=== PATIENT | female | born 1965 | race Caucasian/White ===

== ENCOUNTER → 2017-01-16 | Outpatient (CLI) | payer OTHER ==
[~2017-01-16] MED LIST: ASPI325T39 PO; BCTCR EXT; CALC8.5C PO; CARB1SOL8 OTB; CLR10 PO; DOCU1TAB6 PO; FISHOIL PO; FRS/40 PO; HYDRSOL30 OTB; ISOS30TA3 PO; LACT12LO3 TOP; LEVO50TA6 PO; LISI-789 PO; LITH300T2 PO; MULTTAB58 PO; NPHOPS12 OPB; POLY1GRA PO; POTA10CA28 PO; POTA1CAP2 PO; PRIM250T30 PO; QUET1TAB7 PO; QUET1TAB90 PO; QUET50TA14 PO; SIMV40TA2 PO; SKINCRE34 TOP; TPRSR/25 PO; TRIA0.022 TOP; VITA400C3 PO
[2017-01-16 09:54] LABS: CHOLESTEROL/HDL RATIO 2.2
== END | disposition home or self-care (01) ==
LOC: C.LAB1850 07:31
PROVIDERS: ATTEND Family Medicine
DX: E78.00 Pure hypercholesterolemia, unspecified (principal)

== ENCOUNTER → 2017-07-17 | Outpatient (CLI) | payer OTHER ==
[2017-07-17 09:53] LABS: ALB/GLOB RATIO 1.1 (0.9-2); ALKALINE PHOSPHATASE 89 U/L (45-117); ALT/SGPT 24 U/L (12-78); AST/SGOT 21 U/L (15-37); BLOOD UREA NITROGEN 17 mg/dl (7-18); BUN/CREATININE RATIO 24.6 (10-20); CALCIUM 9.1 mg/dl (8.5-10.1); CARBON DIOXIDE 30 mmol/L (21-32); CHLORIDE 104 mmol/L (98-107); CREATININE 0.68 mg/dl (0.60-1.20); GLUCOSE 129 mg/dl (70-99); POTASSIUM 3.9 mmol/L (3.5-5.1); SODIUM 141 mmol/L (136-145)
[2017-07-17 10:02] LABS: THYROID STIMULATING HORMONE 0.922 uIu/ml (0.300-4.500)
== END | disposition home or self-care (01) ==
LOC: C.LAB1850 08:03
PROVIDERS: ATTEND Psychiatry & Neurology Psychiatry
DX: Z51.81 Encounter for therapeutic drug level monitoring (principal); Z79.899 Other long term (current) drug therapy

== ENCOUNTER → 2017-07-24 | Outpatient (CLI) | payer OTHER | END | disposition home or self-care (01) | LOC: C.PAPS 14:38 | PROVIDERS: ATTEND Physician Assistant | DX: Z12.4 Encounter for screening for malignant neoplasm of cervix (principal); Z11.51 Encounter for screening for human papillomavirus (HPV) ==

== ENCOUNTER → 2017-07-31 | Outpatient (CLI) | payer OTHER | END | disposition home or self-care (01) | LOC: C.LAB1850 08:24 | PROVIDERS: ATTEND Psychiatry & Neurology Psychiatry | DX: Z79.899 Other long term (current) drug therapy (principal); Z11.59 Encounter for screening for other viral diseases ==

== ENCOUNTER 2017-09-19 12:08 | Emergency (ER) | payer OTHER ==
[~2017-09-19 12:08] MED LIST changes: -PRIM250T30 PO; +PRIM250T9 PO
[2017-09-19 12:14] VITALS: TEMP 36.8
--- NOTE | 2017-09-19 13:31 | EMERGENCY ROOM VISIT NOTE ---
History Report prepared by Sarah: Lizbeth Kaplan Under the Supervision of: Dr. Anup Henley M.D. First contact with patient: 13:05 Chief Complaint: CHOKING Stated Complaint: CHOKING Nursing Triage Summary: Pt arrived via BLS litter from [facility] s/p choking on vegetables. Per EMS, back thrusts performed, pt coughed up the vegetables then chewed then up and ate them. Pt denies complaints on arrival. History of Present Illness The patient is a 52 year old female who presents to the Emergency Room with complaints of a resolved choking episode that occurred at 1145--1-2 hours ago. The patient is a resident at [facility] and was brought to the Emergency Department via EMS. The patients caregivers state that the patient has a history of Mental Retardation. Her caregivers noted that the patient was eating vegetables, when she had an episode of choking. The caregiver states that she first patted the patient on the back and when the piece of food did not dislodge, she performed the Heimlich. The caregiver then notes that the patient brought the food back up but ended up swallowing it. The caregiver notes that the patient has a history of choking because the patient tends to eat too fast. HPI limited secondary to MR. Source of History: caregiver History Limited By: other (Mental Retardation ) Onset: 1145 Position: other (global) Quality: other (choking) Review of Systems ROS limited secondary to MR. Past Medical & Surgical Medical Problems: (1) Mental retardation Family History Unobtainable secondary to MR. Social History Smoking Status: Unknown if Ever Smoked Housing Status: assisted living Current/Historical Medications Scheduled Acetic Acid (Otic) (Acetic Acid), 4 DROPS OTB 2XWK Aspirin (Aspirin Ec), 325 MG PO DAILY Betamethasone Dip (Betamethasone Dipropionat), 1 APPLN TOP BID Carbamide Peroxide (Otic) (Debrox), 4 DROPS OTB 2XWK Cetirizine (Zyrtec), 10 MG PO DAILY Docusate Sodium (Colace), 1 CAP PO DAILY Eucerin (Eucerin), 1 APPLN TOP BID Fish Oil ([place]-3), 1 CAP PO TID Furosemide (Lasix), 40 MG PO BID Isosorbide Mononitrate Ext Rel (Imdur Ext Rel), 30 MG PO QAM Lactic Acid (Ammonium Lactate Cream 12%), 1 DOSE TOP UD Levothyroxine Sodium (Levothyroxine Sodium), 1 TAB PO DAILY Lisinopril (Zestril), 1 TAB PO DAILY Antler Carbonate (Antler Carbonate), 3 TAB PO HS Metoprolol Succ (Toprol Xl) (Toprol-Xl), 25 MG PO DAILY Multivitamins/Minerals (Cerovite Advanced Formula), 1 TAB PO DAILY Mupirocin 2% (Bactroban 2%), 1 APPLN EXT UD Naphazoline/Pheniramine (Naphcon-A), 1 DROP OPB BID Potassium Chloride (Micro-K Ext Rel), 2 TAB PO QAM Potassium Chloride (Micro-K Ext Rel), 1 TAB PO QPM Primidone (Mysoline), 250 MG PO DAILY Quetiapine Fumarate (Seroquel), 2 TAB PO 1200 Quetiapine Fumarate (Seroquel), 300 MG PO HS Quetiapine Fumarate (Seroquel Xr), 2 TAB PO DAILY Quetiapine Fumarate (Seroquel), 25 MG PO 1200 Sertraline (Zoloft), 25 MG PO DAILY Silver Sulfadiazine (Silvadene), 1 APPLN TOP DAILY Simvastatin (Zocor), 40 MG PO QPM Vitamin E (Ygoz-H-Gfize), 1 CAP PO BID Allergies Coded Allergies: Carbamazepine (Verified Allergy, Unknown, 09/19/17) Fabric Softeners (Unverified Allergy, Unknown, ., 09/19/17) Penicillins (Verified Allergy, Unknown, 09/19/17) Phenytoin (Verified Allergy, Unknown, 09/19/17) Unobtainable (Unverified Allergy, Unknown, PERFUME, 09/19/17) Valproic Acid (Unverified Allergy, Unknown, UNKNOWN, 09/19/17) Pseudoephedrine (Unverified Adverse Reaction, Unknown, UNKNOWN, 09/19/17) Physical Exam Vital Signs Date Time Temp Pulse Resp B/P (MAP) Pulse Ox O2 Delivery O2 Flow Rate FiO2 09/19/17 14:01 82 18 104/65 97 Room Air 09/19/17 12:14 97 Room Air 09/19/17 12:14 36.8 73 18 104/65 97 Room Air Physical Exam GENERAL: Patient is in no acute distress. HEENT: No acute trauma, normocephalic atraumatic, mucous membranes moist, no nasal congestion, no scleral icterus. NECK: No stridor, no adenopathy, no meningismus, trachea is midline. LUNGS: Clear to auscultation bilaterally, no wheeze, no rhonchi, breath sounds equal. HEART: Without murmurs gallops or rubs, regular rate and rhythm. ABDOMEN: Soft, nontender, bowel sounds positive, no hernias, no peritonitis. EXTREMITIES: No cyanosis or edema, full range of motion of all the joints without pain or difficulty, no signs for acute trauma. NEUROLOGIC: Awake and alert. Moving all extremities. Mental retardation noted. Skin: No rash or jaundice. Medical Decision & Procedures ER Provider Diagnostic Interpretation: Radiology results as stated below per my review and radiologist interpretation: SINGLE VIEW CHEST CLINICAL HISTORY: Choking episode. FINDINGS: An AP, portable, upright chest radiograph is compared to study dated 04/21/2015. The examination is degraded by portable technique and patient rotation. The cardiomediastinal silhouette is unremarkable. There are patchy bibasilar airspace opacities. The upper lobes appear clear. No large pleural effusion or pneumothorax is seen. The skeletal structures are osteopenic. The bony thorax is grossly intact. IMPRESSION: Patchy airspace opacities are present at both lung bases. Correlate clinically for evidence of an infectious/inflammatory pneumonitis. Radiographic follow-up to resolution is recommended. Electronically signed by: Anup Dow M.D. 09/19/2017 2:04 PM ED Course 1315: The patient was evaluated in room B3. A complete history and physical exam was performed. 1421: Reevaluated the patient. Discussed results and discharge instructions: The patient's caregiver verbalized understanding and agreement. The patient is ready for discharge. Medical Decision The patient is a 52 year old female who presents to the ED with complaints of choking. Differential diagnoses considered include Choking episode, Respiratory distress, Pulmonary foreign body. The patient presents after a choking episode. Back thrusts and the Heimlich maneuver were performed. The patient did eventually swallow the piece of food that was caught in the trachea. The patient now is doing well and is back to baseline. On exam, her lungs are clear. She is not hypoxic or toxic. Chest film shows some potential atelectasis at the bases, no pneumonia, no pneumothorax. The patient is not coughing, she looks well. She is being discharged. The caregivers will watch closely for fever, cough or any dyspnea. Blood Pressure Screening Patient's blood pressure: Normal blood pressure Impression Primary Impression: Choking episode Scribe Attestation The scribe's documentation has been prepared under my direction and personally reviewed by me in its entirety. I confirm that the note above accurately reflects all work, treatment, procedures, and medical decision making performed by me. Departure Information Dispostion Home / Self-Care Referrals Salomon Andrade III, CRNP (PCP) Forms HOME CARE DOCUMENTATION FORM, IMPORTANT VISIT INFORMATION Patient Instructions My [facility] Additional Instructions return for cough, if seems short of breath or has fever chest film today was ok lungs sounded clear on exam
[2017-09-19] MEDS ORDERED: SIMV40TA2 PO (13:58)
[2017-09-19] MEDS ORDERED: DOCU-94 PO (13:58)
[2017-09-19] MEDS ORDERED: MULT-878 PO (13:58)
[2017-09-19] MEDS ORDERED: METO25TA3 PO (13:58)
[2017-09-19] MEDS ORDERED: LCHC12280 TOP (13:58)
[2017-09-19] MEDS ORDERED: SKINCRE34 TOP (13:58)
[2017-09-19] MEDS ORDERED: FRS/40 PO (13:58)
[2017-09-19] MEDS ORDERED: ASPI325T39 PO (13:58)
[2017-09-19] MEDS ORDERED: SILV1CRE73 TOP (13:58)
[2017-09-19] MEDS ORDERED: ISOS30TA3 PO (13:58)
[2017-09-19] MEDS ORDERED: LISI-789 PO (13:58)
[2017-09-19] MEDS ORDERED: CARB1SOL8 OTB (13:58)
[2017-09-19] MEDS ORDERED: BCTCR/30 EXT (13:58)
[2017-09-19] MEDS ORDERED: QUET50TA14 PO (13:58)
[2017-09-19] MEDS ORDERED: CETI10TA84 PO (13:58)
[2017-09-19] MEDS ORDERED: LEVO50TA6 PO (13:58)
[2017-09-19] MEDS ORDERED: POTA10CA28 PO ×2 (13:58)
[2017-09-19] MEDS ORDERED: [UNRECOGNIZED DRUG - CODE] PO (13:58)
[2017-09-19] MEDS ORDERED: NPHA OPB (13:58)
[2017-09-19] MEDS ORDERED: QUET1TAB30 PO (13:58)
[2017-09-19] MEDS ORDERED: LITH150C6 PO (13:58)
[2017-09-19] MEDS ORDERED: PRIM250T9 PO (13:58)
[2017-09-19] MEDS ORDERED: DPRSCR15 TOP (13:58)
[2017-09-19] MEDS ORDERED: SERT25TA PO (13:58)
[2017-09-19] MEDS ORDERED: QUET1TAB37 PO (13:58)
[2017-09-19] MEDS ORDERED: OMEG10007 PO (13:58)
[2017-09-19] MEDS ORDERED: QUET1TAB7 PO (13:58)
[2017-09-19] MEDS ORDERED: ACET2SOL7 OTB (13:58)
[2017-09-19 14:01] VITALS: BP 104/65; PULSE 82; O2SAT 97
--- NOTE | 2017-09-19 14:06 | DIAGNOSTIC IMAGING REPORT ---
SINGLE VIEW CHEST CLINICAL HISTORY: Choking episode. FINDINGS: An AP, portable, upright chest radiograph is compared to study dated 04/21/2015. The examination is degraded by portable technique and patient rotation. The cardiomediastinal silhouette is unremarkable. There are patchy bibasilar airspace opacities. The upper lobes appear clear. No large pleural effusion or pneumothorax is seen. The skeletal structures are osteopenic. The bony thorax is grossly intact. IMPRESSION: Patchy airspace opacities are present at both lung bases. Correlate clinically for evidence of an infectious/inflammatory pneumonitis. Radiographic follow-up to resolution is recommended. Electronically signed by: Anup Dow M.D. 09/19/2017 2:04 PM Dictated Date/Time: 09/19/2017 2:03 PM
== END 2017-09-19 14:20 | disposition home or self-care (01) ==
LOC: EDBD 12:08 → C.EDB 12:09
DX: T17.408A Unspecified foreign body in trachea causing other injury, initial encounter (principal); X58.XXXA Exposure to other specified factors, initial encounter; F79 Unspecified intellectual disabilities; Z79.82 Long term (current) use of aspirin; Z79.899 Other long term (current) drug therapy

== ENCOUNTER → 2017-11-13 | Outpatient (CLI) | payer OTHER ==
[~2017-11-13] MED LIST changes: +ACET2SOL7 OTB; -BCTCR EXT; +BCTCR/30 EXT; -CALC8.5C PO; +CETI10TA84 PO; -CLR10 PO; +DOCU-94 PO; -DOCU1TAB6 PO; +DPRSCR15 TOP; -FISHOIL PO; -HYDRSOL30 OTB; -LACT12LO3 TOP; +LCHC12280 TOP; +LITH150C6 PO; -LITH300T2 PO; +METO25TA3 PO; +MULT-878 PO; -MULTTAB58 PO; +NPHA OPB; -NPHOPS12 OPB; +OMEG10007 PO; -POLY1GRA PO; -POTA1CAP2 PO; +QUET1TAB30 PO; +QUET1TAB37 PO; -QUET1TAB90 PO; +SERT25TA PO; +SILV1CRE73 TOP; -TPRSR/25 PO; -TRIA0.022 TOP; -VITA400C3 PO; +[UNRECOGNIZED DRUG - CODE] PO
[2017-11-13 09:49] LABS: BLOOD UREA NITROGEN 13 mg/dl (7-18); CALCIUM 9.4 mg/dl (8.5-10.1); CARBON DIOXIDE 28 mmol/L (21-32); CREATININE 0.65 mg/dl (0.60-1.20); GLUCOSE 118 mg/dl (70-99); POTASSIUM 3.6 mmol/L (3.5-5.1); SODIUM 139 mmol/L (136-145)
== END | disposition home or self-care (01) ==
LOC: C.LAB1850 08:06
PROVIDERS: ATTEND Psychiatry & Neurology Psychiatry
DX: Z79.899 Other long term (current) drug therapy (principal)

== ENCOUNTER → 2018-01-21 | Outpatient (CLI) | payer OTHER ==
[2018-01-21 09:33] LABS: BASO % 0.7 %; BASO ABS # 0.05 K/uL (0-0.2); EOS % 5.7 %; EOS ABS # 0.43 K/uL (0-0.5); HEMATOCRIT 38.6 % (37-47); HEMOGLOBIN 12.8 g/dL (12.0-16.0); IG# 0.01 K/uL (0.00-0.02); LYMPH % 20.6 %; LYMPH ABS # 1.56 K/uL (1.2-3.4); MEAN CELL VOLUME 104.6 fL (80-100); MEAN CORPUSCULAR HEMOGLOBIN 34.7 pg (25-34); MEAN CORPUSCULAR HGB CONC 33.2 g/dl (32-36); MEAN PLATELET VOLUME 10.2 fL (7.4-10.4); MONO % 11.1 %; MONO ABS # 0.84 K/uL (0.11-0.59); NEUT % 61.8 %; NEUT ABS # 4.67 K/uL (1.4-6.5); PLATELET COUNT 290 K/uL (130-400); RED CELL DISTRIBUTION WIDTH SD 53.8 fL (36.4-46.3); WHITE BLOOD COUNT 7.56 K/uL (4.8-10.8)
[2018-01-21 10:01] LABS: ALBUMIN 3.5 gm/dl (3.4-5.0); ALKALINE PHOSPHATASE 145 U/L (45-117); ALT/SGPT 29 U/L (12-78); AST/SGOT 36 U/L (15-37); BLOOD UREA NITROGEN 10 mg/dl (7-18); CARBON DIOXIDE 29 mmol/L (21-32); CREATININE 0.62 mg/dl (0.60-1.20); GLUCOSE 79 mg/dl (70-99); POTASSIUM 3.9 mmol/L (3.5-5.1); SODIUM 140 mmol/L (136-145); TOTAL PROTEIN 7.4 gm/dl (6.4-8.2)
[2018-01-21 10:07] LABS: CHOLESTEROL 165 mg/dl (0-200); LDL CHOLESTEROL CALCULATED 73 mg/dl
== END | disposition home or self-care (01) ==
LOC: C.LAB1850 07:58
PROVIDERS: ATTEND Neuromusculoskeletal Medicine & OMM
DX: Z79.899 Other long term (current) drug therapy (principal); Z00.00 Encounter for general adult medical examination without abnormal findings; E03.9 Hypothyroidism, unspecified; E78.00 Pure hypercholesterolemia, unspecified; I10 Essential (primary) hypertension

== ENCOUNTER 2018-11-27 10:36 | Observation (INO) ==
[2018-11-27] MEDS ORDERED: LORazepam 1 MG/2 ML VIAL IV STA (12:24)
[2018-11-27 13:31] LABS: Basophils # (auto) 0.05 K/uL (0-0.2); Basophils % (auto) 0.9 %; Eosinophils # (auto) 0.51 K/uL (0-0.5); Eosinophils % (auto) 8.8 %; Hematocrit (blood only) 37.6 % (37-47); Hemoglobin 12.2 g/dL (12.0-16.0); Immature Granulocytes # (auto) 0.01 K/uL (0.00-0.02); Immature Granulocytes % (auto) 0.2 %; Lymphocytes # (auto) 1.87 K/uL (1.2-3.4); Lymphocytes % (auto) 32.2 %; Mean Corpuscular Hgb Conc 32.4 g/dL (32-36); Mean Corpuscular Volume 105.3 fL (80-100); Monocytes # (auto) 0.56 K/uL (0.11-0.59); Monocytes % (auto) 9.6 %; Neutrophils # (auto) 2.81 K/uL (1.4-6.5); Neutrophils % (auto) 48.3 %; Platelet Count 310 K/uL (130-400); RDW Coefficient of Variation 14.3 % (11.5-14.5); RDW Standard Deviation 55.5 fL (36.4-46.3); Red Blood Count 3.57 M/uL (4.2-5.4); White Blood Count 5.81 K/uL (4.8-10.8)
[2018-11-27 13:44] LABS: INR 0.9 (0.9-1.1); Prothrombin Time 9.5 Seconds (9.0-12.0)
[2018-11-27 13:48] LABS: Blood Urea Nitrogen 15 mg/dl (7-18); Calcium 8.9 mg/dl (8.5-10.1); Carbon Dioxide 30 mmol/L (21-32); Chloride 104 mmol/L (98-107); Creatinine Clr Calc Pharmacy 87.7 ml/min; Est GFR (African American) 125.5; Est GFR (Non-African American) 108.3; Glucose 83 mg/dl (70-99); Magnesium 2.7 mg/dl (1.8-2.4); Potassium 3.9 mmol/L (3.5-5.1); Sodium 139 mmol/L (136-145)
[2018-11-27 13:53] LABS: Troponin I < 0.015 ng/ml (0-0.045)
[2018-11-27] MEDS ORDERED: DiphenhydrAMINE HCL 50 MG/ML VIAL IV STA (13:58)
[2018-11-27] MEDS ORDERED: SODIUM CHLORIDE 0.9% 1000ML 250 ML IV ONE (14:00)
--- NOTE | 2018-11-27 14:25 | Magnetic Resonance Report ---
MRI OF THE BRAIN WITHOUT IV CONTRAST CLINICAL HISTORY: Strokelike symptoms. COMPARISON STUDY: CT of the brain dated 11/22/2018. TECHNIQUE: MRI of the brain was performed utilizing axial diffusion-weighted, axial T1 and T2, and sa gittal T1 weighted sequences. The patient was not cooperative for additional imaging. FINDINGS: Brain parenchyma: There is a small focus of restricted diffusion identified in the right posterior fr ontal cortex consistent acute to subacute ischemia. No additional foci of restricted diffusion are id entified. There is no hemorrhage or mass effect. There are involutional changes noting mild subcortic al and periventricular microangiopathic disease. Prominent perivascular spaces are noted in the basal ganglia. No extra-axial fluid collection is seen. The cerebellar tonsils are normal in configuration . Ventricles, sulci, and cisterns: Prominent secondary to involutional change. Pituitary and sella: Unremarkable. Intracranial vasculature: Normal flow voids are maintained at the skull base. Orbits: The bony orbits are grossly intact. Orbital contents are normal in appearance. Sinuses and mastoids: Moderate mucosal thickening is seen in the right maxillary antrum and moderate mucosal thickening is noted in the left maxillary antrum. Mucosal thickening is also seen in the ethm oid sinuses. The mastoid air cells are well pneumatized. Calvarium: Unremarkable. Cervical cord: Partially visualized cervical spinal cord is normal in morphology and signal intensity . IMPRESSION: 1. There is a small focus of restricted diffusion identified involving the right posterior frontal co rtex consistent with acute to subacute ischemia. 2. No additional foci of acute ischemia are identified. 3. There is no hemorrhage or mass effect. Electronically signed by: Anup Dow M.D. 11/27/2018 2:24 PM
--- NOTE | 2018-11-27 15:31 | Emergency Department Note ---
Entered by Alia Morin acting as a scribe for History of Present Illness General Chief complaint: Neuro Symptoms/Deficit Source: patient, family and other (Skills worker) History of Present Illness Provider complaint: neurological symptoms Onset (ago): day(s) 5 Location: head Pain Consistency: + intermittent Quality: + other (facial droop, lethargic) Associated symptoms: + denies other symptoms (denies abdominal pain) The patient is a 53 year old female who presents to the Emergency Room with complaints of intermittent neurological symptoms beginning 5 nights ago. Per combat systems officer, the patient was diagnosed with a TIA and UTI. Her family states that the patient's symptoms were resolved by the time she was home. Per family, the patient was here 5 nights ago as she had developed a facial droop. Her family states that the patient was lethargic today, not following directions well, and was hard to wake up. Per Skills worker, it is unusual for the patient to be as quiet as she is today. Per Skills worker, the patient also had a facial droop today. Workers state that the patient's speech is at baseline currently. Her family states that the patient does not have a history of a stroke or problems with blood sugars. The patient denies having abdominal pain. Per workers, the patient has not had any recent falls. Home Medications Home Medications Medication Instructions Recorded Confirmed Type Wdco-B-Dllns 400 unit PO BID 11/22/18 11/27/18 History acetic acid 4 drp OTIC (EAR) 2XWK 11/22/18 11/27/18 History betamethasone dipropionate 1 applic TOPICAL BID 11/22/18 11/27/18 History carbamide peroxide [Debrox] 4 drp OTIC (EAR) 2XWK 11/22/18 11/27/18 History cetirizine [Zyrtec] 10 mg PO QAM 11/22/18 11/27/18 History docusate sodium [Colace] 100 mg PO BID 11/22/18 11/27/18 History furosemide [Lasix] 40 mg PO BID 11/22/18 11/27/18 History isosorbide mononitrate 30 mg PO QAM 11/22/18 11/27/18 History levothyroxine [Synthroid] 50 mcg PO QAM 11/22/18 11/27/18 History lisinopril [Zestril] 2.5 mg PO QAM 11/22/18 11/27/18 History metoprolol succinate [Toprol XL] 25 mg PO QAM 11/22/18 11/27/18 History dwtvkfjgfelt-wvpv-vwzro acid 0.5 tab PO QAM 11/22/18 11/27/18 History [Cerovite Advanced Formula] mupirocin 1 applic TOPICAL BID PRN 11/22/18 11/27/18 History naphazoline-pheniramine [Naphcon-A] 1 drp OPHTHALMIC (EYE) BID 11/22/18 History omega 3-pab-gir-fish oil [Fish Oil] 1 cap PO TID 11/22/18 11/27/18 History potassium chloride [Klor-Con M10] 20 meq PO QAM 11/22/18 11/27/18 History primidone [Mysoline] 250 mg PO QAM 11/22/18 11/27/18 History quetiapine [Seroquel] 25 mg PO DAILY@1200 11/22/18 11/27/18 History quetiapine [Seroquel] 200 mg PO HS 11/22/18 11/27/18 History quetiapine [Seroquel] 300 mg PO HS 11/22/18 11/27/18 History white petrolatum-mineral oil 1 applic TOPICAL BID 11/22/18 11/27/18 History [Eucerin] ammonium lactate 1 applic TOPICAL BID 11/27/18 11/27/18 History lithium carbonate 450 mg PO HS 11/27/18 11/27/18 History potassium chloride 10 meq PO HS 11/27/18 11/27/18 History atorvastatin 40 mg PO HS #30 tab 11/28/18 Rx clopidogrel 75 mg PO QAM #30 tab 11/28/18 Rx Allergies Allergy/AdvReac Type Severity Reaction Status Date / Time carbamazepine Allergy Unknown Unknown Verified 11/27/18 11:54 Penicillins Allergy Unknown Unknown Verified 11/27/18 11:54 phenytoin Allergy Unknown Unknown Verified 11/27/18 11:54 valproic acid Allergy Unknown UNKNOWN Unverified 11/27/18 11:54 pseudoephedrine AdvReac Unknown UNKNOWN Unverified 11/27/18 11:54 Fabric Softeners Allergy Unknown . Uncoded 11/27/18 11:54 Past Med/Surg History Medical History TIA (transient ischemic attack) (Acute) Gallstones (Resolved) Social History Current Living Situation: Other Current Living Situation Comment: [facility] Other Information That Helps Us Care for You: No Feels Safe at Home: Yes Safety Concerns: Feels Safe At This Time Smoking Status: Never smoker Do You Dip or Chew Tobacco: No Hx Alcohol Use: No Hx Substance Use: No Beliefs That Will Affect Care: None Preferred Language: Belarusian Review of Systems See HPI for pertinent positives & negatives. and A total of 10 systems reviewed and were otherwise negative Physical Exam Vital Signs Vital Signs - 24 hr 11/28/18 12:00 11/28/18 13:10 11/28/18 15:47 Temperature 36.7 C 37.0 C Temperature Source Oral Axillary Pulse Rate 73 Pulse Rate [Right Finger] 78 Respiratory Rate 21 16 Blood Pressure [Left Arm] 119/74 135/86 Blood Pressure Mean [Left Arm] 89 102 Blood Pressure Position [Left Arm] Lying Lying Pulse Oximetry 96 98 Oxygen Delivery Method Room Air 11/28/18 16:08 11/28/18 16:29 Temperature 37.0 C Temperature Source Pulse Rate 97 H Pulse Rate [Right Finger] 78 Respiratory Rate 16 Blood Pressure [Left Arm] 135/86 Blood Pressure Mean [Left Arm] Blood Pressure Position [Left Arm] Pulse Oximetry 98 Oxygen Delivery Method Vital signs reviewed. General: Chronically ill-appearing female, in no significant distress. HEENT: No scleral icterus, PERRLA, neck supple. Atraumatic. Cardiovascular: Regular rate and rhythm, no extra sounds. Pulmonary: Clear to auscultation bilaterally, normal work of breathing. Abdomen: Soft, nontender, nondistended, positive bowel sounds. Musculoskeletal: Atraumatic, no peripheral edema. Neurologic: Minimally verbal but at baseline. Moves all extremities equally. Cranial nerves intact. Follows commands with some reassurance. No appreciable ataxia Skin: Warm, dry, no rash Course 1212: Past medical records reviewed. The patient was evaluated in room B5, and a complete history and physical examination were performed. 1444: I updated the patient's family who verbalized agreement and understanding of the treatment plan. 1459: I discussed the patient's case with Dr. Fredi Jimenez who will evaluate the patient for further management. Consultations Consultation #1: Dr. Fredi Jimenez Time: 14:59 Administered Medications Discontinued Medications Acetic Acid (Vosol 2% Otic) 4 drops OT MoTh@0900 OLYA Stop: 12/28/18 08:59 Last Admin: 11/28/18 09:35 Dose: 4 drops Aspirin (Ecotrin) 325 mg PO QAM OLYA Stop: 12/28/18 08:59 Last Admin: 11/28/18 09:30 Dose: 325 mg Betamethasone Dipropion Augmented (Diprolene 0.05%) 1 appln TOP BID OLYA Stop: 12/27/18 20:59 Last Admin: 11/28/18 09:29 Dose: 1 appln Admin: 11/27/18 21:34 Dose: Not Given Cefdinir (Omnicef) 300 mg PO BID OLYA Stop: 12/02/18 20:59 Last Admin: 11/28/18 09:34 Dose: 300 mg Admin: 11/27/18 21:32 Dose: 300 mg Cetirizine HCl (Zyrtec) 10 mg PO QAM OLYA Stop: 12/28/18 08:59 Last Admin: 11/28/18 09:35 Dose: 10 mg Clopidogrel Bisulfate (Plavix) 75 mg PO QAM OLYA Stop: 12/28/18 09:29 Last Admin: 11/28/18 10:02 Dose: 75 mg Diphenhydramine HCl (Benadryl) 25 mg IV NOW STA Stop: 11/27/18 13:59 Last Admin: 11/27/18 14:28 Dose: Not Given Docusate Sodium (Colace) 100 mg PO BID OLYA Stop: 12/27/18 20:59 Last Admin: 11/28/18 09:29 Dose: 100 mg Admin: 11/27/18 21:31 Dose: 100 mg Fish Oil (Hostetter-3 (Purified Fish Oil)) 1 gm PO TID OLYA Stop: 12/27/18 20:59 Last Admin: 11/28/18 13:51 Dose: 1 gm Admin: 11/28/18 09:33 Dose: 1 gm Admin: 11/27/18 21:30 Dose: 1 gm Lorazepam (Ativan) 1 mg in 2 mls @ 2 mls/min IV NOW STA Stop: 11/27/18 12:25 Last Admin: 11/27/18 13:20 Dose: 2 mls/min Sodium Chloride (Nss 1000ml) 250 mls @ 999 mls/hr IV .Q16M ONE Stop: 11/27/18 14:15 Last Infusion: 11/27/18 16:04 Dose: 0 mls/hr Admin: 11/27/18 15:35 Dose: 999 mls/hr Lorazepam (Ativan) 0.5 mg in 1 mls @ 0.5 mls/min IV Q1H PRN PRN Reason: Agitation Stop: 12/27/18 20:09 Last Admin: 11/28/18 10:35 Dose: 0.5 mls/min Sodium Chloride (Nss 1000ml) 250 mls @ 999 mls/hr IV .Q16M ONE Stop: 11/28/18 08:25 Last Infusion: 11/28/18 09:27 Dose: 0 mls/hr Admin: 11/28/18 09:10 Dose: 999 mls/hr Ioversol (Optiray 320 125ml) 93 ml IV ONCE PRN PRN Reason: Interaction Checking Stop: 12/02/18 11:39 Last Admin: 11/28/18 11:41 Dose: 93 ml Lactic Acid (Amlactin) 1 gm EXT BID OLYA Stop: 12/27/18 20:59 Last Admin: 11/28/18 09:57 Dose: 1 gm Admin: 11/27/18 21:35 Dose: 1 gm Levothyroxine Sodium (Synthroid) 50 mcg PO DAILYBB OLYA Stop: 12/28/18 06:29 Last Admin: 11/28/18 05:48 Dose: 50 mcg Opal Carbonate (Eskalith) 450 mg PO HS OLYA Stop: 12/27/18 20:59 Last Admin: 11/27/18 21:31 Dose: 450 mg Metoprolol Succinate (Toprol Xl) 25 mg PO QAM OLYA Stop: 12/28/18 08:59 Last Admin: 11/28/18 09:34 Dose: Not Given Multi-Ingredient Cream (Hydrocerin) 1 appln TOP BID OLYA Stop: 12/27/18 20:59 Last Admin: 11/28/18 09:31 Dose: 1 appln Admin: 11/27/18 21:33 Dose: 1 appln Multivitamins/Minerals (Multivitamin W/ Minerals Tab) 0.5 tab PO QAM OLYA Stop: 12/28/18 08:59 Last Admin: 11/28/18 09:32 Dose: 0.5 tab Mupirocin (Bactroban 2%) [address] [facility] Stop: 12/27/18 20:59 Last Admin: 11/28/18 09:29 Dose: 1 appln Admin: 11/27/18 21:35 Dose: Not Given Naphazoline HCl/Pheniramine Maleate (Visine-A) [address] [facility] Stop: 12/27/18 20:59 Last Admin: 11/28/18 09:34 Dose: 1 drops Admin: 11/27/18 21:35 Dose: 1 drops Potassium Chloride (Klor-Con M10) 10 meq PO [facility] Stop: 12/27/18 20:59 Last Admin: 11/27/18 21:32 Dose: 10 meq Potassium Chloride (Klor-Con M10) [facility] [place]: 12/28/18 08:59 Last Admin: 11/28/18 09:31 Dose: 20 meq Primidone (Mysoline) 250 mg PO [facility] Stop: 12/28/18 08:59 Last Admin: 11/28/18 09:33 Dose: 250 mg Quetiapine Fumarate (Seroquel) 25 mg PO DAILY@1200 [facility] Stop: 12/28/18 11:59 Last Admin: 11/28/18 13:51 Dose: 25 mg Quetiapine Fumarate (Seroquel) 300 mg PO [facility] Stop: 12/27/18 20:59 Last Admin: 11/27/18 21:32 Dose: 300 mg Quetiapine Fumarate (Seroquel) 200 mg PO [facility] Stop: 12/27/18 20:59 Last Admin: 11/27/18 21:30 Dose: 200 mg Simvastatin (Zocor) 40 mg PO [facility] Stop: 12/27/18 20:59 Last Admin: 11/27/18 21:36 Dose: 40 mg Vitamin E (Vitamin E) [address] [facility] Stop: 12/27/18 20:59 Last Admin: 11/28/18 09:35 Dose: 400 units Admin: 11/27/18 21:37 Dose: 400 units Medical Decision Making Differential Diagnosis Differentials include: ICH, CVA, PNA, bronchitis, PE, UTI, gastroenteritis, electrolyte abnormality, ACS, CHF among others. Medical Records Attestation: I reviewed the patient's medical records. Home Medications Current Medication List: was personally reviewed by me Laboratory Data Attestation: I reviewed the patient's lab results. Result diagrams: 11/27/18 13:13 11/28/18 05:40 Lab Results 11/27/18 11/27/18 11/27/18 Range/Units 12:48 13:13 13:13 WBC 5.81 (4.8-10.8) K/uL RBC 3.57 L (4.2-5.4) M/uL Hgb 12.2 (12.0-16.0) g/dL Hct 37.6 (37-47) % MCV 105.3 H (80-100) fL MCH 34.2 H (25-34) pg MCHC 32.4 (32-36) g/dL RDW Std Deviation 55.5 H (36.4-46.3) fL RDW Coeff of Samm 14.3 (11.5-14.5) % Plt Count 310 (130-400) K/uL MPV 10.0 (7.4-10.4) fL Immature Gran % (Auto) 0.2 % Neut % (Auto) 48.3 % Lymph % (Auto) 32.2 % [place] % (Auto) 9.6 % Eos % (Auto) 8.8 % Baso % (Auto) 0.9 % Immature Gran # (Auto) 0.01 (0.00-0.02) K/uL Neut # (Auto) 2.81 (1.4-6.5) K/uL Lymph # (Auto) 1.87 (1.2-3.4) K/uL [place] # (Auto) 0.56 (0.11-0.59) K/uL Eos # (Auto) 0.51 H (0-0.5) K/uL Baso # (Auto) 0.05 (0-0.2) K/uL PT 9.5 (9.0-12.0) Seconds INR 0.9 (0.9-1.1) Sodium (136-145) mmol/L Potassium (3.5-5.1) mmol/L Chloride (98-107) mmol/L Carbon Dioxide (21-32) mmol/L Anion Gap (3-11) BUN (7-18) mg/dl Creatinine (0.6-1.2) mg/dl Est Cr Clr Drug Dosing ml/min Est GFR ( Amer) Est GFR (Non-Af Amer) BUN/Creatinine Ratio (10-20) Glucose (70-99) mg/dl POC Glucose 80 (70-99) Estimat Average Glucose mg/dl Hemoglobin A1c (4.5-5.6) % Calcium (8.5-10.1) mg/dl Magnesium (1.8-2.4) mg/dl Troponin I (0-0.045) ng/ml Triglycerides (0-150) mg/dl Cholesterol (0-200) mg/dl LDL Cholesterol, Calc mg/dl VLDL Cholesterol, Calc mg/dl HDL Cholesterol mg/dl Cholesterol/HDL Ratio Vitamin B12 (211-911) pg/ml Folate (>5.38) ng/ml Urine Color Urine Appearance (Clear) Urine pH (4.5-7.5) Ur Specific [place] (1.000-1.030) Urine Protein (Negative) Urine Glucose (UA) (Negative) Urine Ketones (Negative) Urine Blood (Negative) Urine Nitrite (Negative) Urine Bilirubin (Negative) Urine Urobilinogen (Negative) Ur Leukocyte Esterase (Negative) Opal (0.6-1.2) mmol/L 11/27/18 11/28/18 11/28/18 Range/Units 13:13 05:40 05:40 WBC (4.8-10.8) K/uL RBC (4.2-5.4) M/uL Hgb (12.0-16.0) g/dL Hct (37-47) % MCV (80-100) fL MCH (25-34) pg MCHC (32-36) g/dL RDW Std Deviation (36.4-46.3) fL RDW Coeff of Samm (11.5-14.5) % Plt Count (130-400) K/uL MPV (7.4-10.4) fL Immature Gran % (Auto) % Neut % (Auto) % Lymph % (Auto) % [place] % (Auto) % Eos % (Auto) % Baso % (Auto) % Immature Gran # (Auto) (0.00-0.02) K/uL Neut # (Auto) (1.4-6.5) K/uL Lymph # (Auto) (1.2-3.4) K/uL [place] # (Auto) (0.11-0.59) K/uL Eos # (Auto) (0-0.5) K/uL Baso # (Auto) (0-0.2) K/uL PT (9.0-12.0) Seconds INR (0.9-1.1) Sodium 139 138 (136-145) mmol/L Potassium 3.9 3.8 (3.5-5.1) mmol/L Chloride 104 108 H (98-107) mmol/L Carbon Dioxide 30 27 (21-32) mmol/L Anion Gap 5.0 3.0 (3-11) BUN 15 10 D (7-18) mg/dl Creatinine 0.52 L 0.48 L (0.6-1.2) mg/dl Est Cr Clr Drug Dosing 87.7 95.2 ml/min Est GFR ( Amer) 125.5 128.9 Est GFR (Non-Af Amer) 108.3 111.2 BUN/Creatinine Ratio 29.0 H 21.0 H (10-20) Glucose 83 77 (70-99) mg/dl POC Glucose (70-99) Estimat Average Glucose 105 mg/dl Hemoglobin A1c 5.3 (4.5-5.6) % Calcium 8.9 8.1 L (8.5-10.1) mg/dl Magnesium 2.7 H (1.8-2.4) mg/dl Troponin I < 0.015 (0-0.045) ng/ml Triglycerides 71 (0-150) mg/dl Cholesterol 129 (0-200) mg/dl LDL Cholesterol, Calc 65 mg/dl VLDL Cholesterol, Calc 14 mg/dl HDL Cholesterol 50 mg/dl Cholesterol/HDL Ratio 3 Vitamin B12 (211-911) pg/ml Folate (>5.38) ng/ml Urine Color Urine Appearance (Clear) Urine pH (4.5-7.5) Ur Specific [place] (1.000-1.030) Urine Protein (Negative) Urine Glucose (UA) (Negative) Urine Ketones (Negative) Urine Blood (Negative) Urine Nitrite (Negative) Urine Bilirubin (Negative) Urine Urobilinogen (Negative) Ur Leukocyte Esterase (Negative) Opal (0.6-1.2) mmol/L 11/28/18 11/28/18 11/28/18 Range/Units 05:40 08:10 10:40 WBC (4.8-10.8) K/uL RBC (4.2-5.4) M/uL Hgb (12.0-16.0) g/dL Hct (37-47) % MCV (80-100) fL MCH (25-34) pg MCHC (32-36) g/dL RDW Std Deviation (36.4-46.3) fL RDW Coeff of Samm (11.5-14.5) % Plt Count (130-400) K/uL MPV (7.4-10.4) fL Immature Gran % (Auto) % Neut % (Auto) % Lymph % (Auto) % [place] % (Auto) % Eos % (Auto) % Baso % (Auto) % Immature Gran # (Auto) (0.00-0.02) K/uL Neut # (Auto) (1.4-6.5) K/uL Lymph # (Auto) (1.2-3.4) K/uL [place] # (Auto) (0.11-0.59) K/uL Eos # (Auto) (0-0.5) K/uL Baso # (Auto) (0-0.2) K/uL PT (9.0-12.0) Seconds INR (0.9-1.1) Sodium (136-145) mmol/L Potassium (3.5-5.1) mmol/L Chloride (98-107) mmol/L Carbon Dioxide (21-32) mmol/L Anion Gap (3-11) BUN (7-18) mg/dl Creatinine (0.6-1.2) mg/dl Est Cr Clr Drug Dosing ml/min Est GFR ( Amer) Est GFR (Non-Af Amer) BUN/Creatinine Ratio (10-20) Glucose (70-99) mg/dl POC Glucose (70-99) Estimat Average Glucose mg/dl Hemoglobin A1c (4.5-5.6) % Calcium (8.5-10.1) mg/dl Magnesium (1.8-2.4) mg/dl Troponin I (0-0.045) ng/ml Triglycerides (0-150) mg/dl Cholesterol (0-200) mg/dl LDL Cholesterol, Calc mg/dl VLDL Cholesterol, Calc mg/dl HDL Cholesterol mg/dl Cholesterol/HDL Ratio Vitamin B12 1135 H (211-911) pg/ml Folate 22.58 (>5.38) ng/ml Urine Color Yellow Urine Appearance Clear (Clear) Urine pH 7.5 (4.5-7.5) Ur Specific [place] 1.010 (1.000-1.030) Urine Protein Negative (Negative) Urine Glucose (UA) Negative (Negative) Urine Ketones Negative (Negative) Urine Blood Negative (Negative) Urine Nitrite Negative (Negative) Urine Bilirubin Negative (Negative) Urine Urobilinogen Negative (Negative) Ur Leukocyte Esterase Negative (Negative) Opal 0.6 (0.6-1.2) mmol/L Imaging Data Radiologist's Impression: Radiology results as stated below per my review and the radiologist's interpretation: MRI OF THE BRAIN WITHOUT IV CONTRAST CLINICAL HISTORY: Strokelike symptoms. COMPARISON STUDY: CT of the brain dated 11/22/2018. TECHNIQUE: MRI of the brain was performed utilizing axial diffusion-weighted, axial T1 and T2, and sagittal T1 weighted sequences. The patient was not cooperative for additional imaging. FINDINGS: Brain parenchyma: There is a small focus of restricted diffusion identified in the right posterior frontal cortex consistent acute to subacute ischemia. No additional foci of restricted diffusion are identified. There is no hemorrhage or mass effect. There are involutional changes noting mild subcortical and periventricular microangiopathic disease. Prominent perivascular spaces are noted in the basal ganglia. No extra-axial fluid collection is seen. The cerebellar tonsils are normal in configuration. Ventricles, sulci, and cisterns: Prominent secondary to involutional change. Pituitary and sella: Unremarkable. Intracranial vasculature: Normal flow voids are maintained at the skull base. Orbits: The bony orbits are grossly intact. Orbital contents are normal in appearance. Sinuses and mastoids: Moderate mucosal thickening is seen in the right maxillary antrum and moderate mucosal thickening is noted in the left maxillary antrum. Mucosal thickening is also seen in the ethmoid sinuses. The mastoid air cells are well pneumatized. Calvarium: Unremarkable. Cervical cord: Partially visualized cervical spinal cord is normal in morphology and signal intensity. IMPRESSION: 1. There is a small focus of restricted diffusion identified involving the right posterior frontal cortex consistent with acute to subacute ischemia. 2. No additional foci of acute ischemia are identified. 3. There is no hemorrhage or mass effect. Electronically signed by: Anup Dow M.D. 11/27/2018 2:24 PM ECG Data Attestation: I personally reviewed and interpreted this ECG as follows: Indication: other (neurological symptoms) Rate (beats per minute): 85 Rhythm: sinus with SA Findings: + other (poor quality baseline for interpretation, prolonged QT, non- specific ST changes) and + PVC Blood Pressure Blood Pressure Findings: Low blood pressure Blood Pressure Disposition: further management by hospitalist MDM Narrative This pt was evaluated and appeared to be in no distress. IV access was obtained and lab work was drawn. Pt was placed on the security monitor. No focal neurologic deficit was found. Records were reviewed from several days ago with negative head CT. As pt has limited ability to cooperate, IV ativan was ordered for MRI. This study reveals acute to subacute posterior right frontal lobe infarct. EKG is a NSR. CXR is clear. Parents were educated to the findings. Pt was d/w the hospitalist service for further evaluation and management. Impression & Plan Cerebrovascular accident Discharge Plan Visit Data *Final* Discharge Date/Time: 11/27/18 19:25 Chief Complaint: Neuro Symptoms/Deficit ED Provider: Chaya Stephens Discharge Problem: Cerebrovascular accident Patient Disposition: Admitted As Inpatient Discharge Instructions Interventions: ED Discharge Assessment Last Done: 11/27/18 19:25 Queries: Stroke Queries Contraindication Not Initiating IV-Tpa: Contraindicated (outside window) Symptom Onset Unknown: No The scribe's documentation has been prepared under my direction and personally reviewed by me in its entirety. I confirm that the note above accurately reflects all work, treatment, procedures, and medical decision making performed by me.
--- NOTE | 2018-11-27 16:24 | History & Physical Report ---
Date of Service November 27, 2018 Assessment & Plan (1) Cerebrovascular accident: Ms. Hsu is a 53-year-old female with a history of hypertension, dilated cardiomyopathy (EF of 25%), hyperlipidemia, bipolar disorder, hypothyroidism, pulmonary hypertension and intellectual disability who presents to the emergency department from a longterm with left-sided facial droop and lethargy. - admit to telemetry - CT negative, MRI shows right posterior frontal cortex stroke - Consult neurology - Stroke workup -> Fasting lipid panel and HbA1c ordered for the morning -> Monitor on telemetry -> Echo ordered -> Bilateral carotid Dopplers ordered -PT/OT/SLT evals (2) Lethargy: -Not likely to be secondary to the stroke -ddx: Dehydration, medication toxicity, infection -Patient received 1 L of IV fluid in the emergency department -Already improving -Check lithium level -check UA (3) UTI (urinary tract infection): -Continue Cefdinir, day 6/7 for UTI -recheck UA (4) CHF (congestive heart failure): -Secondary to dilated cardiomyopathy, follows with Dr. Mcduffie -Patient appears clinically dry -Per review of outpatient records, last echo was done in January 2018 and showed a stable ejection fraction of 25% -Hold Lasix, pending reassessment in the morning -Hold isosorbide mononitrate given hypotension -continue metoprolol w/hold parameters -continue potassium supplementation -Continue daily aspirin (5) HTN (hypertension): -Hypotensive upon arrival to emergency department, s/p 1 L bolus of fluid -Hold home lisinopril (6) Hyperlipidemia: -Continue simvastatin (7) Bipolar 1 disorder: -Continue lithium, obtain lithium level -Continue Seroquel (8) Hypothyroid: -Continue levothyroxine -TSH checked at last ED visit on 11/22 and within normal range (9) DVT prophylaxis: CODE STATUS: DNR, as per discussion with mother Disposition: Admit to telemetry DVT prophylaxis: Low risk, SCDs F/E/N: Heart healthy diet. No electrolyte abnormalities noted. Not on fluids at this time. History of Present Illness Primary Care Provider: Ken Cano DO Ms. Hsu is a 53-year-old female with a history of hypertension, dilated cardiomyopathy (EF of 25%), hyperlipidemia, bipolar disorder, hypothyroidism, pulmonary hypertension and intellectual disability who presents to the emergency department from a longterm with left-sided facial droop and lethargy. They were seen in the emergency department on November 22, 2018 for similar symptoms. Her CT brain at this time was negative. Her symptoms resolved, and they were told that she had suffered from a TIA. She was also treated for UTI at this time. After they were discharged home, her caregiver and her mother report that she was back at baseline, until this morning. Her caregiver notes that she was difficult to awake, she was not following instructions and that she had a left- sided facial droop involving her left eye and side of her mouth. She denies any symptoms of pain, and her caregiver denies any recent fever or chills. She has no sick contacts. She has been moving her bowels normally. She completed 5 days of her course of Cefdiniri for her UTI. Of note, her mother reports that she has a seizure disorder w/prior tonic clonic seizures. She is on medications for this, which have not changed recently. She states Ms. Hsu has not had any seizures since beginning these medications. She does, however states that Ms. Hsu has had a decline in her functional state over the last year, namely that she has been less steady with walking and a decrease in her fine motor activities. Allergies Allergy/AdvReac Type Severity Reaction Status Date / Time carbamazepine Allergy Unknown Unknown Verified 11/27/18 11:54 Penicillins Allergy Unknown Unknown Verified 11/27/18 11:54 phenytoin Allergy Unknown Unknown Verified 11/27/18 11:54 valproic acid Allergy Unknown UNKNOWN Unverified 11/27/18 11:54 pseudoephedrine AdvReac Unknown UNKNOWN Unverified 11/27/18 11:54 Fabric Softeners Allergy Unknown . Uncoded 11/27/18 11:54 Home Medications Home Medications Medication Instructions Recorded Confirmed Type Rztq-T-Xxjqj 400 unit PO BID 11/22/18 11/27/18 History acetic acid 4 drp OTIC (EAR) 2XWK 11/22/18 11/27/18 History aspirin 325 mg PO QAM 11/22/18 11/27/18 History betamethasone dipropionate 1 applic TOPICAL BID 11/22/18 11/27/18 History carbamide peroxide [Debrox] 4 drp OTIC (EAR) 2XWK 11/22/18 11/27/18 History cefdinir 300 mg PO BID 7 Days #14 cap 11/22/18 11/27/18 Rx cetirizine [Zyrtec] 10 mg PO QAM 11/22/18 11/27/18 History docusate sodium [Colace] 100 mg PO BID 11/22/18 11/27/18 History furosemide [Lasix] 40 mg PO BID 11/22/18 11/27/18 History isosorbide mononitrate 30 mg PO QAM 11/22/18 11/27/18 History levothyroxine [Synthroid] 50 mcg PO QAM 11/22/18 11/27/18 History lisinopril [Zestril] 2.5 mg PO QAM 11/22/18 11/27/18 History metoprolol succinate [Toprol XL] 25 mg PO QAM 11/22/18 11/27/18 History apyujtniteay-iqny-qwdhg acid 0.5 tab PO QAM 11/22/18 11/27/18 History [Cerovite Advanced Formula] mupirocin 1 applic TOPICAL BID PRN 11/22/18 11/27/18 History naphazoline-pheniramine [Naphcon-A] 1 drp OPHTHALMIC (EYE) BID 11/22/18 History omega 7-tlr-pqv-fish oil [Fish Oil] 1 cap PO TID 11/22/18 11/27/18 History potassium chloride [Klor-Con M10] 20 meq PO QAM 11/22/18 11/27/18 History primidone [Mysoline] 250 mg PO QAM 11/22/18 11/27/18 History quetiapine [Seroquel] 25 mg PO DAILY@1200 11/22/18 11/27/18 History quetiapine [Seroquel] 200 mg PO HS 11/22/18 11/27/18 History quetiapine [Seroquel] 300 mg PO HS 11/22/18 11/27/18 History simvastatin [Zocor] 40 mg PO HS 11/22/18 11/27/18 History white petrolatum-mineral oil 1 applic TOPICAL BID 11/22/18 11/27/18 History [Eucerin] ammonium lactate 1 applic TOPICAL BID 11/27/18 11/27/18 History lithium carbonate 450 mg PO HS 11/27/18 11/27/18 History potassium chloride 10 meq PO HS 11/27/18 11/27/18 History Past Med/Surg History Medical History TIA (transient ischemic attack) (Acute) Gallstones (Resolved) Social History Current Living Situation: Other Current Living Situation Comment: longterm at a [facility] [place] facility Other Information That Helps Us Care for You: No Feels Safe at Home: Yes Safety Concerns: Feels Safe At This Time Smoking Status: Never smoker Do You Dip or Chew Tobacco: No Hx Alcohol Use: No Hx Substance Use: No Beliefs That Will Affect Care: None Preferred Language: Sudanese Communication Ability: Impaired Communication Ability Comment: understands and is able to foilow commands Review of Systems As provided by the patient's mother and caregiver. Constitutional: + fatigue; no fever and no chills Respiratory: no cough Cardiovascular: no chest pain, no syncope and no calf pain Gastrointestinal: no abdominal pain, no vomiting and no change in bowel habits Genitourinary (Female): no urinary frequency and no decreased urination Neurologic: + unsteadiness, + generalized weakness and + abnormal speech ( Baseline for her); no localized weakness, no tremor(s) and no abnormal movements Physical Exam 2 Vital Signs (Past 24 Hours): Last Vital Signs Temp 36.6 C 11/27/18 10:56 Pulse 74 11/27/18 15:35 Resp 18 11/27/18 15:35 BP 86/61 L 11/27/18 15:35 Pulse Ox 95 11/27/18 15:35 Constitutional: + ill appearing, + thin, + frail appearing, cooperative and comfortable Eyes: PERRL ENMT: external ear and nose normal, oropharynx normal Respiratory: normal respiratory effort, lungs clear to auscultation Cardiovascular: RRR, no murmur, no edema Gastrointestinal (Abdomen): normal bowel sounds, soft, nontender, no hepatosplenomegaly Skin: + dry skin Skin cool to touch Neurologic: CN's II-XI intact bilaterally (Grossly intact, difficult to perform full neuro exam and patient sometimes does not understand commands), moves all extremities and awake Left-sided facial droop, w/drooping left eyelid and left side of mouth. Patient communicates with 1-2 words. Results & Data Laboratory Results Laboratory Results - last 24 hr 11/27/18 11/27/18 11/27/18 12:48 13:13 13:13 WBC 5.81 RBC 3.57 L Hgb 12.2 Hct 37.6 MCV 105.3 H MCH 34.2 H MCHC 32.4 RDW Std Deviation 55.5 H RDW Coeff of Samm 14.3 Plt Count 310 MPV 10.0 Immature Gran % (Auto) 0.2 Neut % (Auto) 48.3 Lymph % (Auto) 32.2 Hart % (Auto) 9.6 Eos % (Auto) 8.8 Baso % (Auto) 0.9 Immature Gran # (Auto) 0.01 Neut # (Auto) 2.81 Lymph # (Auto) 1.87 Hart # (Auto) 0.56 Eos # (Auto) 0.51 H Baso # (Auto) 0.05 PT 9.5 INR 0.9 Sodium Potassium Chloride Carbon Dioxide Anion Gap BUN Creatinine Est Cr Clr Drug Dosing Est GFR ( Amer) Est GFR (Non-Af Amer) BUN/Creatinine Ratio Glucose POC Glucose 80 Calcium Magnesium Troponin I 11/27/18 13:13 WBC RBC Hgb Hct MCV MCH MCHC RDW Std Deviation RDW Coeff of Samm Plt Count MPV Immature Gran % (Auto) Neut % (Auto) Lymph % (Auto) Hart % (Auto) Eos % (Auto) Baso % (Auto) Immature Gran # (Auto) Neut # (Auto) Lymph # (Auto) Hart # (Auto) Eos # (Auto) Baso # (Auto) PT INR Sodium 139 Potassium 3.9 Chloride 104 Carbon Dioxide 30 Anion Gap 5.0 BUN 15 Creatinine 0.52 L Est Cr Clr Drug Dosing 87.7 Est GFR ( Amer) 125.5 Est GFR (Non-Af Amer) 108.3 BUN/Creatinine Ratio 29.0 H Glucose 83 POC Glucose Calcium 8.9 Magnesium 2.7 H Troponin I < 0.015 Supervising Physician Co-Signing Physician Notes I personally examined the patient and verified all almaraz points of history and exam, discussed case, and agree with decision making with Dr Mooney. HPI and review of systems as above, very difficult to ascertain due to her baseline mentation. Family present and corroborate HPI as above. Vitals noted, in general she is awake and pleasant appears to be in no distress. HEENT normocephalic atraumatic mucous membranes are moist. Neurologically she has a very subtle facial droop that corrects mostly with volition although is not completely symmetric. Her tongue shows no deviation uvula shows no deviation. Lav Crewman strength appears to be 5 out of 5 and equal bilaterally and she seems to show no other focal neuro deficits, although of course her exam is somewhat more difficult due to her baseline mentation. CVAas above, most likely small vessel disease, but assess status of risk factors, continue antiplatelet, evaluate carotids, cardiac rhythm/echo. Lethargypossibly related to UTIA, versus her baseline meds, versus dehydration. She has been given fluid in the ER, will follow up lab levels on many of her meds, and follow her clinically, continue to treat the UTI. UTIdifficult to assess symptoms, but given that she had a degree of lethargy it may relate to that. Finish out a course of treatment. Dilated cardiomyopathyeven though she still looks a little bit dry we will hold off on further fluids given that she is been given a liter and her EF is about 20%. Echo to evaluate for LV thrombus as above as it relates to stroke _ (1) UTI (urinary tract infection) Encounter type: Hematuria presence: without hematuria Indwelling urinary catheter type: Urinary tract infection type: site unspecified Qualified Code( s): N39.0 - Urinary tract infection, site not specified (2) Cerebrovascular accident CVA mechanism: unspecified Laterality of affected vessel: Precerebral and cerebral artery: Qualified Code(s): I63.9 - Cerebral infarction, unspecified
[2018-11-27] MEDS ORDERED: ACETAMINOPHEN 325 MG TAB PO PRN (19:31)
[2018-11-27] MEDS ORDERED: LORazepam 0.5 MG/1 ML VIAL IV PRN (20:10)
[2018-11-27] MEDS ORDERED: QUETIAPINE FUMARATE 200 MG TAB PO SCH (21:00)
[2018-11-27] MEDS ORDERED: POTASSIUM CHLORIDE 10 MEQ TABCR PO SCH (21:00)
[2018-11-27] MEDS ORDERED: LITHIUM CARBONATE 450 MG TABCR PO SCH (21:00)
[2018-11-27] MEDS ORDERED: QUETIAPINE FUMARATE 300 MG TABLET PO SCH (21:00)
[2018-11-27] MEDS ORDERED: SIMVASTATIN 40 MG TAB PO SCH (21:00)
[2018-11-27] MEDS: OMEGA-3 (PURIFIED FISH OIL) 1 GM CAP PO SCH (21:30)
[2018-11-27] MEDS: DOCUSATE SODIUM 100 MG CAP PO SCH (21:31)
[2018-11-27] MEDS: CEFDINIR 300 MG CAP PO SCH (21:32)
[2018-11-27] MEDS: EUCERIN CR 120 GM JAR TOP SCH (21:33)
[2018-11-27] MEDS: BETAMETHASONE DIP AUG 0.05% OINT 15 GM TUBE TOP SCH (21:34)
[2018-11-27] MEDS: NAPHAZOLIN/PHENIRAMIN OPH SOLN 75 DROPS/5 ML BTL OP SCH (21:35)
[2018-11-27] MEDS: AMMONIUM LACTATE 12% LOTION 225 GM BTL EXT SCH (21:35)
[2018-11-27] MEDS: MUPIROCIN 2% OINT 22 GM TUBE TOP SCH (21:35)
[2018-11-27] MEDS: TOCOPHERYL, DL-ALPHA 400 UNITS CAP PO SCH (21:37)
--- NOTE | 2018-11-27 22:32 | Ultrasound Report ---
US carotid doppler BI HISTORY: Mental status change stroke COMPARISON: None. TECHNIQUE: Real-time, grayscale, and color Doppler sonography of the carotid arteries was performed. Imaging reviewed in the transverse and longitudinal planes. All measurements were calculated based on NASCET criteria. FINDINGS: Patient was able to tolerate evaluation of the right carotid system. The patient was unable to hamida ate for the left carotid. The peak systolic velocity within the right ICA is 59. The right systolic ratio is 0.95. IMPRESSION: 1. No significant stenosis of the right carotid system.. 2. The left carotid system could not be evaluated as the patient was unable to cooperate. The above report was generated using voice recognition software. It may contain grammatical, syntax or spelling errors. Electronically signed by: Kris Katz M.D. 11/27/2018 10:30 PM
[2018-11-28 06:06] LABS: Estimated Average Glucose 105 mg/dl; Hemoglobin A1C 5.3 % (4.5-5.6)
[2018-11-28] MEDS ORDERED: LEVOTHYROXINE SODIUM 50 MCG TABLET PO SCH (06:30)
[2018-11-28 06:34] LABS: Calcium 8.1 mg/dl (8.5-10.1); Creatinine Clr Calc Pharmacy 95.2 ml/min; Est GFR (African American) 128.9; Est GFR (Non-African American) 111.2; Potassium 3.8 mmol/L (3.5-5.1)
[2018-11-28] MEDS ORDERED: SODIUM CHLORIDE 0.9% 1000ML 250 ML IV ONE (08:10)
[2018-11-28 08:30] LABS: Appearance Urine Clear (Clear); Bilirubin Urine Negative (Negative); Blood Urine Negative (Negative); Color Urine Yellow; Glucose Urine UA Negative (Negative); Ketones Urine Negative (Negative); Leukocyte Esterase Urine Negative (Negative); Nitrite Urine Negative (Negative); Protein Urine Negative (Negative); Urobilinogen Urine Negative (Negative); pH Urine 7.5 (4.5-7.5)
[2018-11-28] MEDS ORDERED: POTASSIUM CHLORIDE 10 MEQ TABCR PO SCH (09:00)
[2018-11-28] MEDS ORDERED: CEROVITE ADV FORMULA TAB PO SCH (09:00)
[2018-11-28] MEDS ORDERED: ASPIRIN 325 MG ECTAB PO SCH (09:00)
[2018-11-28] MEDS ORDERED: METOPROLOL SUCC 25MG EXT REL TAB PO SCH (09:00)
[2018-11-28] MEDS ORDERED: CETIRIZINE HCL 10 MG TABLET PO SCH (09:00)
[2018-11-28] MEDS ORDERED: ACETIC ACID 2% OTIC SOLN 15 ML BTL OT SCH (09:00)
[2018-11-28] MEDS ORDERED: PRIMIDONE 250 MG TAB PO SCH (09:00)
[2018-11-28] MEDS: MUPIROCIN 2% OINT 22 GM TUBE TOP SCH (09:29)
[2018-11-28] MEDS: BETAMETHASONE DIP AUG 0.05% OINT 15 GM TUBE TOP SCH (09:29)
[2018-11-28] MEDS: DOCUSATE SODIUM 100 MG CAP PO SCH (09:29)
[2018-11-28] MEDS ORDERED: CLOPIDOGREL BISULFATE 75 MG TAB PO SCH (09:30)
[2018-11-28] MEDS: EUCERIN CR 120 GM JAR TOP SCH (09:31)
[2018-11-28] MEDS: OMEGA-3 (PURIFIED FISH OIL) 1 GM CAP PO SCH ×2 (09:33→13:51)
[2018-11-28] MEDS: NAPHAZOLIN/PHENIRAMIN OPH SOLN 75 DROPS/5 ML BTL OP SCH (09:34)
[2018-11-28] MEDS: CEFDINIR 300 MG CAP PO SCH (09:34)
[2018-11-28] MEDS: TOCOPHERYL, DL-ALPHA 400 UNITS CAP PO SCH (09:35)
--- NOTE | 2018-11-28 09:50 | Neurology Consultation ---
Date of Consultation November 28, 2018 Assessment & Plan (1) Cerebrovascular accident: This is a 53-year-old female with a small subacute right frontal cortex ischemic stroke. Initially presented with left facial droop, but no significant neurological deficits at this time. Stroke risk factors include CHF , hypertension, dyslipidemia. Recommendations: I have changed her antiplatelets to Plavix for secondary stroke prevention. I have ordered a CTA of her head and neck for further evaluation of stroke etiology to rule out large vessel atherosclerotic disease or critical stenosis. Follow-up echocardiogram results to rule out cardioembolic sources for stroke. Since the patient has been having some more insidious gait dysfunction and balance trouble, I have sent for primidone level, folate, and B12 level to look for secondary causes of gait dysfunction. Primidone could cause ataxia and folate deficiency. No recommended changes to seizure medication at this time since she does appear to be well controlled. Follow-up PT/OT and speech therapies for discharge planning. Since the patient's blood pressures have been running on the low side, Blood pressure recommendations while in hospital 130/80-100/60 (MAPS 85-110) Avoid hypotension and dehydration as this could worsen or extend stroke damage. Stroke risk factor modifications and recommendations: Blood pressure recommendations 130/80-100/60 Total cholesterol goal 100- 200 and LDL goal less than 100 Hemoglobin A1c goal less than 7 Encourage cardiovascular exercise at least 3 times a week for 30 minutes. Follow-up in neurology clinic in 1 month for post stroke hospital follow-up. If there is any questions or concerns, feel free to call/page me. History of Present Illness Reason for Consultation: Consultation for stroke Attending Physician: Ambrose Gay DO History of Present Illness This is a 53-year-old female who presents relation of stroke symptoms. Was seen in the emergency room on the first for TIA like symptoms of left facial droop and drooling. Had a CAT scan of the head which was unremarkable and felt to likely be a TIA and the plan per the ER notes seem to be hospitalist evaluation, but not sure what happened after that. It appears the patient did go home. Patient returned Sunday due to recurrence of symptoms and being more lethargic. Mother reports that she appears to be at her neurological baseline this morning. Patient was on aspirin at the time of these events. MRI of the brain report and images were reviewed by myself and noted to have a tiny subacute right frontal cortex ischemic stroke. Ultrasound was attempted but did not get good imaging of the left carotid. Echocardiogram was reportedly done this morning and results are pending. Total cholesterol 129, LDL 5, HDL 50, triglycerides 71, hemoglobin A1c 5.3 Patient also has a history of epilepsy described as generalized tonic-clonic. Last seizure was in her 20s and she has not had any additional seizures since on medications. She has been well controlled on primidone with no reported side effects. Past therapeutic trials have also included Tegretol and phenytoin. Patient was briefly on valproic acid for a while for her mood but this was discontinued due to some allergy or side effect. Mother has noted that over the last several years her balance, gait, and fine motor skills have been declining. She normally walks unassisted but it does sound like she has frequent falls or needs to hold onto things to keep her balance. Past medical history significant for epilepsy, bipolar, CHF, hypertension, dyslipidemia, hypothyroid No family history of cardiac disease or seizures. Social history: Patient does have intellectual disability and is a resident at [facility]. She is with her parents on the weekends. Allergies Allergy/AdvReac Type Severity Reaction Status Date / Time carbamazepine Allergy Unknown Unknown Verified 11/27/18 11:54 Penicillins Allergy Unknown Unknown Verified 11/27/18 11:54 phenytoin Allergy Unknown Unknown Verified 11/27/18 11:54 valproic acid Allergy Unknown UNKNOWN Unverified 11/27/18 11:54 pseudoephedrine AdvReac Unknown UNKNOWN Unverified 11/27/18 11:54 Fabric Softeners Allergy Unknown . Uncoded 11/27/18 11:54 Home Medications Home Medications Medication Instructions Recorded Confirmed Type Jvyd-K-Rsauv 400 unit PO BID 11/22/18 11/27/18 History acetic acid 4 drp OTIC (EAR) 2XWK 11/22/18 11/27/18 History aspirin 325 mg PO QAM 11/22/18 11/27/18 History betamethasone dipropionate 1 applic TOPICAL BID 11/22/18 11/27/18 History carbamide peroxide [Debrox] 4 drp OTIC (EAR) 2XWK 11/22/18 11/27/18 History cefdinir 300 mg PO BID 7 Days #14 cap 11/22/18 11/27/18 Rx cetirizine [Zyrtec] 10 mg PO QAM 11/22/18 11/27/18 History docusate sodium [Colace] 100 mg PO BID 11/22/18 11/27/18 History furosemide [Lasix] 40 mg PO BID 11/22/18 11/27/18 History isosorbide mononitrate 30 mg PO QAM 11/22/18 11/27/18 History levothyroxine [Synthroid] 50 mcg PO QAM 11/22/18 11/27/18 History lisinopril [Zestril] 2.5 mg PO QAM 11/22/18 11/27/18 History metoprolol succinate [Toprol XL] 25 mg PO QAM 11/22/18 11/27/18 History jwaewwwqekdb-ybdz-fouuw acid 0.5 tab PO QAM 11/22/18 11/27/18 History [Cerovite Advanced Formula] mupirocin 1 applic TOPICAL BID PRN 11/22/18 11/27/18 History naphazoline-pheniramine [Naphcon-A] 1 drp OPHTHALMIC (EYE) BID 11/22/18 History omega 7-bce-rtl-fish oil [Fish Oil] 1 cap PO TID 11/22/18 11/27/18 History potassium chloride [Klor-Con M10] 20 meq PO QAM 11/22/18 11/27/18 History primidone [Mysoline] 250 mg PO QAM 11/22/18 11/27/18 History quetiapine [Seroquel] 25 mg PO DAILY@1200 11/22/18 11/27/18 History quetiapine [Seroquel] 200 mg PO HS 11/22/18 11/27/18 History quetiapine [Seroquel] 300 mg PO HS 11/22/18 11/27/18 History simvastatin [Zocor] 40 mg PO HS 11/22/18 11/27/18 History white petrolatum-mineral oil 1 applic TOPICAL BID 11/22/18 11/27/18 History [Eucerin] ammonium lactate 1 applic TOPICAL BID 11/27/18 11/27/18 History lithium carbonate 450 mg PO HS 11/27/18 11/27/18 History potassium chloride 10 meq PO HS 11/27/18 11/27/18 History Patient History Medical History TIA (transient ischemic attack) (Acute) Gallstones (Resolved) Social History Current Living Situation: Other Current Living Situation Comment: alf at a [facility] facility Other Information That Helps Us Care for You: No Feels Safe at Home: Yes Safety Concerns: Feels Safe At This Time Smoking Status: Never smoker Do You Dip or Chew Tobacco: No Hx Alcohol Use: No Hx Substance Use: No Beliefs That Will Affect Care: None Preferred Language: Swazi Communication Ability: Impaired Communication Ability Comment: understands and is able to foilow commands Review of Systems Patient has had a recent cold and mild cough. Complete review of systems otherwise negative except for the above-noted in HPI Physical Exam 2 Vital Signs (Past 24 Hours): Last Vital Signs Temp 36.9 C 11/28/18 07:56 Pulse 78 11/28/18 07:56 Resp 18 11/28/18 07:56 BP 88/55 L 11/28/18 07:56 Pulse Ox 95 11/28/18 07:56 Physical Exam: Gen.: Patient is alert and oriented in no acute distress sitting in bed coloring. Appropriately interacting and pleasant. Heart: Regular rate and rhythm Extremities: No gross deformities or rashes noted Neurological examination: Mental status: Patient is alert and oriented to person. Unable to give her own history. Poor fund of knowledge. Attention concentration normal for the situation. Cognitively very childlike. Speech is space and not understandable Cranial nerves: Visual dahl intact to confrontation. Funduscopic examination was not able to be done due to mental status. Pupils equally round and reactive to light. Extraocular muscles intact without nystagmus. No facial asymmetry noted. Facial sensation grossly intact. Tongue midline. Good palatal elevation. Hearing grossly intact voice. Not able to follow commands for shoulder shrug. Strength: Not able to cooperate with formal strength examination, but otherwise moving all extremities equally and antigravity. Tone is normal. Sensation: Grossly intact to light touch in all extremities Deep tendon reflexes: +1 in bilateral biceps and patellar. Toes are downgoing to plantar stimulation bilaterally Coordination: Patient was able to grab for objects bilaterally without any signs of dysmetria or ataxia Station within the bed is normal. _ (1) Cerebrovascular accident CVA mechanism: unspecified Laterality of affected vessel: Precerebral and cerebral artery: Qualified Code(s): I63.9 - Cerebral infarction, unspecified
[2018-11-28] MEDS: AMMONIUM LACTATE 12% LOTION 225 GM BTL EXT SCH (09:57)
[2018-11-28] MEDS ORDERED: OPTIRAY 320 125ml IV PRN (11:40)
[2018-11-28 11:49] LABS: Folate (Folic Acid) 22.58 ng/ml (>5.38)
[2018-11-28] MEDS ORDERED: QUETIAPINE FUMARATE 25 MG TABLET PO SCH (12:00)
[2018-11-28] MEDS ORDERED: PHARMACIST DISCHARGE MED REC CONSULT PRN (12:22)
--- NOTE | 2018-11-28 12:34 | CT Scan Report ---
CT angio head w con, CT angio neck with con CLINICAL HISTORY: 53 years-old Female with stroke. Acute strokelike symptoms COMPARISON STUDY: CT head 11/22/2017, brain MRI 11/27/2018 TECHNIQUE: Following the IV administration of 93 cc of Optiray 320, CT angiogram of the head and neck was performed from the aortic arch to the skull vertex. Images are reviewed in the axial, sagittal, and coronal planes. 3-D MIPS images are created and assessed. IV contrast was administered without co mplication. All measurements were obtained according to NASCET criteria. A dose lowering technique w as utilized adhering to the principles of ALARA. CT DOSE: 457.53 mGy.cm FINDINGS: Study is motion degraded. The imaged pulmonary arterial free appears unremarkable. Coronary arterial calcifications noted. Mild degree of mixed plaque formation about the thoracic aortic arch. Patency o f the imaged bilateral subclavian arteries. Mild degree of mixed plaque formation about the mid and d istal portions of the left common carotid artery. Mild mixed plaque formation about the left carotid bulb and proximal left ICA causing less than 50% luminal narrowing. The remainder of the left ICA is widely patent with calcified plaque formation about the cavernous, clinoid and supraclinoid segments. The right common carotid artery is widely patent. Mild mixed plaque formation about the right caroti d bulb causes less than 50% luminal narrowing. Motion artifact limits evaluation about the mid portio ns of the cervical segments of the internal carotid arteries bilaterally. Calcified plaque about the cavernous, clinoid and supraclinoid segments on the right without high-grade stenosis. 50% luminal narrowing involves the distal portion of the right M1 segment with mixed atheromatous and calcified plaque. The left middle and bilateral anterior cerebral arteries are widely patent and oth erwise appear unremarkable. The anterior communicating artery appears normal. The vertebral arteries are codominant. Calcified plaque formation is noted about the V4 segments of the bilateral vertebral arteries. Focal area of approximately 60% luminal narrowing involves the distal V4 segment right vert ebral artery on image 320 series 4. Basilar artery is patent and within normal limits. Bilateral post erior cerebral arteries are widely patent and appear unremarkable. Cerebral venous sinuses also appea r patent. Moderate to severe left and moderate right maxillary sinus mucosal thickening. Hypoplasia of the fron jesus sinuses with moderate to severe mucosal thickening of the ethmoid air cells. Mild sigmoidal bowin g and spurring about the nasal septum. Moderate mucosal thickening about the sphenoid sinus on the ri ght. Mastoid air cells and middle ear cavities are clear. No acute calvarial fracture. Multilevel deg enerative changes about the cervical spine. No pneumothorax. Imaged lung apices appear unremarkable. No large thyroid nodule. Soft tissues of the neck are unremarkable. Orbits are within normal limits. IMPRESSION: 1. Motion degraded exam. 2. Calcified plaque about the distal V4 segment right vertebral artery results in 60% luminal narrowi ng. 3. Mixed plaque formation about the distal M1 segment of the right middle cerebral artery results in 50% luminal narrowing. 4. No aneurysm, dissection or proximal branch occlusion. 5. Multifocal paranasal sinus disease as above. 6. Coronary arterial calcifications. The above report was generated using voice recognition software. It may contain grammatical, syntax o r spelling errors. Electronically signed by: Luis Hartman M.D. 11/28/2018 12:32 PM
--- NOTE | 2018-11-28 14:12 | Discharge Summary ---
Date of Service November 28, 2018 Admission HPI Per Admitting Provider Ms. Hsu is a 53-year-old female with a history of hypertension, dilated cardiomyopathy (EF of 25%), hyperlipidemia, bipolar disorder, hypothyroidism, pulmonary hypertension and intellectual disability who presents to the emergency department from a custodial with left-sided facial droop and lethargy. They were seen in the emergency department on November 22, 2018 for similar symptoms. Her CT brain at this time was negative. Her symptoms resolved, and they were told that she had suffered from a TIA. She was also treated for UTI at this time. After they were discharged home, her caregiver and her mother report that she was back at baseline, until this morning. Her caregiver notes that she was difficult to awake, she was not following instructions and that she had a left- sided facial droop involving her left eye and side of her mouth. She denies any symptoms of pain, and her caregiver denies any recent fever or chills. She has no sick contacts. She has been moving her bowels normally. She completed 5 days of her course of Cefdiniri for her UTI. Of note, her mother reports that she has a seizure disorder w/prior tonic clonic seizures. She is on medications for this, which have not changed recently. She states Ms. Hsu has not had any seizures since beginning these medications. She does, however states that Ms. Hsu has had a decline in her functional state over the last year, namely that she has been less steady with walking and a decrease in her fine motor activities. Principal Diagnosis Stroke Discharge Exam Constitutional + thin, + frail appearing, cooperative and comfortable Respiratory normal respiratory effort, lungs clear to auscultation Cardiovascular RRR, no murmur, no edema Gastrointestinal (Abdomen) normal bowel sounds, soft, nontender, no hepatosplenomegaly Neurologic CN's II-XI intact bilaterally (Grossly intact, difficult to perform full neuro exam and patient sometimes does not understand commands), moves all extremities and awake Improving left sided facial droop Discharge Data Allergies Allergy/AdvReac Type Severity Reaction Status Date / Time carbamazepine Allergy Unknown Unknown Verified 11/27/18 11:54 Penicillins Allergy Unknown Unknown Verified 11/27/18 11:54 phenytoin Allergy Unknown Unknown Verified 11/27/18 11:54 valproic acid Allergy Unknown UNKNOWN Unverified 11/27/18 11:54 pseudoephedrine AdvReac Unknown UNKNOWN Unverified 11/27/18 11:54 Fabric Softeners Allergy Unknown . Uncoded 11/27/18 11:54 Consultations 11/27/18 15:08 ED Decision to Admit Stat 11/27/18 19:31 Consult Neurology Routine 11/28/18 12:23 Consult Case Management - Discharge Planning Routine Ordered Studies 11/27/18 12:24 MR brain wo con Stat 11/27/18 19:31 US carotid doppler BI Routine 11/28/18 09:28 CT angio head w con Routine CT angio neck with con Routine Hospital Course (1) Cerebrovascular accident: Ms. Hsu is a 53-year-old female with a history of hypertension, dilated cardiomyopathy (EF of 25%), hyperlipidemia, bipolar disorder, hypothyroidism, pulmonary hypertension and intellectual disability who presents to the emergency department from a custodial with left-sided facial droop and lethargy. - CT negative, MRI shows right posterior frontal cortex stroke - Neurology consulted - No lasting neurological deficits - Stroke workup -> Fasting lipid panel with Total cholesterol of 129, LDL of 65, HDL of 50 and TG 71. -> HbA1c = 5.3% -> Telemetry monitoring did not reveal an arrhythmia -> ECHO -> no evidence of thrombus. Stable from prior, however possible shunt seen on ECHO. Will arrange outpt cardio f/u with Dr. Mcduffie (pt follows with him) -> CTA of head and neck showed "Calcified plaque about the distal V4 segment right vertebral artery resulting in 60% luminal narrowing. Mixed plaque formation about the distal M1 segment of the right middle cerebral artery results in 50% luminal narrowing." -> Simvastatin discontinued in favor of high intensity atorvastatin -> Aspirin changed to Plavix -Patient's blood pressure has been on the lower side in the hospital. Her antihypertensive medications were held, including metoprolol, isosorbide mononitrate, Lasix, lisinopril. This was discussed extensively with her mother. We recommend checking her blood pressures at home 2-3 times a day, and informing PCP of blood pressure levels. Can restart home medications one by one , starting w/lasix, then metoprolol, isosorbide mononitrate and then lisinopril. - cleared by speech and language therapy (2) Lethargy: -Not likely to be secondary to the stroke -ddx: Dehydration, medication toxicity, infection -Patient received 500mL of IV fluid during hospital stay -improved on discharge -lithium level normal at 0.6 -repeat UA w/out signs of infection -Vitamin B12, folate, TSH ordered and were all within normal limits -Primidone level ordered and pending (3) UTI (urinary tract infection): -7 days of Cefdinir completed -recheck UA without evidence of infection (4) CHF (congestive heart failure): (5) HTN (hypertension): (6) Hyperlipidemia: (7) Bipolar 1 disorder: (8) Hypothyroid: (9) DVT prophylaxis: Total Time Total Time Spent Total Time Spent (In Minutes): <30 Discharge Plan Discharge Items Patient Disposition: Personal [facility]pc Reason For Visit: STROKE Discharge Diagnosis: Stroke, Dehydration Discharge Goals: Improve disease control Activity: Resume your previous activity Non-emergency contact: Primary Care Provider Call non-emergency contact if: you have any medication questions and you have a fever Diet: Regular Addtl Provider Instructions: Ms. Hsu was admitted to [facility] due to a stroke that was found on her MRI. Stroke -Her MRI of her brain showed a small stroke in her frontal cortex -She was seen by a neurologist in the hospital -Her cholesterol panel and fasting sugar were both excellent -We will be changing her cholesterol medication from simvastatin to atorvastatin , to ensure better stabilization of her cholesterol plaques in her brain -We are also switching her from aspirin to Plavix -Her echocardiogram, [ultrasound of the heart] did not reveal any clots within her heart -The CT angiogram, which looks of blood vessels within the brain and neck, did show some plaque build-up in the middle cerebral artery, which is likely what caused her stroke - the management of this is with the medication changes as outlined above (mostly the plavix and lipitor) to prevent worsening buildup of plaque and to stabilize the plaque that is there - she was seen by a speech and language therapist who had the following recommendations -> Aspiration precautions, no straws, remain upright for 30 mins after eating -> Cut food into small bites. Small sips. Alternate liquids and solids. Eat small, frequent meals slowly w/rest breaks. Consider adult Sippy cup to help with liquids. Blood Pressure - After a stroke, it is best to let blood pressures run on the higher side in order to ensure good blood flow to the brain - In the hospital, we have held her metoprolol, Lasix, isosorbide mononitrate and lisinopril as these can all lower BP - Please check her blood pressure 2 times a day, and let her doctor know what her blood pressure readings are - We recommend restarting her medications one by one, with the lasix first, then metoprolol, isosorbide mononitrate and lastly, lisinopril Urinary Tract Infection - she has finished her course of Cefdniir and can discontinue antibiotics at this time - Her repeat urine analysis did not show any evidence of infection In summary: 1) stop her cefdinir (antibiotic for UTI) 2) Stop her aspirin. Start Clopidogrel (plavix) 3) Stop simvastatin. Start Atorvastatin 4) Hold lasix, metoprolol, isosorbide mononitrate and lisinopril until instructed to restart by family doctor Prescriptions: New atorvastatin 40 mg Tablet 40 mg PO HS Qty: 30 RF: 0 clopidogrel 75 mg Tablet 75 mg PO QAM Qty: 30 RF: 3 Continue lithium carbonate 450 mg tablet extended release 450 mg PO HS RF: 0 ammonium lactate 12 % cream 1 applic topical BID RF: 0 potassium chloride 10 mEq tablet,ER particles/crystals 10 meq PO HS RF: 0 Robp-H-Cdanx 400 unit PO BID RF: 0 quetiapine [Seroquel] 25 mg tablet 25 mg PO DAILY@1200 RF: 0 furosemide [Lasix] 40 mg tablet 40 mg PO BID RF: 0 acetic acid 2 % Solution 4 drp OTIC (EAR) 2XWK RF: 0 quetiapine [Seroquel] 300 mg tablet 300 mg PO HS RF: 0 cetirizine [Zyrtec] 10 mg Tablet 10 mg PO QAM RF: 0 isosorbide mononitrate 30 mg tablet extended release 24 hr 30 mg PO QAM RF: 0 quetiapine [Seroquel] 200 mg tablet 200 mg PO HS RF: 0 primidone [Mysoline] 250 mg tablet 250 mg PO QAM RF: 0 levothyroxine [Synthroid] 50 mcg tablet 50 mcg PO QAM RF: 0 carbamide peroxide [Debrox] 6.5 % Drops 4 drp OTIC (EAR) 2XWK RF: 0 docusate sodium [Colace] 100 mg Capsule 100 mg PO BID RF: 0 mupirocin 2 % Ointment 1 applic TOPICAL BID PRN (Reason: Unknown) RF: 0 metoprolol succinate [Toprol XL] 25 mg tablet extended release 24 hr 25 mg PO QAM RF: 0 betamethasone dipropionate 0.05 % Ointment 1 applic TOPICAL BID RF: 0 lisinopril [Zestril] 2.5 mg tablet 2.5 mg PO QAM RF: 0 naphazoline-pheniramine [Naphcon-A] 0.025-0.3 % Drops 1 drp OPHTHALMIC (EYE) BID RF: 0 white petrolatum-mineral oil [Eucerin] cream 1 applic topical BID RF: 0 potassium chloride [Klor-Con M10] 10 mEq tablet,ER particles/crystals 20 meq PO QAM RF: 0 yygdsopztusk-plfm-fpxcp acid [Cerovite Advanced Formula] 18-400 mg-mcg Tablet 0.5 tab PO QAM RF: 0 omega 2-hql-swd-fish oil [Fish Oil] 1,000 mg (120 mg-180 mg) Capsule 1 cap PO TID RF: 0 Discontinued aspirin 325 mg Tablet 325 mg PO QAM RF: 0 simvastatin [Zocor] 40 mg tablet 40 mg PO HS RF: 0 cefdinir 300 mg capsule 300 mg PO BID 7 Days Qty: 14 RF: 0 Stand-Alone Forms: [facility] Discharge Orders: Discharge Order (Routine); Ordered 11/28/18 Ordered By: Lubna Mooney Admission Data Admit Date/Time: 11/27/18 17:32 Attending Provider: Ambrose Gay Admit Provider: Lubna Mooney Primary Care Provider: Ken Cano Other Providers: Heriberto Cano ; Merlin Potter ; Peewee Olivares III ; Yelitza Centeno ; Shaneka Cooper ; Simon Hamilton Service: Telemetry Other Interventions: Discharge Summary Assessment (RN) Last Done: 11/28/18 16:08 DC Date/Time DO NOT enter until pt leaves facility: 11/28/18 18:44 Supervising Physician Co-Signing Physician Notes I personally examined the patient and verified all almaraz points of history and exam, discussed case, and agree with decision making with Dr Mooney. HPI and review of systems as above, very difficult to ascertain due to her baseline mentation. Family present. That said she is doing well overall. Vitals noted, in general she is awake and pleasant appears to be in no distress. HEENT normocephalic atraumatic mucous membranes are moist. Neurologically she has a very subtle facial droop that corrects mostly with volition and is less prominent than yesterday. no other focal neuro deficits, although of course her exam is somewhat more difficult due to her baseline mentation. CVAmost likely related to MCA plaque noted on CT angiogram. Plavix Lipitor, supportive care. Her carotids were clear. Of note her echo raised the question of a PFO, but given this appeared to be an intra-arterial stroke, if she did have a PFO would not be clinically relevant in this situation. Outpatient follow-up with her primary medical center director with whom she follows regularly Lethargypossibly related to UTI, versus her baseline meds, versus dehydration. Lab levels are pending for some of her meds, but otherwise this appears to have improved. Stable for home UTIdifficult to assess symptoms, but given that she had a degree of lethargy it may relate to that. Finished out a course of treatment. Dilated cardiomyopathy
[2018-11-28] MEDS ORDERED: STROKE PATIENT DISCHARGE STA (18:11)
[2018-11-28] MEDS ORDERED: ATORVASTATIN 40 MG TAB PO SCH (21:00)
[2018-11-29] MEDS ORDERED: CARBAMIDE PEROXIDE 6.5% 15 ML BTL OT SCH (09:00)
== END 2018-11-28 18:44 | disposition home or self-care (01) ==
LOC: ED 10:36 → 2E 10:36
DX: E86.0 Dehydration; N39.0 Urinary tract infection, site not specified; F31.9 Bipolar disorder, unspecified; I27.20 Pulmonary hypertension, unspecified; I63.9 Cerebral infarction, unspecified; Z88.8 Allergy status to other drugs, medicaments and biological substances; G40.909 Epilepsy, unspecified, not intractable, without status epilepticus; R53.83 Other fatigue; Z79.82 Long term (current) use of aspirin; E78.5 Hyperlipidemia, unspecified; Z86.73 Personal history of transient ischemic attack (TIA), and cerebral infarction without residual deficits; I67.2 Cerebral atherosclerosis; I42.9 Cardiomyopathy, unspecified; Z88.0 Allergy status to penicillin; E03.9 Hypothyroidism, unspecified; I11.0 Hypertensive heart disease with heart failure; Z79.899 Other long term (current) drug therapy; I50.9 Heart failure, unspecified

== ENCOUNTER 2019-11-02 12:40 | Inpatient (IN) ==
[2019-11-02 13:43] LABS: Basophils # (auto) 0.02 K/uL (0-0.2); Basophils % (auto) 0.3 %; Eosinophils # (auto) 0.16 K/uL (0-0.5); Hematocrit (blood only) 41.5 % (37-47); Lymphocytes # (auto) 1.76 K/uL (1.2-3.4); Lymphocytes % (auto) 22.3 %; Mean Corpuscular Hemoglobin 35.6 pg (25-34); Mean Corpuscular Hgb Conc 33.7 g/dL (32-36); Mean Corpuscular Volume 105.6 fL (80-100); Mean Platelet Volume 10.6 fL (7.4-10.4); Monocytes # (auto) 0.88 K/uL (0.11-0.59); Monocytes % (auto) 11.1 %; Neutrophils # (auto) 5.08 K/uL (1.4-6.5); Neutrophils % (auto) 64.3 %; Platelet Count 265 K/uL (130-400); RDW Coefficient of Variation 12.7 % (11.5-14.5); Red Blood Count 3.93 M/uL (4.2-5.4)
--- NOTE | 2019-11-02 13:48 | XRay Report ---
XR chest 1V portable CLINICAL HISTORY: Trauma. Possible pneumonia. COMPARISON STUDY: November 2018 FINDINGS: The cardiac and mediastinal contours are normal. There is no evidence of focal pulmonary co nsolidation. There is no evidence of failure. No pleural effusions are visualized.[ IMPRESSION: No active disease in the chest. ACT 112: Negative or not required by law. Electronically signed by: Ramon Mcgowan M.D. 11/02/2019 1:47 PM
[2019-11-02 13:57] LABS: Partial Thromboplastin Ratio 0.9; Partial Thromboplastin Time 23.9 Seconds (21.0-31.0); Prothrombin Time 10.2 Seconds (9.0-12.0)
[2019-11-02 14:12] LABS: Alanine Aminotransferase 36 U/L (12-78); Albumin Level 4.1 gm/dl (3.4-5.0); Alkaline Phosphatase 75 U/L (45-117); Aspartate Aminotransferase 28 U/L (15-37); BUN Creatinine Ratio 23.9 (10-20); Bilirubin,Total 0.4 mg/dl (0.2-1); Blood Urea Nitrogen 22 mg/dl (7-18); Calcium 12.5 mg/dl (8.5-10.1); Carbon Dioxide 35 mmol/L (21-32); Chloride 104 mmol/L (98-107); Est GFR (African American) 82.3; Globulin 4.1 gm/dl (2.5-4.0); Glucose 88 mg/dl (70-99); Potassium 3.5 mmol/L (3.5-5.1); Sodium 143 mmol/L (136-145); Total Protein 8.2 gm/dl (6.4-8.2); Troponin I 0.021 ng/ml (0-0.045)
[2019-11-02] MEDS ORDERED: SODIUM CHLORIDE 0.9% 1000ML 1,000 ML IV ONE (14:17)
[2019-11-02] MEDS ORDERED: SODIUM CHLORIDE 0.9% 1000ML 500 ML IV ONE (14:25)
--- NOTE | 2019-11-02 14:41 | CT Scan Report ---
CT head/brain wo con CLINICAL HISTORY: Ataxia. Possible stroke. COMPARISON STUDY: 10/31/2019 TECHNIQUE: Axial CT of the brain is performed from the vertex to the skull base. IV contrast was not administered for this examination. A dose lowering technique was utilized adhering to the principles of ALARA. CT DOSE: 767.83 mGy.cm FINDINGS: No intra or extra-axial mass lesions are visualized. There is no CT evidence of acute cortical infarc tion. There is no evidence of midline shift. There is no acute hemorrhage. No calvarial fractures ar e visualized. There are moderate white matter hypodensities likely on a small vessel basis. 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 There is mild ventricular dilatation, finding similar to the prior study. There is no evidence of acute sinusitis IMPRESSION: 1. No change from the preceding study. No acute intracranial findings. ACT 112: Negative or not required by law. Electronically signed by: Ramon Mcgowan M.D. 11/02/2019 2:40 PM
--- NOTE | 2019-11-02 15:00 | History & Physical Report ---
Date of Service November 02, 2019 Assessment & Plan (1) Altered mental state: Already mostly back to baseline as per mother and carer at bedside. Although usually is able to say what day it is but this is better during week days. (2) Stroke-like symptoms: See below for ataxia. No definitive stroke symptoms on exam but intellectual disability and baseline balancing deficit makes this hard to rule out clinically. Discussed with Dr Kong. Will get MRI brain with and without contrast due to concern for right frontal lesion on CT head - unclear if due to current admission however. No changes to medications at this time. Dr Potter to review patient tomorrow. (3) Ataxia: Unclear cause of acute deterioration. WBC WNL and afebrile making infection less likely. Concussion possible and difficult to rule out given patient's intellectual disability. PT to assess tomorrow. Given relatively recent admission for stroke in November last year will admit as a stroke rule out. (4) Cerebrovascular accident: History of left frontal CVA 11/2018. Continue Plavix + atorvastatin. (5) Hypercalcemia: Secondary to newly started calcium carbonate tablets and dehydration. 500ml NS given in ER. Will repeat BMP and add PTH after this is given. (6) Repeated falls: Difficulty with balance at baseline and has to hold onto side railings etc... Does not use walker or stick. Usually can walk without assistance. Last fall two days prior suspected to be mechanical slip on back ground of poor balance. (7) CHF (congestive heart failure): No acute exacerbation Continue metoprolol XL 25mg daily and Lasix 40mg PO daily. Not on ACEi due to hypotension with this. Prior echo 11/2018 - 30-35% LVEF (8) Macrocytosis: Chronic. Stable. Vitamin B12 1135, folate 22.58 in 11/2018 with similar MCV. Recommend outpatient workup if not already performed. (9) Bipolar 1 disorder: Continue lithium. Check level. (10) Hypothyroid: Continue home dose levothyroxine. TSH 1.3 11/2018. Repeat TSH with next labs. (11) Chronic constipation: Continue outpatient laxative regimen. (12) Seizure disorder: Continue primidone with reference lab sent for level as per neurology recommendation. (13) Osteoporosis: T scores: L-spine -3.4, left hip -3.0, right hip -3.2 Suspect secondary to malnutrition and reduced weight bearing exercise. Unclear if consider outpatient IV bisphosphonate treatment (14) DVT prophylaxis: Lovenox 30mg SQ HS. Lower dose due to patient weight. (15) Discharge planning issues: PT/OT. Plan for discharge back to [facility] once she is medically stable. History of Present Illness Chief Complaint: Stroke-like symptoms Primary Care Provider: Ken Cano DO Chanell Hsu is a 54 year old female with intellectual disability and recent history of stroke (left frontal) in November 2018 admission for worsening balance, decreased appetite and altered mental state. Patient is a resident of [facility] and symptoms were noticed by staff over the last 24-48 hours since her fall. Although she appeared to recover at least initially completely from her recent fall. She is now having to have assistance to get anywhere which is frustrating the patient. ER workup included labs with CBC - chronic macrocytosis but otherwise unremarkable, INR/PTT within normal limits, CMP - hypercalcemia with Ca 12.5 but otherwise unremarkable. EKG showing normal sinus rhythm, with no significant change to previous in EKG 09/25/2019. CXR - reported as no active disease in her chest. CT head - nill acute, old left frontal infarct. Allergies Allergy/AdvReac Type Severity Reaction Status Date / Time carbamazepine Allergy Unknown Unknown Verified 11/02/19 13:30 Penicillins Allergy Unknown Unknown Verified 11/02/19 13:30 phenytoin Allergy Unknown Unknown Verified 11/02/19 13:30 valproic acid Allergy Unknown UNKNOWN Unverified 11/02/19 13:30 divalproex sodium Allergy Unknown Unverified 11/02/19 13:30 [From Depakote] pseudoephedrine AdvReac Unknown UNKNOWN Unverified 11/02/19 13:30 Fabric Softeners Allergy Unknown . Uncoded 11/02/19 13:30 Home Medications Home Medications Medication Instructions Recorded Confirmed Type acetic acid 4 drp OTIC (EAR) 2XWK 11/22/18 11/02/19 History ammonium lactate 1 applic TOPICAL BID 11/27/18 11/02/19 History lithium carbonate 450 mg PO HS 11/27/18 11/02/19 History multivitamin-ferrous 1 tab PO DAILY 04/14/19 11/02/19 History fumarate-folic acid 18 mg-400 mcg tablet mupirocin 2 % topical ointment 1 applic TOPICAL BID PRN 04/21/19 11/02/19 History naphazoline 0.025 %-pheniramine 1 drp OPHTHALMIC (EYE) BID 04/21/19 11/02/19 History 0.3 % eye drops cetirizine 10 mg tablet 10 mg PO QAM #30 tab 07/04/19 11/02/19 Rx levothyroxine 50 mcg tablet 50 mcg PO DAILY #30 tab 07/04/19 11/02/19 Rx atorvastatin 20 mg tablet 20 mg PO DAILY #90 tab 07/09/19 11/02/19 Rx clopidogrel 75 mg tablet 75 mg PO QAM #30 tab 07/09/19 11/02/19 Rx furosemide 40 mg tablet 40 mg PO DAILY #30 tab 07/09/19 11/02/19 Rx metoprolol succinate 25 mg 25 mg PO QAM #30 tab 07/09/19 11/02/19 Rx tablet,extended release 24 hr potassium chloride 10 mEq 10 meq PO DAILY #30 tab 07/09/19 11/02/19 Rx tablet,extended release(part/cryst) primidone 250 mg tablet 250 mg PO QAM #30 tab 07/09/19 11/02/19 Rx vitamin E mixed 400 unit capsule 400 units PO BID cap 07/30/19 11/02/19 History cholecalciferol (vitamin D3) 25 1,000 units PO DAILY #30 cap 08/07/19 11/02/19 Rx mcg (1,000 unit) capsule docusate sodium 100 mg capsule 100 mg PO TID #90 cap 08/07/19 11/02/19 Rx quetiapine [Seroquel] 50 mg PO HS 09/25/19 11/02/19 History quetiapine [Seroquel] 300 mg PO HS 09/25/19 11/02/19 History betamethasone dipropionate 0.05 % 1 applic TOPICAL BID #45 gm 10/10/19 11/02/19 Rx topical ointment calcium carbonate 600 mg (1,500 1 cap PO BID #60 cap 10/27/19 11/02/19 Rx mg)-vitamin D3 500 unit capsule Past Med/Surg History Medical History Allergic rhinitis (Acute) Atopic dermatitis (Acute) Bipolar disorder, unspecified (Chronic) Cardiomegaly (Acute) Cardiomyopathy (Chronic) Cardiovascular disease (Acute) Cerebral vascular disease (Chronic) Chronic constipation (Acute) Chronic systolic congestive heart failure (Chronic) Contracture, right hand (Acute) Esophageal dysmotility (Acute) Gallstones (Resolved) Gastroesophageal reflux disease (Acute) Hypercholesterolemia (Chronic) Internal hemorrhoids (Acute) Macrocytosis (Acute) Patent foramen ovale (Acute) Pulmonary hypertension (Acute) Repeated falls (Acute) Seizure disorder (Chronic) TIA (transient ischemic attack) (Acute) Surgical History History of cholecystectomy History of total abdominal hysterectomy Social History Preferred Language: Tristanian Communication Ability: Impaired Visual Impairment: No Limitations Hearing Ability: Normal Nursing Techn Required: No Beliefs That Will Affect Care: None marital status: Single Current Living Situation: Other Current Living Situation Comment: [facility] Other Information That Helps Us Care for You: No Feels Safe at Home: Yes Safety Concerns: Feels Safe At This Time Smoking Status: Unknown if ever smoked Hx Alcohol Use: No Hx Substance Use: No Dental Care, Regularly: Yes Physical Activity Frequency: 1-2 Times per Week Seatbelt Use: always Review of Systems Review of Systems: All systems reviewed & are unremarkable except as noted in HPI & below Physical Exam Constitutional: + thin and + malnourished; no acute distress Eyes: PERRL, conjunctivae normal, anicteric sclerae ENMT: external ear and nose normal, oropharynx normal (poor dental hygeine) Neck: trachea midline, no thyromegaly Respiratory: normal respiratory effort, lungs clear to auscultation Cardiovascular: RRR, no murmur, no edema Gastrointestinal (Abdomen): normal bowel sounds, soft, nontender, no hepatosplenomegaly Musculoskeletal: no cyanosis or clubbing, extremities motor strength 5/5 (limited exam due to patient understanding) Skin: no rashes, warm and dry Neurologic: awake; no focal motor deficits Speech / Cognition: + abnormal speech (chronic difficulty with words due to intellectual disability but nill acute) Motor/Sensory: + sensory deficit (unable to examine due to patient cognition); no tremor and no pronator drift (limited exam but appears equal motor UE/LE b/l 4-5/5) Cranial Nerves: PERRL, EOM intact bilaterally, tongue midline, able to elevate shoulders bilaterally and no nystagmus Psychiatric: Orientation: alert and oriented to person; + not oriented to place and + not oriented to time Eye Contact: + fair eye contact Lymphatic: no cervical or axillary lymphadenopathy Results & Data Vital Signs (Past 12 Hours) Vital Signs Pulse Resp BP Pulse Ox 11/02/19 13:20 66 20 115/75 97 Code Status & VTE Plan Code Status DNR/DNI as discussed with her mother VTE Prophylaxis Plan VTE Prophylaxis will be ordered: Yes PG Care Time/CCT Total # of Minutes Spent Total Time Spent with Patient: Total time spent is greater than 50% in coordination of care (as documented) at patient's floor/unit and/or counseling patient: (1) Osteoporosis Osteoporosis type: other Presence of current pathological fracture: without current pathological fracture Qualified Code(s): M81.8 - Other osteoporosis without current pathological fracture (2) CHF (congestive heart failure) Heart failure type: combined systolic and diastolic (3) Hypothyroid Hypothyroidism type: unspecified Qualified Code(s): E03.9 - Hypothyroidism, unspecified (4) Cerebrovascular accident CVA mechanism: unspecified Qualified Code(s): I63.9 - Cerebral infarction, unspecified (5) Altered mental state Altered mental status type: transient alteration of awareness Qualified Code(s): R40.4 - Transient alteration of awareness
[2019-11-02] MEDS ORDERED: PHARMACIST DISCHARGE MED REC CONSULT PRN (15:21)
[2019-11-02] MEDS ORDERED: MUPIROCIN 2% OINT 22 GM TUBE EXT PRN (15:51)
[2019-11-02 16:21] LABS: Appearance Urine Clear (Clear); Bilirubin Urine Negative (Negative); Blood Urine Negative (Negative); Color Urine Yellow; Glucose Urine UA Negative (Negative); Ketones Urine Negative (Negative); Leukocyte Esterase Urine Negative (Negative); Nitrite Urine Negative (Negative); Protein Urine Negative (Negative); Specific Gravity Urine 1.009 (1.000-1.030); Urobilinogen Urine Negative (Negative); pH Urine 8.5 (4.5-7.5)
[2019-11-02] MEDS ORDERED: LORazepam 0.25 MG/0.5 ML VIAL IV PRN (18:22)
--- NOTE | 2019-11-02 18:35 | Emergency Department Note ---
Entered by Leda Barrera acting as a scribe for Rj Blackburn MD History of Present Illness General Chief complaint: Weakness Stated complaint: weakness/eval Time Seen by Provider: 11/02/19 12:47 Source: other (caregiver) Limitations: other (intellectual disability ) History of Present Illness Provider complaint: weakness Onset (ago): day(s) 1 Associated symptoms: + headaches, + loss of appetite and + other (+leg swelling); no fever/chills and no nausea/vomiting The patient is a 54 year old female who presents to the Emergency Room with complaints of weakness that started yesterday. The patient's caregiver reports that the patient was here on Sunday for a fall where they did a CT of the head and she was discharged home. They note that yesterday the patient has had difficultly walking and today the patient could not walk on her own. They note that the patient normally walks on her own. They state that the patient has had a loss of appetite. They mention that the patient has not fallen since Sunday. They deny any recent fever, nausea, or vomiting. They state that the patient has been taking her medications normally. The patient notes that she has a headache and leg pain. HPI is limited secondary to intellectual disability. Home Medications Home Medications Medication Instructions Recorded Confirmed Type acetic acid 4 drp OTIC (EAR) 2XWK 11/22/18 11/02/19 History ammonium lactate 1 applic TOPICAL BID 11/27/18 11/02/19 History lithium carbonate 450 mg PO HS 11/27/18 11/02/19 History multivitamin-ferrous 1 tab PO DAILY 04/14/19 11/02/19 History fumarate-folic acid 18 mg-400 mcg tablet mupirocin 2 % topical ointment 1 applic TOPICAL BID PRN 04/21/19 11/02/19 History naphazoline 0.025 %-pheniramine 1 drp OPHTHALMIC (EYE) BID 04/21/19 11/02/19 History 0.3 % eye drops cetirizine 10 mg tablet 10 mg PO QAM #30 tab 07/04/19 11/02/19 Rx levothyroxine 50 mcg tablet 50 mcg PO DAILY #30 tab 07/04/19 11/02/19 Rx atorvastatin 20 mg tablet 20 mg PO DAILY #90 tab 07/09/19 11/02/19 Rx clopidogrel 75 mg tablet 75 mg PO QAM #30 tab 07/09/19 11/02/19 Rx furosemide 40 mg tablet 40 mg PO DAILY #30 tab 07/09/19 11/02/19 Rx metoprolol succinate 25 mg 25 mg PO QAM #30 tab 07/09/19 11/02/19 Rx tablet,extended release 24 hr potassium chloride 10 mEq 10 meq PO DAILY #30 tab 07/09/19 11/02/19 Rx tablet,extended release(part/cryst) primidone 250 mg tablet 250 mg PO QAM #30 tab 07/09/19 11/02/19 Rx vitamin E mixed 400 unit capsule 400 units PO BID cap 07/30/19 11/02/19 History cholecalciferol (vitamin D3) 25 1,000 units PO DAILY #30 cap 08/07/19 11/02/19 Rx mcg (1,000 unit) capsule docusate sodium 100 mg capsule 100 mg PO TID #90 cap 08/07/19 11/02/19 Rx quetiapine [Seroquel] 50 mg PO HS 09/25/19 11/02/19 History quetiapine [Seroquel] 300 mg PO HS 09/25/19 11/02/19 History betamethasone dipropionate 0.05 % 1 applic TOPICAL BID #45 gm 10/10/19 11/02/19 Rx topical ointment calcium carbonate 600 mg (1,500 1 cap PO BID #60 cap 10/27/19 11/02/19 Rx mg)-vitamin D3 500 unit capsule Allergies Allergy/AdvReac Type Severity Reaction Status Date / Time carbamazepine Allergy Unknown Unknown Verified 11/02/19 13:30 Penicillins Allergy Unknown Unknown Verified 11/02/19 13:30 phenytoin Allergy Unknown Unknown Verified 11/02/19 13:30 valproic acid Allergy Unknown UNKNOWN Unverified 11/02/19 13:30 divalproex sodium Allergy Unknown Unverified 11/02/19 13:30 [From Depakote] pseudoephedrine AdvReac Unknown UNKNOWN Unverified 11/02/19 13:30 Fabric Softeners Allergy Unknown . Uncoded 11/02/19 13:30 Past Med/Surg History Medical History Allergic rhinitis (Acute) Atopic dermatitis (Acute) Bipolar disorder, unspecified (Chronic) Cardiomegaly (Acute) Cardiomyopathy (Chronic) Cardiovascular disease (Acute) Cerebral vascular disease (Chronic) Chronic constipation (Acute) Chronic systolic congestive heart failure (Chronic) Contracture, right hand (Acute) Esophageal dysmotility (Acute) Gallstones (Resolved) Gastroesophageal reflux disease (Acute) Hypercholesterolemia (Chronic) Internal hemorrhoids (Acute) Macrocytosis (Acute) Patent foramen ovale (Acute) Pulmonary hypertension (Acute) Repeated falls (Acute) Seizure disorder (Chronic) TIA (transient ischemic attack) (Acute) Surgical History History of cholecystectomy History of total abdominal hysterectomy Social History Preferred Language: Portuguese Communication Ability: Impaired Visual Impairment: No Limitations Hearing Ability: Normal Information Assurance Engineer Required: No Beliefs That Will Affect Care: None marital status: Single Current Living Situation: Other Current Living Situation Comment: [employer] Other Information That Helps Us Care for You: No Feels Safe at Home: Yes Safety Concerns: Feels Safe At This Time Smoking Status: Unknown if ever smoked Hx Alcohol Use: No Hx Substance Use: No Dental Care, Regularly: Yes Physical Activity Frequency: 1-2 Times per Week Seatbelt Use: always Review of Systems See HPI for pertinent positives & negatives. Other (ROS is limited due to intellectual disability) Physical Exam Vital Signs Vital Signs - 24 hr 11/02/19 13:20 11/02/19 14:45 11/02/19 15:00 Pulse Rate 66 65 Pulse Rate from SpO2 Sensor 66 Respiratory Rate 20 29 H Respiratory Effort / Characteristics Non-Labored Spontaneous Respiratory Depth Normal Respiratory Pattern Regular Blood Pressure 115/75 114/74 Blood Pressure Mean 88 81 Blood Pressure Position Lying Pulse Oximetry 97 98 98 Oxygen Delivery Method Room Air Room Air Sepsis Recent Fever Within 48 Hours No Sepsis New/Unexplained Change in Mental Status No Sepsis Action Taken by Nursing No Action Required 11/02/19 15:02 11/02/19 15:30 11/02/19 15:31 Pulse Rate 63 67 68 Pulse Rate from SpO2 Sensor 64 65 69 Respiratory Rate 33 H 34 H 34 H Respiratory Effort / Characteristics Respiratory Depth Respiratory Pattern Blood Pressure 129/74 Blood Pressure Mean 85 Blood Pressure Position Pulse Oximetry 98 98 94 Oxygen Delivery Method Sepsis Recent Fever Within 48 Hours Sepsis New/Unexplained Change in Mental Status Sepsis Action Taken by Nursing Constitutional: Vital signs reviewed. Eyes: Pupils are equal round reactive to light. Conjunctiva are noninjected. Somewhat limited does not follow all commands. ENT: Pharynx is clear without erythema or exudate. Mucous membranes are moist. Neck supple without meningeal signs. Respiratory: Clear to auscultation bilaterally. Breath sounds are equal bilaterally. Cardiovascular: Regular rate and rhythm. No rubs or gallops. GI: Soft, nondistended and nontender. Bowel sounds are present. Musculoskeletal: No peripheral edema. No lower extremity tenderness. Integumentary: No cyanosis. Neurological: The patient is awake and alert. Cranial nerves II-XII are grossly intact. 4/5 strength in legs. 5-5 in the upper extremities. Very unsteady and wide gait based. Sensation is intact to light touch all extremities. Psychiatric: Unable to assess. Course Course 1249: The patient was evaluated in room B10, and a complete history and physical examination were performed. 1425: I discussed the patient's case with the patient's parents. They note that the mother has a history of CHF. I told the nurse to give 500 CC of fluid. 1448: I talked to the patient's family about results and spoke to Dr. Rao- [facility]. He will admit the patient and he states that hold off on calcitonin and ZA. Administered Medications Discontinued Medications Sodium Chloride (Nss 1000ml) 1,000 mls @ 999 mls/hr IV .Q1H1M ONE Stop: 11/02/19 15:17 Last Admin: 11/02/19 14:38 Dose: Not Given Documented by: [id number] Sodium Chloride (Nss 1000ml) 500 mls @ 999 mls/hr IV .Q31M ONE Stop: 11/02/19 14:55 Last Infusion: 11/02/19 15:30 Dose: 0 mls/hr Documented by: [id number] Admin: 11/02/19 14:59 Dose: 999 mls/hr Documented by: [id number] Medical Decision Making Differential Diagnosis Differential diagnoses include but are not limited to CVA, infection, ICH, intracranial mass, UTI, and metabolic derangement. Medical Records Attestation: I reviewed the patient's medical records. I did perform a limited focused review of portions of the patient's old chart on the electronic medical record. The patient was here on the for a fall was discharged home after evaluation. Home Medications Current Medication List: was personally reviewed by me Laboratory Data Attestation: I reviewed the patient's lab results. Result diagrams: 11/02/19 13:29 11/02/19 13:29 Lab Results 11/02/19 11/02/19 11/02/19 Range/Units 13:29 13:29 13:29 WBC 7.90 (4.8-10.8) K/uL RBC 3.93 L (4.2-5.4) M/uL Hgb 14.0 (12.0-16.0) g/dL Hct 41.5 (37-47) % MCV 105.6 H (80-100) fL MCH 35.6 H (25-34) pg MCHC 33.7 (32-36) g/dL RDW Std Deviation 49.0 H (36.4-46.3) fL RDW Coeff of Samm 12.7 (11.5-14.5) % Plt Count 265 (130-400) K/uL MPV 10.6 H (7.4-10.4) fL Immature Gran % (Auto) 0.0 % Neut % (Auto) 64.3 % Lymph % (Auto) 22.3 % Henry % (Auto) 11.1 % Eos % (Auto) 2.0 % Baso % (Auto) 0.3 % Immature Gran # (Auto) 0.00 (0.00-0.02) K/uL Neut # (Auto) 5.08 (1.4-6.5) K/uL Lymph # (Auto) 1.76 (1.2-3.4) K/uL Henry # (Auto) 0.88 H (0.11-0.59) K/uL Eos # (Auto) 0.16 (0-0.5) K/uL Baso # (Auto) 0.02 (0-0.2) K/uL PT 10.2 (9.0-12.0) Seconds INR 1.0 (0.9-1.1) APTT 23.9 (21.0-31.0) Seconds PTT Ratio 0.9 Sodium 143 (136-145) mmol/L Potassium 3.5 (3.5-5.1) mmol/L Chloride 104 (98-107) mmol/L Carbon Dioxide 35 H (21-32) mmol/L Anion Gap 4.0 (3-11) BUN 22 H (7-18) mg/dl Creatinine 0.91 (0.6-1.2) mg/dl Est Cr Clr Drug Dosing Not Reportable Est GFR ( Amer) 82.3 Est GFR (Non-Af Amer) 71.0 BUN/Creatinine Ratio 23.9 H (10-20) Glucose 88 (70-99) mg/dl Calcium 12.5 H* (8.5-10.1) mg/dl Magnesium 2.0 (1.8-2.4) mg/dl Total Bilirubin 0.4 (0.2-1) mg/dl AST 28 (15-37) U/L ALT 36 (12-78) U/L Alkaline Phosphatase 75 (45-117) U/L Troponin I 0.021 (0-0.045) ng/ml Total Protein 8.2 (6.4-8.2) gm/dl Albumin 4.1 (3.4-5.0) gm/dl Globulin 4.1 H (2.5-4.0) gm/dl Albumin/Globulin Ratio 1.0 (0.9-2) Imaging Data Radiologist's Impression: Radiology results as stated below per my review and the radiologist's interpretation: XR chest 1V portable CLINICAL HISTORY: Trauma. Possible pneumonia. COMPARISON STUDY: November 2018 FINDINGS: The cardiac and mediastinal contours are normal. There is no evidence of focal pulmonary consolidation. There is no evidence of failure. No pleural effusions are visualized.[ IMPRESSION: No active disease in the chest. ACT 112: Negative or not required by law. Electronically signed by: Ramon Mcgowna M.D. 11/02/2019 1:[address] head/brain wo con CLINICAL HISTORY: Ataxia. Possible stroke. COMPARISON STUDY: 10/31/2019 TECHNIQUE: Axial CT of the brain is performed from the vertex to the skull base. IV contrast was not administered for this examination. A dose lowering te chnique was utilized adhering to the principles of ALARA. CT DOSE: 767.83 mGy.cm FINDINGS: No intra or extra-axial mass lesions are visualized. There is no CT evidence of acute cortical infarction. There is no evidence of midline shift. There is no acute hemorrhage. No calvarial fractures are visualized. There are moderate white matter hypodensities likely on a small vessel basis. 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 There is mild ventricular dilatation, finding similar to the prior study. There is no evidence of acute sinusitis IMPRESSION: 1. No change from the preceding study. No acute intracranial findings. ACT 112: Negative or not required by law. Electronically signed by: Ramon Mcgowan M.D. 11/02/2019 2:40 PM ECG Data Attestation: I personally reviewed and interpreted this ECG as follows: Rate (beats per minute): 66 Rhythm: + normal sinus ECG ST segments: + Nonspecific ST abnormalities (lateral lead) ECG Findings: + LVH; no PVCs Comparison ECG Date: from (09/25/19) Change: no significant change Blood Pressure Blood Pressure Findings: Normal blood pressure Blood Pressure Disposition: did not require urgent referral MDM Narrative I did evaluate the patient as noted above. I did obtain history from the patient's last putter away due to her intellectual disability. The patient is presenting with strokelike symptoms. She has ataxia. The history and exam is limited due to her intellectual disability. She follows most commands but not all. She is ataxic urine is not able to walk without assistance. This is new and started yesterday according to the last putter away. IV access was established. The patient was placed on a continuous swing frame grinder operator. I did order and personally review the patient's 12-lead EKG as described above. She has nonspecific changes. This is unchanged from her prior EKG from last month. I did order and personally reviewed the images of the patient's chest x-ray as described above. There is no evidence of infiltrate. I did order a urine analysis. She does not have a UTI. I did order and review the patient's blood work as noted in the electronic medical record. CBC is unremarkable without leukocytosis or anemia. Chemistries demonstrate a calcium of 12.5 which is acute for her. I did order a CT of the head. I did review the images myself as well as the radiology report as described above. There is no evidence of acute intracranial abnormality. I did discuss the test results with the patient as well as her parents who are now in the room. I did treat her with IV fluids using normal saline. I did discuss the case with Dr. Rao and the nurse outreach case manager. She will be admitted for further care. Impression & Plan Stroke-like symptoms, Ataxia, Hypercalcemia Discharge Plan Visit Data *Final* Discharge Date/Time: 11/02/19 17:08 Chief Complaint: Weakness Stated Complaint: weakness/eval ED Provider: Rj Blackburn Discharge Problem: Stroke-like symptoms, Ataxia, Hypercalcemia Patient Disposition: Admitted As Inpatient Discharge Instructions Interventions: ED Discharge Assessment Last Done: 11/02/19 17:08 The scribe's documentation has been prepared under my direction and personally reviewed by me in its entirety. I confirm that the note above accurately reflects all work, treatment, procedures, and medical decision making performed by me.
[2019-11-02 18:38] LABS: Lithium 0.9 mmol/L (0.6-1.2)
[2019-11-02 18:46] LABS: BUN Creatinine Ratio 21.4 (10-20); Creatinine Clr Calc Pharmacy 42.6 ml/min; Est GFR (African American) 82.3; Potassium 3.4 mmol/L (3.5-5.1)
[2019-11-02] MEDS ORDERED: LORazepam 0.25 MG/0.5 ML VIAL IV STA (20:26)
--- NOTE | 2019-11-02 22:14 | Electrocardiogram Report ---
Test Reason : Blood Pressure : / mmHG Vent. Rate : 066 BPM Atrial Rate : 066 BPM P-R Int : 122 ms QRS Dur : 098 ms QT Int : 382 ms P-R-T Axes : 013 005 149 degrees QTc Int : 400 ms Normal sinus rhythm Left ventricular hypertrophy with repolarization abnormality Abnormal ECG When compared with ECG of 25-SEP-2019 17:02, No significant change was found Confirmed by Viraj Rivera ([id number]) on 11/02/2019 10:13:54 PM Referred By: REFERRED SELF Confirmed By:Viraj Rivera
[2019-11-02] MEDS ORDERED: GADOBUTROL 65ML VIAL IV PRN (22:16)
--- NOTE | 2019-11-02 22:23 | Magnetic Resonance Report ---
MRI OF THE BRAIN WITHOUT AND WITH IV CONTRAST CLINICAL HISTORY: Ataxia. Possible stroke. Possible right frontal neoplasm. COMPARISON STUDY: MRI the brain dated 11/27/2018, CT scan dated 11/02/2019 TECHNIQUE: MRI of the brain was performed from the vertex to the skull base utilizing various T1 and T2 weighted sequences. Following the IV administration of 4 mL of Gadavist contrast, additional enhan john images were obtained. FINDINGS: Sagittal T1, axial diffusion, proton density and T2 weighted axial, coronal FLAIR, and pre and post a xial T1-weighted images were acquired. These were supplemented with post gadolinium coronal T1 weight ed images. No intra or extra-axial mass lesions are visualized. Axial diffusion-weighted images reveal no evidence of acute or subacute infarction. There is stable mild ventriculomegaly. Proton density T2-weighted and FLAIR images reveal scattered foci of increased T2 signal within the w mann matter, likely on a small vessel basis. There are diffusely prominent perivascular spaces, simil ar to the preceding study. There are no abnormal flow voids. There is no evidence of pathologic enhancement. IMPRESSION: 1. No acute intracranial findings 2. No evidence of acute or subacute infarction 3. Stable mild ventriculomegaly 4. No evidence of intracranial mass ACT 112: Negative or not required by law. Electronically signed by: Ramon Mcgowan M.D. 11/02/2019 10:21 PM
[2019-11-03] MEDS: ENOXAPARIN INJ 30 MG/0.3 ML SYR SQ SCH ×2 (03:31→20:58)
[2019-11-03] MEDS: DOCUSATE SODIUM 100 MG CAP PO SCH ×4 (04:29→20:58)
[2019-11-03] MEDS: BETAMETHASONE DIP AUG 0.05% OINT 15 GM TUBE EXT SCH ×3 (04:29→20:59)
[2019-11-03] MEDS: QUETIAPINE FUMARATE 300 MG TABLET PO SCH ×2 (04:29→20:58)
[2019-11-03] MEDS: LITHIUM CARBONATE 450 MG TABCR PO SCH ×2 (04:29→20:59)
[2019-11-03] MEDS: AMMONIUM LACTATE 12% LOTION 225 GM BTL EXT SCH ×3 (04:29→21:01)
[2019-11-03] MEDS: QUETIAPINE FUMARATE 25 MG TABLET PO SCH ×2 (04:30→20:58)
[2019-11-03] MEDS: NAPHAZOLIN/PHENIRAMIN OPH SOLN 75 DROPS/5 ML BTL OP SCH ×3 (04:30→21:00)
[2019-11-03] MEDS: LEVOTHYROXINE SODIUM 50 MCG TABLET PO SCH (06:07)
[2019-11-03 06:18] LABS: Basophils # (auto) 0.02 K/uL (0-0.2); Basophils % (auto) 0.3 %; Eosinophils # (auto) 0.08 K/uL (0-0.5); Hematocrit (blood only) 35.8 % (37-47); Hemoglobin 11.8 g/dL (12.0-16.0); Immature Granulocytes # (auto) 0.01 K/uL (0.00-0.02); Immature Granulocytes % (auto) 0.1 %; Lymphocytes # (auto) 1.66 K/uL (1.2-3.4); Lymphocytes % (auto) 21.7 %; Mean Corpuscular Hemoglobin 34.5 pg (25-34); Mean Corpuscular Volume 104.7 fL (80-100); Mean Platelet Volume 10.6 fL (7.4-10.4); Monocytes # (auto) 0.91 K/uL (0.11-0.59); Monocytes % (auto) 11.9 %; Neutrophils # (auto) 4.96 K/uL (1.4-6.5); Platelet Count 221 K/uL (130-400); RDW Coefficient of Variation 12.9 % (11.5-14.5); RDW Standard Deviation 49.5 fL (36.4-46.3); Red Blood Count 3.42 M/uL (4.2-5.4); White Blood Count 7.64 K/uL (4.8-10.8)
[2019-11-03 06:32] LABS: Estimated Average Glucose 100 mg/dl; Hemoglobin A1C 5.1 % (4.5-5.6)
[2019-11-03 07:03] LABS: Albumin Level 3.3 gm/dl (3.4-5.0); BUN Creatinine Ratio 27.3 (10-20); Bilirubin,Total 0.4 mg/dl (0.2-1); Calcium 11.9 mg/dl (8.5-10.1); Creatinine Clr Calc Pharmacy 64.6 ml/min; Est GFR (African American) 118.9; Est GFR (Non-African American) 102.6; Globulin 3.4 gm/dl (2.5-4.0); Potassium 3.4 mmol/L (3.5-5.1); Total Protein 6.7 gm/dl (6.4-8.2)
[2019-11-03] MEDS: CEROVITE ADV FORMULA TAB PO SCH (08:42)
[2019-11-03] MEDS: CLOPIDOGREL BISULFATE 75 MG TAB PO SCH (08:42)
[2019-11-03] MEDS: PRIMIDONE 250 MG TAB PO SCH (08:43)
[2019-11-03] MEDS: CETIRIZINE HCL 10 MG TABLET PO SCH (08:43)
[2019-11-03] MEDS: ATORVASTATIN 20 MG TAB PO SCH (08:43)
[2019-11-03] MEDS: POTASSIUM CHLORIDE 10 MEQ TABCR PO SCH (08:43)
[2019-11-03] MEDS: CHOLECALCIFEROL 1,000 UNITS TAB PO SCH (08:43)
[2019-11-03] MEDS: ACETIC ACID 2% OTIC SOLN 15 ML BTL OT SCH ×2 (08:46→13:32)
[2019-11-03] MEDS: METOPROLOL SUCC 25MG EXT REL TAB PO SCH (08:52)
[2019-11-03] MEDS: FUROSEMIDE 40 MG TAB PO SCH (09:00)
[2019-11-03] MEDS ORDERED: POTASSIUM CHLORIDE 20 MEQ TABCR PO STA (09:08)
--- NOTE | 2019-11-03 09:34 | Neurology Consultation ---
Date of Consultation November 03, 2019 Assessment & Plan (1) Altered mental state: Acute on chronic encephalopathy in a 54-year-old female with severe intellectual disabilities, seizure disorder, recent concussion without loss of consciousness, possible hypoparathyroidism and hypercalcemia due to supplementation. Patient's persistent altered mental status could be metabolic or related to her recent concussion. I suspect she is improving but of course has a significant chronic or static encephalopathy at baseline. (2) Seizure disorder: Reported history of seizure disorder which has been stable for many years. Seizures are reportedly of the generalized tonic-clonic type and have been stable on Mysoline. This morning's EEG does not reveal any epileptiform abnormalities but does reveal findings suggestive of chronic static encephalopathy as well as some focal slowing localizing to the left frontal region which is probably consistent with her chronic left frontal infarct. The EEG findings do not support subclinical seizures at this time. Patient should continue with Mysoline. If she were to have recurrent seizures will consider a trial of Keppra. (3) Cerebral vascular disease: Rather extensive chronic cerebrovascular disease with an admission to the hospital this past November for a right frontal infarct and evidence of a chronic left frontal infarct on recent imaging. CT angiography of the head and neck completed this past November were negative for a hemodynamically significant stenosis of either internal carotid artery. Diffuse atherosclerotic plaque was observed. This patient's echocardiogram completed this past November revealed a moderate to severely reduced ejection fraction with akinetic segments of the left ventricle noted as well as an aneurysmal interatrial septum with small right to left shunt. She is probably at increased risk for cardioembolism. However, as her recent MRI is negative for acute infarct I think continuing with clopidogrel for stroke risk reduction is appropriate at this point in time. If, however, she were to have another stroke or TIA-like episode it may be appropriate to consider anticoagulation in light of her significantly reduced ejection fraction. There does not appear to be a history of atrial fibrillation although she may be at risk for this dysrhythmia. History of Present Illness Reason for Consultation: poor balance, altered MS Requesting Physician: Todd Rao MD Attending Physician: Constanza Daley MD History of Present Illness The patient is a 54-year-old female with a history of severe intellectual disabilities who lives in a care home, [facility], who presented to the emergency department on October 31 after a fall at [facility]. She reportedly hit her head on the ground at that time. There was no loss of consciousness or reported seizure activity. A CT of the head at that time was negative for acute process and she was discharged in stable condition. She presented again to the emergency department on November 02 with weakness, and difficulty walking. She has had poor appetite as well. The patient's mother is at bedside and indicates that she does not seem to be back at her usual baseline. She is a bit less interactive and is a bit more twitchy than usual. Past medical history notable for seizure disorder which has been stable for many years on Mysoline. Her mother reports trials of several anticonvulsants at a young age including carbamazepine, phenytoin, and Depakote. The patient was evaluated by Dr. Centeno during admission to the [facility] this past November for a small infarct within the right posterior frontal cortex. Who noted her history of epilepsy with seizure type described as generalized tonic-clonic. Last seizure occurred in her 20s. Patient also follows with psychiatry for bipolar disorder. She is prescribed lithium and Seroquel. She has a low parathyroid level recently as well as a modestly elevated calcium level. A CT of the head completed yesterday was negative for hemorrhage or acute process. There is a chronic left frontal infarct. A follow-up brain MRI is negative for acute or subacute process. There is stable mild ventriculomegaly. Allergies Allergy/AdvReac Type Severity Reaction Status Date / Time carbamazepine Allergy Unknown Unknown Verified 11/02/19 13:30 Penicillins Allergy Unknown Unknown Verified 11/02/19 13:30 phenytoin Allergy Unknown Unknown Verified 11/02/19 13:30 valproic acid Allergy Unknown UNKNOWN Unverified 11/02/19 13:30 divalproex sodium Allergy Unknown Unverified 11/02/19 13:30 [From Depakote] pseudoephedrine AdvReac Unknown UNKNOWN Unverified 11/02/19 13:30 Fabric Softeners Allergy Unknown . Uncoded 11/02/19 13:30 Home Medications Home Medications Medication Instructions Recorded Confirmed Type acetic acid 4 drp OTIC (EAR) 2XWK 11/22/18 11/02/19 History ammonium lactate 1 applic TOPICAL BID 11/27/18 11/02/19 History lithium carbonate 450 mg PO HS 11/27/18 11/02/19 History multivitamin-ferrous 1 tab PO DAILY 04/14/19 11/02/19 History fumarate-folic acid 18 mg-400 mcg tablet mupirocin 2 % topical ointment 1 applic TOPICAL BID PRN 04/21/19 11/02/19 History naphazoline 0.025 %-pheniramine 1 drp OPHTHALMIC (EYE) BID 04/21/19 11/02/19 History 0.3 % eye drops cetirizine 10 mg tablet 10 mg PO QAM #30 tab 07/04/19 11/02/19 Rx levothyroxine 50 mcg tablet 50 mcg PO DAILY #30 tab 07/04/19 11/02/19 Rx atorvastatin 20 mg tablet 20 mg PO DAILY #90 tab 07/09/19 11/02/19 Rx clopidogrel 75 mg tablet 75 mg PO QAM #30 tab 07/09/19 11/02/19 Rx furosemide 40 mg tablet 40 mg PO DAILY #30 tab 07/09/19 11/02/19 Rx metoprolol succinate 25 mg 25 mg PO QAM #30 tab 07/09/19 11/02/19 Rx tablet,extended release 24 hr potassium chloride 10 mEq 10 meq PO DAILY #30 tab 07/09/19 11/02/19 Rx tablet,extended release(part/cryst) primidone 250 mg tablet 250 mg PO QAM #30 tab 07/09/19 11/02/19 Rx vitamin E mixed 400 unit capsule 400 units PO BID cap 07/30/19 11/02/19 History cholecalciferol (vitamin D3) 25 1,000 units PO DAILY #30 cap 08/07/19 11/02/19 Rx mcg (1,000 unit) capsule docusate sodium 100 mg capsule 100 mg PO TID #90 cap 08/07/19 11/02/19 Rx quetiapine [Seroquel] 50 mg PO HS 09/25/19 11/02/19 History quetiapine [Seroquel] 300 mg PO HS 09/25/19 11/02/19 History betamethasone dipropionate 0.05 % 1 applic TOPICAL BID #45 gm 10/10/19 11/02/19 Rx topical ointment calcium carbonate 600 mg (1,500 1 cap PO BID #60 cap 10/27/19 11/02/19 Rx mg)-vitamin D3 500 unit capsule Patient History Medical History Allergic rhinitis (Acute) Atopic dermatitis (Acute) Bipolar disorder, unspecified (Chronic) Cardiomegaly (Acute) Cardiomyopathy (Chronic) Cardiovascular disease (Acute) Cerebral vascular disease (Chronic) Chronic constipation (Acute) Chronic systolic congestive heart failure (Chronic) Contracture, right hand (Acute) Esophageal dysmotility (Acute) Gallstones (Resolved) Gastroesophageal reflux disease (Acute) Hypercholesterolemia (Chronic) Internal hemorrhoids (Acute) Macrocytosis (Acute) Patent foramen ovale (Acute) Pulmonary hypertension (Acute) Repeated falls (Acute) Seizure disorder (Chronic) TIA (transient ischemic attack) (Acute) Surgical History History of cholecystectomy History of total abdominal hysterectomy Social History Preferred Language: Kiswahili Communication Ability: Impaired Visual Impairment: No Limitations Hearing Ability: Normal [employer] Supervisor Required: No Beliefs That Will Affect Care: None marital status: Single Current Living Situation: Other Current Living Situation Comment: [facility] Other Information That Helps Us Care for You: No Feels Safe at Home: Yes Safety Concerns: Feels Safe At This Time Smoking Status: Unknown if ever smoked Hx Alcohol Use: No Hx Substance Use: No Dental Care, Regularly: Yes Physical Activity Frequency: 1-2 Times per Week Seatbelt Use: always Review of Systems Review of Systems: Unobtainable due to cognitive status Physical Exam Physical Exam: The patient is a middle-aged female of short stature, mildly dysmorphic appearing, resting comfortably in bed. She is alert and oriented to self only. She recognizes her mother at bedside. Memory cannot be assessed. Attention and concentration are impaired. Patient displays minimal spontaneous speech and poor language comprehension. Fund of knowledge impaired. Visual dahl grossly full to threat. Pupils equal round reactive to light and accommodation. Eye movements normal. No gaze preference or nystagmus. Facial sensation intact. There is no facial droop or weakness. Hearing intact. Palate elevates to midline. Shoulder shrug intact. Tongue protrudes to midline. Sensation intact in all 4 limbs. Deep tendon reflexes are intact and symmetrical for the arms and legs bilaterally. Plantar responses upgoing bilaterally. Patient performs [id number] slowly bilaterally. Does not cooperate for [id number] bilaterally. Movements are slow and clumsy appearing. Patient does not cooperate adequately for direct ophthalmoscopic examination. Carotid pulses normal bilaterally, no bruits to auscultation. Gait and station cannot be tested. Patient exhibits normal strength and tone for all 4 limbs proximally and distally. There appears to be an element of disuse atrophy affecting the lower limbs, no fasciculations. No abnormal movements observed. Results & Data Vital Signs (Past 12 Hours) Vital Signs Temp Pulse Pulse Pulse Resp BP Pulse Ox 11/03/19 07:24 36.2 C L 64 16 95/62 L 95 11/03/19 03:26 36.3 C L 65 16 123/66 11/03/19 00:18 73 11/02/19 23:36 36.4 C L 73 20 105/67 94 11/02/19 22:04 36.7 C 79 21 116/75 93 Laboratory Results WBC 7.64, hemoglobin 11.8, hematocrit 35.8, platelet count 221, sodium 140, potassium 3.4, BUN 16, creatinine 0.60, glucose 82, hemoglobin A1c 5.1, calcium 11.9, AST 26, ALT 31, triglycerides 90, cholesterol 151, LDL 70, VLDL 18, HDL 63, TSH 1.050, vitamin D level 36.1, parathyroid hormone 16.5, phenobarbital 10.9 (15-40) Diagnostic Findings CT of the head completed yesterday reveals an old left frontal infarct and mild ventricular dilatation. No change from the previous study done on October 31. I reviewed the images as well as the radiologist's interpretation of this test. MRI of the brain completed yesterday negative for acute or subacute stroke. No acute findings. There is stable mild ventriculomegaly. There is considerable chronic cerebrovascular disease and diffusely prominent perivascular spaces. I reviewed the images as well as the radiologist interpretation of this test. An electrocardiogram completed yesterday reveals a normal sinus rhythm, left ventricular hypertrophy with repolarization abnormality. An echocardiogram completed November 28, 2018 reveals a normal left ventricular size with moderately to severely reduced systolic function, ejection fraction 30 to 35%, akinesis of the base to mid septum and anteroseptum. There is aneurysmal interatrial septum with a small right to left shunt noted. An EEG completed this morning reveals generalized slowing consistent with a nonspecific encephalopathy as well as intermittent left frontal delta slowing potentially consistent with underlying functional or structural abnormality. No epileptiform abnormalities. (1) Altered mental state Altered mental status type: transient alteration of awareness Qualified Code (s): R40.4 - Transient alteration of awareness
--- NOTE | 2019-11-03 10:29 | Electroencephalogram ---
EEG Procedure Note Date of Service November 03, 2019 Start / End Times Start Time: 9:36 AM End Time: 9:56 AM Referring Physician Merlin Potter MD History Seizure disorder, altered mental status Home Medication List Home Medications Medication Instructions Recorded Confirmed Type acetic acid 4 drp OTIC (EAR) 2XWK 11/22/18 11/02/19 History ammonium lactate 1 applic TOPICAL BID 11/27/18 11/02/19 History lithium carbonate 450 mg PO HS 11/27/18 11/02/19 History multivitamin-ferrous 1 tab PO DAILY 04/14/19 11/02/19 History fumarate-folic acid 18 mg-400 mcg tablet mupirocin 2 % topical ointment 1 applic TOPICAL BID PRN 04/21/19 11/02/19 History naphazoline 0.025 %-pheniramine 1 drp OPHTHALMIC (EYE) BID 04/21/19 11/02/19 History 0.3 % eye drops cetirizine 10 mg tablet 10 mg PO QAM #30 tab 07/04/19 11/02/19 Rx levothyroxine 50 mcg tablet 50 mcg PO DAILY #30 tab 07/04/19 11/02/19 Rx atorvastatin 20 mg tablet 20 mg PO DAILY #90 tab 07/09/19 11/02/19 Rx clopidogrel 75 mg tablet 75 mg PO QAM #30 tab 07/09/19 11/02/19 Rx furosemide 40 mg tablet 40 mg PO DAILY #30 tab 07/09/19 11/02/19 Rx metoprolol succinate 25 mg 25 mg PO QAM #30 tab 07/09/19 11/02/19 Rx tablet,extended release 24 hr potassium chloride 10 mEq 10 meq PO DAILY #30 tab 07/09/19 11/02/19 Rx tablet,extended release(part/cryst) primidone 250 mg tablet 250 mg PO QAM #30 tab 07/09/19 11/02/19 Rx vitamin E mixed 400 unit capsule 400 units PO BID cap 07/30/19 11/02/19 History cholecalciferol (vitamin D3) 25 1,000 units PO DAILY #30 cap 08/07/19 11/02/19 Rx mcg (1,000 unit) capsule docusate sodium 100 mg capsule 100 mg PO TID #90 cap 08/07/19 11/02/19 Rx quetiapine [Seroquel] 50 mg PO HS 09/25/19 11/02/19 History quetiapine [Seroquel] 300 mg PO HS 09/25/19 11/02/19 History betamethasone dipropionate 0.05 % 1 applic TOPICAL BID #45 gm 10/10/19 11/02/19 Rx topical ointment calcium carbonate 600 mg (1,500 1 cap PO BID #60 cap 10/27/19 11/02/19 Rx mg)-vitamin D3 500 unit capsule Inpatient Medication List Acetic Acid (Vosol 2% Otic) 4 drops OT MoTh@0900 [facility] Stop: 12/03/19 08:59 Last Admin: 11/03/19 08:46 Dose: 4 drops Documented by: [id number] Atorvastatin Calcium (Lipitor) 20 mg PO DAILY [facility] Stop: 12/03/19 08:59 Last Admin: 11/03/19 08:43 Dose: 20 mg Documented by: [id number] Betamethasone Dipropion Augmented (Diprolene 0.05%) 1 appln EXT BID [facility] Stop: 12/02/19 20:59 Last Admin: 11/03/19 08:45 Dose: 1 appln Documented by: [id number] Admin: 11/03/19 04:29 Dose: Not Given Documented by: [id number] C[facility]) [facility] Stop: 12/03/19 08:59 Last Admin: 11/03/19 08:43 Dose: 10 mg Documented by: [id number] Clopidogrel Bisulfate (Plavix) 75 mg PO QAM [facility] Stop: 12/03/19 08:59 Last Admin: 11/03/19 08:42 Dose: 75 mg Documented by: [id number] Docusate Sodium (Colace) 100 mg PO TID [facility] Stop: 12/02/19 20:59 Last Admin: 11/03/19 08:44 Dose: 100 mg Documented by: [id number] Admin: 11/03/19 04:29 Dose: Not Given Documented by: [id number] Enoxaparin Sodium (Lovenox) 30 mg SQ HS [facility] Stop: 12/02/19 20:59 Last Admin: 11/03/19 03:31 Dose: 30 mg Documented by: [id number] Gadobutrol (Gadavist 65ml) 4 ml IV ONCE PRN PRN Reason: Interaction Checking Stop: 01/16/20 22:15 Last Admin: 11/02/19 22:17 Dose: 4 ml Documented by: [id number] Lorazepam (Ativan) 0.25 mg in 0.5 mls @ 0.5 mls/min IV ONCE PRN PRN Reason: prior to MRI Stop: 12/02/19 18:21 Last Admin: 11/02/19 19:41 Dose: 0.5 mls/min Documented by: [id number] Lactic Acid (Amlactin) 1 gm EXT BID [facility] Stop: 12/02/19 20:59 Last Admin: 11/03/19 08:44 Dose: 1 gm Documented by: [id number] Admin: 11/03/19 04:29 Dose: Not Given Documented by: [id number] Levothyroxine Sodium (Synthroid) 50 mcg PO DAILYBB [facility] Stop: 12/03/19 06:29 Last Admin: 11/03/19 06:07 Dose: 50 mcg Documented by: [id number] [place] Carbonate (Eskalith) 450 mg PO HS [facility] Stop: 12/02/19 20:59 Last Admin: 11/03/19 04:29 Dose: Not Given Documented by: [id number] Metoprolol Succinate (Toprol Xl) 25 mg PO QAM [facility] Stop: 12/03/19 08:59 Last Admin: 11/03/19 08:52 Dose: Not Given Documented by: [id number] Multivitamins/Minerals (Multivitamin W/ Minerals Tab) 1 tab PO DAILY [facility] Stop: 12/03/19 08:59 Last Admin: 11/03/19 08:42 Dose: 1 tab Documented by: [id number] Naphazoline HCl/Pheniramine Maleate (Visine-A) 1 drops OP BID [facility] Stop: 12/02/19 20:59 Last Admin: 11/03/19 08:45 Dose: 1 drops Documented by: [id number] Admin: 11/03/19 04:30 Dose: Not Given Documented by: [id number] Potassium Chloride (Klor-Con M10) 10 meq PO DAILY [facility] Stop: 12/03/19 08:59 Last Admin: 11/03/19 08:43 Dose: 10 meq Documented by: [id number] Primidone (Mysoline) 250 mg PO QAM [facility] Stop: 12/03/19 08:59 Last Admin: 11/03/19 08:43 Dose: 250 mg Documented by: [id number] Quetiapine Fumarate (Seroquel) 300 mg PO HS [facility] Stop: 12/02/19 20:59 Last Admin: 11/03/19 04:29 Dose: Not Given Documented by: [id number] Quetiapine Fumarate (Seroquel) 50 mg PO HS [facility] Stop: 12/02/19 20:59 Last Admin: 11/03/19 04:30 Dose: Not Given Documented by: [id number] Vitamin D (Vitamin D3) 1,000 units PO DAILY [facility] Stop: 12/03/19 08:59 Last Admin: 11/03/19 08:43 Dose: 1,000 units Documented by: [id number] Discontinued Medications Sodium Chloride (Nss 1000ml) 1,000 mls @ 999 mls/hr IV .Q1H1M ONE Stop: 11/02/19 15:17 Last Admin: 11/02/19 14:38 Dose: Not Given Documented by: [id number] Sodium Chloride (Nss 1000ml) 500 mls @ 999 mls/hr IV .Q31M ONE Stop: 11/02/19 14:55 Last Infusion: 11/02/19 15:30 Dose: 0 mls/hr Documented by: [id number] Admin: 11/02/19 14:59 Dose: 999 mls/hr Documented by: [id number] Lorazepam (Ativan) 0.25 mg in 0.5 mls @ 0.5 mls/min IV NOW STA Stop: 11/02/19 20:27 Last Admin: 11/02/19 21:04 Dose: 0.5 mls/min Documented by: [id number] Potassium Chloride (Klor-Con M20) 40 meq PO NOW STA Stop: 11/03/19 09:09 Last Admin: 11/03/19 09:22 Dose: 40 meq Documented by: [id number] Description This is a 21 electrode EEG with a single channel dedicated to limited EKG. The electrodes were placed in accordance with the International 10-20 system. The background rhythm consists of 6 Hz generalized slowing in the theta frequency range. There is attenuation of the background rhythm with eye closing. Hyperventilation is not performed. Photic stimulation not tolerated. There is a symmetric frontal beta rhythm. There is intermittent left frontal slowing in the delta frequency range. There is intermittent movement artifact. No epileptiform abnormalities observed. Interpretation This is an abnormal awake/drowsy EEG revealing fairly persistent generalized theta slowing throughout the record suggestive of a moderate to severe encephalopathy. No triphasic waves. The observed left frontal delta slowing suggests an underlying structural or functional abnormality. No evidence of seizure activity or epileptiform abnormalities. Clinical Correlation The observed generalized slowing is consistent with this patient's history of severe intellectual disability and would suggest a chronic static encephalopathy. The observed left frontal delta slowing is probably consistent with the known chronic left frontal infarct. Please see today's neurology consultation for further clinical correlation. [facility] EEG Procedure Codes Indication for Procedure (1) Seizure disorder: (2) Altered mental state: Neurology Neurology: [id number] EEG include record awake & drowsy
[2019-11-03] MEDS ORDERED: Nursing to Pharmacy Communication ONE (13:33)
--- NOTE | 2019-11-03 14:52 | Hospitalist Progress Note ---
Date of Service November 03, 2019 Assessment & Plan (1) Altered mental state: With Acute metabolic encephalopathy s/p fall with head trauma 2 days prior to admission No evidence at all of infection. Is afebrile. EEG without seizure focus MRI brain negative CT Head with old left frontal lobe infarct Labs fairly unremarkable except hypercalcemia which is not likely contributing Most likely with post-concussive syndrome -recommend continued observation, rest from strenuous activity both physical and mental, and should improve with time Neuro consultation appreciated--> if witnessed seizure activity, could consider starting Keppra (2) Ataxia: Unclear cause of acute deterioration. WBC WNL and afebrile making infection less likely. Concussion possible and difficult to rule out given patient's intellectual disability. PT to assess No new stroke on MRI (3) Cerebrovascular accident: History of left frontal CVA 11/2018. Continue Plavix + atorvastatin. No arrhythmias on tele (4) Hypercalcemia: Secondary to newly started calcium carbonate tablets and Vit D, and dehydration. 500ml NS given in ER, none further given h/o chronic systolic CHF -iPTH appropriately low at 16 Vit D level normal at 37 Ca++ down to 11.9 today from 12.5 -continue home lasix -continue to encourage po fluid hydration through mom -follow Ca++ levels in the AM -if not improving with holding supplements, consider workup for malignancy (5) Repeated falls: Difficulty with balance at baseline and has to hold onto side railings etc... Does not use walker or stick. Usually can walk without assistance. Last fall two days prior suspected to be mechanical slip on back ground of poor balance. -PT/OT consults placed-needs SNF (6) CHF (congestive heart failure): Chronic systolic CHF No acute exacerbation Continue metoprolol XL 25mg daily and Lasix 40mg PO daily. Not on ACEi due to hypotension with this. Prior echo 11/2018 - 30-35% LVEF (7) Macrocytosis: Chronic. Stable. Vitamin B12 1135, folate 22.58 in 11/2018 with similar MCV. Recommend outpatient workup if not already performed. (8) Bipolar 1 disorder: Continue lithium. [place] level normal -continue Seroquel 350mg po qhs (9) Hypothyroid: Continue home dose levothyroxine. TSH 1.05 here (10) Chronic constipation: Continue outpatient laxative regimen. (11) Seizure disorder: Continue primidone with reference lab sent for level as per neurology recommendation. H/o generalized TC seizures in her 20s, none since then EEG here neg for seizure activity (12) Osteoporosis: T scores: L-spine -3.4, left hip -3.0, right hip -3.2 Suspect secondary to malnutrition and reduced weight bearing exercise. Unclear if consider outpatient IV bisphosphonate treatment (13) Hypokalemia: replace with po KCl -follow BMP in AM (14) Mental retardation: noted, continue supportive care, lives in a snf (15) DVT prophylaxis: Lovenox 30mg SQ HS. Lower dose due to patient weight. (16) Discharge planning issues: PT/OT. Plan for discharge tomorrow to SNF if not worse and if calcium level not rising Subjective Pt is not able to answer most of my questions. Frequently calls out "mom! mom!" and did indicate to her mom at bedside she had to urinate by yelling and poin ting at her lower abdomen. Otherwise, Mom did most of the talking-reports pt is definitely still not acting like herself. Has been very inattentive, not able to focus on her usual coloring books. She has had a few times where she is staring off for a few seconds. Her appetite and po intake of liquids is significantly reduced from previous. She does not seem to be in pain. Mom notes she has a mild bruise on her forehead from where she fell and landed on her face at [facility] 3 days ago. Mom also notes the pt received 2 doses of ativan last evening for her brain MRI and this may also be contributing to her alteration in mentation. Pt seems very cheerful to me, active, frequently tries to jump to her feet from the chair. Tele with NSR, PACs, normal rates Review of Systems Review of Systems: All systems reviewed & are unremarkable except as noted in HPI & below Physical Exam Constitutional: + thin and cooperative; no acute distress and not ill appearing Eyes: PERRL, conjunctivae normal, anicteric sclerae ENMT: external ear and nose normal, oropharynx normal Neck: trachea midline, no thyromegaly Respiratory: normal respiratory effort, lungs clear to auscultation Cardiovascular: RRR, no murmur, no edema Chest (Breasts): Chest: normal inspection of chest Gastrointestinal (Abdomen): normal bowel sounds, soft, nontender, no hepatosplenomegaly Musculoskeletal: Extremities: extremities normal to inspection; no cyanosis and no clubbing Skin: no rashes, warm and dry Neurologic: moves all extremities and awake; no focal motor deficits Psychiatric: Orientation: alert and cooperative Eye Contact: + fair eye contact Speech: + loud speech Affect: euthymic affect Estimated Intelligence: + below average estimated intelligence Lymphatic: no lymphedema Results & Data Vital Signs (Past 12 Hours) Vital Signs Temp Pulse Pulse Resp BP Pulse Ox 11/03/19 11:08 36.8 C 72 16 119/68 98 11/03/19 07:24 36.2 C L 64 16 95/62 L 95 11/03/19 03:26 36.3 C L 65 16 123/66 Laboratory Results 11/03/19 11/03/19 11/03/19 Range/Units 06:03 06:03 06:03 WBC 7.64 (4.8-10.8) K/uL RBC 3.42 L (4.2-5.4) M/uL Hgb 11.8 L (12.0-16.0) g/dL Hct 35.8 L (37-47) % MCV 104.7 H (80-100) fL MCH 34.5 H (25-34) pg MCHC 33.0 (32-36) g/dL RDW Std Deviation 49.5 H (36.4-46.3) fL RDW Coeff of Samm 12.9 (11.5-14.5) % Plt Count 221 (130-400) K/uL MPV 10.6 H (7.4-10.4) fL Immature Gran % (Auto) 0.1 % Neut % (Auto) 65.0 % Lymph % (Auto) 21.7 % [place] % (Auto) 11.9 % Eos % (Auto) 1.0 % Baso % (Auto) 0.3 % Immature Gran # (Auto) 0.01 (0.00-0.02) K/uL Neut # (Auto) 4.96 (1.4-6.5) K/uL Lymph # (Auto) 1.66 (1.2-3.4) K/uL [place] # (Auto) 0.91 H (0.11-0.59) K/uL Eos # (Auto) 0.08 (0-0.5) K/uL Baso # (Auto) 0.02 (0-0.2) K/uL Sodium 140 (136-145) mmol/L Potassium 3.4 L (3.5-5.1) mmol/L Chloride 106 (98-107) mmol/L Carbon Dioxide 30 (21-32) mmol/L Anion Gap 4.0 (3-11) BUN 16 (7-18) mg/dl Creatinine 0.60 D (0.6-1.2) mg/dl Est Cr Clr Drug Dosing 64.6 ml/min Est GFR ( Amer) 118.9 Est GFR (Non-Af Amer) 102.6 BUN/Creatinine Ratio 27.3 H (10-20) Glucose 82 (70-99) mg/dl Estimat Average Glucose 100 mg/dl Hemoglobin A1c 5.1 (4.5-5.6) % Calcium 11.9 H (8.5-10.1) mg/dl Total Bilirubin 0.4 (0.2-1) mg/dl AST 26 (15-37) U/L ALT 31 (12-78) U/L Alkaline Phosphatase 61 (45-117) U/L Total Protein 6.7 (6.4-8.2) gm/dl Albumin 3.3 L (3.4-5.0) gm/dl Globulin 3.4 (2.5-4.0) gm/dl Albumin/Globulin Ratio 1.0 (0.9-2) Triglycerides 90 (0-150) mg/dl Cholesterol 151 (0-200) mg/dl LDL Cholesterol, Calc 70 mg/dl VLDL Cholesterol, Calc 18 mg/dl HDL Cholesterol 63 mg/dl Cholesterol/HDL Ratio 2 25-OH Vitamin D Total (30-100) ng/ml 11/03/19 Range/Units 06:03 WBC (4.8-10.8) K/uL RBC (4.2-5.4) M/uL Hgb (12.0-16.0) g/dL Hct (37-47) % MCV (80-100) fL MCH (25-34) pg MCHC (32-36) g/dL RDW Std Deviation (36.4-46.3) fL RDW Coeff of Samm (11.5-14.5) % Plt Count (130-400) K/uL MPV (7.4-10.4) fL Immature Gran % (Auto) % Neut % (Auto) % Lymph % (Auto) % [place] % (Auto) % Eos % (Auto) % Baso % (Auto) % Immature Gran # (Auto) (0.00-0.02) K/uL Neut # (Auto) (1.4-6.5) K/uL Lymph # (Auto) (1.2-3.4) K/uL [place] # (Auto) (0.11-0.59) K/uL Eos # (Auto) (0-0.5) K/uL Baso # (Auto) (0-0.2) K/uL Sodium (136-145) mmol/L Potassium (3.5-5.1) mmol/L Chloride (98-107) mmol/L Carbon Dioxide (21-32) mmol/L Anion Gap (3-11) BUN (7-18) mg/dl Creatinine (0.6-1.2) mg/dl Est Cr Clr Drug Dosing ml/min Est GFR ( Amer) Est GFR (Non-Af Amer) BUN/Creatinine Ratio (10-20) Glucose (70-99) mg/dl Estimat Average Glucose mg/dl Hemoglobin A1c (4.5-5.6) % Calcium (8.5-10.1) mg/dl Total Bilirubin (0.2-1) mg/dl AST (15-37) U/L ALT (12-78) U/L Alkaline Phosphatase (45-117) U/L Total Protein (6.4-8.2) gm/dl Albumin (3.4-5.0) gm/dl Globulin (2.5-4.0) gm/dl Albumin/Globulin Ratio (0.9-2) Triglycerides (0-150) mg/dl Cholesterol (0-200) mg/dl LDL Cholesterol, Calc mg/dl VLDL Cholesterol, Calc mg/dl HDL Cholesterol mg/dl Cholesterol/HDL Ratio 25-OH Vitamin D Total 36.1 (30-100) ng/ml PG Care Time/CCT Total # of Minutes Spent Total Time Spent with Patient: Total time spent is greater than 50% in coordination of care (as documented) at patient's floor/unit and/or counseling patient: (1) Osteoporosis Osteoporosis type: other Presence of current pathological fracture: without current pathological fracture Qualified Code(s): M81.8 - Other osteoporosis without current pathological fracture (2) CHF (congestive heart failure) Heart failure type: combined systolic and diastolic (3) Hypothyroid Hypothyroidism type: unspecified Qualified Code(s): E03.9 - Hypothyroidism, unspecified (4) Cerebrovascular accident CVA mechanism: unspecified Qualified Code(s): I63.9 - Cerebral infarction, unspecified (5) Altered mental state Altered mental status type: transient alteration of awareness Qualified Code(s): R40.4 - Transient alteration of awareness
[2019-11-03] MEDS: SENNA 8.6 MG TAB PO SCH (16:37)
[2019-11-03] MEDS ORDERED: ACETIC ACID 2% OTIC SOLN 15 ML BTL OT SCH (21:00)
[2019-11-04] MEDS: LEVOTHYROXINE SODIUM 50 MCG TABLET PO SCH (06:29)
[2019-11-04 07:38] LABS: Albumin Level 3.2 gm/dl (3.4-5.0); BUN Creatinine Ratio 21.6 (10-20); Calcium 10.6 mg/dl (8.5-10.1); Creatinine Clr Calc Pharmacy 60.5 ml/min; Est GFR (African American) 116.4; Est GFR (Non-African American) 100.5; Potassium 3.7 mmol/L (3.5-5.1)
[2019-11-04] MEDS: METOPROLOL SUCC 25MG EXT REL TAB PO SCH (07:56)
[2019-11-04] MEDS: SENNA 8.6 MG TAB PO SCH (07:57)
[2019-11-04] MEDS: POTASSIUM CHLORIDE 10 MEQ TABCR PO SCH (07:57)
[2019-11-04] MEDS: FUROSEMIDE 40 MG TAB PO SCH (07:57)
[2019-11-04] MEDS: CEROVITE ADV FORMULA TAB PO SCH (07:57)
[2019-11-04] MEDS: DOCUSATE SODIUM 100 MG CAP PO SCH ×3 (07:58→20:28)
[2019-11-04] MEDS: PRIMIDONE 250 MG TAB PO SCH (07:58)
[2019-11-04] MEDS: ATORVASTATIN 20 MG TAB PO SCH (07:58)
[2019-11-04] MEDS: CETIRIZINE HCL 10 MG TABLET PO SCH (07:58)
[2019-11-04] MEDS: CHOLECALCIFEROL 1,000 UNITS TAB PO SCH (07:59)
[2019-11-04] MEDS: CLOPIDOGREL BISULFATE 75 MG TAB PO SCH (07:59)
[2019-11-04] MEDS: NAPHAZOLIN/PHENIRAMIN OPH SOLN 75 DROPS/5 ML BTL OP SCH ×2 (08:14→20:30)
[2019-11-04] MEDS: BETAMETHASONE DIP AUG 0.05% OINT 15 GM TUBE EXT SCH ×2 (08:15→20:27)
[2019-11-04] MEDS: AMMONIUM LACTATE 12% LOTION 225 GM BTL EXT SCH ×2 (08:16→20:26)
[2019-11-04] MEDS: LITHIUM CARBONATE 450 MG TABCR PO SCH (20:28)
[2019-11-04] MEDS: ENOXAPARIN INJ 30 MG/0.3 ML SYR SQ SCH (20:29)
[2019-11-04] MEDS: QUETIAPINE FUMARATE 300 MG TABLET PO SCH (20:30)
[2019-11-04] MEDS: QUETIAPINE FUMARATE 25 MG TABLET PO SCH (20:30)
[2019-11-04] MEDS ORDERED: CARBAMIDE PEROXIDE 6.5% 15 ML BTL OT SCH (21:00)
[2019-11-05] MEDS: LEVOTHYROXINE SODIUM 50 MCG TABLET PO SCH (06:26)
--- NOTE | 2019-11-05 06:47 | Hospitalist Progress Note ---
Date of Service DOS 11/04/19 November 05, 2019 Assessment & Plan (1) Altered mental state: With Acute metabolic encephalopathy s/p fall with head trauma 2 days prior to admission No evidence at all of infection. Is afebrile. EEG without seizure focus MRI brain negative CT Head with old left frontal lobe infarct Labs fairly unremarkable except hypercalcemia which is not likely contributing Most likely with post-concussive syndrome-still remains somewhat drowsy and generally weak, but improving throughout the day -recommend continued observation, rest from strenuous activity both physical and mental, and should improve with time Neuro consultation appreciated--> if witnessed seizure activity, could consider starting Keppra (2) Ataxia: Likely secondary to concussion. WBC WNL and afebrile making infection less likely. Concussion possible and difficult to rule out given patient's intellectual disability. PT to assess No new stroke on MRI (3) Cerebrovascular accident: History of left frontal CVA 11/2018. Continue Plavix + atorvastatin. No arrhythmias on tele except brief SVT (4) Hypercalcemia: Secondary to newly started calcium carbonate tablets and Vit D, and dehydration. 500ml NS given in ER, none further given h/o chronic systolic CHF -iPTH appropriately low at 16 Vit D level normal at 37 Ca++ down to 10.6 today from 12.5 on admission -continue home lasix -Discontinued calcium and vitamin D supplementation -continue to encourage po fluid hydration through mom -follow Ca++ levels again in the AM -if not improving with holding supplements, consider workup for malignancy although does not seem likely at this point (5) Repeated falls: Difficulty with balance at baseline and has to hold onto side railings etc... Does not use walker or stick. Usually can walk without assistance. Last fall two days prior suspected to be mechanical slip on back ground of poor balance. -PT/OT consults placed-needs SNF/rehab (6) CHF (congestive heart failure): Chronic systolic CHF No acute exacerbation Continue metoprolol XL 25mg daily and Lasix 40mg PO daily. Not on ACEi due to hypotension with this. Prior echo 11/2018 - 30-35% LVEF (7) Macrocytosis: Chronic. Stable. Vitamin B12 1135, folate 22.58 in 11/2018 with similar MCV. Recommend outpatient workup if not already performed. (8) Bipolar 1 disorder: Continue lithium. [place] level normal -continue Seroquel 350mg po qhs (9) Hypothyroid: Continue home dose levothyroxine. TSH 1.05 here (10) Chronic constipation: Continue outpatient laxative regimen. (11) Seizure disorder: Continue primidone with reference lab sent for level as per neurology recommendation. H/o generalized TC seizures in her 20s, none since then EEG here neg for seizure activity (12) Osteoporosis: T scores: L-spine -3.4, left hip -3.0, right hip -3.2 Suspect secondary to malnutrition and reduced weight bearing exercise. Needs outpatient treatment with caution in the future with calcium supplementation (13) Hypokalemia: replace with po KCl as a standing order as per home meds -follow BMP in AM (14) Mental retardation: noted, continue supportive care, lives in a fdc (15) DVT prophylaxis: Lovenox 30mg SQ HS. Lower dose due to patient weight. (16) Foreign body of ear, right: Piece of cotton ball removed from right EAC There is a residual small piece for the back which she could not tolerate removal of today -Recommend continued Debrox eardrops and if necessary, follow-up with her established ENT after discharge (17) Discharge planning issues: PT/OT. Medically stable for discharge-awaiting placement with rehab Subjective Patient slept in late this morning which is unusual for her, but by the end of the day, she was reportedly back to her normal self. She woke up easily for me and has been eating her meals, taking her medications. She did complain of right ear pain to her political science faculty member. On examination, I was able to extract an old piece of cotton ball from her external auditory canal. She is still weak with her reference test clerk strength and not as strong with walking as per political science faculty member. Later in the day, she was ambulating the halls with a walker with therapy. Telemetry with normal sinus rhythm, PACs with rates in the 60s to 70s and had a 2 to 3-second run of SVT overnight. Review of Systems Review of Systems: Unobtainable due to cognitive status Physical Exam Constitutional: + thin and cooperative; no acute distress and not ill appearing Eyes: PERRL, conjunctivae normal, anicteric sclerae ENMT: Ears: + EAC abnormality (Right EAC with clump of white fibrinous material removed which looks like an old cotton ball, otherwise clear); no TM abnormality Nose: no external nose abnormality Mouth: no lip abnormality and no oropharynx abnormality Neck: trachea midline, no thyromegaly Respiratory: normal respiratory effort, lungs clear to auscultation Cardiovascular: RRR, no murmur, no edema Chest (Breasts): Chest: normal inspection of chest Gastrointestinal (Abdomen): normal bowel sounds, soft, nontender, no hepatosplenomegaly Musculoskeletal: Extremities: extremities normal to inspection; no cyanosis and no clubbing Skin: no rashes, warm and dry Neurologic: moves all extremities and awake; no focal motor deficits Psychiatric: Orientation: alert and cooperative Eye Contact: + fair eye contact Speech: + loud speech Affect: euthymic affect Estimated Intelligence: + below average estimated intelligence Lymphatic: no lymphedema Results & Data Vital Signs (Past 12 Hours) Vital Signs Temp Pulse Resp BP Pulse Ox 11/05/19 03:59 36.8 C 76 22 97/65 L 92 11/04/19 23:29 36.4 C L 80 24 103/72 94 11/04/19 19:29 36.6 C 107 H 18 118/79 98 Laboratory Results Labs reviewed Calcium down to 10.6, basic metabolic panel within normal limits PG Care Time/CCT Total # of Minutes Spent Total Time Spent with Patient: Total time spent is greater than 50% in coordination of care (as documented) at patient's floor/unit and/or counseling patient: (1) Altered mental state Altered mental status type: transient alteration of awareness Qualified Code(s): R40.4 - Transient alteration of awareness (2) Cerebrovascular accident CVA mechanism: unspecified Qualified Code(s): I63.9 - Cerebral infarction, unspecified (3) CHF (congestive heart failure) Heart failure type: combined systolic and diastolic (4) Hypothyroid Hypothyroidism type: unspecified Qualified Code(s): E03.9 - Hypothyroidism, unspecified (5) Osteoporosis Osteoporosis type: other Presence of current pathological fracture: without current pathological fracture Qualified Code(s): M81.8 - Other osteoporosis without current pathological fracture
[2019-11-05 07:37] LABS: Albumin Level 3.4 gm/dl (3.4-5.0); Calcium 10.1 mg/dl (8.5-10.1); Creatinine Clr Calc Pharmacy 57.7 ml/min; Est GFR (African American) 107.5; Est GFR (Non-African American) 92.7; Potassium 3.4 mmol/L (3.5-5.1)
[2019-11-05] MEDS: NAPHAZOLIN/PHENIRAMIN OPH SOLN 75 DROPS/5 ML BTL OP SCH ×2 (07:50→20:12)
[2019-11-05] MEDS: DOCUSATE SODIUM 100 MG CAP PO SCH ×3 (07:51→20:13)
[2019-11-05] MEDS: CEROVITE ADV FORMULA TAB PO SCH (07:51)
[2019-11-05] MEDS: PRIMIDONE 250 MG TAB PO SCH (07:51)
[2019-11-05] MEDS: METOPROLOL SUCC 25MG EXT REL TAB PO SCH (07:51)
[2019-11-05] MEDS: POTASSIUM CHLORIDE 10 MEQ TABCR PO SCH (07:52)
[2019-11-05] MEDS: CETIRIZINE HCL 10 MG TABLET PO SCH (07:52)
[2019-11-05] MEDS: FUROSEMIDE 40 MG TAB PO SCH (07:53)
[2019-11-05] MEDS: ATORVASTATIN 20 MG TAB PO SCH (07:54)
[2019-11-05] MEDS: CLOPIDOGREL BISULFATE 75 MG TAB PO SCH (07:54)
[2019-11-05] MEDS: SENNA 8.6 MG TAB PO SCH (07:54)
[2019-11-05] MEDS: AMMONIUM LACTATE 12% LOTION 225 GM BTL EXT SCH ×2 (07:55→20:12)
[2019-11-05] MEDS: BETAMETHASONE DIP AUG 0.05% OINT 15 GM TUBE EXT SCH ×2 (07:55→20:13)
[2019-11-05] MEDS: QUETIAPINE FUMARATE 300 MG TABLET PO SCH (20:12)
[2019-11-05] MEDS: QUETIAPINE FUMARATE 25 MG TABLET PO SCH (20:12)
[2019-11-05] MEDS: LITHIUM CARBONATE 450 MG TABCR PO SCH (20:13)
[2019-11-05] MEDS: ENOXAPARIN INJ 30 MG/0.3 ML SYR SQ SCH (20:14)
--- NOTE | 2019-11-05 22:53 | Hospitalist Progress Note ---
Date of Service November 05, 2019 Assessment & Plan (1) Altered mental state: With Acute metabolic encephalopathy s/p fall with head trauma 2 days prior to admission No evidence at all of infection. Is afebrile. EEG without seizure focus MRI brain negative CT Head with old left frontal lobe infarct Labs fairly unremarkable except hypercalcemia which is not likely contributing Most likely with post-concussive syndrome-still remains somewhat drowsy and generally weak, but definitely overall improved -Recommend rest from strenuous activity both physical and mental, and should improve with time Neuro consultation appreciated--> if witnessed seizure activity, could consider starting Keppra, but not likely at this time (2) Concussion: As above (3) Ataxia: Likely secondary to concussion. WBC WNL and afebrile making infection less likely. Concussion is likely and difficult to rule out given patient's intellectual disability. PT/OT evaluations appreciated No new stroke on MRI (4) Cerebrovascular accident: History of left frontal CVA 11/2018. Continue Plavix + atorvastatin. No arrhythmias on tele except brief SVT 2-3 seconds on one occasion (5) Hypercalcemia: Secondary to newly started calcium carbonate tablets and Vit D, and dehydration. 500ml NS given in ER, none further given h/o chronic systolic CHF -iPTH appropriately low at 16 Vit D level normal at 37 Ca++ down to 10.1 today from 12.5 on admission -continue home lasix -Discontinued calcium and vitamin D supplementation -continue to encourage po fluid hydration through mom -follow Ca++ levels as an outpatient in 1 to 2 weeks (6) Repeated falls: Difficulty with balance at baseline and has to hold onto side railings etc... Does not use walker or stick. Usually can walk without assistance. Last fall two days prior suspected to be mechanical slip on back ground of poor balance. -PT/OT consults placed-needs SNF/rehab (7) CHF (congestive heart failure): Chronic systolic CHF No acute exacerbation Continue metoprolol XL 25mg daily and Lasix 40mg PO daily. Not on ACEi due to hypotension with this. Prior echo 11/2018 - 30-35% LVEF (8) Macrocytosis: Chronic. Stable. Vitamin B12 1135, folate 22.58 in 11/2018 with similar MCV. Recommend outpatient workup if not already performed. (9) Bipolar 1 disorder: Continue lithium. [place] level normal -continue Seroquel 350mg po qhs (10) Hypothyroid: Continue home dose levothyroxine. TSH 1.05 here (11) Chronic constipation: Continue outpatient laxative regimen. (12) Seizure disorder: Continue primidone with reference lab sent for level as per neurology recommendation. H/o generalized TC seizures in her 20s, none since then EEG here neg for seizure activity (13) Osteoporosis: T scores: L-spine -3.4, left hip -3.0, right hip -3.2 Suspect secondary to malnutrition and reduced weight bearing exercise. Needs outpatient treatment with caution in the future with calcium supplementation (14) Hypokalemia: replace with po KCl as a standing order as per home meds (15) Mental retardation: noted, continue supportive care, lives in a fdc (16) Foreign body of ear, right: Piece of cotton ball removed from right EAC on 11/04 There is a residual small piece of white material in the right EAC which she could not tolerate removal of here as it is further back -Recommend continued Debrox eardrops and follow-up with her established ENT after discharge (17) DVT prophylaxis: Lovenox 30mg SQ HS. Lower dose due to patient weight. (18) Discharge planning issues: PT/OT. Medically stable for discharge-awaiting placement with rehab- tomorrow at [facility] Stable for downgrade to medical floor Subjective Patient still sleeping more than usual and slept in this morning, however no other complaints. Mom reports at the bedside that she is not back to her baseline, but is improved from previous. She was able to ambulate the halls yesterday and is getting stronger. Patient denies pain. Telemetry with normal sinus rhythm, rates in the 70s, PACs and PVCs Review of Systems Review of Systems: Unobtainable due to cognitive status Physical Exam Constitutional: + thin and cooperative; no acute distress and not ill appeari ng ENMT: Nose: no external nose abnormality Mouth: no lip abnormality Neck: trachea midline, no thyromegaly Respiratory: normal respiratory effort, lungs clear to auscultation Cardiovascular: RRR, no murmur, no edema Chest (Breasts): Chest: normal inspection of chest Gastrointestinal (Abdomen): normal bowel sounds, soft, nontender, no hepatosp lenomegaly Musculoskeletal: Extremities: extremities normal to inspection; no cyanosis and no clubbing Skin: no rashes, warm and dry Neurologic: moves all extremities and awake; no focal motor deficits Psychiatric: Orientation: alert and cooperative Eye Contact: + fair eye contact Affect: euthymic affect Estimated Intelligence: + below average estimated intelligence Lymphatic: no lymphedema Results & Data Vital Signs (Past 12 Hours) Vital Signs Temp Pulse Resp BP BP Pulse Ox 11/05/19 15:09 36.7 C 95 H 20 138/80 97 11/05/19 11:51 36.1 C L 95 H 18 111/78 96 Laboratory Results 11/05/19 Range/Units 06:45 Sodium 140 (136-145) mmol/L Potassium 3.4 L (3.5-5.1) mmol/L Chloride 109 H (98-107) mmol/L Carbon Dioxide 29 (21-32) mmol/L Anion Gap 2.0 L (3-11) BUN 15 (7-18) mg/dl Creatinine 0.73 (0.6-1.2) mg/dl Est Cr Clr Drug Dosing 57.7 ml/min Est GFR ( Amer) 107.5 Est GFR (Non-Af Amer) 92.7 BUN/Creatinine Ratio 21.0 H (10-20) Glucose 73 (70-99) mg/dl Calcium 10.1 (8.5-10.1) mg/dl Albumin 3.4 (3.4-5.0) gm/dl PG Care Time/CCT Total # of Minutes Spent Total Time Spent with Patient: Total time spent is greater than 50% in coordination of care (as documented) at patient's floor/unit and/or counseling patient: (1) Altered mental state Altered mental status type: transient alteration of awareness Qualified Code(s): R40.4 - Transient alteration of awareness (2) Cerebrovascular accident CVA mechanism: unspecified Qualified Code(s): I63.9 - Cerebral infarction, unspecified (3) CHF (congestive heart failure) Heart failure type: combined systolic and diastolic (4) Hypothyroid Hypothyroidism type: unspecified Qualified Code(s): E03.9 - Hypothyroidism, unspecified (5) Osteoporosis Osteoporosis type: other Presence of current pathological fracture: without current pathological fracture Qualified Code(s): M81.8 - Other osteoporosis without current pathological fracture
[2019-11-06 01:41] LABS: Primidone, Serum 11.2 mg/L (5.0-12.0)
[2019-11-06] MEDS: LEVOTHYROXINE SODIUM 50 MCG TABLET PO SCH (05:35)
[2019-11-06] MEDS: DOCUSATE SODIUM 100 MG CAP PO SCH ×2 (09:14→14:14)
[2019-11-06] MEDS: ATORVASTATIN 20 MG TAB PO SCH (09:14)
[2019-11-06] MEDS: FUROSEMIDE 40 MG TAB PO SCH (09:14)
[2019-11-06] MEDS: METOPROLOL SUCC 25MG EXT REL TAB PO SCH (09:14)
[2019-11-06] MEDS: CLOPIDOGREL BISULFATE 75 MG TAB PO SCH (09:14)
[2019-11-06] MEDS: SENNA 8.6 MG TAB PO SCH (09:15)
[2019-11-06] MEDS: POTASSIUM CHLORIDE 10 MEQ TABCR PO SCH (09:15)
[2019-11-06] MEDS: CEROVITE ADV FORMULA TAB PO SCH (09:15)
[2019-11-06] MEDS: PRIMIDONE 250 MG TAB PO SCH (09:15)
[2019-11-06] MEDS: BETAMETHASONE DIP AUG 0.05% OINT 15 GM TUBE EXT SCH (09:16)
[2019-11-06] MEDS: NAPHAZOLIN/PHENIRAMIN OPH SOLN 75 DROPS/5 ML BTL OP SCH (09:16)
[2019-11-06] MEDS: CETIRIZINE HCL 10 MG TABLET PO SCH (09:17)
[2019-11-06] MEDS: AMMONIUM LACTATE 12% LOTION 225 GM BTL EXT SCH (09:17)
[2019-11-06] MEDS ORDERED: POLYETHYLENE (MIRALAX) 17 GM PACK PO SCH (12:15)
--- NOTE | 2019-11-06 13:20 | Discharge Summary ---
Date of Service November 06, 2019 Admission HPI Per Admitting Provider Chanell Hsu is a 54 year old female with intellectual disability and recent history of stroke (left frontal) in November 2018 admission for worsening balance, decreased appetite and altered mental state. Patient is a resident of [facility] and symptoms were noticed by staff over the last 24-48 hours since her fall. Although she appeared to recover at least initially completely from her recent fall. She is now having to have assistance to get anywhere which is frustrating the patient. ER workup included labs with CBC - chronic macrocytosis but otherwise unremarkable, INR/PTT within normal limits, CMP - hypercalcemia with Ca 12.5 but otherwise unremarkable. EKG showing normal sinus rhythm, with no significant change to previous in EKG 09/25/2019. CXR - reported as no active disease in her chest. CT head - nill acute, old left frontal infarct. Principal Diagnosis Post-concussion Syndrome Discharge Exam Constitutional + thin and cooperative; no acute distress and not ill appearing ENMT external ear and nose normal, oropharynx normal Nose: no external nose abnormality Mouth: no lip abnormality Neck trachea midline, no thyromegaly Respiratory normal respiratory effort, lungs clear to auscultation Cardiovascular RRR, no murmur, no edema Chest (Breasts) Chest: normal inspection of chest Gastrointestinal (Abdomen) normal bowel sounds, soft, nontender, no hepatosplenomegaly Musculoskeletal Extremities: extremities normal to inspection; no cyanosis and no clubbing Skin + rash (mild erythematous rash underneath breasts bilat) Neurologic moves all extremities and awake Psychiatric Orientation: alert and cooperative Affect: euthymic affect Estimated Intelligence: + below average estimated intelligence Lymphatic no lymphedema Discharge Data Allergies Allergy/AdvReac Type Severity Reaction Status Date / Time carbamazepine Allergy Unknown Unknown Verified 11/02/19 13:30 Penicillins Allergy Unknown Unknown Verified 11/02/19 13:30 phenytoin Allergy Unknown Unknown Verified 11/02/19 13:30 valproic acid Allergy Unknown UNKNOWN Unverified 11/02/19 13:30 divalproex sodium Allergy Unknown Unverified 11/02/19 13:30 [From Depakote] pseudoephedrine AdvReac Unknown UNKNOWN Unverified 11/02/19 13:30 Fabric Softeners Allergy Unknown . Uncoded 11/02/19 13:30 Consultations 11/02/19 14:48 ED Decision to Admit Stat 11/02/19 15:22 Consult Case Management - Discharge Planning Routine Consult Neurology Routine 11/03/19 23:45 Consult Case Management - Discharge Planning Routine Ordered Studies 11/02/19 13:02 CT head/brain wo con Stat 11/02/19 17:23 MR brain wo/w con Urgent CXR Hospital Course (1) Altered mental state: With Acute metabolic encephalopathy s/p fall with head trauma 2 days prior to admission Presented with lethargy, poor po intake, generalized weakness, difficulty ambulating, off balance No evidence at all of infection. Is afebrile. EEG without seizure focus MRI brain negative CT Head with old left frontal lobe infarct Labs fairly unremarkable except hypercalcemia which is not likely contributing Most likely with post-concussive syndrome-much improved overall, gaining strength, not lethargic -Recommend rest from strenuous activity both physical and mental, and should improve with time Needs concussion therapy with PT/OT Neuro consultation appreciated--> if witnessed seizure activity, could consider starting Keppra, but not likely at this time (2) Concussion: As above (3) Ataxia: Likely secondary to concussion. WBC WNL and afebrile making infection less likely. Concussion is likely and difficult to rule out given patient's intellectual disability. PT/OT evaluations appreciated No new stroke on MRI (4) Cerebrovascular accident: History of left frontal CVA 11/2018. Continue Plavix + atorvastatin. No arrhythmias on tele except brief SVT 2-3 seconds on one occasion (5) Hypercalcemia: Secondary to newly started calcium carbonate tablets and Vit D, and dehydration. 500ml NS given in ER, none further given h/o chronic systolic CHF -iPTH appropriately low at 16 Vit D level normal at 37 Ca++ down to 10.1 today from 12.5 on admission -continue home lasix -Discontinued calcium and vitamin D supplementation -continue to encourage po fluid hydration through mom -follow Ca++ levels as an outpatient in 1 to 2 weeks (6) Repeated falls: Difficulty with balance at baseline and has to hold onto side railings etc... Does not use walker or stick. Usually can walk without assistance. Last fall two days prior suspected to be mechanical slip on back ground of poor balance. -PT/OT consults placed-needs SNF/rehab (7) CHF (congestive heart failure): Chronic systolic CHF No acute exacerbation Continue metoprolol XL 25mg daily and Lasix 40mg PO daily. Not on ACEi due to hypotension with this. Prior echo 11/2018 - 30-35% LVEF (8) Macrocytosis: Chronic. Stable. Vitamin B12 1135, folate 22.58 in 11/2018 with similar MCV. Recommend outpatient workup if not already performed. (9) Bipolar 1 disorder: Continue lithium. [place] level normal -continue Seroquel 350mg po qhs (10) Hypothyroid: Continue home dose levothyroxine. TSH 1.05 here (11) Chronic constipation: Continue outpatient laxative regimen. add on Miralax 1/2 cap daily (12) Seizure disorder: Continue primidone with reference lab sent for level as per neurology recommendation. H/o generalized TC seizures in her 20s, none since then EEG here neg for seizure activity (13) Osteoporosis: T scores: L-spine -3.4, left hip -3.0, right hip -3.2 Suspect secondary to malnutrition and reduced weight bearing exercise. Needs outpatient treatment with caution in the future with calcium yousif pplementation (14) Hypokalemia: replace with po KCl as a standing order as per home meds (15) Mental retardation: noted, continue supportive care, lives [place] [facility] [place] (16) Foreign body of ear, right: Piece of cotton ball removed from right EAC on 11/04 There is a residual small piece of white material in the right EAC which she could not tolerate removal of here as it is further back -Recommend continued Debrox eardrops and follow-up with her established ENT aft er discharge (17) Candidal intertrigo: apply Miconazole powder underneath breasts daily (18) DVT prophylaxis: Lovenox 30mg SQ HS. Lower dose due to patient weight. (19) Discharge planning issues: PT/OT. Medically stable for discharge Total Time Total Time Spent Total Time Spent (In Minutes): 35 min Total Time Includes: Examination of the Patient, Discharge Planning and Medication Reconciliation Discharge Plan Discharge Items Patient Disposition: Transfer Inpatient Rehab Fac Reason For Visit: STROKE-LIKE SYMPTOMS Discharge Diagnosis: Post-concussion syndrome Condition on Discharge: Fair Activity: As commented below Lifting: Gradually increase as tolerated Bathing: No limitations Exercise/Sports: Gradually increase as tolerated Weightbearing: Full weightbearing Non-emergency contact: Primary Care Provider Call non-emergency contact if: you have any medication questions and your symptoms worsen Follow-up/Referrals: Ken Cano DO [Primary Care Provider] - Diet: Low Sodium (2gm) Fluids: 1800ml (7 cups) Addtl Attending Provider Instructions: Presented with alteration in mental status, generalized weakness, poor po intake in setting of recent fall with subsequent closed head injury. Had MRI brain, EEG, and metabolic/infectious workup all negative except had mild hypercalcemia which resolved. Please follow repeat calcium level in 1 week and she should remain off all Vit D and calcium supplements for now. Needs concussion therapy. She had a foreign body in her right external auditory canal that was thought to be part of a cotton ball. Most of it was removed here, but a small piece remains that could not be reached. Please schedule her follow up with ENT as an outpatient if persists. Pending Studies at Discharge: No Stand-Alone Forms: My [facility] Skilled Items Patient informed of condition?: Yes DNR: Yes Discharge Level of Care: Acute rehab Communicable Disease: No Discharge Prognosis: Improving Lines: None Urinary Catheter: No Medications and DC Order Prescriptions: New sennosides [Senokot] 8.6 mg Tablet 8.6 mg PO QAM Qty: 30 RF: 0 polyethylene glycol 3350 [Miralax] 17 gram Powder In Packet 8.5 g PO DAILY Qty: 15 RF: 0 miconazole nitrate 2 % powder 1 appln TOP DAILY Qty: 43 RF: 0 Continued levothyroxine 50 mcg tablet 50 mcg PO DAILY Qty: 30 RF: 2 cetirizine [Zyrtec] 10 mg tablet 10 mg PO QAM Qty: 30 RF: 5 furosemide [Lasix] 40 mg tablet 40 mg PO DAILY Qty: 30 RF: 5 clopidogrel 75 mg tablet 75 mg PO QAM Qty: 30 RF: 5 metoprolol succinate [Toprol XL] 25 mg tablet extended release 24 hr 25 mg PO QAM Qty: 30 RF: 5 potassium chloride 10 mEq tablet,ER particles/crystals 10 meq PO DAILY Qty: 30 RF: 5 atorvastatin 20 mg tablet 20 mg PO DAILY Qty: 90 RF: 1 primidone [Mysoline] 250 mg tablet 250 mg PO QAM Qty: 30 RF: 5 docusate sodium [Colace] 100 mg capsule 100 mg PO TID Qty: 90 RF: 5 betamethasone dipropionate 0.05 % ointment 1 applic TOPICAL BID Qty: 45 RF: 5 Cerovite Advanced Formula 18-400 mg-mcg tablet 1 tab PO DAILY RF: 0 Naphcon-A 0.025-0.3 % drops 1 drp OPHTHALMIC (EYE) BID RF: 0 mupirocin 2 % ointment 1 applic TOPICAL BID PRN (Reason: Unknown) RF: 0 vitamin E mixed 400 unit capsule 400 units PO BID RF: 0 lithium carbonate 450 mg tablet extended release 450 mg PO HS RF: 0 ammonium lactate 12 % cream 1 applic topical BID RF: 0 acetic acid 2 % Solution 4 drp OTIC (EAR) 2XWK RF: 0 Eucerin Original lotion 1 applic EXT HS RF: 0 quetiapine [Seroquel] 300 mg tablet 300 mg PO HS Qty: 0 RF: 0 quetiapine [Seroquel] 50 mg tablet 50 mg PO HS Qty: 0 RF: 0 Discontinued cholecalciferol (vitamin D3) 1,000 unit capsule 1,000 units PO DAILY Qty: 30 RF: 0 calcium carbonate-vitamin D3 [Calcium 600 with Vitamin D3] 600 mg(1,500mg) - 500 unit capsule 1 cap PO BID Qty: 60 RF: 11 Discharge Orders: Discharge Order (Routine); Ordered 11/06/19 Ordered By: Constanza Daley Admission Data Admit Date/Time: 11/02/19 15:39 Attending Provider: Constanza Daley Admit Provider: Todd Rao Primary Care Provider: Ken Cano Other Providers: [facility] ; [facility] ; Todd Rao ; Yudy Kong
[2019-11-06] MEDS ORDERED: MICONAZOLE NITRATE POWDER 43 GM EXT PRN (13:30)
[2019-11-06] MEDS ORDERED: MICONAZOLE NITRATE POWDER 43 GM EXT SCH (14:00)
== END 2019-11-06 16:46 | DRG 88 ==
LOC: ED 12:40 → 2S 15:39 → SUATTDRO 15:39 → 2S 17:08 → 2W 11-05 09:42

== ENCOUNTER 2020-01-02 16:45 | Inpatient (IN) ==
--- NOTE | 2020-01-02 17:41 | Emergency Department Note ---
History of Present Illness General Chief complaint: Fall Stated complaint: FALL Time Seen by Provider: 01/02/20 17:09 History of Present Illness Maximum Pain Intensity: 6 This is a 54-year-old female that presents to the emergency department via private vehicle accompanied by mother with complaints of "fall". The mother notes earlier today around 3:30 PM the patient was walking at home, when she tripped, fell and injured the right ankle. She notes pain in the right ankle since that time. The patient is nonverbal at baseline but does appear to be in pain. The mother notes that this is baseline for the patient. Pain is a 6/10. Mother does not believe that the patient struck her head. Home Medications Home Medications Medication Instructions Recorded Confirmed Type acetic acid 4 drp OTIC (EAR) 2XWK 11/22/18 01/02/20 History lithium carbonate 450 mg PO HS 11/27/18 01/02/20 History multivitamin-ferrous 1 tab PO DAILY 04/14/19 01/02/20 History fumarate-folic acid 18 mg-400 mcg tablet mupirocin 2 % topical ointment 1 applic TOPICAL BID PRN 04/21/19 01/02/20 History naphazoline 0.025 %-pheniramine 1 drp OPHTHALMIC (EYE) BID 04/21/19 01/02/20 History 0.3 % eye drops vitamin E mixed 400 unit capsule 400 units PO BID cap 07/30/19 01/02/20 History quetiapine [Seroquel] 50 mg PO HS #0 tab 11/06/19 01/02/20 Rx quetiapine [Seroquel] 300 mg PO HS #0 tab 11/06/19 01/02/20 Rx ceramides 1,3,6-11 [CeraVe] 1 ea TOPICAL BID 11/17/19 01/02/20 History docusate sodium [Colace] 100 mg PO BID 11/17/19 01/02/20 History betamethasone dipropionate 0.05 % 1 applic TOPICAL BID PRN #45 gm 11/20/19 01/02/20 Rx topical ointment cetirizine 10 mg tablet 10 mg PO QAM #30 tab 12/15/19 01/02/20 Rx clopidogrel 75 mg tablet 75 mg PO QAM #30 tab 12/15/19 01/02/20 Rx furosemide 40 mg tablet 40 mg PO DAILY #30 tab 12/15/19 01/02/20 Rx levothyroxine 50 mcg tablet 50 mcg PO DAILY #30 tab 12/15/19 01/02/20 Rx linaclotide 72 mcg capsule 72 mcg PO DAILY #30 cap 12/15/19 01/02/20 Rx metoprolol succinate 25 mg 25 mg PO QAM #30 tab 12/15/19 01/02/20 Rx tablet,extended release 24 hr potassium chloride 10 mEq 10 meq PO DAILY #30 tab 12/15/19 01/02/20 Rx tablet,extended release(part/cryst) primidone 250 mg tablet 250 mg PO QAM #30 tab 12/15/19 01/02/20 Rx sennosides 8.6 mg tablet 8.6 mg PO QAM PRN #30 tab 12/15/19 01/02/20 Rx ammonium lactate 12 % topical cream 1 applic TOPICAL BID #385 gm 12/18/19 01/02/20 Rx atorvastatin 20 mg PO QPM 01/02/20 01/02/20 History carbamide peroxide [Debrox] 4 drp OTIC (EAR) 2XWK 01/02/20 01/02/20 History Allergies Allergy/AdvReac Type Severity Reaction Status Date / Time carbamazepine Allergy Unknown Unknown Verified 11/20/19 14:00 Penicillins Allergy Unknown Unknown Verified 11/20/19 14:00 phenytoin Allergy Unknown Unknown Verified 11/20/19 14:00 valproic acid Allergy Unknown UNKNOWN Unverified 11/20/19 14:00 divalproex sodium Allergy Unknown Unverified 11/20/19 14:00 [From Depakote] pseudoephedrine AdvReac Unknown UNKNOWN Unverified 11/20/19 14:00 Fabric Softeners Allergy Unknown . Uncoded 11/20/19 14:00 Past Med/Surg History Medical History Allergic rhinitis (Acute) Atopic dermatitis (Acute) Bipolar disorder, unspecified (Chronic) Cardiomegaly (Acute) Cardiomyopathy (Chronic) EF 30-35% Cardiovascular disease (Acute) Cerebral vascular disease (Chronic) Chronic constipation (Acute) Chronic systolic congestive heart failure (Chronic) Contracture, right hand (Acute) Encounter for pre-operative examination Esophageal dysmotility (Acute) Gallstones (Resolved) Gastroesophageal reflux disease (Acute) Internal hemorrhoids (Acute) Macrocytosis (Acute) Patent foramen ovale (Acute) Pulmonary hypertension (Acute) Repeated falls (Acute) Seizure disorder (Chronic) TIA (transient ischemic attack) (Acute) Surgical History History of cholecystectomy History of total abdominal hysterectomy Family History Denies family history of Ovarian cancer Prostate cancer Myocardial infarction Breast cancer Colorectal cancer Social History Preferred Language: Polish Communication Ability: Impaired Visual Impairment: No Limitations Hearing Ability: Normal Rn Occupational Health Required: No Beliefs That Will Affect Care: None marital status: Single Current Living Situation: Other Current Living Situation Comment: [facility] Feels Safe at Home: Yes Smoking Status: Never smoker Second Hand Exposure: No ; Hx Alcohol Use: No Hx Substance Use: No Dental Care, Regularly: Yes Physical Activity Frequency: 1-2 Times per Week Seatbelt Use: always Review of Systems A total of 10 systems reviewed and were otherwise negative Physical Exam Vital Signs Vital Signs - 24 hr 01/02/20 17:01 01/02/20 18:45 01/02/20 20:05 Temperature Temperature Source Pulse Rate 82 Pulse Rate [Apical] Pulse Rate [Finger] 96 H 84 Pulse Rhythm Regular Pulse Rhythm [Apical] Pulse Rhythm [Finger] Regular Pulse Strength Normal Pulse Strength [Finger] Normal Respiratory Rate 20 18 18 Respiratory Effort / Characteristics Non-Labored Spontaneous Non-Labored Spontaneous Respiratory Depth Normal Normal Respiratory Pattern Regular Regular Blood Pressure 141/87 H Blood Pressure [Right Arm] 136/94 144/89 H Blood Pressure Mean 105 Blood Pressure Mean [Right Arm] 108 107 Blood Pressure Position Sitting Blood Pressure Position [Right Arm] Lying Pulse Oximetry 99 96 96 Oxygen Delivery Method Room Air Room Air Room Air Sepsis Recent Fever Within 48 Hours No Sepsis New/Unexplained Change in Mental Status No Sepsis Action Taken by Nursing No Action Required 01/02/20 21:41 01/02/20 21:50 01/02/20 22:00 Temperature 36.9 C Temperature Source Temporal Artery Scan Pulse Rate Pulse Rate [Apical] 91 H 85 83 Pulse Rate [Finger] Pulse Rhythm Pulse Rhythm [Apical] Regular Regular Regular Pulse Rhythm [Finger] Pulse Strength Pulse Strength [Finger] Respiratory Rate 16 16 16 Respiratory Effort / Characteristics Non-Labored Spontaneous Non-Labored Spontaneous Non-Labored Spontaneous Respiratory Depth Normal Normal Normal Respiratory Pattern Regular Regular Regular Blood Pressure Blood Pressure [Right Arm] 129/95 123/84 123/83 Blood Pressure Mean Blood Pressure Mean [Right Arm] 106 97 96 Blood Pressure Position Blood Pressure Position [Right Arm] Pulse Oximetry 96 94 94 Oxygen Delivery Method Room Air Room Air Room Air Sepsis Recent Fever Within 48 Hours Sepsis New/Unexplained Change in Mental Status Sepsis Action Taken by Nursing 01/02/20 22:10 01/02/20 22:20 01/02/20 22:30 Temperature 36.5 C 36.5 C 36.5 C Temperature Source Temporal Artery Scan Temporal Artery Scan Temporal Artery Scan Pulse Rate Pulse Rate [Apical] 80 80 88 Pulse Rate [Finger] Pulse Rhythm Pulse Rhythm [Apical] Regular Regular Regular Pulse Rhythm [Finger] Pulse Strength Pulse Strength [Finger] Respiratory Rate 16 16 16 Respiratory Effort / Characteristics Non-Labored Spontaneous Non-Labored Spontaneous Non-Labored Spontaneous Respiratory Depth Normal Normal Normal Respiratory Pattern Regular Regular Regular Blood Pressure Blood Pressure [Right Arm] 124/69 121/73 124/73 Blood Pressure Mean Blood Pressure Mean [Right Arm] 87 89 90 Blood Pressure Position Blood Pressure Position [Right Arm] Pulse Oximetry 94 94 94 Oxygen Delivery Method Room Air Room Air Room Air Sepsis Recent Fever Within 48 Hours Sepsis New/Unexplained Change in Mental Status Sepsis Action Taken by Nursing VITAL SIGNS - Vital signs and nursing notes were reviewed. Stable and afebrile. GENERAL - 54-year-old female appearing her stated age who is in no acute distress. Patient is nonverbal at baseline. SKIN - Without rashes. There is a deformity to the right ankle. Skin is intact. LUNGS - Chest wall symmetric without accessory muscle use, intercostals retractions, or central cyanosis. Normal vesicular breath sounds CTA B/L. No wheezes, rales, or rhonchi appreciated. CARDIAC - RRR with S1/S2. No murmur, rubs, or gallops appreciated. EXTREMITIES - No clubbing or peripheral cyanosis. No pretibial edema present. Skin is intact. Deformity to the right ankle noted. Patient appears to be tender overlying the right ankle. +5/5 strength noted in UE/LE bilaterally. Patient is neurovascularly intact in the right lower extremity with intact right dorsalis pedis pulse. Cap refill within normal limits. Course Administered Medications Sodium Chloride (Nss 1000ml) 1,000 mls @ 100 mls/hr IV .Q10H OLYA Stop: 01/03/20 06:00 Last Admin: 01/02/20 22:54 Dose: 100 mls/hr Documented by: [id number] Medical Decision Making Laboratory Data Result diagrams: 01/02/20 19:18 01/02/20 19:18 Lab Results 01/02/20 01/02/20 Range/Units 19:18 19:18 WBC 11.86 H (4.8-10.8) K/uL RBC 3.89 L (4.2-5.4) M/uL Hgb 13.6 (12.0-16.0) g/dL Hct 41.3 (37-47) % MCV 106.2 H (80-100) fL MCH 35.0 H (25-34) pg MCHC 32.9 (32-36) g/dL RDW Std Deviation 52.6 H (36.4-46.3) fL RDW Coeff of Samm 13.5 (11.5-14.5) % Plt Count 246 (130-400) K/uL MPV 10.2 (7.4-10.4) fL Immature Gran % (Auto) 0.2 % Neut % (Auto) 86.9 % Lymph % (Auto) 8.3 % Turner % (Auto) 4.1 % Eos % (Auto) 0.3 % Baso % (Auto) 0.2 % Immature Gran # (Auto) 0.02 (0.00-0.02) K/uL Neut # (Auto) 10.31 H (1.4-6.5) K/uL Lymph # (Auto) 0.98 L (1.2-3.4) K/uL Turner # (Auto) 0.49 (0.11-0.59) K/uL Eos # (Auto) 0.04 (0-0.5) K/uL Baso # (Auto) 0.02 (0-0.2) K/uL Sodium 140 (136-145) mmol/L Potassium (3.5-5.1) mmol/L Chloride 108 H (98-107) mmol/L Carbon Dioxide 26 (21-32) mmol/L Anion Gap 6.0 (3-11) BUN 10 (7-18) mg/dl Creatinine 0.68 (0.6-1.2) mg/dl Est Cr Clr Drug Dosing 60.4 ml/min Est GFR ( Amer) 114.1 Est GFR (Non-Af Amer) 98.5 BUN/Creatinine Ratio 15.4 (10-20) Glucose 148 H (70-99) mg/dl Calcium 8.7 (8.5-10.1) mg/dl Total Bilirubin 0.2 (0.2-1) mg/dl AST (15-37) U/L ALT 41 (12-78) U/L Alkaline Phosphatase 68 (45-117) U/L Total Protein 7.8 (6.4-8.2) gm/dl Albumin 3.8 (3.4-5.0) gm/dl Globulin 4.0 (2.5-4.0) gm/dl Albumin/Globulin Ratio 1.0 (0.9-2) Imaging Data Radiologist's Impression: XR chest 1V portable CLINICAL HISTORY: Preoperative chest COMPARISON STUDY: 11/17/2019 FINDINGS: The heart is the upper limits of normal in size. There is no failure. There is no focal pulmonary consolidation. There are no pleural effusions.[ IMPRESSION: No active disease in the chest. ACT 112: Negative or not required by law. Electronically signed by: Ramon Mcgowan M.D. 01/02/2020 8:15 PM XR ankle RT 2V CLINICAL HISTORY: Right ankle pain status post trauma COMPARISON: None. DISCUSSION: The study is limited from a positioning standpoint. There is a fracture dislocation of the ankle with anterior and lateral translation of the tibia with respect to the talus. There is a probable fracture of the posterior and medial malleoli. The fibula is difficult to assess. IMPRESSION: Fracture dislocation. ACT 112: Negative or not required by law. Electronically signed by: Ramon Mcgowan M.D. 01/02/2020 6:16 PM XR tibia fibula RT 2V CLINICAL HISTORY: Pain status post trauma COMPARISON: None DISCUSSION: There is a fracture dislocation of the ankle with a fracture the medial malleolus. There is a possible posterior malleolar fracture fragment. The fibula is difficult to assess. If further delineation of fracture desired, a dedicated ankle x-ray might be of benefit IMPRESSION: Fracture dislocation of the ankle. ACT 112: Negative or not required by law. Electronically signed by: Ramon Mcgowan M.D. 01/02/2020 6:06 PM MDM Narrative Patient was seen and evaluated as above in room D3. Review was performed of nursing notes and vital signs. After obtaining a thorough history and physical examination the above work up was performed. She presents to us today status post mechanical fall now with fracture dislocation of the right ankle evident on exam. This was closed. Integument was intact. X-ray was obtained. This confirms the abnormality. Patient was resting comfortably when the ankle was not moved. She was temporarily immobilized here. I did review the patient's previous visit and her EF is between 30 and 35 per previous echocardiogram about 1 year ago, and she does have other comorbidities of which may be risky to sedate her here in the department. She also ate not long prior to arrival here. I discussed this with anesthesia as well as orthopedics. She will be taken to the operative suite for further evaluation and management. Preoperatively, I did order an EKG and a chest x-ray. These were revealing no emergent process. Normal sinus rhythm, rate of 87 bpm. [address]Tc [address] elevation. This was compared to previous EKG of November 02, 2019. No significant change was found. The patient was educated upon management, educated upon todays findings/results, educated upon importance of follow up from today's visit, educated upon symptoms in which to return, had questions answered prior to discharge, verbalized understanding, and was discharged home in good condition. Case was discussed with the attending physician. GCS: 15 In the evaluation and treatment of this patient, the following differential diagnoses were considered: Ankle Fracture, Ankle Sprain, Distal Fibula Fracture, Distal Tibia Fracture, Foot Fracture, [place] Fracture. Impression & Plan Closed fracture dislocation of ankle joint Discharge Plan Visit Data *Final* Discharge Date/Time: 01/02/20 20:33 Chief Complaint: Fall Stated Complaint: FALL ED Provider: Win Starks ED Midlevel Provider: Trevon Iglesias Discharge Problem: Closed fracture dislocation of ankle joint Patient Disposition: Still a Patient Condition: Good Discharge Instructions Interventions: ED Discharge Assessment Last Done: 01/02/20 20:33
--- NOTE | 2020-01-02 18:07 | XRay Report ---
XR tibia fibula RT 2V CLINICAL HISTORY: Pain status post trauma COMPARISON: None DISCUSSION: There is a fracture dislocation of the ankle with a fracture the medial malleolus. There is a possible posterior malleolar fracture fragment. The fibula is difficult to assess. If further de lineation of fracture desired, a dedicated ankle x-ray might be of benefit IMPRESSION: Fracture dislocation of the ankle. ACT 112: Negative or not required by law. Electronically signed by: Ramon Mcgowan M.D. 01/02/2020 6:06 PM
--- NOTE | 2020-01-02 18:17 | XRay Report ---
XR ankle RT 2V CLINICAL HISTORY: Right ankle pain status post trauma COMPARISON: None. DISCUSSION: The study is limited from a positioning standpoint. There is a fracture dislocation of th e ankle with anterior and lateral translation of the tibia with respect to the talus. There is a prob able fracture of the posterior and medial malleoli. The fibula is difficult to assess. IMPRESSION: Fracture dislocation. ACT 112: Negative or not required by law. Electronically signed by: Ramon Mcgowan M.D. 01/02/2020 6:16 PM
[2020-01-02 19:25] LABS: Basophils # (auto) 0.02 K/uL (0-0.2); Basophils % (auto) 0.2 %; Eosinophils # (auto) 0.04 K/uL (0-0.5); Eosinophils % (auto) 0.3 %; Hematocrit (blood only) 41.3 % (37-47); Hemoglobin 13.6 g/dL (12.0-16.0); Immature Granulocytes # (auto) 0.02 K/uL (0.00-0.02); Immature Granulocytes % (auto) 0.2 %; Lymphocytes # (auto) 0.98 K/uL (1.2-3.4); Lymphocytes % (auto) 8.3 %; Mean Corpuscular Hgb Conc 32.9 g/dL (32-36); Mean Corpuscular Volume 106.2 fL (80-100); Mean Platelet Volume 10.2 fL (7.4-10.4); Monocytes # (auto) 0.49 K/uL (0.11-0.59); Monocytes % (auto) 4.1 %; Neutrophils # (auto) 10.31 K/uL (1.4-6.5); Neutrophils % (auto) 86.9 %; Platelet Count 246 K/uL (130-400); RDW Coefficient of Variation 13.5 % (11.5-14.5); RDW Standard Deviation 52.6 fL (36.4-46.3); Red Blood Count 3.89 M/uL (4.2-5.4); White Blood Count 11.86 K/uL (4.8-10.8)
--- NOTE | 2020-01-02 20:16 | XRay Report ---
XR chest 1V portable CLINICAL HISTORY: Preoperative chest COMPARISON STUDY: 11/17/2019 FINDINGS: The heart is the upper limits of normal in size. There is no failure. There is no focal pul monary consolidation. There are no pleural effusions.[ IMPRESSION: No active disease in the chest. ACT 112: Negative or not required by law. Electronically signed by: Ramon Mcgowan M.D. 01/02/2020 8:15 PM
[2020-01-02 20:18] LABS: Albumin Level 3.8 gm/dl (3.4-5.0); BUN Creatinine Ratio 15.4 (10-20); Bilirubin,Total 0.2 mg/dl (0.2-1); Calcium 8.7 mg/dl (8.5-10.1); Creatinine Clr Calc Pharmacy 60.4 ml/min; Est GFR (African American) 114.1; Est GFR (Non-African American) 98.5; Total Protein 7.8 gm/dl (6.4-8.2)
--- NOTE | 2020-01-02 20:26 | Anesthesiology Consultation ---
Date of Service January 02, 2020 Assessment & Plan (1) Encounter for pre-operative examination: Chart Review Chart Review: Acceptable Risk for Surgery (Patient with elevated risk, but surgery is emergent as per surgeon) and Patient NOT seen in Pre Admission Testing Consults Requested none History Surgery Operation Date: 01/02/20 20:30 Proposed Procedures p Closed Reduction Extremity(Right) - Dagoberto Fairchild, Height/Weight Height: 4 ft 10 in Weight: 45 kg Allergies Allergy/AdvReac Type Severity Reaction Status Date / Time carbamazepine Allergy Unknown Unknown Verified 11/20/19 14:00 Penicillins Allergy Unknown Unknown Verified 11/20/19 14:00 phenytoin Allergy Unknown Unknown Verified 11/20/19 14:00 valproic acid Allergy Unknown UNKNOWN Unverified 11/20/19 14:00 divalproex sodium Allergy Unknown Unverified 11/20/19 14:00 [From Depakote] pseudoephedrine AdvReac Unknown UNKNOWN Unverified 11/20/19 14:00 Fabric Softeners Allergy Unknown . Uncoded 11/20/19 14:00 Medications Home Medications Medication Instructions Recorded Confirmed Last Taken acetic acid 4 drp OTIC (EAR) 2XWK 11/22/18 11/20/19 11/25/18 lithium carbonate 450 mg PO HS 11/27/18 11/20/19 11/26/18 multivitamin-ferrous 1 tab PO DAILY 04/14/19 11/20/19 Unknown fumarate-folic acid 18 mg-400 mcg tablet mupirocin 2 % topical ointment 1 applic TOPICAL BID PRN 04/21/19 11/20/19 Unknown naphazoline 0.025 %-pheniramine 1 drp OPHTHALMIC (EYE) BID 04/21/19 11/20/19 Unknown 0.3 % eye drops vitamin E mixed 400 unit capsule 400 units PO BID cap 07/30/19 11/20/19 Unknown quetiapine [Seroquel] 50 mg PO HS #0 tab 11/06/19 11/20/19 Unknown quetiapine [Seroquel] 300 mg PO HS #0 tab 11/06/19 11/20/19 Unknown polyethylene glycol 3350 17 gram 8.5 g PO BID #60 ea 11/15/19 11/20/19 Unknown oral powder packet ceramides 1,3,6-11 [CeraVe] 1 ea TOPICAL HS 11/17/19 11/20/19 Unknown docusate sodium [Colace] 100 mg PO BID 11/17/19 11/20/19 Unknown betamethasone dipropionate 0.05 % 1 applic TOPICAL BID PRN #45 gm 11/20/19 11/20/19 Unknown topical ointment prednisone 20 mg tablet 20 mg PO DAILY #5 tab 11/20/19 11/20/19 Unknown atorvastatin 20 mg tablet 20 mg PO DAILY #30 tab 12/15/19 Unknown cetirizine 10 mg tablet 10 mg PO QAM #30 tab 12/15/19 Unknown clopidogrel 75 mg tablet 75 mg PO QAM #30 tab 12/15/19 Unknown furosemide 40 mg tablet 40 mg PO DAILY #30 tab 12/15/19 Unknown levothyroxine 50 mcg tablet 50 mcg PO DAILY #30 tab 12/15/19 Unknown linaclotide 72 mcg capsule 72 mcg PO DAILY #30 cap 12/15/19 Unknown metoprolol succinate 25 mg 25 mg PO QAM #30 tab 12/15/19 Unknown tablet,extended release 24 hr potassium chloride 10 mEq 10 meq PO DAILY #30 tab 12/15/19 Unknown tablet,extended release(part/cryst) primidone 250 mg tablet 250 mg PO QAM #30 tab 12/15/19 Unknown sennosides 8.6 mg tablet 8.6 mg PO QAM PRN #30 tab 12/15/19 Unknown ammonium lactate 12 % topical cream 1 applic TOPICAL BID #385 gm 12/18/19 Unknown Past Medical History Medical History (Updated 01/02/20 @ 20:25 by Lee Rodriguez MD) Allergic rhinitis (Acute) Atopic dermatitis (Acute) Bipolar disorder, unspecified (Chronic) Cardiomegaly (Acute) Cardiomyopathy (Chronic) EF 30-35% Cardiovascular disease (Acute) Cerebral vascular disease (Chronic) Chronic constipation (Acute) Chronic systolic congestive heart failure (Chronic) Contracture, right hand (Acute) Encounter for pre-operative examination Esophageal dysmotility (Acute) Gallstones (Resolved) Gastroesophageal reflux disease (Acute) Internal hemorrhoids (Acute) Macrocytosis (Acute) Patent foramen ovale (Acute) Pulmonary hypertension (Acute) Repeated falls (Acute) Seizure disorder (Chronic) TIA (transient ischemic attack) (Acute) Past Family History Family History Denies family history of Ovarian cancer Prostate cancer Myocardial infarction Breast cancer Colorectal cancer Past Surgical History Surgical History History of cholecystectomy History of total abdominal hysterectomy Social History Smoking Status: Never smoker Hx Alcohol Use: No Hx Substance Use: No Physical Exam Vital Signs Last Vital Signs Pulse 84 01/02/20 20:05 Resp 18 01/02/20 20:05 BP 144/89 H 01/02/20 20:05 Pulse Ox 96 01/02/20 20:05 Testing Laboratory Results 01/02/20 19:18 01/02/20 19:18 Electrocardiogram Date: 01/02/20 Findings: + NSR @ (87) LVH with repolarization abnormality, L atrial enlargement Chest X-Ray Date: 01/02/20 Echocardiogram Date: 11/28/18 EF: 30-35 LV Function: dysfunctional Other Findings: + atrial enlargement (L atrial dilation) aneurysm interatrial septum
[2020-01-02] MEDS ORDERED: ATROPINE SULFATE 0.1 MG/ML 10ML SYR IV PRN ×2 (20:58→21:21)
[2020-01-02] MEDS ORDERED: PHENYLEPHRINE 100MCG/ML 5ML SYR IV PRN ×2 (20:58→21:20)
[2020-01-02] MEDS ORDERED: fentaNYL citrate 100 MCG/2 ML VIAL IV PRN ×2 (20:58→21:20)
[2020-01-02] MEDS ORDERED: ONDANSETRON INJ 2 MG/ML 2 ML VIAL IV PRN ×3 (20:58→22:42)
[2020-01-02] MEDS ORDERED: ePHEDrine sulfate 50 MG/ML AMP IV PRN ×2 (20:58→21:20)
[2020-01-02] MEDS ORDERED: HYDROmorphone INJ 1 MG/ML SYRINGE IV PRN ×2 (20:58→21:20)
[2020-01-02] MEDS ORDERED: LABETALOL HCL IV 5 MG/ML 20ML IV PRN ×2 (20:58→21:20)
[2020-01-02] MEDS ORDERED: fentaNYL citrate 100 MCG/2 ML VIAL ONE (21:03)
[2020-01-02] MEDS ORDERED: PROPOFOL IV EMULSION 10 MG/ML 20 ML VIAL IV ONE (21:03)
--- NOTE | 2020-01-02 21:07 | Orthopedic Consultation ---
Date of Consultation January 02, 2020 Assessment & Plan (1) Closed fracture dislocation of ankle joint: I have indicated the patient for emergent closed reduction and splint application of her right ankle. The risk, benefits, complications alternatives of the procedure were explained to the patient POA with who was present at bedside which include however not limited to injury to surrounding nerves, bone, vessels, soft tissue, blood clots, arthrofibrosis, chronic pain, need for surgery, loss of limb and loss of life. Alternatives include no reduction which would result in worsening symptoms. The patient's POA wished to proceed with closed reduction of the right ankle and informed consent was obtained at this time. Thank you for the consultation. History of Present Illness Reason for Consultation: Right ankle fracture dislocation History of Present Illness The patient is a 54-year-old female with significant past medical history as noted below and severe intellectual disability. She is accompanied by her mother who is the primary creative strategist and POA and was present at bedside for entirety of encounter. Patient does not offer much in regards to HPI and majority HPI was obtained from her mother. The patient sustained a mechanical fall this evening from standing height when she tripped on 1 step into their house. Subsequent pain and inability to ambulate the patient was brought to [facility] emergency department and x-rays demonstrated a fracture dislocation of her right ankle. Due to the fracture dislocation, impending open fracture, inability to sedate in the emergency department the patient was brought to the operating room for emergent closed reduction of her right ankle under conscious sedation. The patient was seen and evaluated by the medical hospitalist team in the emergency department and deemed stable for closed reduction of her right ankle. Allergies Allergy/AdvReac Type Severity Reaction Status Date / Time carbamazepine Allergy Unknown Unknown Verified 11/20/19 14:00 Penicillins Allergy Unknown Unknown Verified 11/20/19 14:00 phenytoin Allergy Unknown Unknown Verified 11/20/19 14:00 valproic acid Allergy Unknown UNKNOWN Unverified 11/20/19 14:00 divalproex sodium Allergy Unknown Unverified 11/20/19 14:00 [From Depakote] pseudoephedrine AdvReac Unknown UNKNOWN Unverified 11/20/19 14:00 Fabric Softeners Allergy Unknown . Uncoded 11/20/19 14:00 Home Medications Home Medications Medication Instructions Recorded Confirmed Type acetic acid 4 drp OTIC (EAR) 2XWK 11/22/18 11/20/19 History lithium carbonate 450 mg PO HS 11/27/18 11/20/19 History multivitamin-ferrous 1 tab PO DAILY 04/14/19 11/20/19 History fumarate-folic acid 18 mg-400 mcg tablet mupirocin 2 % topical ointment 1 applic TOPICAL BID PRN 04/21/19 11/20/19 History naphazoline 0.025 %-pheniramine 1 drp OPHTHALMIC (EYE) BID 04/21/19 11/20/19 History 0.3 % eye drops vitamin E mixed 400 unit capsule 400 units PO BID cap 07/30/19 11/20/19 History quetiapine [Seroquel] 50 mg PO HS #0 tab 11/06/19 11/20/19 Rx quetiapine [Seroquel] 300 mg PO HS #0 tab 11/06/19 11/20/19 Rx polyethylene glycol 3350 17 gram 8.5 g PO BID #60 ea 11/15/19 11/20/19 Rx oral powder packet ceramides 1,3,6-11 [CeraVe] 1 ea TOPICAL HS 11/17/19 11/20/19 History docusate sodium [Colace] 100 mg PO BID 11/17/19 11/20/19 History betamethasone dipropionate 0.05 % 1 applic TOPICAL BID PRN #45 gm 11/20/19 11/20/19 Rx topical ointment prednisone 20 mg tablet 20 mg PO DAILY #5 tab 11/20/19 11/20/19 Rx atorvastatin 20 mg tablet 20 mg PO DAILY #30 tab 12/15/19 Rx cetirizine 10 mg tablet 10 mg PO QAM #30 tab 12/15/19 Rx clopidogrel 75 mg tablet 75 mg PO QAM #30 tab 12/15/19 Rx furosemide 40 mg tablet 40 mg PO DAILY #30 tab 12/15/19 Rx levothyroxine 50 mcg tablet 50 mcg PO DAILY #30 tab 12/15/19 Rx linaclotide 72 mcg capsule 72 mcg PO DAILY #30 cap 12/15/19 Rx metoprolol succinate 25 mg 25 mg PO QAM #30 tab 12/15/19 Rx tablet,extended release 24 hr potassium chloride 10 mEq 10 meq PO DAILY #30 tab 12/15/19 Rx tablet,extended release(part/cryst) primidone 250 mg tablet 250 mg PO QAM #30 tab 12/15/19 Rx sennosides 8.6 mg tablet 8.6 mg PO QAM PRN #30 tab 12/15/19 Rx ammonium lactate 12 % topical cream 1 applic TOPICAL BID #385 gm 12/18/19 Rx Patient History Medical History Allergic rhinitis (Acute) Atopic dermatitis (Acute) Bipolar disorder, unspecified (Chronic) Cardiomegaly (Acute) Cardiomyopathy (Chronic) EF 30-35% Cardiovascular disease (Acute) Cerebral vascular disease (Chronic) Chronic constipation (Acute) Chronic systolic congestive heart failure (Chronic) Contracture, right hand (Acute) Encounter for pre-operative examination Esophageal dysmotility (Acute) Gallstones (Resolved) Gastroesophageal reflux disease (Acute) Internal hemorrhoids (Acute) Macrocytosis (Acute) Patent foramen ovale (Acute) Pulmonary hypertension (Acute) Repeated falls (Acute) Seizure disorder (Chronic) TIA (transient ischemic attack) (Acute) Surgical History History of cholecystectomy History of total abdominal hysterectomy Family History Denies family history of Ovarian cancer Prostate cancer Myocardial infarction Breast cancer Colorectal cancer Social History Preferred Language: Wolof Communication Ability: Impaired Visual Impairment: No Limitations Hearing Ability: Normal Certified Adaptive Physical Educator Required: No Beliefs That Will Affect Care: None marital status: Single Current Living Situation: Other Current Living Situation Comment: [employer] Feels Safe at Home: Yes Smoking Status: Never smoker Second Hand Exposure: No ; Hx Alcohol Use: No Hx Substance Use: No Dental Care, Regularly: Yes Physical Activity Frequency: 1-2 Times per Week Seatbelt Use: always Review of Systems Review of Systems: All systems reviewed & are unremarkable except as noted in HPI & below Constitutional: as per Subjective / HPI Physical Exam Physical Exam: Right lower extremity physical exam limited secondary to patient underlying intellectual disability. Sensory intact light touch grossly, strength and range of motion deferred secondary to fracture, obvious deformity with tenting of the medial ankle skin, skin was clean dry and intact. Cap refill less than 2 seconds. Compartment soft nontender. Constitutional: WD/WN, vitals as above Results & Data ([place]) Vital Signs (Past 12 Hours) Vital Signs Pulse Pulse Resp BP BP Pulse Ox 01/02/20 20:05 84 18 144/89 H 96 01/02/20 18:45 96 H 18 136/94 96 01/02/20 17:01 82 20 141/87 H 99 Diagnostic Findings XR ankle RT 2V CLINICAL HISTORY: Right ankle pain status post trauma COMPARISON: None. DISCUSSION: The study is limited from a positioning standpoint. There is a fracture dislocation of the ankle with anterior and lateral translation of the tibia with respect to the talus. There is a probable fracture of the posterior and medial malleoli. The fibula is difficult to assess. IMPRESSION: Fracture dislocation.
--- NOTE | 2020-01-02 21:07 | History & Physical Bridge Note ---
Date of Service January 02, 2020 History & Physical Bridge Note I have examined the patient, reviewed the History & Physical and in the interval since the performance of the History & Physical I have noted the following changes of clinical significance: no changes noted
--- NOTE | 2020-01-02 21:39 | Post Operative Brief Note ---
Immediate Post Op Note v1 Date of Surgery January 02, 2020 Pre & Post Diagnosis Operation Date: 01/02/20 20:30 Pre-Op Diagnosis: Closed fracture dislocation of right ankle joint Post-Op Diagnosis: Closed fracture dislocation of right ankle joint I identified the patient and participated in the time-out.: Yes Procedure Operation Date: 01/02/20 20:30 Actual Procedures p Closed Reduction Right Ankle(Right) - Dagoberto Fairchild DO Surgeon Dagoberto Fairchild DO Cash Processing Specialist none Estimated Blood Loss 0 Findings Consistent with Post-Op Diagnosis Specimens none Anesthesia Type MAC Complications none Disposition Disposition: Recovery Room Overlapping Procedure I was present for: the critical portions of procedure. I was immediately available: during the entire case. Back up surgeon: was not required during procedure.
--- NOTE | 2020-01-02 21:42 | Operative Report ---
Post Operative Report Pre & Post Diagnosis Operation Date: 01/02/20 20:30 Pre-Op Diagnosis: Closed fracture dislocation of right ankle joint Post-Op Diagnosis: Closed fracture dislocation of right ankle joint I identified the patient and participated in the time-out.: Yes Procedure Operation Date: 01/02/20 20:30 Actual Procedures p Closed Reduction Right Ankle(Right) - Dagoberto Fairchild DO Surgeon Dagoberto Fairchild DO Cad Librarian none Estimated Blood Loss 0 Findings Consistent with Post-Op Diagnosis Specimens none Anesthesia Type MAC Disposition Disposition: Recovery Room Indications The patient is a 54-year-old female with significant past medical history as noted below and severe intellectual disability. She is accompanied by her mother who is the primary solid propellant processor and POA and was present at bedside for entirety of encounter. Patient does not offer much in regards to HPI and majority HPI was obtained from her mother. The patient sustained a mechanical fall this evening from standing height when she tripped on 1 step into their house. Subsequent pain and inability to ambulate the patient was brought to [facility] emergency department and x-rays demonstrated a fracture dislocation of her right ankle. Due to the fracture dislocation, impending open fracture, inability to sedate in the emergency department the patient was brought to the operating room for emergent closed reduction of her right ankle under conscious sedation. The patient was seen and evaluated by the medical hospitalist team in the emergency department and deemed stable for closed reduction of her right ankle. I have indicated the patient for emergent closed reduction and splint application of her right ankle. The risk, benefits, complications alternatives of the procedure were explained to the patient POA with who was present at bedside which include however not limited to injury to surrounding nerves, bone, vessels, soft tissue, blood clots, arthrofibrosis, chronic pain, need for surgery, loss of limb and loss of life. Alternatives include no reduction which would result in worsening symptoms. The patient's POA wished to proceed with closed reduction of the right ankle and informed consent was obtained at this time. Description of Procedure The patient was brought to the operating room and transferred to the OR table. After the patient received adequate anesthesia. A timeout was performed, site jael identified and x-rays verified. The C arm fluoroscopy was positioned and initial x-rays of the right ankle demonstrated a bimalleolar fracture dislocation. A gentle reduction maneuver was performed with traction, dorsiflexion and varus valgus manipulation. A appreciable clunk was felt. C- arm fluoroscopy was brought in once more and images were taken confirming adeq uate reduction of the ankle mortise. The right lower extremity was wrapped in Webril, posterior U plaster splint and Rafi wrap was applied. The plaster was molded until hardened. The C-arm fluoroscopy was brought in once more for final x-rays which demonstrated anatomic alignment of the fractures and mortise. The patient tolerated the procedure well and was transferred to the PACU in stable condition. I attest to the content of the Intraoperative Record and any orders documented therein. Any exceptions are noted below.
--- NOTE | 2020-01-02 22:05 | Anesthesiology Progress Note ---
Date of Service January 02, 2020 Anesthesia Post Procedure Vital Signs Vital Signs: Temp Pulse Pulse Pulse Resp BP BP 01/02/20 22:00 83 16 123/83 01/02/20 21:50 85 16 123/84 01/02/20 21:41 36.9 C 91 H 16 129/95 01/02/20 20:05 84 18 144/89 H 01/02/20 18:45 96 H 18 136/94 01/02/20 17:01 82 20 141/87 H Pulse Ox 01/02/20 22:00 94 01/02/20 21:50 94 01/02/20 21:41 96 01/02/20 20:05 96 01/02/20 18:45 96 01/02/20 17:01 99 Pain Intensity Right Ankle: Pain Intensity: 1 Transfer of Care Handoff Completed per policy Notes Mental Status: alert / awake / arousable Patient Amnestic to Procedure: Yes Nausea / Vomiting: adequately controlled Pain: adequately controlled Airway Patency, RR, SpO2: stable & adequate BP & HR: stable & adequate Hydration State: stable & adequate Anesthetic Complications: no major complications apparent and Pt Satisfied with anesthetic care
--- NOTE | 2020-01-02 22:05 | Fluoroscopy Report ---
FL ankle RT 2V CLINICAL HISTORY: CLOSED REDUCTION COMPARISON STUDY: 01/02/2020 FLUOROSCOPY TIME: L second. NUMBER OF FLUOROSCOPIC IMAGES: 2 FINDINGS: The fine bony detail is obscured by plaster splint. There is been interval reduction of the previously described fracture dislocation. The ankle mortise appears intact as visualized. IMPRESSION: Interval reduction of the previous described fracture dislocation with application of a plaster splint. ACT 112: Negative or not required by law. Electronically signed by: Ramon Mcgowan M.D. 01/02/2020 10:04 PM
--- NOTE | 2020-01-02 22:15 | XRay Report ---
XR ankle RT 2V CLINICAL HISTORY: PACU, post reduction COMPARISON: 01/02/2020 DISCUSSION: There is been interval reduction of the previously identified fracture dislocation with a pplication of a plaster cast. Bony alignment appears near anatomic. IMPRESSION: Interval reduction of the previously described fracture dislocation with application of a plaster cast. ACT 112: Negative or not required by law. Electronically signed by: Ramon Mcgowan M.D. 01/02/2020 10:14 PM
[2020-01-02] MEDS ORDERED: SODIUM CHLORIDE 0.9% 1000ML 1,000 ML IV SCH (22:42)
[2020-01-02] MEDS ORDERED: MAGNESIUM HYDROXIDE SUSP 30 ML UDC PO PRN (22:42)
[2020-01-02] MEDS ORDERED: METOCLOPRAMIDE HCL INJ 5 MG/ML 2 ML VIAL IV PRN (22:42)
[2020-01-02] MEDS ORDERED: SENNA 8.6 MG TAB PO PRN (22:42)
[2020-01-02] MEDS ORDERED: NALOXONE HCL 0.4 MG/1 ML VIAL/CARP IV PRN (22:42)
[2020-01-02] MEDS ORDERED: bisacodyL 10 MG SUPP PR PRN (22:42)
--- NOTE | 2020-01-02 23:25 | History & Physical Report ---
Date of Service January 02, 2020 Assessment & Plan (1) Closed fracture dislocation of ankle joint: 54 yo F with PMH severe intellectual disability, HTN, HLD, hypothyroidism, bipolar, systolic CHF, GERD, seizure disorder presents after fall at home found to have closed fracture dislocation of right ankle joint. Now doing well post- op. R ankle closed fx dislocation -s/p closed reduction right ankle with splint application by Dr. Fairchild -Ankle XR: Interval reduction of fracture dislocation with application of a plaster splint -pain management with Ultram 50-100mg q4h prn (will be careful to increase dosage given h/o seizure disorder). Ice/elevate . No complaints of pain s/p reduction -DVT Ppx with Lovenox -CT R ankle pending -PT/OT pending (h/o repeated falls. In past have rec snf/rehab) HTN/HLD/systolic CHF -cont atorvastatin 20mg, lasix 40mg, toprol XL 25mg -Nov 2018 ECHO: EF 30-35% Hypothyroidism -cont synthroid 50 mcg -TSH pending Bipolar 1 disorder -cont Eskalith 450mg, Seroquel 50mg -[place] level pending Osteoporosis -T scores: L-spine -3.4, left hip -3.0, right hip -3.2 -likely 2/2 malnutrition and reduced weight bearing exercise -consider adding Vit D/Ca supplementation as an outpt Seizure Disorder -cont Mysoline 250mg Chronic constipation -Cont home laxative regimen MR -cont supportive care, lives in a custodial FEN/GI: Regular. NSS at 100 DVT Prophylaxis: Lovenox 30 mg SQ qAM Full Code Dispo: Med Surg. PT/OT recs pending History of Present Illness Chief Complaint: ankle fx Primary Care Provider: Ken Cano, DO 54 yo F with PMH severe intellectual disability, HTN, HLD, hypothyroidism, bipolar, systolic CHF, GERD, seizure disorder presents to [facility] after fall earlier this evening. History obtained by pt's mother who is a nurse and primary guardian family member and POA. The patient sustained a mechanical fall this evening from standing height when she tripped on 1 step into their house. Brought into ER 2/2 pain and inability to ambulate. Ankle XR showed a fracture dislocation of right ankle. Dr. Fairchild was consulted and emergently taken to OR 2/2 fracture dislocation, impending open fracture, and inability to sedate in the ED. An emergent closed reduction and splint application of right ankle was done under conscious sedation. Pt seen post-op with mother and had no other acute concerns or complaints. Pain level manageable. Allergies Allergy/AdvReac Type Severity Reaction Status Date / Time carbamazepine Allergy Unknown Unknown Verified 11/20/19 14:00 Penicillins Allergy Unknown Unknown Verified 11/20/19 14:00 phenytoin Allergy Unknown Unknown Verified 11/20/19 14:00 valproic acid Allergy Unknown UNKNOWN Unverified 11/20/19 14:00 divalproex sodium Allergy Unknown Unverified 11/20/19 14:00 [From Depakote] pseudoephedrine AdvReac Unknown UNKNOWN Unverified 11/20/19 14:00 Fabric Softeners Allergy Unknown . Uncoded 11/20/19 14:00 Home Medications Home Medications Medication Instructions Recorded Confirmed Type acetic acid 4 drp OTIC (EAR) 2XWK 11/22/18 01/02/20 History lithium carbonate 450 mg PO HS 11/27/18 01/02/20 History multivitamin-ferrous 1 tab PO DAILY 04/14/19 01/02/20 History fumarate-folic acid 18 mg-400 mcg tablet mupirocin 2 % topical ointment 1 applic TOPICAL BID PRN 04/21/19 01/02/20 History naphazoline 0.025 %-pheniramine 1 drp OPHTHALMIC (EYE) BID 04/21/19 01/02/20 History 0.3 % eye drops vitamin E mixed 400 unit capsule 400 units PO BID cap 07/30/19 01/02/20 History quetiapine [Seroquel] 50 mg PO HS #0 tab 11/06/19 01/02/20 Rx quetiapine [Seroquel] 300 mg PO HS #0 tab 11/06/19 01/02/20 Rx ceramides 1,3,6-11 [CeraVe] 1 ea TOPICAL BID 11/17/19 01/02/20 History docusate sodium [Colace] 100 mg PO BID 11/17/19 01/02/20 History betamethasone dipropionate 0.05 % 1 applic TOPICAL BID PRN #45 gm 11/20/19 01/02/20 Rx topical ointment cetirizine 10 mg tablet 10 mg PO QAM #30 tab 12/15/19 01/02/20 Rx clopidogrel 75 mg tablet 75 mg PO QAM #30 tab 12/15/19 01/02/20 Rx furosemide 40 mg tablet 40 mg PO DAILY #30 tab 12/15/19 01/02/20 Rx levothyroxine 50 mcg tablet 50 mcg PO DAILY #30 tab 12/15/19 01/02/20 Rx linaclotide 72 mcg capsule 72 mcg PO DAILY #30 cap 12/15/19 01/02/20 Rx metoprolol succinate 25 mg 25 mg PO QAM #30 tab 12/15/19 01/02/20 Rx tablet,extended release 24 hr potassium chloride 10 mEq 10 meq PO DAILY #30 tab 12/15/19 01/02/20 Rx tablet,extended release(part/cryst) primidone 250 mg tablet 250 mg PO QAM #30 tab 12/15/19 01/02/20 Rx sennosides 8.6 mg tablet 8.6 mg PO QAM PRN #30 tab 12/15/19 01/02/20 Rx ammonium lactate 12 % topical cream 1 applic TOPICAL BID #385 gm 12/18/19 01/02/20 Rx atorvastatin 20 mg PO QPM 01/02/20 01/02/20 History carbamide peroxide [Debrox] 4 drp OTIC (EAR) 2XWK 01/02/20 01/02/20 History Past Med/Surg History Medical History Allergic rhinitis (Acute) Atopic dermatitis (Acute) Bipolar disorder, unspecified (Chronic) Cardiomegaly (Acute) Cardiomyopathy (Chronic) EF 30-35% Cardiovascular disease (Acute) Cerebral vascular disease (Chronic) Chronic constipation (Acute) Chronic systolic congestive heart failure (Chronic) Contracture, right hand (Acute) Encounter for pre-operative examination Esophageal dysmotility (Acute) Gallstones (Resolved) Gastroesophageal reflux disease (Acute) Internal hemorrhoids (Acute) Macrocytosis (Acute) Patent foramen ovale (Acute) Pulmonary hypertension (Acute) Repeated falls (Acute) Seizure disorder (Chronic) TIA (transient ischemic attack) (Acute) Surgical History History of cholecystectomy History of total abdominal hysterectomy Family History Denies family history of Ovarian cancer Prostate cancer Myocardial infarction Breast cancer Colorectal cancer Social History Preferred Language: Chilean Communication Ability: Unable Visual Impairment: No Limitations Hearing Ability: Normal Telephone Operator Required: No Beliefs That Will Affect Care: None marital status: Single Current Living Situation: Other Current Living Situation Comment: custodial Other Information That Helps Us Care for You: No Feels Safe at Home: Yes Safety Concerns: Feels Safe At This Time Smoking Status: Never smoker Second Hand Exposure: No ; Hx Alcohol Use: No Hx Substance Use: No Dental Care, Regularly: Yes Physical Activity Frequency: 1-2 Times per Week Seatbelt Use: always Review of Systems Review of Systems: All systems reviewed & are unremarkable except as noted in HPI & below Physical Exam Constitutional: WD/WN, vitals as above + language barrier (nonverbal at baseline) Eyes: PERRL, conjunctivae normal, anicteric sclerae ENMT: external ear and nose normal, oropharynx normal Mouth: + oropharynx abnormality (slightly dry MM) Respiratory: normal respiratory effort, lungs clear to auscultation Cardiovascular: RRR, no murmur, no edema Gastrointestinal (Abdomen): normal bowel sounds, soft, nontender, no hepatosplenomegaly Musculoskeletal: R LE with cast in place Skin: no rashes, warm and dry Results & Data Vital Signs (Past 12 Hours) Vital Signs Temp Pulse Pulse Pulse Resp BP BP 01/02/20 22:30 36.5 C 88 16 124/73 01/02/20 22:20 36.5 C 80 16 121/73 01/02/20 22:10 36.5 C 80 16 124/69 01/02/20 22:00 83 16 123/83 01/02/20 21:50 85 16 123/84 01/02/20 21:41 36.9 C 91 H 16 129/95 01/02/20 20:05 84 18 144/89 H 01/02/20 18:45 96 H 18 136/94 01/02/20 17:01 82 20 141/87 H Pulse Ox 01/02/20 22:30 94 01/02/20 22:20 94 01/02/20 22:10 94 01/02/20 22:00 94 01/02/20 21:50 94 01/02/20 21:41 96 01/02/20 20:05 96 01/02/20 18:45 96 01/02/20 17:01 99 Laboratory Results Laboratory Results - last 24 hr 01/02/20 01/02/20 19:18 19:18 WBC 11.86 H RBC 3.89 L Hgb 13.6 Hct 41.3 MCV 106.2 H MCH 35.0 H MCHC 32.9 RDW Std Deviation 52.6 H RDW Coeff of Samm 13.5 Plt Count 246 MPV 10.2 Immature Gran % (Auto) 0.2 Neut % (Auto) 86.9 Lymph % (Auto) 8.3 [place] % (Auto) 4.1 Eos % (Auto) 0.3 Baso % (Auto) 0.2 Immature Gran # (Auto) 0.02 Neut # (Auto) 10.31 H Lymph # (Auto) 0.98 L [place] # (Auto) 0.49 Eos # (Auto) 0.04 Baso # (Auto) 0.02 Sodium 140 Potassium Chloride 108 H Carbon Dioxide 26 Anion Gap 6.0 BUN 10 Creatinine 0.68 Est Cr Clr Drug Dosing 60.4 Est GFR ( Amer) 114.1 Est GFR (Non-Af Amer) 98.5 BUN/Creatinine Ratio 15.4 Glucose 148 H Calcium 8.7 Total Bilirubin 0.2 AST ALT 41 Alkaline Phosphatase 68 Total Protein 7.8 Albumin 3.8 Globulin 4.0 Albumin/Globulin Ratio 1.0 Medications Administered Current Inpatient Medications Atorvastatin Calcium (Lipitor) 20 mg PO QPM OLYA Stop: 02/02/20 20:59 Bisacodyl (Dulcolax) 10 mg IN DAILY PRN PRN Reason: Constipation Stop: 02/01/20 22:41 Docusate Sodium (Colace) 100 mg PO BID OLYA Stop: 02/02/20 08:59 Docusate Sodium (Colace) 100 mg PO BID OLYA Stop: 02/02/20 08:59 Enoxaparin Sodium (Lovenox) 30 mg SQ QAM OLYA Stop: 02/02/20 08:59 Furosemide (Lasix) 40 mg PO DAILY O[facility]A Stop: 02/02/20 08:59 Sodium Chloride (Nss 1000ml) 1,000 mls @ 100 mls/hr IV .Q10H OLYA Stop: 01/03/20 06:00 Last Admin: 01/02/20 22:54 Dose: 100 mls/hr Documented by: Levothyroxine Sodium (Synthroid) 50 mcg PO DAILY [facility] Stop: 02/02/20 08:59 [place] Carbonate (Eskalith) 450 mg PO HS [facility] Stop: 02/02/20 20:59 Magnesium Hydroxide (Milk Of Magnesia) 30 ml PO Q6H PRN PRN Reason: Constipation Stop: 02/01/20 22:41 Metoclopramide HCl (Reglan) 10 mg IV Q6H PRN PRN Reason: Nausea And Vomiting Stop: 02/01/20 22:41 Metoprolol Succinate (Toprol Xl) 25 mg PO QAM [facility] Stop: 02/02/20 08:59 [facility]ivit[facility] ([facility]ivitamin Tab) [facility] [place]: 02/02/20 08:59 Naloxone HCl (Narcan) 0.1 mg IV Q5M PRN PRN Reason: Oversedation/Resp Depression Stop: 02/01/20 22:41 Non-Formulary Medication (Linaclotide [Linzess]) 72 mcg PO DAILY [facility] Stop: 02/02/20 08:59 Ondansetron HCl (Zofran) 4 mg IV Q6H PRN PRN Reason: Nausea And Vomiting Stop: 02/01/20 22:41 Potassium Chloride (Klor-Con M10) 10 meq PO DAILY [facility] Stop: 02/02/20 08:59 Primidone (Mysoline) 250 mg PO QAM [facility] Stop: 02/02/20 08:59 Quetiapine Fumarate (Seroquel) 300 mg PO HS [facility] Stop: 02/02/20 20:59 Quetiapine Fumarate (Seroquel) 50 mg PO HS [facility] Stop: 02/02/20 20:59 Sennosides (Senokot) 8.6 mg PO QAM PRN PRN Reason: constipation Stop: 02/01/20 22:41 Sennosides (Senokot) 17.2 mg PO HS [facility] Stop: 02/02/20 20:59 Tramadol HCl (Ultram) 50 - 100 mg PO Q4H PRN PRN Reason: Pain & Pre PT Stop: 02/01/20 22:41 Code Status & VTE Plan Code Status FULL Supervising Physician Co-Signing Physician Notes Patient seen and examined, chart reviewed, case discussed with Dr. Pruitt and I agree with his assessment and plan as documented above. Briefly, patient is a 54-year-old female with developmental delay, seizure disorder, cardiomyopathy presenting with a closed left ankle fracture after sustaining a fall at home. Status post closed reduction with splint placement performed by Dr. Fairchild. Surgery well-tolerated, no complications identified. Patient is doing well postoperatively with no acute complaints. Plan as above Resident Activity Tracking Resident Involvement: Resident Care Provided Care Provided: Adult [facility]
--- NOTE | 2020-01-02 23:34 | Orthopedic Progress Note ---
Date of Service January 02, 2020 Assessment & Plan (1) Closed fracture dislocation of ankle joint: s/p close reduction right ankle bimalleolar fracture dislocation -DVT ppx: Lovenox 30mg daily -NWB RLE -Ice/elevation -PO XR demonstrates overlying splint material, well aligned fractures, ankle mortise. -CT right ankle Admission and Anticipated Discharge Date Admission Date: January 02, 2020 Subjective Post Operative Progress Note Patient seen in PACU, comfortable, no acute issues, pain well controlled. Review of Systems Review of Systems: Unobtainable due to cognitive status Constitutional: as per Subjective / HPI Physical Exam Physical Exam: RLE SILT grossly, CR, 2 seconds, splint in place, compartments soft NT. Constitutional: WD/WN, vitals as above Results & Data ([facility]) Vital Signs (Past 12 Hours) Vital Signs Temp Pulse Pulse Pulse Resp BP BP 01/02/20 22:30 36.5 C 88 16 124/73 01/02/20 22:20 36.5 C 80 16 121/73 01/02/20 22:10 36.5 C 80 16 124/69 01/02/20 22:00 83 16 123/83 01/02/20 21:50 85 16 123/84 01/02/20 21:41 36.9 C 91 H 16 129/95 01/02/20 20:05 84 18 144/89 H 01/02/20 18:45 96 H 18 136/94 01/02/20 17:01 82 20 141/87 H Pulse Ox 01/02/20 22:30 94 01/02/20 22:20 94 01/02/20 22:10 94 01/02/20 22:00 94 01/02/20 21:50 94 01/02/20 21:41 96 01/02/20 20:05 96 01/02/20 18:45 96 01/02/20 17:01 99
[2020-01-03] MEDS: TRAMADOL HCL 50 MG TABLET PO PRN ×4 (00:12→13:37)
--- NOTE | 2020-01-03 03:38 | Billing Data ---
Date of Service January 03, 2020 Coding Level of Care Code 76177 Initial Inpt Care Lvl 3
[2020-01-03] MEDS ORDERED: LEVOTHYROXINE SODIUM 50 MCG TABLET PO SCH (06:30)
[2020-01-03 07:43] LABS: Basophils # (auto) 0.01 K/uL (0-0.2); Basophils % (auto) 0.1 %; Eosinophils # (auto) 0.03 K/uL (0-0.5); Eosinophils % (auto) 0.4 %; Hematocrit (blood only) 37.7 % (37-47); Hemoglobin 12.2 g/dL (12.0-16.0); Immature Granulocytes # (auto) 0.01 K/uL (0.00-0.02); Immature Granulocytes % (auto) 0.1 %; Lymphocytes # (auto) 1.08 K/uL (1.2-3.4); Lymphocytes % (auto) 13.6 %; Mean Corpuscular Hemoglobin 34.7 pg (25-34); Mean Corpuscular Hgb Conc 32.4 g/dL (32-36); Mean Corpuscular Volume 107.1 fL (80-100); Mean Platelet Volume 10.2 fL (7.4-10.4); Monocytes # (auto) 1.01 K/uL (0.11-0.59); Monocytes % (auto) 12.7 %; Neutrophils # (auto) 5.83 K/uL (1.4-6.5); Neutrophils % (auto) 73.1 %; Platelet Count 220 K/uL (130-400); RDW Coefficient of Variation 13.9 % (11.5-14.5); RDW Standard Deviation 54.1 fL (36.4-46.3); Red Blood Count 3.52 M/uL (4.2-5.4); White Blood Count 7.97 K/uL (4.8-10.8)
[2020-01-03] MEDS ORDERED: LINZESS~ORDER AWAITING ACTION SCH (08:00)
[2020-01-03 08:21] LABS: BUN Creatinine Ratio 14.2 (10-20); Calcium 8.9 mg/dl (8.5-10.1); Creatinine Clr Calc Pharmacy 78.9 ml/min; Est GFR (African American) 124.7; Est GFR (Non-African American) 107.6; Potassium 3.5 mmol/L (3.5-5.1)
[2020-01-03 08:31] LABS: Thyroid Stimulating Hormone 0.114 uIu/ml (0.300-4.500)
[2020-01-03] MEDS ORDERED: MULTIVITAMIN TAB PO SCH (09:00)
[2020-01-03] MEDS ORDERED: FUROSEMIDE 40 MG TAB PO SCH (09:00)
[2020-01-03] MEDS ORDERED: ENOXAPARIN INJ 30 MG/0.3 ML SYR SQ SCH (09:00)
[2020-01-03] MEDS ORDERED: POTASSIUM CHLORIDE 10 MEQ TABCR PO SCH (09:00)
[2020-01-03] MEDS ORDERED: METOPROLOL SUCC 25MG EXT REL TAB PO SCH (09:00)
[2020-01-03] MEDS ORDERED: DOCUSATE SODIUM 100 MG CAP PO SCH ×2 (09:00)
[2020-01-03] MEDS ORDERED: PRIMIDONE 250 MG TAB PO SCH (09:00)
--- NOTE | 2020-01-03 10:18 | Orthopedic Progress Note ---
Date of Service January 03, 2020 Assessment & Plan (1) Closed fracture dislocation of ankle joint: s/p close reduction right ankle bimalleolar fracture dislocation -DVT ppx: Lovenox 30mg daily -NWB RLE -Ice/elevation -PO XR demonstrates overlying splint material, well aligned fractures, ankle mortise. -CT right ankle pending Plan for follow-up as outpatient within 1 week. Discussed with patient's POA follow-up x-rays and further treatment with Kyler Cross/Dr. Chau team for further evaluation and treatment. Patient's mother was agreeable to this plan. She will need to call the office 01/05/2020 to schedule a follow-up appointment, . Admission and Anticipated Discharge Date Admission Date: January 02, 2020 Subjective Post Operative Progress Note Patient seen sitting up in bed, comfortable, pain well controlled, no acute issues. Patient's mother present at bedside. Review of Systems Review of Systems: All systems reviewed & are unremarkable except as noted in HPI & below Constitutional: as per Subjective / HPI Physical Exam Physical Exam: Right lower extremity physical exam, limited secondary to patient cognitive status, capillary refill less than 2 seconds, warm and perfused, splint in place, compartment soft nontender. Constitutional: WD/WN, vitals as above Results & Data ([facility]) Vital Signs (Past 12 Hours) Vital Signs Temp Pulse Pulse Pulse Resp BP Pulse Ox 01/03/20 09:28 72 01/03/20 07:42 36.7 C 78 18 118/73 97 01/03/20 04:00 36.6 C 82 18 123/69 96 01/03/20 01:12 36.8 C 76 18 104/65 94 01/03/20 00:41 36.6 C 84 18 123/74 95 01/03/20 00:12 36.8 C 80 16 120/79 98 01/02/20 23:43 36.8 C 86 18 122/82 95 01/02/20 22:30 36.5 C 88 16 124/73 94 01/02/20 22:20 36.5 C 80 16 121/73 94
--- NOTE | 2020-01-03 11:55 | Electrocardiogram Report ---
Test Reason : Blood Pressure : / mmHG Vent. Rate : 087 BPM Atrial Rate : 087 BPM P-R Int : 146 ms QRS Dur : 092 ms QT Int : 336 ms P-R-T Axes : 014 -04 163 degrees QTc Int : 404 ms Normal sinus rhythm Left atrial enlargement Left ventricular hypertrophy with repolarization abnormality Abnormal ECG When compared with ECG of 02-NOV-2019 14:17, No significant change was found Confirmed by Sandor Chilel ([id number]) on 01/03/2020 11:54:44 AM Referred By: REFERRED SELF Confirmed By:Sandor Chilel
--- NOTE | 2020-01-03 14:15 | Discharge Summary ---
Date of Service January 03, 2020 Admission HPI Per Admitting Provider 54 yo F with PMH severe intellectual disability, HTN, HLD, hypothyroidism, bipolar, systolic CHF, GERD, seizure disorder presents to [facility] after fall earlier this evening. History obtained by pt's mother who is a nurse and primary farm instructor and POA. The patient sustained a mechanical fall this evening from standing height when she tripped on 1 step into their house. Brought into ER 2/2 pain and inability to ambulate. Ankle XR showed a fracture dislocation of right ankle. Dr. Fairchild was consulted and emergently taken to OR 2/2 fracture dislocation, impending open fracture, and inability to sedate in the ED. An e mergent closed reduction and splint application of right ankle was done under conscious sedation. Pt seen post-op with mother and had no other acute concerns or complaints. Pain level manageable. Admission Exam Per Admitting Provider Constitutional: WD/WN, vitals as above + language barrier (nonverbal at baseline) Eyes: PERRL, conjunctivae normal, anicteric sclerae ENMT: external ear and nose normal, oropharynx normal Mouth: + oropharynx abnormality (slightly dry MM) Respiratory: normal respiratory effort, lungs clear to auscultation Cardiovascular: RRR, no murmur, no edema Gastrointestinal (Abdomen): normal bowel sounds, soft, nontender, no hepatosplenomegaly Musculoskeletal: R LE with cast in place Skin: no rashes, warm and dry Principal Diagnosis R ankle fracture and dislocation Discharge Exam General: Alert, sitting up in bed. No acute distress HEENT: NC/AT, PERRLA, EOMI, oropharynx moist. Chest: Nontender to palpation. CV: RRR, Normal s1, s2. No murmurs appreciated Resp: Breath sounds clear bilaterally, no increased effort of breathing. No crackles/rhonchi/rales. Abdomen: Soft, nontender, nondistended. No guarding. No organomegaly appreciated. Extremities: R leg in cast Discharge Data Allergies Allergy/AdvReac Type Severity Reaction Status Date / Time carbamazepine Allergy Unknown Unknown Verified 11/20/19 14:00 Penicillins Allergy Unknown Unknown Verified 11/20/19 14:00 phenytoin Allergy Unknown Unknown Verified 11/20/19 14:00 valproic acid Allergy Unknown UNKNOWN Unverified 11/20/19 14:00 divalproex sodium Allergy Unknown Unverified 11/20/19 14:00 [From Depakote] pseudoephedrine AdvReac Unknown UNKNOWN Unverified 11/20/19 14:00 Fabric Softeners Allergy Unknown . Uncoded 11/20/19 14:00 Consultations 01/02/20 19:57 ED Decision to Admit Stat 01/02/20 22:42 Consult Case Management - Discharge Planning Routine Procedures Performed Operation Date: 01/02/20 20:30 Actual Procedures p Closed Reduction Right Ankle(Right) - Dagoberto Fairchild, Ordered Studies 01/02/20 FL ankle RT 2V Routine FL fluoroscopy <1hr Routine 01/02/20 22:42 CT ankle RT wo con Routine Hospital Course (1) Closed fracture dislocation of ankle joint: 54 yo F with PMH of severe intellectual disability, HTN, HLD, hypothyroidism, bipolar, systolic CHF, GERD, seizure disorder, Hx of CVA and TIA who presented after fall at home. She was found to have a closed fracture dislocation of right ankle joint. Admitted on January 01 and discharged on January 03, 2020. R ankle closed fx dislocation -s/p closed reduction right ankle with splint application by Dr. Fairchild on -Ankle XR: fracture dislocation of ankle with anterior and lateral translation of tibia with respect to talus. Probable fracture of posterior and medial malleolus. -pain management with Ultram 50-100mg q4h prn (careful to increase dosage given h/o seizure disorder). Discharged with the same for as needed use. -DVT Ppx with Lovenox 30mg while hospitalized. Discontinued on discharge, advise d to continue home Plavix 75mg daily after discharge for anticoagulation. -Per mother's request, pt discharged home (rather than SNF) and will be cared by mother. -Discharged with prescription for hospital bed needed for positional changes that cannot occur with a regular bed. Has to be nonweightbearing. -Ortho's recommendations on discharge: "Plan for follow-up as outpatient within 1 week. Discussed with patient's POA follow-up x-rays and further treatment with [facility]/Dr. Chau team for further evaluation and treatment. Patient's mother was agreeable to this plan. She will need to call the office 01/05/2020 to schedule a follow-up appointment, ." HTN/HLD/systolic CHF -cont atorvastatin 20mg, lasix 40mg, toprol XL 25mg -Nov 2018 ECHO: EF 30-35% Hx of CVA/TIA -continue home Plavix 75mg Hypothyroidism -cont synthroid 50 mcg -TSH low at 0.114; recommend free T4 level and further assessment as outpatient. Bipolar 1 disorder -cont Eskalith 450mg, Seroquel 50mg -[place] level low at 0.3. Osteoporosis -T scores: L-spine -3.4, left hip -3.0, right hip -3.2 -likely 2/2 malnutrition and reduced weight bearing exercise -discharged with Vit D3 2000mg daily and Calcium 600mg daily. -PCP followup recommended. Seizure Disorder -cont Mysoline 250mg Chronic constipation -Cont home laxative regimen MR -cont supportive care Total Time Total Time Spent Total Time Spent (In Minutes): See attending attestation Discharge Plan Discharge Items Patient Disposition: Home - Self-Care Reason For Visit: ANKLE FX Discharge Diagnosis: Right ankle closed fracture dislocation Condition on Discharge: Good Activity: Per Instructions section Weightbearing: Right non-weightbearing Non-emergency contact: Primary Care Provider and Surgeon Call non-emergency contact if: your symptoms worsen and your pain is concerning for you Follow-up/Referrals: Ken Cano, DO [Primary Care Provider] - Diet: Heart Healthy Addtl Attending Provider Instructions: You are being discharged after a right ankle fracture and dislocation. Per the direction of your orthopedic Surgeon: -Follow up with with [facility] Cross/Dr. Chau team for further evaluation and treatment. -Call the office on 01/05/2020 to schedule a follow-up appointment, . -Continue to take your home Plavix 75mg everyday to prevent you from having blood clots since you will not be moving as much. -We are also making arrangements so that you have a hospital bed at home. -Please take the Ultram at home as needed every 4 hours to help with the pain. -We are also starting you on Vitamin D and Calcium to help make your bones stronger. These prescriptions have been sent to your pharmacy. Please take them as directed. -We also ask that you followup with your primary care doctor, Dr. Cano within the next week after discharge so he can keep an eye on you and make any adjustments to your medications as needed. We ask that you seek immediate emergency care if you suddenly develop trouble breathing or chest pain after discharge. It was a pleasure taking care of you during your stay here! Pending Studies at Discharge: No Stand-Alone Forms: My [facility], Smoking Cessation Medications and DC Order Prescriptions: New cholecalciferol (vitamin D3) 50 mcg (2,000 unit) capsule 2,000 units PO DAILY Qty: 30 RF: 0 calcium carbonate [Calcium 600] 600 mg calcium (1,500 mg) tablet 600 mg PO DAILY Qty: 30 RF: 0 tramadol 50 mg tablet 50 mg PO TID PRN (Reason: pain) Qty: 14 RF: 0 Continued clopidogrel 75 mg tablet 75 mg PO QAM Qty: 30 RF: 5 furosemide [Lasix] 40 mg tablet 40 mg PO DAILY Qty: 30 RF: 5 metoprolol succinate [Toprol XL] 25 mg tablet extended release 24 hr 25 mg PO QAM Qty: 30 RF: 5 potassium chloride 10 mEq tablet,ER particles/crystals 10 meq PO DAILY Qty: 30 RF: 5 cetirizine [Zyrtec] 10 mg tablet 10 mg PO QAM Qty: 30 RF: 6 levothyroxine 50 mcg tablet 50 mcg PO DAILY Qty: 30 RF: 6 Linzess 72 mcg capsule 72 mcg PO DAILY Qty: 30 RF: 6 primidone [Mysoline] 250 mg tablet 250 mg PO QAM Qty: 30 RF: 5 sennosides [Senokot] 8.6 mg tablet 8.6 mg PO QAM PRN (Reason: constipation) Qty: 30 RF: 5 ammonium lactate 12 % cream 1 applic topical BID Qty: 385 RF: 1 betamethasone dipropionate 0.05 % ointment 1 applic TOPICAL BID PRN (Reason: rash) Qty: 45 RF: 0 Cerovite Advanced Formula 18-400 mg-mcg tablet 1 tab PO DAILY RF: 0 Naphcon-A 0.025-0.3 % drops 1 drp OPHTHALMIC (EYE) BID RF: 0 mupirocin 2 % ointment 1 applic TOPICAL BID PRN (Reason: Unknown) RF: 0 vitamin E mixed 400 unit capsule 400 units PO BID RF: 0 lithium carbonate 450 mg tablet extended release 450 mg PO HS RF: 0 acetic acid 2 % Solution 4 drp OTIC (EAR) 2XWK RF: 0 quetiapine [Seroquel] 300 mg tablet 300 mg PO HS Qty: 0 RF: 0 quetiapine [Seroquel] 50 mg tablet 50 mg PO HS Qty: 0 RF: 0 CeraVe Lotion 1 ea TOPICAL BID RF: 0 docusate sodium [Colace] 100 mg capsule 100 mg PO BID RF: 0 carbamide peroxide [Debrox] 6.5 % Drops 4 drp OTIC (EAR) 2XWK RF: 0 atorvastatin 20 mg tablet 20 mg PO QPM RF: 0 Discharge Orders: Discharge Order (Routine); Ordered 01/03/20 Ordered By: Diana eWst Admission Data Admit Date/Time: 01/02/20 22:57 Attending Provider: Lucero Delacruz Admit Provider: Edith Liao Primary Care Provider: Ken Cano Other Providers: Edith Liao Other Interventions: Discharge Summary Assessment (RN) Last Done: 01/03/20 14:51 DC Date/Time DO NOT enter until pt leaves facility: 01/03/20 15:28 Supervising Physician Co-Signing Physician Notes Resident Physician Supervision Note: I independently interviewed and examined the patient and verified the almaraz history and physical, reviewed labs and image studies, discussed the case with the resident Dr. West and agree with the findings and care plan. Time spent in discharge 35 min Resident Activity Tracking Resident Involvement: Resident Care Provided Care Provided: Adult Hospital Medicine
[2020-01-03] MEDS ORDERED: QUETIAPINE FUMARATE 300 MG TABLET PO SCH (21:00)
[2020-01-03] MEDS ORDERED: ATORVASTATIN 20 MG TAB PO SCH (21:00)
[2020-01-03] MEDS ORDERED: SENNA 8.6 MG TAB PO SCH (21:00)
[2020-01-03] MEDS ORDERED: LITHIUM CARBONATE 450 MG TABCR PO SCH (21:00)
[2020-01-03] MEDS ORDERED: QUETIAPINE FUMARATE 25 MG TABLET PO SCH (21:00)
== END 2020-01-03 15:28 | disposition home or self-care (01) | DRG 563 ==
LOC: ED 16:45 → OR 20:33 → 2W 22:57 → SUATTDRO 22:57

== ENCOUNTER 2021-05-08 14:35 | Inpatient (IN) ==
[2021-05-08] MEDS ORDERED: LORazepam 1 MG/2 ML VIAL IV STA ×2 (14:40)
[2021-05-08] MEDS ORDERED: OPTIRAY 320 125ml IV ONE (15:10)
--- NOTE | 2021-05-08 15:20 | CT Scan Report ---
CT OF THE HEAD WITHOUT CONTRAST CLINICAL HISTORY: Stroke Like Symptoms COMPARISON STUDY: Head CT and MRI of the brain November 02, 2019. CT DOSE: 153.57 mGy.cm TECHNIQUE: Helical axial images of the head were obtained without IV contrast. Automated exposure con trol was utilized for the study. A dose lowering technique was utilized adhering to the principles o f ALARA. FINDINGS: No acute intracranial hemorrhage, midline shift or mass effect is present. Ventricular dila tation is unchanged. White matter hypodensities are unchanged. Encephalomalacia within the right fron jesus lobe is unchanged. There is also mild encephalomalacia within the left frontal lobe which is unch anged. There are no findings to suggest acute dural sinus thrombosis or acute territorial infarct. IMPRESSION: No acute intracranial findings. No change in appearance of the brain, as described above . ACT 112: Negative or not required by law. Electronically signed by: Herve Cali M.D. 05/08/2021 3:18 PM
--- NOTE | 2021-05-08 15:32 | CT Scan Report ---
CT ANGIOGRAPHY OF THE NECK WITH CONTRAST CLINICAL HISTORY: Stroke Like Symptoms COMPARISON STUDY: CTA of the neck 11/28/2018. Technique: CT angiography of the carotid and vertebral arteries was obtained using Optiray and 3D rec onstruction on an independent workstation. NASCET criteria was utilized. Automated exposure control was utilized for the study. A dose lowering technique was utilized adhering to the principles of ALA RA. CT DOSE: 1020.63 mGy.cm Findings: Bases are clear. There is no cervical lymphadenopathy. No acute cervical spine fracture is identified. Bilateral common carotid, cervical internal carotid and vertebral arteries are patent. Th ere is no dissection within these vessels. There is mild plaque within the bilateral carotid bifurcat ions. The cervical portions of the bilateral vertebral areas are patent. There is no dissection withi n the major vessels of the neck. CTA of the head will be reported separately. IMPRESSION: No stenosis or dissection within the bilateral common carotid, cervical internal carotid or vertebral arteries. ACT 112: Negative or not required by law. Electronically signed by: Herve Cali M.D. 05/08/2021 3:30 PM
--- NOTE | 2021-05-08 15:37 | CT Scan Report ---
CTA ANGIOGRAPHY OF THE HEAD CLINICAL HISTORY: Stroke Like Symptoms COMPARISON STUDY: CTA of the head November 28, 2018. TECHNIQUE: Helical axial images of the head were obtained following uneventful intravenous administr ation of 119 cc of Optiray. Sagittal and coronal reconstructions were viewed as well as maximal inten sity projections on an independent 3-D workstation. Automated exposure control was utilized for the study. A dose lowering technique was utilized adhering to the principles of ALARA. FINDINGS: No acute intracranial hemorrhage, midline shift or mass effect is present. There is moderat e stenosis of the distal right middle cerebral artery. Note is made of occlusion of a sylvian branch of the right middle cerebral artery shown on image 136 of 257. This is likely acute. There is moderat e stenosis of the distal cervical portion of the right vertebral artery. There is moderate plaque wit hin the bilateral cavernous carotids. No intracranial aneurysm. IMPRESSION: 1. 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 Findings discussed with Dr. Huff at time of dictation. 2. Moderate stenoses of the distal right middle cerebral artery and distal portion of the right verte bral artery which are unchanged. ACT 112: Negative or not required by law. Electronically signed by: Herve Cali M.D. 05/08/2021 3:36 PM
[2021-05-08 15:38] LABS: Mean Corpuscular Hgb Conc 33.3 g/dL (32-36); Mean Platelet Volume 10.4 fL (7.4-10.4); Nucleated RBC # (auto) 0.06 K/uL (0-0); Nucleated RBC % (auto) 0.8 %; Platelet Count 253 K/uL (130-400)
--- NOTE | 2021-05-08 15:45 | XRay Report ---
XR chest 1V portable CLINICAL HISTORY: Stroke Like Symptoms COMPARISON STUDY: Chest radiograph January 02, 2020. FINDINGS: Lung volumes are normal. There is no pneumothorax or pleural effusion. There is pulmonary v ascular congestion. Mild cardiomegaly is unchanged. No consolidation to suggest pneumonia. IMPRESSION: Cardiomegaly with pulmonary vascular congestion. ACT 112: Negative or not required by law. Electronically signed by: Herve Cali M.D. 05/08/2021 3:43 PM
[2021-05-08] MEDS ORDERED: TPA for Stroke IV STA (15:51)
[2021-05-08] MEDS ORDERED: No Aspirin within 24 hrs of TPA for Stroke PO SCH (16:00)
[2021-05-08] MEDS ORDERED: ALTEPLASE BOLUS IV ONE (16:01)
[2021-05-08 16:02] LABS: Partial Thromboplastin Ratio 0.9; Partial Thromboplastin Time 24.8 Seconds (21.0-31.0); Prothrombin Time 10.2 Seconds (9.0-12.0)
[2021-05-08] MEDS ORDERED: ALTEPLASE IV ONE (16:02)
[2021-05-08] MEDS ORDERED: RECOMBINANT IV ONE (16:02)
[2021-05-08] MEDS ORDERED: PRIMARY PLUMSET, PE LINED TUBING, 113 IN, NON-DEHP (2260-0500) IV ONE (16:02)
[2021-05-08 16:12] LABS: Basophils # (auto) 0.02 K/uL (0-0.2); Basophils % (auto) 0.3 %; Eosinophils # (auto) 0.29 K/uL (0-0.5); Hematocrit (blood only) 38.7 % (37-47); Hemoglobin 12.9 g/dL (12.0-16.0); Immature Granulocytes # (auto) 0.03 K/uL (0.00-0.02); Immature Granulocytes % (auto) 0.4 %; Lymphocytes # (auto) 1.33 K/uL (1.2-3.4); Lymphocytes % (auto) 18.3 %; Mean Corpuscular Volume 104.9 fL (80-100); Monocytes # (auto) 0.93 K/uL (0.11-0.59); Monocytes % (auto) 12.8 %; Neutrophils # (auto) 4.66 K/uL (1.4-6.5); Neutrophils % (auto) 64.2 %; RDW Standard Deviation 54.5 fL (36.4-46.3); Red Blood Count 3.69 M/uL (4.2-5.4); White Blood Count 7.26 K/uL (4.8-10.8)
[2021-05-08 16:29] LABS: Albumin Globulin Ratio 0.7 (0.9-2); Albumin Level 3.1 gm/dl (3.4-5.0); BUN Creatinine Ratio 16.8 (10-20); Bilirubin,Total 0.4 mg/dl (0.2-1); Calcium 9.1 mg/dl (8.5-10.1); Creatinine Clr Calc Pharmacy 73.8 ml/min; Est GFR (African American) 116.8 ml/min; Est GFR (Non-African American) 100.8 ml/min; Globulin 4.2 gm/dl (2.5-4.0); Total Protein 7.3 gm/dl (6.4-8.2); Troponin I 0.026 ng/ml (0-0.045)
[2021-05-08 16:47] LABS: Appearance Urine Clear (Clear); Bilirubin Urine Negative (Negative); Blood Urine Negative (Negative); Color Urine Yellow; Glucose Urine UA Negative (Negative); Ketones Urine Negative (Negative); Leukocyte Esterase Urine Negative (Negative); Nitrite Urine Negative (Negative); Protein Urine Negative (Negative); Specific Gravity Urine 1.017 (1.000-1.030); Urobilinogen Urine Negative (Negative)
--- NOTE | 2021-05-08 17:24 | History & Physical Report ---
Date of Service May 08, 2021 Assessment & Plan (1) Stroke: Plan: Acute sylvian branch of the right middle cerebral artery- s/p tPA - Patient with old left frontal CVA and known MCA stenosis that was previously on Plavix - MRI ordered - CT scan of the head 24 hours post tPA ordered for morning to evaluate for hemorrhagic conversion - Any neurological changes repeat stat non-con of head - Type and screen ordered- not done prior to tPA unable to draw from peripheral - can assess need 8-12 hour post tPA - Continue statin when able - Neuro consult placed - ECHO - Telemetry 24 ours - q1-2 hour neurological exams - dysphagia screening- Patient may need small bore tube for medication admin - 8-12 hours post tPA re-evaluate to ICU (2) HTN (hypertension): Plan: Post tPA parameters - Labetalol PRN - resolve oupatient medications when appropriate/able (3) Hyperlipidemia: Plan: As above - continue statin at current dose and assess lipids in 24 hrs, increase to high intensity if TChol>100 as low cholesterol increases risk for ICH with high intensity statin (4) Hypothyroid: Plan: Continue Synthroid (5) Cardiovascular disease: Plan: As above- prior CVA and CVD (6) Cerebral vascular disease: Plan: As above (7) Gastroesophageal reflux disease: Plan: Protonix 40 mg IV daily (8) Chronic systolic congestive heart failure: Plan: EF 30-35% Nov 2018 - ECHO with CVA workup - Continue Lasix- may need to convert to IV if unable to take PO in morning - Continue metoprolol- may need conversion as well to 5mg IV q6 jessica PRN (9) Bipolar disorder, unspecified: Plan: Continue lithium and Seroquel when able to take PO - As above with lithium may need small bore tube (10) Esophageal dysmotility: Plan: Chronic dysphagia, with esophageal slippery diet and medications given with applesauce (11) Seizure disorder: Plan: Continue with Primidone- next dose is tomorrow morning - continue seizure precautions (12) Mentally challenged: Plan: As above, has mother and caregiver- check with fuel house attendant for allowing caregiver to stay. - supportive care History of Present Illness Primary Care Provider: Ken Cano, DO 55 YOF with past medical history of: seizures, encephalopathy, ischemic CVA left frontal 2018, frequent falls, HRrEF, constipation, osteopetrosis, mental retardation, broken ankle, GERD, Hypothyroidism, bipolar. She is a resident at [facility] and is dependant on her mother and her caregiver for care and communication needs. The patient was brought to the EMD today via EMS for concerns of CVA. The patient reportedly was ok this morning, then she went unresponsive for a brief period of time, awoken and would only yell, it was noticed that she was having weakness to her left upper and left lower extremities. She was stroke alerted in the EMD [place] [facility] [place] She was given Ativan to be able to perform imaging of the head and neck. Her CTA of the head revealed a occlusion of her right sylvian branch of the MCA. She is also noted to have moderate stenoses of the right MCA distal to the right MCA which is unchanged. Due to this presentation and onset last known well of 1344, the patient was deemed a candidate for tPA and received tPA. Patient will be admit hieu to the ICU for monitoring s/p tPA, hemodynamic monitoring, frequent neurological exams, and dysphagia screening. Patient has dysphagia at baseline and may need alternative way to give her medications while she is recovering from sedation, tPA and CVA. Allergies Allergy/AdvReac Type Severity Reaction Status Date / Time divalproex sodium Allergy Intermediate Hives Unverified 05/08/21 15:41 [From Depakote] Penicillins Allergy Intermediate RASH/FACIAL Verified 05/08/21 15:41 SWELLING carbamazepine Allergy Mild Rash Verified 05/08/21 15:41 phenytoin Allergy Mild Rash Verified 05/08/21 15:41 polyethylene glycol 3350 Allergy Mild Rash Verified 05/08/21 15:41 [From Miralax] valproic acid Allergy Mild Rash Unverified 05/08/21 15:41 pseudoephedrine AdvReac Unknown UNKNOWN Unverified 05/08/21 15:41 Fabric Softeners Allergy Mild SKIN Uncoded 05/08/21 15:41 REACTION, RASH Home Medications Medication Instructions Recorded Confirmed Type acetic acid 2 % ear solution 4 drp OTIC (EAR) 2XWK 11/22/18 05/08/21 History lithium carbonate 450 mg 450 mg PO HS 11/27/18 05/08/21 History tablet,extended release naphazoline 0.025 %-pheniramine 1 drp OPHTHALMIC (EYE) BID 04/21/19 05/08/21 History 0.3 % eye drops (Naphcon-A) ceramides 1,3,6-II (CeraVe) 1 ea TOPICAL BID 11/17/19 05/08/21 History cetirizine 10 mg tablet (Zyrtec) 10 mg PO QAM #30 tab 12/15/19 05/08/21 Rx clopidogrel 75 mg tablet 75 mg PO QAM #30 tab 12/15/19 05/08/21 Rx metoprolol succinate 25 mg 25 mg PO QAM #30 tab 12/15/19 05/08/21 Rx tablet,extended release 24 hr (Toprol XL) primidone 250 mg tablet (Mysoline) 250 mg PO QAM #30 tab 12/15/19 05/08/21 Rx sennosides 8.6 mg tablet (Senokot) 8.6 mg PO QAM PRN #30 tab 12/15/19 05/08/21 Rx atorvastatin 20 mg tablet 20 mg PO QPM 01/02/20 05/08/21 History carbamide peroxide 6.5 % ear drops 4 drp OTIC (EAR) 2XWK 01/02/20 05/08/21 History (Debrox) levothyroxine 50 mcg tablet 50 mcg PO QAM 01/06/20 05/08/21 History potassium chloride 10 mEq 10 meq PO QAM 01/06/20 05/08/21 History tablet,extended release(part/cryst) Bedside commode #1 ea 01/14/20 04/28/21 Rx Wheelchair #1 ea 02/24/20 04/28/21 Rx cholecalciferol (vitamin D3) 50 2,000 unit PO DAILY #30 cap 08/17/20 05/08/21 Rx mcg (2,000 unit) capsule docusate sodium 100 mg capsule 100 mg PO BID #60 cap 08/17/20 05/08/21 Rx (Colace) betamethasone dipropionate 0.05 % 1 applic TOPICAL BID PRN #45 gm 02/25/21 05/08/21 Rx topical ointment ammonium lactate 12 % topical cream 1 applic TOPICAL BID #385 gm 03/10/21 05/08/21 Rx fluocinolone 0.025 % topical 1 applic TOPICAL BID #60 g 03/23/21 05/08/21 Rx ointment linaclotide 145 mcg capsule 145 mcg PO QAM #30 cap 04/22/21 05/08/21 Rx furosemide 40 mg tablet (Lasix) 40 mg PO QAM 05/08/21 05/08/21 History mupirocin 2 % topical ointment 1 applic TOPICAL BID PRN 05/08/21 05/08/21 History quetiapine 300 mg tablet 300 mg PO PM 05/08/21 05/08/21 History quetiapine 50 mg tablet 50 mg PO PM 05/08/21 05/08/21 History Past Med/Surg History Medical History (Updated 05/08/21 @ 18:37 by Dylan Huff MD) Allergic rhinitis Anxiety and depression Bipolar disorder, unspecified Candidal intertrigo Cardiomegaly Cardiomyopathy EF 30-35% Chronic constipation Chronic systolic congestive heart failure Closed fracture dislocation of ankle joint Concussion Contracture, right hand CVA (cerebral vascular accident) 11/2018 REASON FOR PLAVIX Esophageal dysmotility Hyperlipidemia Hypertension Hypothyroidism Mental retardation Mentally challenged MENTAL STATE AGE 3 PER MOTHER Osteoporosis Patent foramen ovale MOTHER UNSURE OF DX Repeated falls Seizure disorder 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 ) Trimalleolar fracture of right ankle Surgical History History of cholecystectomy History of hysterectomy S/P colonoscopy (12/11/12) [place] teeth removed Family History Father Family hx of colon cancer Denies family history of Ovarian cancer Prostate cancer Myocardial infarction Breast cancer Colorectal cancer Social History Smoking Status: Never smoker Second Hand Exposure: No; Hx Alcohol Use: No Hx Substance Use: No Preferred Language: Nigerian Communication Ability: Impaired Visual Impairment: No Limitations Hearing Ability: Normal 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 Physical Exam Physical Exam: PHYSICAL EXAM: General: sedated, opens eyes to voice and touch Head: Normocephalic, atraumatic ENT: no pharyngeal exudate, mucous membranes dry Neuro: Patient is sedated, will open eyes to voice and touch, PEERLA and will follow the light. Pupils are 3/2 brisk bilaterally, she will move her right upper arm and right lower leg against gravity, she is unable to follow commands at this time, she does move her left leg back to cross legged after straightening out, and she provides some resistance to the left upper extremity against movement. When she is awake she will just yell out incoherent sound or words. Chest: equal rise and fall of the chest, no accessory muscle use, scattered crackles bilaterally, on oxymask 4L Cardiac: Regular rate and rhythm, telemetry reviewed, skin warm dry, cap refill <3 seconds, peripheral pulses +2 no JVD, no murmur, no edema GI: NABS x 4 quadrants, soft, nontender to palpation, no rebound, guarding or tenderness : Stark to gravity EXT: thin no open areas noted Psych: sedate, calm, yelling when awake Skin: no rash or erythema Results & Data Results & Data ([facility]) Vital Signs (Past 12 Hours) Vital Signs Pulse Resp BP Pulse Ox 05/08/21 16:50 90 24 101/77 100 05/08/21 16:45 92 H 29 H 103/80 100 05/08/21 16:40 88 25 H 105/80 100 05/08/21 16:30 89 20 114/79 100 05/08/21 16:21 89 24 120/87 100 05/08/21 16:10 85 18 99/67 L 100 05/08/21 16:02 85 18 97/75 L 100 05/08/21 15:19 108 H 26 H 139/115 H 05/08/21 14:52 112 H 20 162/93 H 95 05/08/21 14:49 129 H 30 H 162/93 H 94 Laboratory Results Abnormal lab results 05/08/21 05/08/21 05/08/21 Range/Units 15:31 15:31 15:31 RBC 3.69 L (4.2-5.4) M/uL MCV 104.9 H (80-100) fL MCH 35.0 H (25-34) pg RDW Std Deviation 54.5 H (36.4-46.3) fL [place] # (Auto) 0.93 H (0.11-0.59) K/uL Immature Gran # (Auto) 0.03 H (0.00-0.02) K/uL Absolute Nucleated RBC 0.06 H (0-0) K/uL Glucose 106 H (70-99) mg/dl Albumin 3.1 L (3.4-5.0) gm/dl Globulin 4.2 H (2.5-4.0) gm/dl Albumin/Globulin Ratio 0.7 L (0.9-2) Urine pH (4.5-7.5) [place] 0.5 L (0.6-1.2) mmol/L 05/08/21 Range/Units 16:24 RBC (4.2-5.4) M/uL MCV (80-100) fL MCH (25-34) pg RDW Std Deviation (36.4-46.3) fL [place] # (Auto) (0.11-0.59) K/uL Immature Gran # (Auto) (0.00-0.02) K/uL Absolute Nucleated RBC (0-0) K/uL Glucose (70-99) mg/dl Albumin (3.4-5.0) gm/dl Globulin (2.5-4.0) gm/dl Albumin/Globulin Ratio (0.9-2) Urine pH 8.0 H (4.5-7.5) [place] (0.6-1.2) mmol/L Diagnostic Findings Chest X-Ray 05/08/21 14:40 XR chest 1V portable CLINICAL HISTORY: Stroke Like Symptoms COMPARISON STUDY: Chest radiograph January 02, 2020. FINDINGS: Lung volumes are normal. There is no pneumothorax or pleural effusion. There is pulmonary vascular congestion. Mild cardiomegaly is unchanged. No consolidation to suggest pneumonia. IMPRESSION: Cardiomegaly with pulmonary vascular congestion. Electronically signed by: Herve Cali M.D. 05/08/2021 3:[address] 05/08/21 14:40 CT OF THE HEAD WITHOUT CONTRAST CLINICAL HISTORY: Stroke Like Symptoms COMPARISON STUDY: Head CT and MRI of the brain November 02, 2019. CT DOSE: 153.57 mGy.cm TECHNIQUE: Helical axial images of the head were obtained without IV contrast. Automated exposure control was utilized for the study. A dose lowering technique was utilized adhering to the principles of ALARA. FINDINGS: No acute intracranial hemorrhage, midline shift or mass effect is present. Ventricular dilatation is unchanged. White matter hypodensities are unchanged. Encephalomalacia within the right frontal lobe is unchanged. There is also mild encephalomalacia within the left frontal lobe which is unchanged. There are no findings to suggest acute dural sinus thrombosis or acute territorial infarct. IMPRESSION: No acute intracranial findings. No change in appearance of the brain, as described above. Electronically signed by: Herve Cali M.D. 05/08/2021 3:18 PM Head CTA 05/08/21 14:40 CTA ANGIOGRAPHY OF THE HEAD CLINICAL HISTORY: Stroke Like Symptoms COMPARISON STUDY: CTA of the head November 28, 2018. TECHNIQUE: Helical axial images of the head were obtained following uneventful intravenous administration of 119 cc of Optiray. Sagittal and coronal reconstructions were viewed as well as maximal intensity projections on an independent 3-D workstation. Automated exposure control was utilized for the study. A dose lowering technique was utilized adhering to the principles of ALARA. FINDINGS: No acute intracranial hemorrhage, midline shift or mass effect is present. There is moderate stenosis of the distal right middle cerebral artery. Note is made of occlusion of a sylvian branch of the right middle cerebral artery shown on image 136 of 257. This is likely acute. There is moderate stenosis of the distal cervical portion of the right vertebral artery. There is moderate plaque within the bilateral cavernous carotids. No intracranial an eurysm. IMPRESSION: 1. 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 Findings discussed with Dr. Huff at time of dictation. 2. Moderate stenoses of the distal right middle cerebral artery and distal portion of the right vertebral artery which are unchanged. Electronically signed by: Herve Cali M.D. 05/08/2021 3:36 PM Neck CTA 05/08/21 14:40 CT ANGIOGRAPHY OF THE NECK WITH CONTRAST CLINICAL HISTORY: Stroke Like Symptoms COMPARISON STUDY: CTA of the neck 11/28/2018. Technique: CT angiography of the carotid and vertebral arteries was obtained using Optiray and 3D reconstruction on an independent workstation. NASCET criteria was utilized. Automated exposure control was utilized for the study. A dose lowering technique was utilized adhering to the principles of ALARA. CT DOSE: 1020.63 mGy.cm Findings: Bases are clear. There is no cervical lymphadenopathy. No acute cervical spine fracture is identified. Bilateral common carotid, cervical internal carotid and vertebral arteries are patent. There is no dissection within these vessels. There is mild plaque within the bilateral carotid bifurcations. The cervical portions of the bilateral vertebral areas are patent. There is no dissection within the major vessels of the neck. CTA of the head will be reported separately. IMPRESSION: No stenosis or dissection within the bilateral common carotid, cervical internal carotid or vertebral arteries. Electronically signed by: Herve Cali M.D. 05/08/2021 3:30 PM Medications Administered Discontinued Medications Lorazepam (Ativan) 1 mg in 2 mls @ 2 mls/min IV NOW STA Stop: 05/08/21 14:41 Last Admin: 05/08/21 15:06 Dose: 2 mls/min Documented by: [id number] Lorazepam (Ativan) 1 mg in 2 mls @ 2 mls/min IV NOW STA Stop: 05/08/21 14:41 Last Admin: 05/08/21 15:06 Dose: Not Given Documented by: [id number] Alteplase, Recombinant 4.8 mg/ (Syringe) 4.8 mls @ 4.8 mls/min IV ONCE ONE Stop: 05/08/21 16:02 Last Admin: 05/08/21 16:01 Dose: 4.8 mls/min Documented by: [id number] Cosigned by: [id number] Alteplase, Recombinant 44 mg/ (EMPTY BAG) 44 mls @ 44 mls/hr IV ONCE ONE Stop: 05/08/21 16:03 Last Infusion: 05/08/21 17:04 Dose: 0 mls/hr Documented by: [id number] Cosigned by: [id number] Admin: 05/08/21 16:04 Dose: 44 mls/hr Documented by: [id number] Cosigned by: [id number] Ioversol (Optiray 320 125ml) 119 ml IV ONCE ONE Stop: 05/08/21 15:11 Last Admin: 05/08/21 15:10 Dose: 119 ml Documented by: [id number] ECG Additional Comments: Sinus tachycardia Marked ST abnormality, possible lateral subendocardial injury Abnormal ECG When compared with ECG of 02-JAN-2020 20:05, No significant change was found Code Status & VTE Plan Code Status CODE: DNR/DNI VTE: SCDs- no chemoprophylaxis post tPA VTE Prophylaxis Plan VTE Prophylaxis will be ordered: Yes Supervising Physician Co-Signing Physician Notes CORRECTION WORKER Supervision note: I have personally seen and examined the patient and discussed and verified the almaraz points of the history and physical along with the plan with ALOK Welsh with the following exceptions and/or additions: Pt is a 55 yo female with CVA, intellectual disability, chronic systolic CHF, bipolar d/o hypothyroidism, constipation, seizure disorder, osteoporosis, who p/w acute onset of left sided weakness and screaming. Was brought to the ER and a stroke alert was called. SHe was given tPA and was found to have a suspected right sided CVA and occlusion of a Sylvian branch of the right MCA which was likely acute. SHe was sedated with Ativan for the imaging studies due to significant agitation and her neuro exam was somewhat difficult on arrival. I saw her after she returned from MRI and she was screaming, thrashing about, and had some blood in her mouth from self- trauma apparently during MRI. She was moving her left leg and the upper left arm but remained weak in left distal arm. She had no issues with right sided spontaneous movement. History and ROS reviewed Vitals reviewed Yelling, average body habitus, NAD Small amoutn blood in mouth RRR no mgr CTAB no wcr Abd +BS soft NT ND Neuro, no facial droop, left arm proximal strength 4/5, distal strength 1/5, otherwise 5/5 throughout, unable to perform DTRs, CN, sensory exam due to agitation Labs and Rads reviewed, MRI confirms acute CVA right posterior right frontal and parietal lobes, 6.5cm ECG with ST, diffuse ST depression but similar to previous and may be repol abnormality 55 yo female with history as above, here with acute ischemic right sided MCA territory CVA, now s/p tPA No indication for intervention as per Telestroke Consultation review as is occlusion of sylvian branch of MCA (not LVOT) post-tPA protocol ordered, repeat CT head in 24 hours control BPs as needed check lipids and increase statin to high intensity if TChol>100 on Plavix with this stroke so consider DAPT x 3 weeks but await Neuro consult on Sunday Keeping NPO due to dysphagia for now PG Care Time/CCT Total # of Minutes Spent Total Time Spent with Patient: Total time spent is greater than 50% in coordination of care (as documented) at patient's floor/unit and/or counseling patient: Coding Level of Care Code 01287 Initial Inpt Care Lvl 3 Diagnoses Stroke I63.9 HTN (hypertension) I10 Hypertension type: essential hypertension Hyperlipidemia E78.5 Hypothyroid E03.9 Hypothyroidism type: unspecified Cardiovascular disease I25.10 Cerebral vascular disease I67.9 Gastroesophageal reflux disease K21.9 Chronic systolic congestive heart failure I50.22 Bipolar disorder, unspecified F31.9 Esophageal dysmotility K22.4 Seizure disorder G40.909 Mentally challenged F79 (1) Hypothyroid Hypothyroidism type: unspecified Qualified Code(s): E03.9 - Hypothyroidism, unspecified (2) HTN (hypertension) Hypertension type: essential hypertension Qualified Code(s): I10 - Essential (primary) hypertension
[2021-05-08] MEDS ORDERED: LORazepam 2 MG/4 ML VIAL ONE (18:26)
[2021-05-08] MEDS ORDERED: LORazepam 1 MG/2 ML VIAL IV PRN (18:26)
--- NOTE | 2021-05-08 18:35 | Emergency Department Note ---
Impression & Plan Ravindra-neglect of left side, Acute CVA (cerebrovascular accident) ED Provider Note NAME: AMY CULLEN AGE: 55 SEX: F : 1965 ARRIVES VIA: Ambulance INFORMANT: Patient, Yi Lopez corporate security officer, EMS, mother ED PROVIDER(S): Dylan Huff MD CHIEF COMPLAINT: AMS, left sided facial deficit HPI: This is a 55-year-old female who has a history of chronic encephalopathy along with seizure disorder and intellectual disability. Per [employer] worker the patient was watching TV when she suddenly became unresponsive at approximately 1:45 PM this afternoon. He reports the patient also appeared to negrete ve a left-sided facial deficit. He summoned EMS EMS reports that the patient was last known well at 1345 and has a history of seizures along with what appears to be new left-sided weakness. Upon arrival to the emergency department the patient herself is screaming and will not let anybody touch her however she appears to have a left-sided neglect. Upon arrival to the emergency department the patien t's mother reports that the patient has a history of strokes for which she is on clopidogrel. The patient is screaming does respond somewhat to her name however is not following commands. ROS: See above HPI for pertinent positives & negatives. Unobtainable due to altered mental status PAST MEDICAL HISTORY: See Below PAST SURGICAL HISTORY: See Below FAMILY HISTORY: See Below SOCIAL HISTORY: See Below HOME MEDICATIONS: See Below ALLERGIES: See Below VITALS: See Below PHYSICAL EXAMINATION: VITAL SIGNS - Vital signs and nursing notes were reviewed. GENERAL - 55-year-old appearing stated age who is moderate distress. Screaming inappropriately SKIN - Without rashes. HEAD - NC/AT. EYES - PERRL with patient will not move her eyes to the left EARS - No deformities of external structures noted on gross examination bilaterally. NOSE - Midline and without cyanosis. No epistaxis or purulent drainage noted. Septum midline without deviation or septal hematoma noted. MOUTH/OROPHARYNX - Without perioral cyanosis. Buccal mucosa pink and moist and without leukoplakia. Tongue midline with equal elevation of palate bilaterally. No tonsillar hypertrophy, erythema, or exudates noted. NECK - Neck with FROM. Supple to palpation. lymphadenopathy noted. No nuchal rigidity. LUNGS - Chest wall symmetric without accessory muscle use, intercostals retractions, or central cyanosis. Normal vesicular breath sounds CTA B/L. No wheezes, rales, or rhonchi appreciated. CARDIAC - RRR with S1/S2. No murmur, rubs, or gallops appreciated. ABDOMEN - Abdominal contour without pulsations or visible masses. BS normoactive all four quadrants. No tenderness, palpable masses, hepatosplenomegaly, or ascites noted. EXTREMITIES - Pt has 4/5 strength LUE, 3.5/5 strength LLE, pt withdraws left leg from pain NEUROLOGIC -patient appears to have left-sided hemineglect along with left facial droop MEDICAL DECISION MAKING: Patient was seen and evaluated as above in room A1. Review was performed of nursing notes and vital signs. I did review pertinent previous visits and patient history. After obtaining a thorough history and physical examination the above work up was performed. This is a 55-year-old female who presents emergency department complaining of new onset left-sided weakness as well as left-sided facial droop upon arrival to the emergency department the patient is wildly flailing and screaming. Due to the emergent nature of the presentation to get a better exam as well as to get CAT scans of the head and CTA in a timely manner as the patient is within the stroke window, the patient was given 2 mg Ativan, once the patient reached an adequate sedation level she was placed on the supervisor detasseling crew and sent immediately for a CAT scan of the head as well as CTA of the head and neck. The CTA of the head is concerning for a right occlusion of the sylvian branch of the MCA. Based on this I did discuss the patient's presentation and case with her mother as well as the stroke neurologist on-call. We all feel using shared medical decision making that the patient would be of benefit of TPA. The patient was then discussed with the hospitalist service who did agree to meet the patient. An order was placed for continuous cardiac monitoring. The monitor shows a rate of 89 with Normal Sinus rhythm. The patient was evaluated during a period of high volume and high acuity during the global COVID-19 pandemic, and that diagnosis was suspected/considered upon their initial presentation. Their evaluation, treatment and testing was consistent with current guidelines for patients who present with complaints or symptoms that may be related to COVID-19. Patient was seen while provider was wearing PPE. Triage Nursing notes reviewed. Prior medical records reviewed Vital Signs: reviewed and remarkable for no significant abnormalities Differential diagnosis: Infection, dehydration, metabolic abnormality, hypo/hyperglycemia, electrolyte disturbance, anemia, hypoxia, cardiac sources, intracerebral event, toxicologic, neurologic, as well as other pathologies. ER treatment provided: See below Diagnostics interpreted by me: ECG: Sinus tachycardia no ST elevation or depression QTC is 517 ventricular rate is 119 EKG is compared to the 01/02/2020 no significant changes found. Laboratory studies: As stated above and show below. Imaging studies: See below Consultation(s): Stroke Neurology Internal Medicine ED COURSE: Procedures: Procedural Sedation Indication left sided deficit/ CT/CTA Total time: 30 minutes. The patient was on 100% oxygen via NRB prior to the procedure. Continous end tidal CO2 monitoring, pulse oximetry, and cardiac monitoring were utilized. Suction, airway equipment, medications, respiratory equipment, and appropriate personnel were prepared prior to the initiation of the procedure. A time out was taken. Sedation was achieved utilizing 2 mg of Ativan. After I observed the patient had reached the appropriate level of sedation the CT was performed without complication. Sedation was discontinued and the monitoring continued. The patient recovered quickly from the effects of the medication without complication or adverse event. PDMP:reviewed and no issues Critical Care: I have personally spent greater than 90 minutes of critical care time in the direct management of this patient. This includes bedside care, interpretation of diagnostic studies, and testing, discussion with consultants, patient, and family members, and other required patient management activities. This 90 minutes is in excess of all separately billable procedures. Past Med/Surg History Medical History (Updated 05/08/21 @ 18:37 by Dylan Huff MD) Allergic rhinitis Anxiety and depression Bipolar disorder, unspecified Candidal intertrigo Cardiomegaly Cardiomyopathy EF 30-35% Chronic constipation Chronic systolic congestive heart failure Closed fracture dislocation of ankle joint Concussion Contracture, right hand CVA (cerebral vascular accident) 11/2018 REASON FOR PLAVIX Esophageal dysmotility Hyperlipidemia Hypertension Hypothyroidism Mental retardation Mentally challenged MENTAL STATE AGE 3 PER MOTHER Osteoporosis Patent foramen ovale MOTHER UNSURE OF DX Repeated falls Seizure disorder 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 ) Trimalleolar fracture of right ankle Surgical History History of cholecystectomy History of hysterectomy S/P colonoscopy (12/11/12) [place] teeth removed Family History Father Family hx of colon cancer Denies family history of Ovarian cancer Prostate cancer Myocardial infarction Breast cancer Colorectal cancer Social History Smoking Status: Never smoker Second Hand Exposure: No; Hx Alcohol Use: No Hx Substance Use: No Preferred Language: French Communication Ability: Impaired Visual Impairment: No Limitations Hearing Ability: Normal [facility] Worker Required: No Beliefs That Will Affect Care: None marital status: Single Current Living Situation: Other Current Living Situation Comment: [facility] Feels Safe at Home: Yes Childhood Exposure to Second-Hand Smoke: Yes Dental Care, Regularly: Yes Physical Activity Frequency: 1-2 Times per Week Seatbelt Use: always Sunscreen Use: Yes Assistive Devices: Brace/Splint/Immobilizer and Wheelchair Allergies Allergies Allergy/AdvReac Type Severity Reaction Status Date / Time divalproex sodium Allergy Intermediate Hives Unverified 05/08/21 15:41 [From Depakote] Penicillins Allergy Intermediate RASH/FACIAL Verified 05/08/21 15:41 SWELLING carbamazepine Allergy Mild Rash Verified 05/08/21 15:41 phenytoin Allergy Mild Rash Verified 05/08/21 15:41 polyethylene glycol 3350 Allergy Mild Rash Verified 05/08/21 15:41 [From Miralax] valproic acid Allergy Mild Rash Unverified 05/08/21 15:41 pseudoephedrine AdvReac Unknown UNKNOWN Unverified 05/08/21 15:41 Fabric Softeners Allergy Mild SKIN Uncoded 05/08/21 15:41 REACTION, RASH Home Meds Home Medications Medication Instructions Recorded Confirmed acetic acid 2 % ear solution 4 drp OTIC (EAR) 2XWK 11/22/18 05/08/21 lithium carbonate 450 mg 450 mg PO HS 11/27/18 05/08/21 tablet,extended release naphazoline 0.025 %-pheniramine 1 drp OPHTHALMIC (EYE) BID 04/21/19 05/08/21 0.3 % eye drops (Naphcon-A) ceramides 1,3,6-II (CeraVe) 1 ea TOPICAL BID 11/17/19 05/08/21 atorvastatin 20 mg tablet 20 mg PO QPM 01/02/20 05/08/21 carbamide peroxide 6.5 % ear drops 4 drp OTIC (EAR) 2XWK 01/02/20 05/08/21 (Debrox) levothyroxine 50 mcg tablet 50 mcg PO QAM 01/06/20 05/08/21 potassium chloride 10 mEq 10 meq PO QAM 01/06/20 05/08/21 tablet,extended release(part/cryst) furosemide 40 mg tablet (Lasix) 40 mg PO QAM 05/08/21 05/08/21 mupirocin 2 % topical ointment 1 applic TOPICAL BID PRN 05/08/21 05/08/21 quetiapine 300 mg tablet 300 mg PO PM 05/08/21 05/08/21 quetiapine 50 mg tablet 50 mg PO PM 05/08/21 05/08/21 Previous Rx's Medication Instructions Recorded cetirizine 10 mg tablet (Zyrtec) 10 mg PO QAM #30 tab 12/15/19 clopidogrel 75 mg tablet 75 mg PO QAM #30 tab 12/15/19 metoprolol succinate 25 mg 25 mg PO QAM #30 tab 12/15/19 tablet,extended release 24 hr (Toprol XL) primidone 250 mg tablet (Mysoline) 250 mg PO QAM #30 tab 12/15/19 sennosides 8.6 mg tablet (Senokot) 8.6 mg PO QAM PRN #30 tab 12/15/19 Bedside commode #1 ea 01/14/20 Wheelchair #1 ea 02/24/20 cholecalciferol (vitamin D3) 50 2,000 unit PO DAILY #30 cap 08/17/20 mcg (2,000 unit) capsule docusate sodium 100 mg capsule 100 mg PO BID #60 cap 08/17/20 (Colace) betamethasone dipropionate 0.05 % 1 applic TOPICAL BID PRN #45 gm 02/25/21 topical ointment ammonium lactate 12 % topical cream 1 applic TOPICAL BID #385 gm 03/10/21 fluocinolone 0.025 % topical 1 applic TOPICAL BID #60 g 03/23/21 ointment linaclotide 145 mcg capsule 145 mcg PO QAM #30 cap 04/22/21 Results & Data (ED) Vital Signs Vital Signs - 24 hr 05/08/21 14:49 05/08/21 14:52 05/08/21 15:19 Pulse Rate 129 H 112 H 108 H Pulse Rate from SpO2 Sensor 130 H 121 H Respiratory Rate 30 H 20 26 H Respiratory Effort / Characteristics Non-Labored Respiratory Depth Normal Blood Pressure 162/93 H 162/93 H 139/115 H Blood Pressure Mean 116 116 123 Pulse Oximetry 94 95 Oxygen Delivery Method Room Air Oxygen Flow Rate Sepsis Recent Fever Within 48 Hours No Sepsis New/Unexplained Change in Mental Status Yes Sepsis Action Taken by Nursing Physician Notified 05/08/21 16:02 05/08/21 16:10 05/08/21 16:21 Pulse Rate 85 85 89 Pulse Rate from SpO2 Sensor 84 85 90 Respiratory Rate 18 18 24 Respiratory Effort / Characteristics Respiratory Depth Blood Pressure 97/75 L 99/67 L 120/87 Blood Pressure Mean 82 77 98 Pulse Oximetry 100 100 100 Oxygen Delivery Method Oxymask Oxymask Oxymask Oxygen Flow Rate 8 8 8 Sepsis Recent Fever Within 48 Hours Sepsis New/Unexplained Change in Mental Status Sepsis Action Taken by Nursing 05/08/21 16:30 05/08/21 16:40 05/08/21 16:45 Pulse Rate 89 88 92 H Pulse Rate from SpO2 Sensor 90 89 91 H Respiratory Rate 20 25 H 29 H Respiratory Effort / Characteristics Respiratory Depth Blood Pressure 114/79 105/80 103/80 Blood Pressure Mean 90 88 87 Pulse Oximetry 100 100 100 Oxygen Delivery Method Oxymask Oxymask Oxygen Flow Rate 8 5 Sepsis Recent Fever Within 48 Hours Sepsis New/Unexplained Change in Mental Status Sepsis Action Taken by Nursing 05/08/21 16:50 05/08/21 16:55 05/08/21 17:00 Pulse Rate 90 93 H 92 H Pulse Rate from SpO2 Sensor 90 93 H 91 H Respiratory Rate 24 24 24 Respiratory Effort / Characteristics Respiratory Depth Blood Pressure 101/77 102/71 115/86 Blood Pressure Mean 85 81 95 Pulse Oximetry 100 96 94 Oxygen Delivery Method Room Air Room Air Oxygen Flow Rate Sepsis Recent Fever Within 48 Hours Sepsis New/Unexplained Change in Mental Status Sepsis Action Taken by Nursing 05/08/21 17:07 05/08/21 17:10 05/08/21 17:15 Pulse Rate 90 90 86 Pulse Rate from SpO2 Sensor 91 H 90 87 Respiratory Rate 24 24 Respiratory Effort / Characteristics Respiratory Depth Blood Pressure 109/90 116/88 105/77 Blood Pressure Mean 96 97 86 Pulse Oximetry 93 94 92 Oxygen Delivery Method Room Air Room Air Room Air Oxygen Flow Rate Sepsis Recent Fever Within 48 Hours Sepsis New/Unexplained Change in Mental Status Sepsis Action Taken by Nursing 05/08/21 17:20 05/08/21 17:25 05/08/21 17:30 Pulse Rate 85 88 89 Pulse Rate from SpO2 Sensor 85 87 88 Respiratory Rate 17 24 22 Respiratory Effort / Characteristics Respiratory Depth Blood Pressure 117/71 98/75 L 104/69 Blood Pressure Mean 86 82 80 Pulse Oximetry 99 98 97 Oxygen Delivery Method Room Air Room Air Room Air Oxygen Flow Rate Sepsis Recent Fever Within 48 Hours Sepsis New/Unexplained Change in Mental Status Sepsis Action Taken by Nursing 05/08/21 17:35 05/08/21 17:40 Pulse Rate 85 87 Pulse Rate from SpO2 Sensor 85 88 Respiratory Rate 24 22 Respiratory Effort / Characteristics Respiratory Depth Blood Pressure 104/66 104/72 Blood Pressure Mean 78 82 Pulse Oximetry 94 94 Oxygen Delivery Method Room Air Room Air Oxygen Flow Rate Sepsis Recent Fever Within 48 Hours Sepsis New/Unexplained Change in Mental Status Sepsis Action Taken by [facility] Medications Current Medication List: was personally reviewed by me Laboratory Data Attestation: I reviewed the patient's lab results. Result diagrams: 05/08/21 15:31 05/08/21 15:31 Lab Results 05/08/21 05/08/21 05/08/21 Range/Units 15:31 15:31 15:31 WBC 7.26 (4.8-10.8) K/uL RBC 3.69 L (4.2-5.4) M/uL Hgb 12.9 (12.0-16.0) g/dL Hct 38.7 (37-47) % MCV 104.9 H (80-100) fL MCH 35.0 H (25-34) pg MCHC 33.3 (32-36) g/dL RDW Std Deviation 54.5 H (36.4-46.3) fL RDW Coeff of Samm 14.0 (11.5-14.5) % Plt Count 253 (130-400) K/uL MPV 10.4 (7.4-10.4) fL Immature Gran % (Auto) 0.4 % Neut % (Auto) 64.2 % Lymph % (Auto) 18.3 % Josephine % (Auto) 12.8 % Eos % (Auto) 4.0 % Baso % (Auto) 0.3 % Neut # (Auto) 4.66 (1.4-6.5) K/uL Lymph # (Auto) 1.33 (1.2-3.4) K/uL Josephine # (Auto) 0.93 H (0.11-0.59) K/uL Eos # (Auto) 0.29 (0-0.5) K/uL Baso # (Auto) 0.02 (0-0.2) K/uL Immature Gran # (Auto) 0.03 H (0.00-0.02) K/uL Absolute Nucleated RBC 0.06 H (0-0) K/uL Nucleated RBC % (auto) 0.8 % PT 10.2 (9.0-12.0) Seconds INR 1.0 (0.9-1.1) APTT 24.8 (21.0-31.0) Seconds PTT Ratio 0.9 Sodium 139 (136-145) mmol/L Potassium (3.5-5.1) mmol/L Chloride 102 (98-107) mmol/L Carbon Dioxide 31 (21-32) mmol/L Anion Gap 7.0 (3-11) BUN 10 (7-18) mg/dl Creatinine 0.62 (0.6-1.2) mg/dl Est Cr Clr Drug Dosing 73.8 ml/min Est GFR ( Amer) 116.8 ml/min Est GFR (Non-Af Amer) 100.8 ml/min BUN/Creatinine Ratio 16.8 (10-20) Glucose 106 H (70-99) mg/dl Calcium 9.1 (8.5-10.1) mg/dl Magnesium (1.8-2.4) mg/dl Total Bilirubin 0.4 (0.2-1) mg/dl AST (15-37) U/L ALT 27 (12-78) U/L Alkaline Phosphatase 82 (45-117) U/L Troponin I 0.026 (0-0.045) ng/ml Total Protein 7.3 (6.4-8.2) gm/dl Albumin 3.1 L (3.4-5.0) gm/dl Globulin 4.2 H (2.5-4.0) gm/dl Albumin/Globulin Ratio 0.7 L (0.9-2) Urine Color Urine Appearance (Clear) Urine pH (4.5-7.5) Ur Specific Bullard (1.000-1.030) Urine Protein (Negative) Urine Glucose (UA) (Negative) Urine Ketones (Negative) Urine Blood (Negative) Urine Nitrite (Negative) Urine Bilirubin (Negative) Urine Urobilinogen (Negative) Ur Leukocyte Esterase (Negative) [place] (0.6-1.2) mmol/L COVID-19 Eval Order SARS-CoV-2 (PCR) (Negative) 05/08/21 05/08/21 05/08/21 Range/Units 15:31 16:24 16:30 WBC (4.8-10.8) K/uL RBC (4.2-5.4) M/uL Hgb (12.0-16.0) g/dL Hct (37-47) % MCV (80-100) fL MCH (25-34) pg MCHC (32-36) g/dL RDW Std Deviation (36.4-46.3) fL RDW Coeff of Samm (11.5-14.5) % Plt Count (130-400) K/uL MPV (7.4-10.4) fL Immature Gran % (Auto) % Neut % (Auto) % Lymph % (Auto) % Josephine % (Auto) % Eos % (Auto) % Baso % (Auto) % Neut # (Auto) (1.4-6.5) K/uL Lymph # (Auto) (1.2-3.4) K/uL Josephine # (Auto) (0.11-0.59) K/uL Eos # (Auto) (0-0.5) K/uL Baso # (Auto) (0-0.2) K/uL Immature Gran # (Auto) (0.00-0.02) K/uL Absolute Nucleated RBC (0-0) K/uL Nucleated RBC % (auto) % PT (9.0-12.0) Seconds INR (0.9-1.1) APTT (21.0-31.0) Seconds PTT Ratio Sodium (136-145) mmol/L Potassium (3.5-5.1) mmol/L Chloride (98-107) mmol/L Carbon Dioxide (21-32) mmol/L Anion Gap (3-11) BUN (7-18) mg/dl Creatinine (0.6-1.2) mg/dl Est Cr Clr Drug Dosing ml/min Est GFR ( Amer) ml/min Est GFR (Non-Af Amer) ml/min BUN/Creatinine Ratio (10-20) Glucose (70-99) mg/dl Calcium (8.5-10.1) mg/dl Magnesium (1.8-2.4) mg/dl Total Bilirubin (0.2-1) mg/dl AST (15-37) U/L ALT (12-78) U/L Alkaline Phosphatase (45-117) U/L Troponin I (0-0.045) ng/ml Total Protein (6.4-8.2) gm/dl Albumin (3.4-5.0) gm/dl Globulin (2.5-4.0) gm/dl Albumin/Globulin Ratio (0.9-2) Urine Color Yellow Urine Appearance Clear (Clear) Urine pH 8.0 H (4.5-7.5) Ur Specific Bullard 1.017 (1.000-1.030) Urine Protein Negative (Negative) Urine Glucose (UA) Negative (Negative) Urine Ketones Negative (Negative) Urine Blood Negative (Negative) Urine Nitrite Negative (Negative) Urine Bilirubin Negative (Negative) Urine Urobilinogen Negative (Negative) Ur Leukocyte Esterase Negative (Negative) [place] 0.5 L (0.6-1.2) mmol/L COVID-19 Eval Order Covid19 at [facility] SARS-CoV-2 (PCR) (Negative) 05/08/21 Range/Units 16:30 WBC (4.8-10.8) K/uL RBC (4.2-5.4) M/uL Hgb (12.0-16.0) g/dL Hct (37-47) % MCV (80-100) fL MCH (25-34) pg MCHC (32-36) g/dL RDW Std Deviation (36.4-46.3) fL RDW Coeff of Samm (11.5-14.5) % Plt Count (130-400) K/uL MPV (7.4-10.4) fL Immature Gran % (Auto) % Neut % (Auto) % Lymph % (Auto) % Josephine % (Auto) % Eos % (Auto) % Baso % (Auto) % Neut # (Auto) (1.4-6.5) K/uL Lymph # (Auto) (1.2-3.4) K/uL Josephine # (Auto) (0.11-0.59) K/uL Eos # (Auto) (0-0.5) K/uL Baso # (Auto) (0-0.2) K/uL Immature Gran # (Auto) (0.00-0.02) K/uL Absolute Nucleated RBC (0-0) K/uL Nucleated RBC % (auto) % PT (9.0-12.0) Seconds INR (0.9-1.1) APTT (21.0-31.0) Seconds PTT Ratio Sodium (136-145) mmol/L Potassium (3.5-5.1) mmol/L Chloride (98-107) mmol/L Carbon Dioxide (21-32) mmol/L Anion Gap (3-11) BUN (7-18) mg/dl Creatinine (0.6-1.2) mg/dl Est Cr Clr Drug Dosing ml/min Est GFR ( Amer) ml/min Est GFR (Non-Af Amer) ml/min BUN/Creatinine Ratio (10-20) Glucose (70-99) mg/dl Calcium (8.5-10.1) mg/dl Magnesium (1.8-2.4) mg/dl Total Bilirubin (0.2-1) mg/dl AST (15-37) U/L ALT (12-78) U/L Alkaline Phosphatase (45-117) U/L Troponin I (0-0.045) ng/ml Total Protein (6.4-8.2) gm/dl Albumin (3.4-5.0) gm/dl Globulin (2.5-4.0) gm/dl Albumin/Globulin Ratio (0.9-2) Urine Color Urine Appearance (Clear) Urine pH (4.5-7.5) Ur Specific Bullard (1.000-1.030) Urine Protein (Negative) Urine Glucose (UA) (Negative) Urine Ketones (Negative) Urine Blood (Negative) Urine Nitrite (Negative) Urine Bilirubin (Negative) Urine Urobilinogen (Negative) Ur Leukocyte Esterase (Negative) [place] (0.6-1.2) mmol/L COVID-19 Eval Order SARS-CoV-2 (PCR) NEGATIVE (Negative) Administered Medications Discontinued Medications Alteplase, Recombinant (Tpa For Stroke) 1 ea IV NOW STA; Protocol Stop: 05/08/21 15:52 Last Admin: 05/08/21 17:43 Dose: Not Given Documented by: [id number] Lorazepam (Ativan) 1 mg in 2 mls @ 2 mls/min IV NOW STA Stop: 05/08/21 14:41 Last Admin: 05/08/21 15:06 Dose: 2 mls/min Documented by: [id number] Lorazepam (Ativan) 1 mg in 2 mls @ 2 mls/min IV NOW STA Stop: 05/08/21 14:41 Last Admin: 05/08/21 15:06 Dose: Not Given Documented by: [id number] Alteplase, Recombinant 4.8 mg/ (Syringe) 4.8 mls @ 4.8 mls/min IV ONCE ONE Stop: 05/08/21 16:02 Last Admin: 05/08/21 16:01 Dose: 4.8 mls/min Documented by: [id number] Cosigned by: [id number] Alteplase, Recombinant 44 mg/ (EMPTY BAG) 44 mls @ 44 mls/hr IV ONCE ONE Stop: 05/08/21 16:03 Last Infusion: 05/08/21 17:04 Dose: 0 mls/hr Documented by: [id number] Cosigned by: [id number] Admin: 05/08/21 16:04 Dose: 44 mls/hr Documented by: [id number] Cosigned by: [id number] Ioversol (Optiray 320 125ml) 119 ml IV ONCE ONE Stop: 05/08/21 15:11 Last Admin: 05/08/21 15:10 Dose: 119 ml Documented by: [id number] Imaging Data Radiologist's Impression: Chest X-Ray 05/08/21 14:40 XR chest 1V portable CLINICAL HISTORY: Stroke Like Symptoms COMPARISON STUDY: Chest radiograph January 02, 2020. FINDINGS: Lung volumes are normal. There is no pneumothorax or pleural effusion. There is pulmonary vascular congestion. Mild cardiomegaly is unchanged. No consolidation to suggest pneumonia. IMPRESSION: Cardiomegaly with pulmonary vascular congestion. ACT 112: Negative or not required by law. Electronically signed by: Herve Cali M.D. 05/08/2021 3:[address] 05/08/21 14:40 CT OF THE HEAD WITHOUT CONTRAST CLINICAL HISTORY: Stroke Like Symptoms COMPARISON STUDY: Head CT and MRI of the brain November 02, 2019. CT DOSE: 153.57 mGy.cm TECHNIQUE: Helical axial images of the head were obtained without IV contrast. Automated exposure control was utilized for the study. A dose lowering technique was utilized adhering to the principles of ALARA. FINDINGS: No acute intracranial hemorrhage, midline shift or mass effect is present. Ventricular dilatation is unchanged. White matter hypodensities are unchanged. Encephalomalacia within the right frontal lobe is unchanged. There is also mild encephalomalacia within the left frontal lobe which is unchanged. There are no findings to suggest acute dural sinus thrombosis or acute territorial infarct. IMPRESSION: No acute intracranial findings. No change in appearance of the brain, as described above. ACT 112: Negative or not required by law. Electronically signed by: Herve Cali M.D. 05/08/2021 3:18 PM Head CTA 05/08/21 14:40 CTA ANGIOGRAPHY OF THE HEAD CLINICAL HISTORY: Stroke Like Symptoms COMPARISON STUDY: CTA of the head November 28, 2018. TECHNIQUE: Helical axial images of the head were obtained following uneventful intravenous administration of 119 cc of Optiray. Sagittal and coronal reconstructions were viewed as well as maximal intensity projections on an independent 3-D workstation. Automated exposure control was utilized for the study. A dose lowering technique was utilized adhering to the principles of ALARA. FINDINGS: No acute intracranial hemorrhage, midline shift or mass effect is present. There is moderate stenosis of the distal right middle cerebral artery. Note is made of occlusion of a sylvian branch of the right middle cerebral artery shown on image 136 of 257. This is likely acute. There is moderate stenosis of the distal cervical portion of the right vertebral artery. There is moderate plaque within the bilateral cavernous carotids. No intracranial aneurysm. IMPRESSION: 1. 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 Findings discussed with Dr. Huff at time of dictation. 2. Moderate stenoses of the distal right middle cerebral artery and distal portion of the right vertebral artery which are unchanged. ACT 112: Negative or not required by law. Electronically signed by: Herve Cali M.D. 05/08/2021 3:36 PM Neck CTA 05/08/21 14:40 CT ANGIOGRAPHY OF THE NECK WITH CONTRAST CLINICAL HISTORY: Stroke Like Symptoms COMPARISON STUDY: CTA of the neck 11/28/2018. Technique: CT angiography of the carotid and vertebral arteries was obtained using Optiray and 3D reconstruction on an independent workstation. NASCET criteria was utilized. Automated exposure control was utilized for the study. A dose lowering technique was utilized adhering to the principles of ALARA. CT DOSE: 1020.63 mGy.cm Findings: Bases are clear. There is no cervical lymphadenopathy. No acute cervical spine fracture is identified. Bilateral common carotid, cervical internal carotid and vertebral arteries are patent. There is no dissection within these vessels. There is mild plaque within the bilateral carotid bifurcations. The cervical portions of the bilateral vertebral areas are patent. There is no dissection within the major vessels of the neck. CTA of the head will be reported separately. IMPRESSION: No stenosis or dissection within the bilateral common carotid, cervical internal carotid or vertebral arteries. ACT 112: Negative or not required by law. Electronically signed by: Herve Cali M.D. 05/08/2021 3:30 PM Discharge Plan Visit Data Chief Complaint: Stroke Alert ED Provider: Dylan Huff Discharge Problem: Ravindra-neglect of left side, Acute CVA (cerebrovascular accident) Patient Disposition: Being Evaluated by Hospitalist Forms Stand Alone Forms: My [facility] [email or web address] Prescriptions Prescriptions: No Action clopidogrel 75 mg tablet 75 mg PO QAM Qty: 30 RF: 5 metoprolol succinate [Toprol XL] 25 mg tablet extended release 24 hr 25 mg PO QAM Qty: 30 RF: 5 cetirizine [Zyrtec] 10 mg tablet 10 mg PO QAM Qty: 30 RF: 6 primidone [Mysoline] 250 mg tablet 250 mg PO QAM Qty: 30 RF: 5 sennosides [Senokot] 8.6 mg tablet 8.6 mg PO QAM PRN (Reason: constipation) Qty: 30 RF: 5 (DME) Bedside commode Qty: 1 RF: 0 (DME) Wheelchair Qty: 1 RF: 0 cholecalciferol (vitamin D3) 50 mcg (2,000 unit) capsule 2,000 unit PO DAILY Qty: 30 RF: 11 docusate sodium [Colace] 100 mg capsule 100 mg PO BID Qty: 60 RF: 5 betamethasone dipropionate 0.05 % ointment 1 applic TOPICAL BID PRN (Reason: rash) Qty: 45 RF: 5 ammonium lactate 12 % cream 1 applic topical BID Qty: 385 RF: 1 linaclotide 145 mcg capsule 145 mcg PO QAM Qty: 30 RF: 5 Naphcon-A 0.025-0.3 % drops 1 drp OPHTHALMIC (EYE) BID RF: 0 fluocinolone 0.025 % ointment 1 applic topical BID Qty: 60 RF: 1 lithium carbonate 450 mg tablet extended release 450 mg PO HS RF: 0 levothyroxine 50 mcg tablet 50 mcg PO QAM RF: 0 potassium chloride 10 mEq tablet,ER particles/crystals 10 meq PO QAM RF: 0 acetic acid 2 % Solution 4 drp OTIC (EAR) 2XWK RF: 0 CeraVe Lotion 1 ea TOPICAL BID RF: 0 carbamide peroxide [Debrox] 6.5 % Drops 4 drp OTIC (EAR) 2XWK RF: 0 atorvastatin 20 mg tablet 20 mg PO QPM RF: 0 quetiapine 300 mg tablet 300 mg PO PM RF: 0 quetiapine 50 mg tablet 50 mg PO PM RF: 0 furosemide [Lasix] 40 mg tablet 40 mg PO QAM RF: 0 mupirocin 2 % ointment 1 applic TOPICAL BID PRN (Reason: open wounds) RF: 0 Referrals Referrals: Ken Cano DO [Primary Care Provider] -
--- NOTE | 2021-05-08 19:11 | Magnetic Resonance Report ---
MRI OF THE BRAIN WITHOUT CONTRAST CLINICAL HISTORY: CVA COMPARISON STUDY: Head CT and CTA of the head performed earlier today. MRI of the brain November 02. TECHNIQUE: Utilizing a 1.5 Lu magnet and dedicated coil, multiplanar, multiecho imaging of the bra in was performed without IV contrast. FINDINGS: This exam is compromised by motion artifact however is diagnostic. Note is made of a 6.5 x 3.4 cm focus of restricted diffusion within the posterior right frontal and parietal lobes. This is w ithin the posterior right MCA distribution. This corresponds to the finding on head CT performed archie ier today. There is no mass effect. There is no evidence for acute hemorrhage. No significant corresp onding cytotoxic edema is noted as this represents an acute infarct. Ventricular dilatation is unchan ged. Basal cisterns are patent. There are no extra-axial collections. No intracranial masses are iden tified on this unenhanced exam. White matter T2 hyperintense foci are unchanged. A few old infarcts a re unchanged. These include infarcts within the right frontal and left occipital lobes. Calvarial sig nal is normal. IMPRESSION: 1. 6.5 x 3.4 cm acute infarct of posterior right MCA distribution involving the posterior right front al and parietal lobes. No acute hemorrhage. No mass effect. 2. Otherwise, unchanged appearance of the brain from prior MRI of November 02, 2019. Stable ventricula r dilatation with several old infarcts. ACT 112: Negative or not required by law. Electronically signed by: Herve Cali M.D. 05/08/2021 7:10 PM
--- NOTE | 2021-05-08 20:10 | Critical Care Consultation ---
Date of Consultation May 08, 2021 Assessment & Plan (1) Acute CVA (cerebrovascular accident): Reason Critically Ill: 55-year-old female presents to the ICU with acute CVA of the right MCA sylvian branch, s/p TPA administration Neuro - Acute CVACTA head with evidence of acute occlusion of the sylvian branch of the right MCA. Patient was evaluated by [facility] telemetry stroke and was not candidate for thrombectomy due to size of vessel. tPA administered -MRI with 6.5 x 3.4 cm acute infarct of posterior right MCA involving the posterior right frontal and parietal lobes -Accurate neurological exams are limited due to patient's underlying diagnosis of mental retardation, bipolar disorder -Patient has previous history of CVA involving the left frontal lobe. She is on Plavix -Monitor in ICU for 24 hours post TPA per protocol. Will obtain CT head after 24 hours -Follow-up echo in a.m. -Follow-up lipid profile and A1c -Neurology consulted, will follow up recs. -Speech, PT, OT Bipolar disorderpatient on lithium, SSRI. Will restart pending swallow study Seizure disorderlast known seizure in . We will continue primidone pending swallow study Cardiac - HFrEF/CADpatient with last echo with EF 30 to 35% -Echo pending in a.m. -No current issues at this time. Will restart home regimen once patient cleared to take p.o. -Can consider conversion to IV if this becomes an issue Respiratory - Currently maintaining oxygen saturation on room air. Monitor on continuous pulse ox GI - GERDPPI N.p.o. pending swallow study RENAL/LYTES - Creatinine within normal limits, monitor routine BMPs replete electrolytes as indicated - Strict I's and O's ENDO - No history of diabetes, ICU hyperglycemic protocol Thyroid diseasecontinue Synthroid in a.m. pending swallow study HEME - H&H stable no evidence of bleeding at this time. Will monitor closely in the ICU for signs of bleeding following TPA administration ID - No indication for infectious process at this time LINES/IV ACCESS - Peripheral IVs DVT PROPHYLAXIS - SCDs, no anticoagulation following TPA I have personally spent 35 minutes of critical care time in the direct management of this patient. This is a life/limb threatening event. This includes time spent evaluating patient, direct bedside care, chart review, placing orders, interpretation of diagnostic studies, discussion with consultants, patient, and family members, as well as other required patient management activities. This time is exclusive of all separately billable procedures, and teaching time and separate from and in addition to any other critical care service time. Thank you for allowing us to participate in the care of this patient. Please refer to my attending physician's documentation for any further recommendations. (2) Mentally challenged: (3) Ravindra-neglect of left side: (4) Seizure disorder: (5) Stroke: (6) Chronic constipation: (7) HTN (hypertension): (8) Hyperlipidemia: (9) Hypothyroid: (10) Cardiovascular disease: (11) Gastroesophageal reflux disease: (12) Chronic systolic congestive heart failure: (13) Bipolar disorder, unspecified: (14) Esophageal dysmotility: (15) Pulmonary hypertension: (16) Contracture, right hand: (17) Internal hemorrhoids: (18) Macrocytosis: (19) Cerebral vascular disease: History of Present Illness History of Present Illness Patient is a 55-year-old female with PMH significant for seizures, ischemic CVA left frontal, mental retardation (requires caregiver and assistance with ADLs at baseline), frequent falls, hypothyroid, bipolar disorder, GERD, HFrEF with EF 30 to 35%. She is currently a resident at [facility]. She was brought to the ER earlier today as a code stroke after the patient reportedly became unresponsive then awoke and began yelling and was noted to have left-sided weakness. She was taken for CTA of the head and neck which revealed an acute occlusion of her right sylvian branch of the L MCA and she was noted to have moderate stenosis of her right MCA. Patient was evaluated by [facility] telestroke and was deemed to be candidate for TPA. She was then transferred to the ICU for 24- hour monitoring following TPA administration protocol. On arrival to the ICU patient is somewhat somnolent but is arousable to stimulation and is able to follow simple commands. She did receive Ativan in order to obtain CT imaging and participation and neurological exam is very limited. On exam, she is noted to have left upper extremity weakness. She is moving lower extremities bilaterally. She does deny pain. Pupils are PERRLA, no facial droop. She is currently hemodynamically stable and NSR on monitor. She is maintaining oxygen saturations on room air. Patient to remain in ICU further monitoring at this time. Will obtain CT head after 24 hours post TPA. Allergies Allergy/AdvReac Type Severity Reaction Status Date / Time divalproex sodium Allergy Intermediate Hives Unverified 05/08/21 15:41 [From Depakote] Penicillins Allergy Intermediate RASH/FACIAL Verified 05/08/21 15:41 SWELLING carbamazepine Allergy Mild Rash Verified 05/08/21 15:41 phenytoin Allergy Mild Rash Verified 05/08/21 15:41 polyethylene glycol 3350 Allergy Mild Rash Verified 05/08/21 15:41 [From Miralax] valproic acid Allergy Mild Rash Unverified 05/08/21 15:41 pseudoephedrine AdvReac Unknown UNKNOWN Unverified 05/08/21 15:41 Fabric Softeners Allergy Mild SKIN Uncoded 05/08/21 15:41 REACTION, RASH Home Medications Medication Instructions Recorded Confirmed Type acetic acid 2 % ear solution 4 drp OTIC (EAR) 2XWK 11/22/18 05/08/21 History lithium carbonate 450 mg 450 mg PO HS 11/27/18 05/08/21 History tablet,extended release naphazoline 0.025 %-pheniramine 1 drp OPHTHALMIC (EYE) BID 04/21/19 05/08/21 History 0.3 % eye drops (Naphcon-A) ceramides 1,3,6-II (CeraVe) 1 ea TOPICAL BID 11/17/19 05/08/21 History cetirizine 10 mg tablet (Zyrtec) 10 mg PO QAM #30 tab 12/15/19 05/08/21 Rx clopidogrel 75 mg tablet 75 mg PO QAM #30 tab 12/15/19 05/08/21 Rx metoprolol succinate 25 mg 25 mg PO QAM #30 tab 12/15/19 05/08/21 Rx tablet,extended release 24 hr (Toprol XL) primidone 250 mg tablet (Mysoline) 250 mg PO QAM #30 tab 12/15/19 05/08/21 Rx sennosides 8.6 mg tablet (Senokot) 8.6 mg PO QAM PRN #30 tab 12/15/19 05/08/21 Rx atorvastatin 20 mg tablet 20 mg PO QPM 01/02/20 05/08/21 History carbamide peroxide 6.5 % ear drops 4 drp OTIC (EAR) 2XWK 01/02/20 05/08/21 History (Debrox) levothyroxine 50 mcg tablet 50 mcg PO QAM 01/06/20 05/08/21 History potassium chloride 10 mEq 10 meq PO QAM 01/06/20 05/08/21 History tablet,extended release(part/cryst) Bedside commode #1 ea 01/14/20 04/28/21 Rx Wheelchair #1 ea 02/24/20 04/28/21 Rx cholecalciferol (vitamin D3) 50 2,000 unit PO DAILY #30 cap 08/17/20 05/08/21 Rx mcg (2,000 unit) capsule docusate sodium 100 mg capsule 100 mg PO BID #60 cap 08/17/20 05/08/21 Rx (Colace) betamethasone dipropionate 0.05 % 1 applic TOPICAL BID PRN #45 gm 02/25/21 05/08/21 Rx topical ointment ammonium lactate 12 % topical cream 1 applic TOPICAL BID #385 gm 03/10/21 05/08/21 Rx fluocinolone 0.025 % topical 1 applic TOPICAL BID #60 g 03/23/21 05/08/21 Rx ointment linaclotide 145 mcg capsule 145 mcg PO QAM #30 cap 04/22/21 05/08/21 Rx furosemide 40 mg tablet (Lasix) 40 mg PO QAM 05/08/21 05/08/21 History mupirocin 2 % topical ointment 1 applic TOPICAL BID PRN 05/08/21 05/08/21 History quetiapine 300 mg tablet 300 mg PO PM 05/08/21 05/08/21 History quetiapine 50 mg tablet 50 mg PO PM 05/08/21 05/08/21 History Patient History Medical History (Updated 05/08/21 @ 18:37 by Dylan Huff MD) Allergic rhinitis Anxiety and depression Bipolar disorder, unspecified Candidal intertrigo Cardiomegaly Cardiomyopathy EF 30-35% Chronic constipation Chronic systolic congestive heart failure Closed fracture dislocation of ankle joint Concussion Contracture, right hand CVA (cerebral vascular accident) 11/2018 REASON FOR PLAVIX Esophageal dysmotility Hyperlipidemia Hypertension Hypothyroidism Mental retardation Mentally challenged MENTAL STATE AGE 3 PER MOTHER Osteoporosis Patent foramen ovale MOTHER UNSURE OF DX Repeated falls Seizure disorder 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 ) Trimalleolar fracture of right ankle Surgical History History of cholecystectomy History of hysterectomy S/P colonoscopy (12/11/12) [place] teeth removed Family History Father Family hx of colon cancer Denies family history of Ovarian cancer Prostate cancer Myocardial infarction Breast cancer Colorectal cancer Social History Smoking Status: Never smoker Second Hand Exposure: No; Do You Dip or Chew Tobacco: No; Hx Alcohol Use: No Hx Substance Use: No Preferred Language: Urdu Communication Ability: Unable Visual Impairment: No Limitations Hearing Ability: Normal 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 Beliefs That Will Affect Care: None marital status: Single Current Living Situation: Other Current Living Situation Comment: [facility] Other Information That Helps Us Care for You: No Feels Safe at Home: Yes Safety Concerns: Feels Safe At This Time Childhood Exposure to Second-Hand Smoke: Yes Dental Care, Regularly: Yes Physical Activity Frequency: 1-2 Times per Week Seatbelt Use: always Sunscreen Use: Yes Assistive Devices: Brace/Splint/Immobilizer and Wheelchair Review of Systems Review of Systems: Unobtainable due to mental health condition and Unobtainable due to cognitive status Physical Exam Constitutional: + altered mental status and + behavioral limitations; no acute distress Eyes: PERRL, conjunctivae normal, anicteric sclerae ENMT: external ear and nose normal, oropharynx normal Neck: trachea midline, no thyromegaly Respiratory: normal respiratory effort, lungs clear to auscultation Cardiovascular: RRR, no murmur, no edema Gastrointestinal (Abdomen): normal bowel sounds, soft, nontender, no hepatosplenomegaly Musculoskeletal: Left upper extremity weakness noted on exam. Exam significantly limited due to patient's cognitive status Skin: Small area of petechia noted on the patient's chest and rash under patient's right breast fold noted on exam Neurologic: Neurological exam as noted in HPI. Significantly limited due to patient's cognitive status Psychiatric: Somnolent on exam. Participation in exam significantly limited due to cognitive status Results & Data Results & Data ([facility]) Vital Signs (Past 12 Hours) Vital Signs Pulse Pulse Resp BP BP Pulse Ox 05/08/21 19:10 90 22 106/71 95 05/08/21 19:00 90 28 H 114/70 92 05/08/21 18:57 94 H 18 05/08/21 18:50 97 H 18 133/103 H 93 05/08/21 18:20 100 H 20 114/49 L 94 05/08/21 18:00 89 21 111/72 94 05/08/21 17:55 88 23 101/71 99 05/08/21 17:50 81 21 108/76 98 05/08/21 17:45 89 20 106/77 98 05/08/21 17:40 87 22 104/72 94 05/08/21 17:35 85 24 104/66 94 05/08/21 17:30 89 22 104/69 97 05/08/21 17:25 88 24 98/75 L 98 05/08/21 17:20 85 17 117/71 99 05/08/21 17:15 86 24 105/77 92 05/08/21 17:10 90 24 116/88 94 05/08/21 17:07 90 109/90 93 05/08/21 17:00 92 H 24 115/86 94 05/08/21 16:55 93 H 24 102/71 96 05/08/21 16:50 90 24 101/77 100 05/08/21 16:45 92 H 29 H 103/80 100 05/08/21 16:40 88 25 H 105/80 100 05/08/21 16:30 89 20 114/79 100 05/08/21 16:21 89 24 120/87 100 05/08/21 16:10 85 18 99/67 L 100 05/08/21 16:02 85 18 97/75 L 100 05/08/21 15:19 108 H 26 H 139/115 H 05/08/21 14:52 112 H 20 162/93 H 95 05/08/21 14:49 129 H 30 H 162/93 H 94 Coding Level of Care Code Critical Care 1st 30-74 mins Diagnoses Mentally challenged F79 Acute CVA (cerebrovascular accident) I63.9 Ravindra-neglect of left side R41.4 Seizure disorder G40.909 Stroke I63.9 Chronic constipation K59.09 HTN (hypertension) I10 Hypertension type: essential hypertension Hyperlipidemia E78.5 Hypothyroid E03.9 Hypothyroidism type: unspecified Cardiovascular disease I25.10 Gastroesophageal reflux disease K21.9 Chronic systolic congestive heart failure I50.22 Bipolar disorder, unspecified F31.9 Esophageal dysmotility K22.4 Pulmonary hypertension I27.20 Contracture, right hand M24.541 Internal hemorrhoids K64.8 Macrocytosis D75.89 Cerebral vascular disease I67.9 (1) HTN (hypertension) Hypertension type: essential hypertension Qualified Code(s): I10 - Essential (primary) hypertension (2) Hypothyroid Hypothyroidism type: unspecified Qualified Code(s): E03.9 - Hypothyroidism, unspecified
[2021-05-08] MEDS ORDERED: ICU PROTOCOL FOR HYPERGLYCEMIA PRN (20:21)
[2021-05-08] MEDS ORDERED: PHARMACIST DISCHARGE MED REC CONSULT PRN (20:21)
[2021-05-08] MEDS ORDERED: LABETALOL HCL IV 5 MG/ML 20ML IV PRN (20:21)
[2021-05-08] MEDS ORDERED: PNEUMOCOCCAL POLYSACCHARIDES 25 MCG/0.5 ML VIAL/SYR IM ONE (20:54)
[2021-05-08] MEDS ORDERED: [UNRECOGNIZED DRUG - OTHER] TOP SCH (21:00)
[2021-05-08] MEDS ORDERED: CERAMIDES TOP SCH (21:00)
[2021-05-08] MEDS: ACETIC ACID 2% OTIC SOLN 15 ML BTL OT SCH (21:40)
[2021-05-08] MEDS: LACTATED RINGER'S 1,000 ML IV SCH (21:40)
[2021-05-08] MEDS: DOCUSATE SODIUM 100 MG CAP PO SCH (21:41)
[2021-05-08] MEDS ORDERED: MUPIROCIN 2% OINT 22 GM TUBE EXT PRN (21:41)
[2021-05-08] MEDS: LITHIUM CARBONATE 450 MG TABCR PO SCH (21:41)
[2021-05-08] MEDS: QUEtiapine FUMARATE 25 MG TABLET PO SCH (21:41)
[2021-05-08] MEDS: NAPHAZOLIN/PHENIRAMIN OPH SOLN 75 DROPS/5 ML BTL OP SCH (21:41)
[2021-05-08] MEDS: ATORVASTATIN 20 MG TAB PO SCH (21:41)
[2021-05-08] MEDS: QUEtiapine FUMARATE 300 MG TABLET PO SCH (21:41)
[2021-05-08] MEDS ORDERED: No Aspirin within 24 hrs of TPA for Stroke SCH (21:45)
[2021-05-09] MEDS: LEVOTHYROXINE SODIUM 50 MCG TABLET PO SCH (05:30)
--- NOTE | 2021-05-09 08:39 | Neurology Consultation ---
Date of Consultation May 09, 2021 Assessment & Plan (1) Acute CVA (cerebrovascular accident): (2) Acute left hemiparesis: (3) Seizure disorder: (4) HTN (hypertension): (5) Bipolar disorder, unspecified: (6) Mentally challenged: This patient had a somewhat large acute left frontoparietal stroke May 08 resulting in left nora paresis of a significant nature, face and arm greater than leg. She probably has nora sensory deficits and speech issues but this is very difficult to be certain in lieu of her severe chronic encephalopathy and intellectual disabilities. She is probably starting to decline physically and mentally over the last year or two. This acute stroke happen despite being on clopidogrel. Patient has moderate old small vessel ischemic disease and lacunar infarcts by MRI. She has mild ventriculomegaly which is stable. tPA was given in the emergency room and she has not made significant physical improvements yet. MR angiography had shown occlusion of the right middle cerebral artery sylvian branch. There are moderate stenoses in other areas as noted as well. She has a generalized tonic-clonic seizure disorder well controlled on current dose of Mysoline with no seizures since her early 20s. She has a history of bipolar and behavioral disorders, followed by Psychiatry, on long-standing lithium and Seroquel. Fortunately, she is unable to take p.o. currently because she failed the swallowing test is not getting any of her usual medications. Risk factors for stroke include hypertension and cardiac disease. Recommendations: 1. Repeat CT scan of the head at 24 hours per tPA protocol. 2. Echocardiogram is pending 3. continue clopidogrel 75 milligrams daily. Consider adding 81 milligram aspirin tablet daily but will hold on this for today since she has had tPA. This can be started tomorrow. 4. physical, occupational, and speech therapy consult. Increase activity as able. 5. Control blood pressure as you are doing, aiming for a mean arterial pressure of approximately 95. 6. Obtain fasting lipid profile. Keep atorvastatin 20 milligrams daily for now until the lipid profile comes back. She could be a high-dose statin candidate. 7. obtain hemoglobin A1c and TSH. 8. Consider haloperidol in small doses as needed for agitation, avoiding Ativan as much as possible so mental status is not altered any further. overall, I spent a total of 75 minutes with this case including review of records, review of MRI films, direct evaluation the patient bedside, and discussion of the case with the patient and her mother at bedside, RN at bedside, and Dr. Rao including differential diagnosis and treatment options. History of Present Illness Reason for Consultation: Patient is a 55-year-old, who I was asked to see at the request Dr. Daley, for neurologic evaluation regarding stroke Requesting Physician: Dr. Daley Attending Physician: Todd Rao MD History of Present Illness The patient cannot provide any history and all history is obtained by the mother who was at bedside and chart. She suffered hypoxia during , resulting in a severe chronic encephalopathy and intellectual disability. Currently she lives in a group. She has had seizures since childhood and has tried and failed multiple anticonvulsants such as carbamazepine, phenytoin, valproic acid. Currently, she has been on Mysoline 250 milligrams in the morning for many years and she has not had any seizures, according to the mother, since age 19. She has a history of hypertension, cardiomyopathy with heart failure, hypothyroidism, gastroesophageal reflux disease. She has bipolar disorder and is followed by Psychiatry. She has been on lithium and Seroquel for approximately 10 years or more. In November of [address] Centeno and a small right frontal infarct was noted on MRI explaining her left facial. She recovered from this. She saw Dr. Potter in October of 2019 because of a fall and some head. MRI showed no changes. She has been on clopidogrel since November of 1999. Patient was found unresponsive at 1345 May 08. There was left-sided weakness and neglect. She arrived to the emergency room at 14:49 with a respiratory rate of 30, pulse 129, blood pressure 162/93, and O2 saturation 94 percent. She was felt to have left sided weakness and neglect. CT scan of the head showed no acute changes. CT angiography of the neck was unremarkable. CT angiography of the head showed occlusion of the sylvian branch of the right middle cerebral artery. There was moderate stenosis of the main right middle cerebral artery and distal right vertebral artery which was unchanged from prev ious. Patient received tPA at 16:04. MRI of the brain showed a rather large right middle cerebral artery distribution acute stroke in the posterior frontal and parietal head regions in a large wedge -shaped. There were old infarcts and chronic ischemia as well as ventriculomegaly all of which was unchanged. Patient's mother says that typically the patient will follow some commands from her and she can make out some sounds /words that she recognizes ( but not others ). She could walk with some assistance help some with dressing and toilet some by herself. Her memory has been declining slowly over the last couple of years as has been her balance. The patient does not say any words and is not following any commands. Blood pressure this morning is 108/69 and she is afebrile. Allergies Allergy/AdvReac Type Severity Reaction Status Date / Time divalproex sodium Allergy Intermediate Hives Unverified 05/08/21 15:41 [From Depakote] Penicillins Allergy Intermediate RASH/FACIAL Verified 05/08/21 15:41 SWELLING carbamazepine Allergy Mild Rash Verified 05/08/21 15:41 phenytoin Allergy Mild Rash Verified 05/08/21 15:41 polyethylene glycol 3350 Allergy Mild Rash Verified 05/08/21 15:41 [From Miralax] valproic acid Allergy Mild Rash Unverified 05/08/21 15:41 pseudoephedrine AdvReac Unknown UNKNOWN Unverified 05/08/21 15:41 Home Medications Medication Instructions Recorded Confirmed Type acetic acid 2 % ear solution 4 drp OTIC (EAR) 2XWK 11/22/18 05/08/21 History lithium carbonate 450 mg 450 mg PO HS 11/27/18 05/08/21 History tablet,extended release naphazoline 0.025 %-pheniramine 1 drp OPHTHALMIC (EYE) BID 04/21/19 05/08/21 History 0.3 % eye drops (Naphcon-A) ceramides 1,3,6-II (CeraVe) 1 ea TOPICAL BID 11/17/19 05/08/21 History cetirizine 10 mg tablet (Zyrtec) 10 mg PO QAM #30 tab 12/15/19 05/08/21 Rx clopidogrel 75 mg tablet 75 mg PO QAM #30 tab 12/15/19 05/08/21 Rx metoprolol succinate 25 mg 25 mg PO QAM #30 tab 12/15/19 05/08/21 Rx tablet,extended release 24 hr (Toprol XL) primidone 250 mg tablet (Mysoline) 250 mg PO QAM #30 tab 12/15/19 05/08/21 Rx sennosides 8.6 mg tablet (Senokot) 8.6 mg PO QAM PRN #30 tab 12/15/19 05/08/21 Rx atorvastatin 20 mg tablet 20 mg PO QPM 01/02/20 05/08/21 History carbamide peroxide 6.5 % ear drops 4 drp OTIC (EAR) 2XWK 01/02/20 05/08/21 History (Debrox) levothyroxine 50 mcg tablet 50 mcg PO QAM 01/06/20 05/08/21 History potassium chloride 10 mEq 10 meq PO QAM 01/06/20 05/08/21 History tablet,extended release(part/cryst) Bedside commode #1 ea 01/14/20 04/28/21 Rx Wheelchair #1 ea 02/24/20 04/28/21 Rx cholecalciferol (vitamin D3) 50 2,000 unit PO DAILY #30 cap 08/17/20 05/08/21 Rx mcg (2,000 unit) capsule docusate sodium 100 mg capsule 100 mg PO BID #60 cap 08/17/20 05/08/21 Rx (Colace) betamethasone dipropionate 0.05 % 1 applic TOPICAL BID PRN #45 gm 02/25/21 05/08/21 Rx topical ointment ammonium lactate 12 % topical cream 1 applic TOPICAL BID #385 gm 03/10/21 05/08/21 Rx fluocinolone 0.025 % topical 1 applic TOPICAL BID #60 g 03/23/21 05/08/21 Rx ointment linaclotide 145 mcg capsule 145 mcg PO QAM #30 cap 04/22/21 05/08/21 Rx furosemide 40 mg tablet (Lasix) 40 mg PO QAM 05/08/21 05/08/21 History mupirocin 2 % topical ointment 1 applic TOPICAL BID PRN 05/08/21 05/08/21 History quetiapine 300 mg tablet 300 mg PO PM 05/08/21 05/08/21 History quetiapine 50 mg tablet 50 mg PO PM 05/08/21 05/08/21 History Patient History Medical History Allergic rhinitis Anxiety and depression Bipolar disorder, unspecified Candidal intertrigo Cardiomegaly Cardiomyopathy EF 30-35% Chronic constipation Chronic systolic congestive heart failure Closed fracture dislocation of ankle joint Concussion Contracture, right hand CVA (cerebral vascular accident) 11/2018 REASON FOR PLAVIX Esophageal dysmotility Hyperlipidemia Hypertension Hypothyroidism Mental retardation Mentally challenged MENTAL STATE AGE 3 PER MOTHER Osteoporosis Patent foramen ovale MOTHER UNSURE OF DX Repeated falls Seizure disorder 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 ) Trimalleolar fracture of right ankle Surgical History History of cholecystectomy History of hysterectomy S/P colonoscopy (12/11/12) [place] teeth removed Family History Father Family hx of colon cancer Dementia Mother Thyroid cancer Hypertension Denies family history of Ovarian cancer Prostate cancer Myocardial infarction Breast cancer Colorectal cancer Social History Smoking Status: Never smoker Second Hand Exposure: No; Do You Dip or Chew Tobacco: No; Hx Alcohol Use: No Hx Substance Use: No Preferred Language: Cypriot Communication Ability: Unable Visual Impairment: No Limitations Hearing Ability: Normal 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 Beliefs That Will Affect Care: None marital status: Single Current Living Situation: Other Current Living Situation Comment: Senior Living Other Information That Helps Us Care for You: No Feels Safe at Home: Yes Safety Concerns: Feels Safe At This Time Childhood Exposure to Second-Hand Smoke: Yes Dental Care, Regularly: Yes Physical Activity Frequency: 1-2 Times per Week Seatbelt Use: always Sunscreen Use: Yes Assistive Devices: None Review of Systems Review of Systems: Unobtainable due to mental health condition and Unobtainable due to cognitive status Exam (Neuro) Physical Exam: According to the patient's mother, the patient is ambidextrous feeding herself. I believe she was naturally right handed but had to use her left hand because the right hand developed contractures over time. The patient is mostly awake and will make some eye contact Briefly at times. This will be mostly towards the voice of her mother. She tends to have her head and eyes to the right but she can come past midline to the left with both. She will not follow one-step commands. She resists eye opening when her eyes are closed. When left alone, she frequently has episodes of crying out due to something that either bothers her she is uncomfortable with. She does not appear to be in pain otherwise. Pupils are 4 mm bilaterally and reactive to light. Extraocular eye muscles are intact without nystagmus. Visual acuity and visual dahl are impossible to evaluate due to the patient's condition. There is a mild facial droop on the left and she does not move the left side of her mouth as she does on the right. Tongue is midline. She grimaces to facial still the ambulation bilaterally. Neck is supple. Sternocleidomastoid and trapezius strength seems symmetrical. Neck has a full range of motion without discomfort. There are no cervical bruits bilaterally. There are no cranial or ocular bruits. Heart is without murmur. There is a regular rhythm and rate. Cervical spine is nontender to palpation. Gait was not tested and stance sitting up in bed is poor because of left-sided weakness. There are no obvious resting, postural, or action tremors in the right upper extremity or resting tremor in the left upper extremity. [id number] testing is not possible to evaluate. Motor strength is 4/5 diffusely in the Right upper extremity, including deltoids, biceps, triceps, brachioradialis, wrist flexors and extensors, fixed capital clerk, and intrinsic hand muscles. The left upper extremity is 0/5 diffusely. Motor strength is 4/5 diffusely in the Right lower extremity,including hip flexors, quadriceps, hamstrings, gastrocnemius, tibialis anterior, tibialis posterior, and Peroneii muscles. the left lower extremity is 1-2/5 diffusely The right arm and leg have good tone. left upper extremity is flaccid and left lower extremity has decreased tone. Sensory examination Reveals grimacing, withdrawal with deep pain in the right arm and like. The left leg has some withdrawal to deep pain. The left arm has no response to deep pain. Reflexes are 2/4 in the biceps, triceps, brachioradialis, quadriceps, and Achilles tendons bilaterally. There is no clonus bilaterally. Toes are downgoing with plantar stimulation on the right and neutral on the left. Peripheral pulses are present and of normal quality distally in all 4 limbs. There is no peripheral edema noted in the limbs. Results & Data ([facility]) Vital Signs (Past 12 Hours) Vital Signs Temp Pulse Resp BP BP Pulse Ox Pulse Ox 05/09/21 07:02 94 H 26 H 108/69 97 05/09/21 06:02 97 H 24 105/68 97 05/09/21 05:02 80 26 H 110/69 96 07/19/21 04:02 36.9 C 90 26 H 102/70 97 05/09/21 03:02 94 H 28 H 96/63 L 98 05/09/21 02:02 94 H 28 H 93/63 L 97 05/09/21 01:02 99 H 26 H 115/65 95 05/09/21 00:02 36.6 C 93 H 22 102/71 98 05/08/21 23:32 95 H 22 95/70 L 97 05/08/21 23:02 95 H 20 104/69 96 05/08/21 22:32 94 H 22 107/70 97 05/08/21 22:02 95 H 22 96/68 L 97 05/08/21 21:32 94 H 22 98/66 L 97 05/08/21 21:02 89 22 106/66 97 05/08/21 20:32 90 24 98/70 L 95 05/08/21 20:23 36.8 C 93 H 22 105/72 96 05/08/21 20:21 94 05/08/21 20:02 36.8 C 106 H 22 120/88 94 PG Care Time/CCT Total # of Minutes Spent Total Time Spent with Patient: Total time spent is greater than 50% in coordination of care (as documented) at patient's floor/unit and/or counseling patient: Coding Level of Care Code 45490 Initial Inpt Care Lvl 3 Diagnoses Acute CVA (cerebrovascular accident) I63.9 Acute left hemiparesis G81.94 Seizure disorder G40.909 Mentally challenged F79 HTN (hypertension) I10 Hypertension type: essential hypertension Bipolar disorder, unspecified F31.9 Time Spent (min) 75 (1) HTN (hypertension) Hypertension type: essential hypertension Qualified Code(s): I10 - Essential (primary) hypertension
[2021-05-09] MEDS ORDERED: FUROSEMIDE 40 MG TAB PO SCH (09:00)
--- NOTE | 2021-05-09 09:16 | Hospitalist Progress Note ---
Date of Service May 09, 2021 Assessment & Plan (1) Stroke: Plan: Acute sylvian branch of the right middle cerebral artery- s/p tPA - MRI with 6.5 x 3.4 cm acute infarct of posterior right MCA distribution involving the posterior right frontal and parietal lobes. - CT scan of the head 24 hours post tPA ordered for morning to evaluate for hemorrhagic conversion - Continue statin when able - Appreciate neurology consult. Discussed with Dr Olivares - TTE - No significant change to 2019 echo - Can be transferred to PCU if CT head shows no hemorrhagic conversion - Awaiting SLT assessment (2) HTN (hypertension): Plan: Post tPA parameters - Labetalol PRN - Aim MAP 95 per neurology recommendations (3) Hyperlipidemia: Plan: As above - continue statin at current dose and assess lipids in 24 hrs, increase to high intensity if TChol>100 as low cholesterol increases risk for ICH with high intensity statin (4) Hypothyroid: Plan: Continue Synthroid (5) Cardiovascular disease: Plan: As above- prior CVA and CVD (6) Cerebral vascular disease: Plan: As above (7) Gastroesophageal reflux disease: Plan: Protonix 40 mg IV daily (8) Chronic systolic congestive heart failure: Plan: EF 30-35% Nov 2018 - ECHO with CVA workup - Continue Lasix- may need to convert to IV if unable to take PO in morning - Continue metoprolol- may need conversion as well to 5mg IV q6 jessica PRN (9) Bipolar disorder, unspecified: Plan: Continue lithium and Seroquel when able to take PO - As above with lithium may need small bore tube (10) Esophageal dysmotility: Plan: Chronic dysphagia, with esophageal slippery diet and medications given with applesauce (11) Seizure disorder: Plan: Continue with Primidone- next dose is tomorrow morning - continue seizure precautions (12) Mentally challenged: Plan: As above, has mother and caregiver - supportive care Admission and Anticipated Discharge Date Admission Date: May 08, 2021 Subjective Unable to get any history from patient. Discussed care with her mother in the r oom. Unsure regarding nutrition what to do at this stage if she was not to pass swallowing eval from speech. Prior baseline her mother would make all her medical decisions. Patient had Ativan (last dose 1:30am) therefore suspect some sedation still due to this. Awake but not following any commands when seen. Moving her right upper extremity but no movement or resistance on left side. Her mother notes she has been moving her left foot slightly but not seen when examined. Awaiting [address] head. Review of Systems Review of Systems: Unobtainable due to cognitive status Physical Exam Constitutional: + not well nourished and no acute distress Eyes: PERRL and EOM intact bilaterally (grossly normal but not following commands) Respiratory: normal respiratory effort, lungs clear to auscultation Cardiovascular: Rate/Rhythm: regular rate and regular rhythm Heart Sounds: no murmur Extremities: normal capillary refill; no pedal edema Skin: no rashes, warm and dry Neurologic: + focal motor deficit (gross left sided 0/5 weakness), awake and + confused Speech / Cognition: + abnormal speech Cranial Nerves: PERRL, EOM intact bilaterally, tongue midline, able to rotate head bilaterally (prefers looking to right side) and no nystagmus; + abnormal facial strength (mild left facial droop) Unable to assess co-ordination or gait Psychiatric: A+Ox3, euthymic affect Results & Data Results & Data ([facility]) Vital Signs (Past 12 Hours) Vital Signs Temp Pulse Resp BP BP Pulse Ox 05/09/21 08:00 36.5 C 102 H 28 H 111/74 96 05/09/21 07:02 94 H 26 H 108/69 97 05/09/21 06:02 97 H 24 105/68 97 05/09/21 05:02 80 26 H 110/69 96 05/09/21 04:02 36.9 C 90 26 H 102/70 97 05/09/21 03:02 94 H 28 H 96/63 L 98 05/09/21 02:02 94 H 28 H 93/63 L 97 05/09/21 01:02 99 H 26 H 115/65 95 05/09/21 00:02 36.6 C 93 H 22 102/71 98 05/08/21 23:32 95 H 22 95/70 L 97 05/08/21 23:02 95 H 20 104/69 96 05/08/21 22:32 94 H 22 107/70 97 05/08/21 22:02 95 H 22 96/68 L 97 05/08/21 21:32 94 H 22 98/66 L 97 PG Care Time/CCT Total # of Minutes Spent Total Time Spent with Patient: Total time spent is greater than 50% in coordination of care (as documented) at patient's floor/unit and/or counseling patient: Coding Level of Care Code 16707 Subseq Hosp Care Lvl 2 Diagnoses Stroke I63.9 HTN (hypertension) I10 Hypertension type: essential hypertension Hyperlipidemia E78.5 Hypothyroid E03.9 Hypothyroidism type: unspecified Cardiovascular disease I25.10 Cerebral vascular disease I67.9 Gastroesophageal reflux disease K21.9 Chronic systolic congestive heart failure I50.22 Bipolar disorder, unspecified F31.9 Esophageal dysmotility K22.4 Seizure disorder G40.909 Mentally challenged F79 (1) Hypothyroid Hypothyroidism type: unspecified Qualified Code(s): E03.9 - Hypothyroidism, unspecified (2) HTN (hypertension) Hypertension type: essential hypertension Qualified Code(s): I10 - Essential (primary) hypertension
--- NOTE | 2021-05-09 09:46 | Critical Care Progress Note ---
Date of Service May 09, 2021 Assessment & Plan (1) Acute CVA (cerebrovascular accident): Plan: Reason Critically Ill: 55-year-old female presents to the ICU with acute CVA of the right MCA sylvian branch, s/p TPA administration Neuro - Acute CVACTA head with evidence of acute occlusion of the sylvian branch of the right MCA. Patient was evaluated by [facility] telemetry stroke and was not candidate for thrombectomy due to size of vessel. tPA administered -MRI with 6.5 x 3.4 cm acute infarct of posterior right MCA involving the posterior right frontal and parietal lobes -Accurate neurological exams are limited due to patient's underlying diagnosis of mental retardation, bipolar disorder -Patient has previous history of CVA involving the left frontal lobe. She is on Plavix -Monitor in ICU for 24 hours post TPA per protocol. Will obtain CT head after 24 hours -Follow-up echo in a.m. -Follow-up lipid profile and A1c -Neurology consulted, will follow up recs. -Speech, PT, OT Bipolar disorderpatient on lithium, SSRI. Will restart pending swallow study Seizure disorderlast known seizure in . We will continue primidone pending swallow study Cardiac - HFrEF/CADpatient with last echo with EF 30 to 35% -Echo pending in a.m. -No current issues at this time. Will restart home regimen once patient cleared to take p.o. -Can consider conversion to IV if this becomes an issue Respiratory - Currently maintaining oxygen saturation on room air. Monitor on continuous pulse ox GI - GERDPPI N.p.o. pending swallow study RENAL/LYTES - Creatinine within normal limits, monitor routine BMPs replete electrolytes as indicated - Strict I's and O's ENDO - No history of diabetes, ICU hyperglycemic protocol Thyroid diseasecontinue Synthroid in a.m. pending swallow study HEME - H&H stable no evidence of bleeding at this time. Will monitor closely in the ICU for signs of bleeding following TPA administration ID - No indication for infectious process at this time LINES/IV ACCESS - Peripheral IVs DVT PROPHYLAXIS - SCDs, no anticoagulation following TPA I have personally spent 35 minutes of critical care time in the direct management of this patient. This is a life/limb threatening event. This includes time spent evaluating patient, direct bedside care, chart review, placing orders, interpretation of diagnostic studies, discussion with consultants, patient, and family members, as well as other required patient management activities. This time is exclusive of all separately billable procedures, and teaching time and separate from and in addition to any other critical care service time. Thank you for allowing us to participate in the care of this patient. Please refer to my attending physician's documentation for any further recommendations. (2) Mentally challenged: (3) Ravindra-neglect of left side: (4) Seizure disorder: (5) Stroke: (6) Chronic constipation: (7) HTN (hypertension): (8) Hyperlipidemia: (9) Hypothyroid: (10) Cardiovascular disease: (11) Gastroesophageal reflux disease: (12) Chronic systolic congestive heart failure: (13) Bipolar disorder, unspecified: (14) Esophageal dysmotility: (15) Pulmonary hypertension: (16) Contracture, right hand: (17) Internal hemorrhoids: (18) Macrocytosis: (19) Cerebral vascular disease: Admission and Anticipated Discharge Date Admission Date: May 08, 2021 Results & Data Results & Data ([facility]) Vital Signs (Past 12 Hours) Vital Signs Temp Pulse Resp BP BP Pulse Ox 05/09/21 08:00 97.7 F 102 H 28 H 111/74 96 05/09/21 07:02 94 H 26 H 108/69 97 05/09/21 06:02 97 H 24 105/68 97 05/09/21 05:02 80 26 H 110/69 96 05/09/21 04:02 98.4 F 90 26 H 102/70 97 05/09/21 03:02 94 H 28 H 96/63 L 98 05/09/21 02:02 94 H 28 H 93/63 L 97 05/09/21 01:02 99 H 26 H 115/65 95 05/09/21 00:02 97.9 F 93 H 22 102/71 98 05/08/21 23:32 95 H 22 95/70 L 97 05/08/21 23:02 95 H 20 104/69 96 05/08/21 22:32 94 H 22 107/70 97 05/08/21 22:02 95 H 22 96/68 L 97 Coding Diagnoses Acute CVA (cerebrovascular accident) I63.9 Mentally challenged F79 Ravindra-neglect of left side R41.4 Seizure disorder G40.909 Stroke I63.9 Chronic constipation K59.09 HTN (hypertension) I10 Hypertension type: essential hypertension Hyperlipidemia E78.5 Hypothyroid E03.9 Hypothyroidism type: unspecified Cardiovascular disease I25.10 Gastroesophageal reflux disease K21.9 Chronic systolic congestive heart failure I50.22 Bipolar disorder, unspecified F31.9 Esophageal dysmotility K22.4 Pulmonary hypertension I27.20 Contracture, right hand M24.541 Internal hemorrhoids K64.8 Macrocytosis D75.89 Cerebral vascular disease I67.9 (1) Hypothyroid Hypothyroidism type: unspecified Qualified Code(s): E03.9 - Hypothyroidism, unspecified (2) HTN (hypertension) Hypertension type: essential hypertension Qualified Code(s): I10 - Essential (primary) hypertension
[2021-05-09] MEDS ORDERED: HALOPERIDOL LACTATE 5 MG/ML 1 ML VIAL ONE (10:13)
[2021-05-09] MEDS ORDERED: HALOPERIDOL LACTATE 5 MG/ML 1 ML VIAL IM STA (10:46)
[2021-05-09] MEDS: AMMONIUM LACTATE 12% LOTION 225 GM BTL EXT SCH ×2 (10:50→21:05)
[2021-05-09] MEDS: CETIRIZINE HCL 10 MG TABLET PO SCH (10:50)
[2021-05-09] MEDS: LACTATED RINGER'S 1,000 ML IV SCH ×2 (10:50→23:12)
[2021-05-09] MEDS: ACETIC ACID 2% OTIC SOLN 15 ML BTL OT SCH (10:50)
[2021-05-09] MEDS: CHOLECALCIFEROL 1,000 UNITS 25 MCG TAB PO SCH (10:51)
[2021-05-09] MEDS: METOPROLOL SUCC 25MG EXT REL TAB PO SCH (10:51)
[2021-05-09] MEDS: CLOPIDOGREL BISULFATE 75 MG TAB PO SCH (10:51)
[2021-05-09] MEDS: DOCUSATE SODIUM 100 MG CAP PO SCH ×2 (10:51→19:52)
[2021-05-09] MEDS: LINACLOTIDE 145 MCG CAPSULE PO SCH (10:51)
[2021-05-09] MEDS: NAPHAZOLIN/PHENIRAMIN OPH SOLN 75 DROPS/5 ML BTL OP SCH ×2 (10:52→19:52)
[2021-05-09] MEDS: POTASSIUM CHLORIDE 10 MEQ TABCR PO SCH (10:52)
[2021-05-09] MEDS: PRIMIDONE 250 MG TAB PO SCH (10:52)
--- NOTE | 2021-05-09 10:55 | Critical Care Progress Note ---
Date of Service May 09, 2021 Assessment & Plan (1) Acute CVA (cerebrovascular accident): Plan: Reason Critically Ill: 55-year-old female presents to the ICU with acute CVA of the right MCA sylvian branch, s/p TPA administration Neuro - Acute CVACTA head with evidence of acute occlusion of the sylvian branch of the right MCA. Patient was evaluated by [facility] telemetry stroke and was not candidate for thrombectomy due to size of vessel. tPA administered -MRI with 6.5 x 3.4 cm acute infarct of posterior right MCA involving the posterior right frontal and parietal lobes -Accurate neurological exams are limited due to patient's underlying diagnosis of mental retardation, bipolar disorder -Patient has previous history of CVA involving the left frontal lobe. She is on Plavix -Monitor in ICU for 24 hours post TPA per protocol. Will obtain CT head after 24 hours -Follow-up echo in a.m. -Follow-up lipid profile and A1c -Neurology consulted, will follow up recs. -Speech, PT, OT Bipolar disorderpatient on lithium, SSRI. Will restart pending swallow study Seizure disorderlast known seizure in . We will continue primidone pending swallow study Cardiac - HFrEF/CADpatient with last echo with EF 30 to 35% -Echo pending in a.m. -No current issues at this time. Will restart home regimen once patient cleared to take p.o. -Can consider conversion to IV if this becomes an issue Respiratory - Currently maintaining oxygen saturation on room air. Monitor on continuous pulse ox GI - GERDPPI N.p.o. pending swallow study RENAL/LYTES - Creatinine within normal limits, monitor routine BMPs replete electrolytes as indicated - Strict I's and O's ENDO - No history of diabetes, ICU hyperglycemic protocol Thyroid diseasecontinue Synthroid in a.m. pending swallow study HEME - H&H stable no evidence of bleeding at this time. Will monitor closely in the ICU for signs of bleeding following TPA administration ID - No indication for infectious process at this time LINES/IV ACCESS - Peripheral IVs DVT PROPHYLAXIS - SCDs, no anticoagulation following TPA We will likely need palliative care goals of care discussion moving forward given the severity of her stroke. She is likely stable for transfer once the repeat CT head is completed. (2) Mentally challenged: (3) Ravindra-neglect of left side: (4) Seizure disorder: (5) Stroke: (6) Chronic constipation: (7) HTN (hypertension): (8) Hyperlipidemia: (9) Hypothyroid: (10) Cardiovascular disease: (11) Gastroesophageal reflux disease: (12) Chronic systolic congestive heart failure: (13) Bipolar disorder, unspecified: (14) Esophageal dysmotility: (15) Pulmonary hypertension: (16) Contracture, right hand: (17) Internal hemorrhoids: (18) Macrocytosis: (19) Cerebral vascular disease: Admission and Anticipated Discharge Date Admission Date: May 08, 2021 Subjective Patient seen and examined. Review of systems is unable to be obtained due to the patient's altered mental status. At baseline, she does have intellectual delay. The patient's mother is at bedside. She does not appear to be in any distress, but she has been shouting earlier prior to me entering the room. No significant overnight events. Left extremities are flaccid. Physical Exam Constitutional: + altered mental status and + behavioral limitations; no acute distress Eyes: PERRL, conjunctivae normal, anicteric sclerae ENMT: external ear and nose normal, oropharynx normal Neck: trachea midline, no thyromegaly Respiratory: normal respiratory effort, lungs clear to auscultation Cardiovascular: RRR, no murmur, no edema Gastrointestinal (Abdomen): normal bowel sounds, soft, nontender, no hepat osplenomegaly Musculoskeletal: Left upper extremity weakness noted on exam. Exam significantly limited due to patient's cognitive status Skin: Small area of petechia noted on the patient's chest and rash under patient's right breast fold noted on exam Neurologic: Neurological exam as noted in HPI. Significantly limited due to patient's cognitive status Psychiatric: Somnolent on exam. Participation in exam significantly limited due to cognitive status Results & Data Results & Data ([facility]) Vital Signs (Past 12 Hours) Vital Signs Temp Pulse Resp BP Pulse Ox 05/09/21 10:00 97.9 F 108 H 24 98/67 L 96 05/09/21 09:00 97.9 F 110 H 25 H 112/75 95 05/09/21 08:00 97.7 F 102 H 28 H 111/74 96 05/09/21 07:02 94 H 26 H 108/69 97 05/09/21 06:02 97 H 24 105/68 97 05/09/21 05:02 80 26 H 110/69 96 05/09/21 04:02 98.4 F 90 26 H 102/70 97 05/09/21 03:02 94 H 28 H 96/63 L 98 05/09/21 02:02 94 H 28 H 93/63 L 97 05/09/21 01:02 99 H 26 H 115/65 95 05/09/21 00:02 97.9 F 93 H 22 102/71 98 05/08/21 23:32 95 H 22 95/70 L 97 05/08/21 23:02 95 H 20 104/69 96 Vital signs, labs and imaging reviewed Coding Level of Care Code 39910 Subseq Hosp Care Lvl 2 Diagnoses Acute CVA (cerebrovascular accident) I63.9 Mentally challenged F79 Ravindra-neglect of left side R41.4 Seizure disorder G40.909 Stroke I63.9 Chronic constipation K59.09 HTN (hypertension) I10 Hypertension type: essential hypertension Hyperlipidemia E78.5 Hypothyroid E03.9 Hypothyroidism type: unspecified Cardiovascular disease I25.10 Gastroesophageal reflux disease K21.9 Chronic systolic congestive heart failure I50.22 Bipolar disorder, unspecified F31.9 Esophageal dysmotility K22.4 Pulmonary hypertension I27.20 Contracture, right hand M24.541 Internal hemorrhoids K64.8 Macrocytosis D75.89 Cerebral vascular disease I67.9 (1) HTN (hypertension) Hypertension type: essential hypertension Qualified Code(s): I10 - Essential (primary) hypertension (2) Hypothyroid Hypothyroidism type: unspecified Qualified Code(s): E03.9 - Hypothyroidism, u nspecified
--- NOTE | 2021-05-09 11:24 | XCELERA ---
[id number]
[2021-05-09] MEDS: PANTOprazole 40 MG in SYRINGE 0 ML IV SCH (12:23)
--- NOTE | 2021-05-09 13:16 | Electrocardiogram Report ---
Test Reason : Blood Pressure : / mmHG Vent. Rate : 119 BPM Atrial Rate : 119 BPM P-R Int : 132 ms QRS Dur : 094 ms QT Int : 368 ms P-R-T Axes : 039 028 167 degrees QTc Int : 517 ms Sinus tachycardia Left ventricular hypertrophy with repolarization abnormality Abnormal ECG When compared with ECG of 02-JAN-2020 20:05, No significant change was found Confirmed by Gonzalez Mcduffie ([id number]) on 05/09/2021 1:15:29 PM Referred By: REFERRED SELF Confirmed By:Gonzalez Mcduffie
--- NOTE | 2021-05-09 14:26 | CT Scan Report ---
CT head/brain wo con CLINICAL HISTORY: 24 hour post tPA COMPARISON STUDY: CT scan dated 05/08/2021 TECHNIQUE: Axial CT of the brain is performed from the vertex to the skull base. IV contrast was not administered for this examination. A dose lowering technique was utilized adhering to the principles of ALARA. CT DOSE: 1459.56 mGycm FINDINGS: There is a 6.5 cm hypodensity involving the right parietal lobe consistent with the patient's known i nfarct. There is overlying edema. There vessel. Is a hyperdense vessel within the right sylvian fissu re, likely representing a thrombosed There are patchy white matter hypodensities likely on a small vessel basis. There is no evidence of pathologic ventricular dilatation. There is no evidence of acute sinusitis There is no evidence of acute hemorrhage. The study is motion compromised. IMPRESSION: 1. Motion compromised study 2. Suspected thrombus within a right sylvian MCA branch 3. 6.5 cm right parietal hypodensity consistent with a recent infarct 4. No evidence of acute hemorrhage status post TPA ACT 112: Negative or not required by law. Electronically signed by: Ramon Mcgowan M.D. 05/09/2021 2:25 PM
[2021-05-09 16:58] LABS: INR 1.4 (0.9-1.1); Prothrombin Time 13.4 Seconds (9.0-12.0)
[2021-05-09 17:35] LABS: Chol HDL Ratio 3; Cholesterol 180 mg/dl (0-200); HDL Cholesterol 67 mg/dl; LDL Cholesterol Calculated 94 mg/dl; Triglycerides 96 mg/dl (0-150); VLDL Cholesterol 19 mg/dl
[2021-05-09] MEDS ORDERED: OLANZapine 10 MG/2.1 ML SDV IM STA (18:22)
[2021-05-09] MEDS: ATORVASTATIN 20 MG TAB PO SCH (19:52)
[2021-05-09] MEDS: QUEtiapine FUMARATE 25 MG TABLET PO SCH (19:52)
[2021-05-09] MEDS: QUEtiapine FUMARATE 300 MG TABLET PO SCH (19:52)
[2021-05-09] MEDS: LITHIUM CARBONATE 450 MG TABCR PO SCH (19:52)
[2021-05-09] MEDS ORDERED: LORazepam 1 MG/2 ML VIAL IV STA (20:53)
[2021-05-09] MEDS: OLANZapine 10 MG/2.1 ML SDV IM PRN (23:03)
[2021-05-09] MEDS: ACETAMINOPHEN 1000 MG/100 ML IV IV PRN (23:28)
[2021-05-10] MEDS: OLANZapine 10 MG/2.1 ML SDV IM PRN (04:43)
[2021-05-10] MEDS: LEVOTHYROXINE SODIUM 50 MCG TABLET PO SCH (04:44)
[2021-05-10 07:17] LABS: Estimated Average Glucose 114 mg/dl; Hemoglobin A1C 5.6 % (4.5-5.6)
[2021-05-10] MEDS: DOCUSATE SODIUM 100 MG CAP PO SCH ×2 (09:50→20:15)
[2021-05-10] MEDS: OLANZapine ZYDIS 5 MG ORALLY DIS. TAB PO PRN ×3 (09:50→18:35)
[2021-05-10] MEDS: PRIMIDONE 250 MG TAB PO SCH (09:50)
[2021-05-10] MEDS: CHOLECALCIFEROL 1,000 UNITS 25 MCG TAB PO SCH (09:51)
[2021-05-10] MEDS: POTASSIUM CHLORIDE 10 MEQ TABCR PO SCH (09:51)
[2021-05-10] MEDS: CLOPIDOGREL BISULFATE 75 MG TAB PO SCH (09:51)
[2021-05-10] MEDS: LINACLOTIDE 145 MCG CAPSULE PO SCH (09:51)
[2021-05-10] MEDS: CETIRIZINE HCL 10 MG TABLET PO SCH (09:51)
[2021-05-10] MEDS: METOPROLOL SUCC 25MG EXT REL TAB PO SCH (09:51)
[2021-05-10] MEDS: NAPHAZOLIN/PHENIRAMIN OPH SOLN 75 DROPS/5 ML BTL OP SCH ×2 (09:52→20:17)
[2021-05-10] MEDS: CARBAMIDE PEROXIDE 6.5% 15 ML BTL OT SCH (09:52)
[2021-05-10] MEDS: AMMONIUM LACTATE 12% LOTION 225 GM BTL EXT SCH ×2 (09:53→20:16)
--- NOTE | 2021-05-10 10:24 | Neurology Progress Note ---
Date of Service May 10, 2021 Assessment & Plan (1) Acute CVA (cerebrovascular accident): (2) Acute left hemiparesis: (3) Seizure disorder: (4) HTN (hypertension): (5) Bipolar disorder, unspecified: (6) Mentally challenged: Plan: This patient had a somewhat large acute left frontoparietal stroke May 08 resulting in left nora paresis of a significant nature, face and arm greater than leg. She probably has nora sensory deficits and speech issues but this is very difficult to be certain in lieu of her severe chronic encephalopathy and intellectual disabilities. She is probably starting to decline physically and mentally over the last year or two. This acute stroke happen despite being on clopidogrel. Patient has moderate old small vessel ischemic disease and lacunar infarcts by MRI. She has mild ventriculomegaly which is stable. tPA was given in the emergency room and she has not made significant physical improvements yet. MR angiography had shown occlusion of the right middle cerebral artery sylvian branch. There are moderate stenoses in other areas as noted as well. Today she is a little calmer than yesterday although she has been receiving sedation. She is not moving the left arm but does spontaneously move the left leg. She did say words like usual yesterday. also, she cleared swallowing by speech and will start to be fed and take her pills. She has a generalized tonic-clonic seizure disorder well controlled on current dose of Mysoline with no seizures since her early 20s. She has a history of bipolar and behavioral disorders, followed by Psychiatry, on long-standing lithium and Seroquel. Risk factors for stroke include hypertension and cardiac disease. hemoglobin A1c was normal at 5.6. Recommendations: 1. continue clopidogrel 75 milligrams daily. Consider adding 81 milligram aspirin tablet daily to the clopidogrel and remain on both for 3 weeks. 2. Unless Cardiology believes there is a reason for anticoagulation ( based on her echocardiogram ) hold on anticoagulant for now. 3. physical, occupational, and speech therapy consult. Increase activity as able. 4. Control blood pressure as you are doing, aiming for a mean arterial pressure of approximately 95. 5. technically, she could be a high dose statin candidate (no neurologic contraindications to high-dose statins that I am aware) 6. Avoid Ativan as much as possible so mental status is not altered any further. Overall, I spent a total of 35 minutes with this case including review of records, direct evaluation the patient bedside, and discussion of the case with the patient and her mother at bedside, RN at bedside, and Dr. Rao including differential diagnosis and treatment options. Admission and Anticipated Discharge Date Admission Date: May 08, 2021 Subjective Patient apparently (according to the mother who was present at bedside) said the word "mom" appropriately yesterday afternoon and was more like herself communicating. she had some agitation and has been receiving her Seroquel as usual but was ordered Zyprexa for new agitation and received 1 dose of Ativan 1 milligram last evening. Blood pressure is 126/82 her temp is 37.8 this morning. Echocardiogram yesterday revealed severely reduced left ventricular function with an ejection fraction of 25-30 percent. 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 there is a patent foramina ovale noted since November of 2018 and, overall, this echocardiogram is not much different from the previous. Triglycerides are 96 and total cholesterol 180. Results & Data ([facility]) Vital Signs (Past 12 Hours) Vital Signs Temp Pulse Pulse Resp BP Pulse Ox 05/10/21 09:18 81 05/10/21 04:00 37.8 C H 111 H 22 126/82 96 05/10/21 00:00 102 H 24 113/66 95 05/09/21 23:15 38.4 C H Exam (Neuro) Physical Exam: she is awake and fairly alert although she does look a little sleepy. She will not follow any one-step commands. She will not answer to my voice. Her mother got her to say the word "no" ( ask if she was her father) but she would not state the word "mom". Extraocular eye muscles seemed intact although she prefers head and eyes to the right. Left upper extremity is flaccid and does not withdraw to deep pain (although she feels the pain and shouts out). The left leg is weak and does spontaneously move. Right side seems strong. There is a left facial weakness. There are no abnormal involuntary movements. PG Care Time/CCT Total # of Minutes Spent Total Time Spent with Patient: Total time spent is greater than 50% in coordination of care (as documented) at patient's floor/unit and/or counseling patient: Coding Level of Care Code 50707 Subseq Hosp Care Lvl 3 Diagnoses Acute CVA (cerebrovascular accident) I63.9 Acute left hemiparesis G81.94 Seizure disorder G40.909 HTN (hypertension) I10 Hypertension type: essential hypertension Bipolar disorder, unspecified F31.9 Mentally challenged F79 Time Spent (min) 35 (1) HTN (hypertension) Hypertension type: essential hypertension Qualified Code(s): I10 - Essential (primary) hypertension
[2021-05-10] MEDS: LACTATED RINGER'S 1,000 ML IV SCH (10:48)
[2021-05-10] MEDS: PANTOprazole 40 MG in SYRINGE 0 ML IV SCH (11:43)
--- NOTE | 2021-05-10 19:19 | Hospitalist Progress Note ---
Date of Service May 10, 2021 Assessment & Plan (1) Stroke: Plan: Acute sylvian branch of the right middle cerebral artery- s/p tPA - MRI with 6.5 x 3.4 cm acute infarct of posterior right MCA distribution involving the posterior right frontal and parietal lobes. - No hemorrhagic concersion on repeat CT head - Continue statin - Appreciate neurology consult. Discussed with Dr Olivares - TTE - No significant change to 2019 echo - Transferred to PCU yesterday - Now passed SLT assessment (2) HTN (hypertension): Plan: Hold lasix to allow permissive hypertension, continue metoprolol to avoid rebound tachycardia - Aim MAP 95 per neurology recommendations (3) Hyperlipidemia: Plan: As above - continue statin at current dose (4) Hypothyroid: Plan: Continue Synthroid (5) Cardiovascular disease: Plan: As above- prior CVA and CVD (6) Cerebral vascular disease: Plan: As above (7) Gastroesophageal reflux disease: Plan: Protonix 40 mg switch to PO (8) Chronic systolic congestive heart failure: Plan: EF 30-35% Nov 2018 - ECHO with CVA workup - Stop IV fluids. No sign of CHF at the present time despite IV fluids and holding lasix (9) Bipolar disorder, unspecified: Plan: Continue lithium and Seroquel - Zyprexa as needed for agitation (10) Esophageal dysmotility: Plan: Chronic dysphagia, with esophageal slippery diet and medications given with applesauce (11) Seizure disorder: Plan: Continue with Primidone- next dose is tomorrow morning - continue seizure precautions (12) Mentally challenged: Plan: As above, has mother and caregiver - supportive care Admission and Anticipated Discharge Date Admission Date: May 08, 2021 Subjective Unable to get any history from patient. Mother at bedside reports no significant movement from her left upper extremity. Concern for some vision loss as unable to see things on her left side. Past speech and language eval. Review of Systems Review of Systems: Unobtainable due to cognitive status Physical Exam Constitutional: + not well nourished and no acute distress Respiratory: normal respiratory effort, lungs clear to auscultation Cardiovascular: Rate/Rhythm: regular rate and regular rhythm Heart Sounds: no murmur Extremities: no pedal edema Skin: no rashes, warm and dry Neurologic: + focal motor deficit (gross left sided 0/5 weakness), awake and + confused (agitated) Speech / Cognition: + abnormal speech Unable to assess co-ordination or gait Psychiatric: Orientation: alert; + not oriented x 3 Motor Behavior: + psychomotor agitation Results & Data Results & Data ([facility]) Vital Signs (Past 12 Hours) Vital Signs Temp Pulse Resp BP 05/10/21 17:59 37.4 C 05/10/21 16:24 107 H 16 97/77 L 05/10/21 13:46 100 H 16 137/83 05/10/21 10:39 90 28 H 118/73 05/10/21 09:18 81 PG Care Time/CCT Total # of Minutes Spent Total Time Spent with Patient: Total time spent is greater than 50% in coordination of care (as documented) at patient's floor/unit and/or counseling patient: Coding Level of Care Code 43263 Subseq Hosp Care Lvl 3 Diagnoses Stroke I63.9 HTN (hypertension) I10 Hypertension type: essential hypertension Hyperlipidemia E78.5 Hypothyroid E03.9 Hypothyroidism type: unspecified Cardiovascular disease I25.10 Cerebral vascular disease I67.9 Gastroesophageal reflux disease K21.9 Chronic systolic congestive heart failure I50.22 Bipolar disorder, unspecified F31.9 Esophageal dysmotility K22.4 Seizure disorder G40.909 Mentally challenged F79 (1) Hypothyroid Hypothyroidism type: unspecified Qualified Code(s): E03.9 - Hypothyroidism, unspecified (2) HTN (hypertension) Hypertension type: essential hypertension Qualified Code(s): I10 - Essential (primary) hypertension
[2021-05-10] MEDS: QUEtiapine FUMARATE 25 MG TABLET PO SCH (20:14)
[2021-05-10] MEDS: BETAMETHASONE DIP AUG 0.05% OINT 15 GM TUBE EXT PRN (20:14)
[2021-05-10] MEDS: LITHIUM CARBONATE 450 MG TABCR PO SCH (20:15)
[2021-05-10] MEDS: QUEtiapine FUMARATE 300 MG TABLET PO SCH (20:15)
[2021-05-10] MEDS: ATORVASTATIN 20 MG TAB PO SCH (20:16)
[2021-05-10] MEDS: ASPIRIN 81 MG ECTAB PO SCH (20:53)
[2021-05-11] MEDS: ACETAMINOPHEN 1000 MG/100 ML IV IV PRN (00:28)
[2021-05-11 00:51] LABS: BUN Creatinine Ratio 18.5 (10-20); Calcium 8.9 mg/dl (8.5-10.1); Creatinine Clr Calc Pharmacy 88.2 ml/min; Est GFR (African American) 124.6 ml/min; Est GFR (Non-African American) 107.5 ml/min; Magnesium 2.2 mg/dl (1.8-2.4); Potassium 3.2 mmol/L (3.5-5.1)
[2021-05-11 00:52] LABS: Phosphorus 2.9 mg/dl (2.5-4.9)
[2021-05-11] MEDS ORDERED: POTASSIUM CHLORIDE CRTAB 20 MEQ TABCR PO STA (01:16)
[2021-05-11] MEDS: LEVOTHYROXINE SODIUM 50 MCG TABLET PO SCH (06:40)
[2021-05-11] MEDS: METOPROLOL SUCC 25MG EXT REL TAB PO SCH (08:08)
[2021-05-11] MEDS: CHOLECALCIFEROL 1,000 UNITS 25 MCG TAB PO SCH (08:08)
[2021-05-11] MEDS: CETIRIZINE HCL 10 MG TABLET PO SCH (08:08)
[2021-05-11] MEDS: LINACLOTIDE 145 MCG CAPSULE PO SCH (08:09)
[2021-05-11] MEDS: CLOPIDOGREL BISULFATE 75 MG TAB PO SCH (08:09)
[2021-05-11] MEDS: POTASSIUM CHLORIDE 10 MEQ TABCR PO SCH (08:09)
[2021-05-11] MEDS: PRIMIDONE 250 MG TAB PO SCH (08:09)
[2021-05-11] MEDS: DOCUSATE SODIUM 100 MG CAP PO SCH ×2 (08:09→22:15)
[2021-05-11] MEDS: AMMONIUM LACTATE 12% LOTION 225 GM BTL EXT SCH ×2 (08:11→22:16)
[2021-05-11] MEDS: NAPHAZOLIN/PHENIRAMIN OPH SOLN 75 DROPS/5 ML BTL OP SCH ×2 (08:12→22:16)
[2021-05-11 08:57] LABS: Basophils # (auto) 0.04 K/uL (0-0.2); Basophils % (auto) 0.4 %; Eosinophils # (auto) 0.35 K/uL (0-0.5); Eosinophils % (auto) 3.4 %; Hematocrit (blood only) 36.8 % (37-47); Immature Granulocytes # (auto) 0.02 K/uL (0.00-0.02); Immature Granulocytes % (auto) 0.2 %; Lymphocytes # (auto) 1.69 K/uL (1.2-3.4); Lymphocytes % (auto) 16.3 %; Mean Corpuscular Hgb Conc 32.6 g/dL (32-36); Mean Corpuscular Volume 107.3 fL (80-100); Mean Platelet Volume 10.4 fL (7.4-10.4); Monocytes # (auto) 0.65 K/uL (0.11-0.59); Monocytes % (auto) 6.3 %; Neutrophils # (auto) 7.65 K/uL (1.4-6.5); Neutrophils % (auto) 73.4 %; Platelet Count 229 K/uL (130-400); RDW Coefficient of Variation 14.6 % (11.5-14.5); RDW Standard Deviation 57.3 fL (36.4-46.3); Red Blood Count 3.43 M/uL (4.2-5.4)
[2021-05-11] MEDS ORDERED: POTASSIUM CHLORIDE 40 MEQ in DEXTROSE 5% 1,000 ML IV SCH (09:30)
[2021-05-11] MEDS ORDERED: POTASSIUM CHLORIDE 20 MEQ in DEXTROSE 5% 1,000 ML IV SCH (10:30)
[2021-05-11] MEDS: PANTOprazole 40 MG in SYRINGE 0 ML IV SCH (10:48)
--- NOTE | 2021-05-11 15:13 | Hospitalist Progress Note ---
Date of Service May 11, 2021 Assessment & Plan (1) Stroke: Plan: Acute sylvian branch of the right middle cerebral artery- s/p tPA - MRI with 6.5 x 3.4 cm acute infarct of posterior right MCA distribution involving the posterior right frontal and parietal lobes. - No hemorrhagic conversion on repeat CT head - Increased atorvastatin to 20->40mg PO daily - Appreciate neurology consult. - TTE - No significant change to 2019 echo (2) HTN (hypertension): Plan: Hold lasix to allow permissive hypertension, continue metoprolol to avoid rebound tachycardia, no sign of fluid overload at present - Aim MAP 95 per neurology recommendations (3) Hyperlipidemia: Plan: As above - continue statin at current dose (4) Bigeminy: Plan: Replete potassium and monitor on telemetry (5) Hypothyroid: Plan: Continue Synthroid (6) Cardiovascular disease: Plan: As above- prior CVA and CVD (7) Cerebral vascular disease: Plan: As above (8) Gastroesophageal reflux disease: Plan: Protonix 40 mg switch to PO (9) Chronic systolic congestive heart failure: Plan: EF 30-35% Nov 2018 - ECHO with CVA workup - Stop IV fluids. No sign of CHF at the present time despite IV fluids and holding lasix (10) Bipolar disorder, unspecified: Plan: Continue lithium and Seroquel - Zyprexa as needed for agitation (11) Esophageal dysmotility: Plan: Chronic dysphagia, with esophageal slippery diet and medications given with applesauce (12) Seizure disorder: Plan: Continue with Primidone- next dose is tomorrow morning - continue seizure precautions (13) Mentally challenged: Plan: As above, has mother and caregiver - supportive care Admission and Anticipated Discharge Date Admission Date: May 08, 2021 Subjective Appears much more alert and less agitated now back on her usual seroquel and lithium dosing. Stark catheter out. Mother reports she is looking more to the left with occasional LUE movement although none seen during rounds. She is left hand dominant making feeding difficult. Bigeminies on telemetry. Potassium replacement last night with 40 meq. Magnesium WNL. Review of Systems Review of Systems: Unobtainable due to cognitive status Physical Exam Constitutional: + not well nourished and no acute distress Eyes: + anicteric sclerae; normal pupil size Respiratory: normal respiratory effort, lungs clear to auscultation normal respiratory effort Cardiovascular: Rate/Rhythm: regular rate and regular rhythm Heart Sounds: no murmur Extremities: no pedal edema Skin: no rashes, warm and dry Neurologic: + focal motor deficit (no movement seen on left side) and awake; not confused Speech / Cognition: + abnormal speech Cranial Nerves: PERRL, EOM intact bilaterally, tongue midline, able to rotate head bilaterally (prefers looking to right side) and no nystagmus; + abnormal facial strength (mild left facial droop) Unable to assess co-ordination or gait Psychiatric: A+Ox3, euthymic affect Orientation: alert; + not oriented x 3 Motor Behavior: no psychomotor agitation (much improved) Results & Data Results & Data ([facility]) Vital Signs (Past 12 Hours) Vital Signs Temp Pulse Pulse Resp BP BP BP 05/11/21 11:25 37.3 C 89 16 120/87 05/11/21 11:24 88 32 H 120/87 05/11/21 08:56 37 C 05/11/21 08:00 83 05/11/21 07:56 90 25 H 123/81 05/11/21 04:30 36.8 C 88 18 114/79 Pulse Ox 05/11/21 11:25 90 05/11/21 11:24 05/11/21 08:56 05/11/21 08:00 05/11/21 07:56 97 05/11/21 04:30 91 PG Care Time/CCT Total # of Minutes Spent Total Time Spent with Patient: Total time spent is greater than 50% in coordination of care (as documented) at patient's floor/unit and/or counseling patient: Coding Level of Care Code 13192 Subseq Hosp Care Lvl 2 Diagnoses Stroke I63.9 HTN (hypertension) I10 Hypertension type: essential hypertension Hyperlipidemia E78.5 Hypothyroid E03.9 Hypothyroidism type: unspecified Cardiovascular disease I25.10 Cerebral vascular disease I67.9 Gastroesophageal reflux disease K21.9 Chronic systolic congestive heart failure I50.22 Bipolar disorder, unspecified F31.9 Esophageal dysmotility K22.4 Seizure disorder G40.909 Mentally challenged F79 Bigeminy I49.8 (1) Hypothyroid Hypothyroidism type: unspecified Qualified Code(s): E03.9 - Hypothyroidism, unspecified (2) HTN (hypertension) Hypertension type: essential hypertension Qualified Code(s): I10 - Essential (primary) hypertension
[2021-05-11] MEDS: OLANZapine ZYDIS 5 MG ORALLY DIS. TAB PO PRN (15:46)
[2021-05-11] MEDS: OLANZapine 10 MG/2.1 ML SDV IM PRN (19:18)
[2021-05-11] MEDS: ATORVASTATIN 40 MG TAB PO SCH (22:14)
[2021-05-11] MEDS: ASPIRIN 81 MG ECTAB PO SCH (22:14)
[2021-05-11] MEDS: LITHIUM CARBONATE 450 MG TABCR PO SCH (22:15)
[2021-05-11] MEDS: QUEtiapine FUMARATE 25 MG TABLET PO SCH (22:15)
[2021-05-11] MEDS: QUEtiapine FUMARATE 300 MG TABLET PO SCH (22:16)
[2021-05-12] MEDS: LEVOTHYROXINE SODIUM 50 MCG TABLET PO SCH (06:29)
[2021-05-12 08:23] LABS: Basophils # (auto) 0.02 K/uL (0-0.2); Basophils % (auto) 0.2 %; Eosinophils # (auto) 0.43 K/uL (0-0.5); Eosinophils % (auto) 4.8 %; Hematocrit (blood only) 32.8 % (37-47); Hemoglobin 10.8 g/dL (12.0-16.0); Immature Granulocytes # (auto) 0.02 K/uL (0.00-0.02); Immature Granulocytes % (auto) 0.2 %; Lymphocytes # (auto) 1.87 K/uL (1.2-3.4); Lymphocytes % (auto) 20.8 %; Mean Corpuscular Hgb Conc 32.9 g/dL (32-36); Mean Corpuscular Volume 106.1 fL (80-100); Mean Platelet Volume 10.8 fL (7.4-10.4); Monocytes # (auto) 0.77 K/uL (0.11-0.59); Monocytes % (auto) 8.6 %; Neutrophils # (auto) 5.89 K/uL (1.4-6.5); Neutrophils % (auto) 65.4 %; Platelet Count 218 K/uL (130-400); RDW Coefficient of Variation 14.9 % (11.5-14.5); RDW Standard Deviation 57.5 fL (36.4-46.3); Red Blood Count 3.09 M/uL (4.2-5.4)
[2021-05-12 08:39] LABS: BUN Creatinine Ratio 19.5 (10-20); Calcium 8.6 mg/dl (8.5-10.1); Est GFR (Non-African American) 106.1 ml/min; Potassium 3.6 mmol/L (3.5-5.1)
[2021-05-12] MEDS: CHOLECALCIFEROL 1,000 UNITS 25 MCG TAB PO SCH (08:46)
[2021-05-12] MEDS: PRIMIDONE 250 MG TAB PO SCH (08:46)
[2021-05-12] MEDS: AMMONIUM LACTATE 12% LOTION 225 GM BTL EXT SCH ×2 (08:46→20:16)
[2021-05-12] MEDS: CETIRIZINE HCL 10 MG TABLET PO SCH (08:47)
[2021-05-12] MEDS: ACETIC ACID 2% OTIC SOLN 15 ML BTL OT SCH (08:47)
[2021-05-12] MEDS: CLOPIDOGREL BISULFATE 75 MG TAB PO SCH (08:47)
[2021-05-12] MEDS: LINACLOTIDE 145 MCG CAPSULE PO SCH (08:47)
[2021-05-12] MEDS: DOCUSATE SODIUM 100 MG CAP PO SCH ×2 (08:47→20:17)
[2021-05-12] MEDS: POTASSIUM CHLORIDE 10 MEQ TABCR PO SCH (08:48)
[2021-05-12] MEDS: METOPROLOL SUCC 25MG EXT REL TAB PO SCH (08:48)
[2021-05-12] MEDS: NAPHAZOLIN/PHENIRAMIN OPH SOLN 75 DROPS/5 ML BTL OP SCH ×2 (08:49→20:16)
[2021-05-12] MEDS: PANTOprazole 40 MG in SYRINGE 0 ML IV SCH (11:13)
[2021-05-12] MEDS: OLANZapine ZYDIS 5 MG ORALLY DIS. TAB PO PRN ×2 (11:13→20:15)
[2021-05-12] MEDS ORDERED: POTASSIUM CHLORIDE CRTAB 20 MEQ TABCR PO STA (15:21)
[2021-05-12] MEDS: QUEtiapine FUMARATE 300 MG TABLET PO SCH (20:15)
[2021-05-12] MEDS: QUEtiapine FUMARATE 25 MG TABLET PO SCH (20:15)
[2021-05-12] MEDS: ASPIRIN 81 MG ECTAB PO SCH (20:16)
[2021-05-12] MEDS: LITHIUM CARBONATE 450 MG TABCR PO SCH (20:16)
[2021-05-12] MEDS: ATORVASTATIN 40 MG TAB PO SCH (20:16)
--- NOTE | 2021-05-12 22:42 | Hospitalist Progress Note ---
Date of Service May 12, 2021 Assessment & Plan (1) Stroke: Plan: Acute sylvian branch of the right middle cerebral artery- s/p tPA - MRI with 6.5 x 3.4 cm acute infarct of posterior right MCA distribution involving the posterior right frontal and parietal lobes. - No hemorrhagic conversion on repeat CT head - Increased atorvastatin to 20->40mg PO daily - ASA + clopidogrel for 3 weeks then clopidogrel alone - Appreciate neurology consult. - TTE - No significant change to 2019 echo (2) HTN (hypertension): Plan: Hold lasix to allow permissive hypertension, continue metoprolol to avoid rebound tachycardia, no sign of fluid overload at present - Aim MAP 95 per neurology recommendations (3) Hyperlipidemia: Plan: As above - continue statin at current dose (4) Bigeminy: Plan: Improved after potassium repleted (5) Hypothyroid: Plan: Continue Synthroid (6) Cardiovascular disease: Plan: As above- prior CVA and CVD (7) Cerebral vascular disease: Plan: As above (8) Gastroesophageal reflux disease: Plan: Protonix 40 mg switch to PO (9) Chronic systolic congestive heart failure: Plan: EF 30-35% Nov 2018 - ECHO with CVA workup - No CHF with holding lasix. Likely can restart this tomorrow if blood pressure stable/improves (10) Bipolar disorder, unspecified: Plan: Continue lithium and Seroquel - Zyprexa as needed for agitation (11) Esophageal dysmotility: Plan: Chronic dysphagia, with esophageal slippery diet and medications given with applesauce (12) Seizure disorder: Plan: Continue with Primidone- next dose is tomorrow morning - continue seizure precautions (13) Mentally challenged: Plan: As above, has mother and caregiver - supportive care Admission and Anticipated Discharge Date Admission Date: May 08, 2021 Subjective No acute events overnight. Mother reports she appears mostly at her baseline except not moving her left side. Mild movements of LLE but minimal movements of her LUE. Unsure of discharge plans at the current time as mother concerned about going to jail as she may have to be there /. No shortness of breath or leg swelling despite holding her usual lasix. Having PVCs on telemetry but no significant bigeminy burden after replacing potassium. Review of Systems Review of Systems: Unobtainable due to cognitive status Physical Exam Constitutional: + not well nourished and no acute distress Eyes: + anicteric sclerae; normal pupil size Respiratory: normal respiratory effort Cardiovascular: Extremities: no pedal edema Skin: no rashes, warm and dry Neurologic: + focal motor deficit (no movement seen on left side) and awake; not confused Speech / Cognition: + abnormal speech Unable to assess co- ordination or gait Psychiatric: A+Ox3, euthymic affect Orientation: alert (significantly improved over the last few days); + not oriented x 3 Motor Behavior: no psychomotor agitation (much improved) Results & Data Results & Data ([facility]) Vital Signs (Past 12 Hours) Vital Signs Temp Pulse Resp BP Pulse Ox 05/12/21 19:25 37.1 C 104 H 18 129/72 94 05/12/21 14:53 36.4 C L 112 H 19 142/80 H 97 05/12/21 11:09 36.8 C 104 H 18 121/80 92 PG Care Time/CCT Total # of Minutes Spent Total Time Spent with Patient: Total time spent is greater than 50% in coordination of care (as documented) at patient's floor/unit and/or counseling patient: Coding Level of Care Code 31537 Subseq Hosp Care Lvl 2 Diagnoses Stroke I63.9 HTN (hypertension) I10 Hypertension type: essential hypertension Hyperlipidemia E78.5 Bigeminy I49.8 Hypothyroid E03.9 Hypothyroidism type: unspecified Cardiovascular disease I25.10 Cerebral vascular disease I67.9 Gastroesophageal reflux disease K21.9 Chronic systolic congestive heart failure I50.22 Bipolar disorder, unspecified F31.9 Esophageal dysmotility K22.4 Seizure disorder G40.909 Mentally challenged F79 (1) Hypothyroid Hypothyroidism type: unspecified Qualified Code(s): E03.9 - Hypothyroidism, unspecified (2) HTN (hypertension) Hypertension type: essential hypertension Qualified Code(s): I10 - Essential (primary) hypertension
[2021-05-13] MEDS: LEVOTHYROXINE SODIUM 50 MCG TABLET PO SCH (05:51)
[2021-05-13 07:27] LABS: Basophils # (auto) 0.03 K/uL (0-0.2); Basophils % (auto) 0.2 %; Eosinophils # (auto) 0.41 K/uL (0-0.5); Eosinophils % (auto) 3.4 %; Hematocrit (blood only) 36.1 % (37-47); Hemoglobin 12.1 g/dL (12.0-16.0); Immature Granulocytes # (auto) 0.02 K/uL (0.00-0.02); Immature Granulocytes % (auto) 0.2 %; Lymphocytes # (auto) 1.55 K/uL (1.2-3.4); Lymphocytes % (auto) 12.7 %; Mean Corpuscular Hgb Conc 33.5 g/dL (32-36); Mean Corpuscular Volume 107.4 fL (80-100); Mean Platelet Volume 10.7 fL (7.4-10.4); Monocytes # (auto) 1.07 K/uL (0.11-0.59); Monocytes % (auto) 8.8 %; Neutrophils # (auto) 9.12 K/uL (1.4-6.5); Neutrophils % (auto) 74.7 %; Platelet Count 252 K/uL (130-400); RDW Coefficient of Variation 14.8 % (11.5-14.5); RDW Standard Deviation 57.4 fL (36.4-46.3); Red Blood Count 3.36 M/uL (4.2-5.4)
--- NOTE | 2021-05-13 08:07 | Neurology Progress Note ---
Date of Service May 13, 2021 Assessment & Plan (1) Acute CVA (cerebrovascular accident): (2) Acute left hemiparesis: (3) Seizure disorder: (4) HTN (hypertension): (5) Bipolar disorder, unspecified: (6) Mentally challenged: Plan: This patient had a somewhat large acute left frontoparietal stroke May 08 resulting in left nora paresis of a significant nature, face and arm greater than leg. She probably has nora sensory deficits and speech issues but this is very difficult to be certain in lieu of her severe chronic encephalopathy and intellectual disabilities. She is probably starting to decline physically and mentally over the last year or two. This acute stroke happen despite being on clopidogrel. Patient has moderate old small vessel ischemic disease and lacunar infarcts by MRI. She has mild ventriculomegaly which is stable. tPA was given in the emergency room and it did not make any significant neurologic improvements within the 1st day. MR angiography had shown occlusion of the right middle cerebral artery sylvian branch. There are moderate stenoses in other areas as noted as well. Today she seems very calm compared to previous visits. She is saying simple words, at times. Her left sided weakness is about the same as 2-3 days ago. She has a generalized tonic-clonic seizure disorder well controlled on current dose of Mysoline with no seizures since her early 20s. She has had no seizures since hospitalized. She has a history of bipolar and behavioral disorders, followed by Psychiatry, on long-standing lithium and Seroquel. Mood has been stable during this hospitalization Risk factors for stroke include hypertension and cardiac disease. hemoglobin A1c was normal at 5.6. total cholesterol was 180 and triglycerides 96 Recommendations: 1. Continue clopidogrel 75 milligrams +81 milligrams aspirin daily. remain on both for a total of 3 weeks and then go back to clopidogrel alone. 2. No indication for anticoagulation at this time. 3. Physical, occupational, and speech therapy consults, increasing activity as able. 4. Control blood pressure as you are doing, aiming for a mean arterial pressure of approximately 95. 5. Technically, she is a high dose statin candidate (no neurologic contraindications to high-dose statins that I am aware) but keep atorvastatin 40 milligrams daily. 6. Avoid Ativan as much as possible so mental status is not altered any further. Overall, I spent a total of 25 minutes with this case including review of records, direct evaluation the patient bedside, and discussion of the case with the RN at bedside and Dr. Rao, including differential diagnosis and treatment options. Admission and Anticipated Discharge Date Admission Date: May 08, 2021 Subjective Patient apparently had a restful night according to nursing staff without agitation or issue. She has not had any seizures since admission either. This morning she seems calm and when I ask her if she is in pain she says "no". I asked her if she is hungry and she said "yeah" CBC shows mildly elevated white count of 12.2. She has borderline anemia. MCV is 107 a Chem profile is pending. Results & Data ([facility]) Vital Signs (Past 12 Hours) Vital Signs Temp Pulse Pulse Resp BP Pulse Ox 05/13/21 07:06 38.1 C H 99 H 16 104/70 93 05/13/21 02:37 37.6 C H 97 H 17 114/76 94 05/13/21 02:15 96 H 05/12/21 23:02 36.7 C 97 H 19 118/70 93 Exam (Neuro) Physical Exam: She is very sleepy this morning but easily arousable with voice and gentle shaking. The left upper extremity was essentially flaccid with no spontaneous movement. Left leg had some toe and she would spontaneously move it some. This some left facial droop. The right side seem strong. There are no abnormal involuntary movements. PG Care Time/CCT Total # of Minutes Spent Total Time Spent with Patient: Total time spent is greater than 50% in coordination of care (as documented) at patient's floor/unit and/or counseling patient: Coding Level of Care Code 61129 Subseq Hosp Care Lvl 2 Diagnoses Acute CVA (cerebrovascular accident) I63.9 Acute left hemiparesis G81.94 Seizure disorder G40.909 HTN (hypertension) I10 Hypertension type: essential hypertension Bipolar disorder, unspecified F31.9 Mentally challenged F79 Time Spent (min) 25 (1) HTN (hypertension) Hypertension type: essential hypertension Qualified Code(s): I10 - Essential (primary) hypertension
[2021-05-13 08:40] LABS: BUN Creatinine Ratio 17.6 (10-20); Calcium 8.8 mg/dl (8.5-10.1); Creatinine Clr Calc Pharmacy 69.7 ml/min; Est GFR (Non-African American) 99.2 ml/min
[2021-05-13] MEDS: CHOLECALCIFEROL 1,000 UNITS 25 MCG TAB PO SCH (09:07)
[2021-05-13] MEDS: CETIRIZINE HCL 10 MG TABLET PO SCH (09:08)
[2021-05-13] MEDS: CLOPIDOGREL BISULFATE 75 MG TAB PO SCH (09:08)
[2021-05-13] MEDS: PRIMIDONE 250 MG TAB PO SCH (09:08)
[2021-05-13] MEDS: METOPROLOL SUCC 25MG EXT REL TAB PO SCH (09:09)
[2021-05-13] MEDS: LINACLOTIDE 145 MCG CAPSULE PO SCH (09:09)
[2021-05-13] MEDS: CARBAMIDE PEROXIDE 6.5% 15 ML BTL OT SCH (09:10)
[2021-05-13] MEDS: NAPHAZOLIN/PHENIRAMIN OPH SOLN 75 DROPS/5 ML BTL OP SCH ×2 (09:11→20:33)
[2021-05-13] MEDS: DOCUSATE SODIUM 100 MG CAP PO SCH ×2 (09:17→20:32)
[2021-05-13] MEDS: POTASSIUM CHLORIDE 10 MEQ TABCR PO SCH (09:18)
[2021-05-13 09:30] LABS: Appearance Urine Cloudy (Clear); Bacteria Urine Automated 2+ (Negative); Bilirubin Urine Negative (Negative); Blood Urine 2+ (Negative); Cast Urine Automated 0 /lpf (0-5); Color Urine Yellow; Epithelial Cell Urine Auto 0-5 /lpf (0-5); Glucose Urine UA Negative (Negative); Ketones Urine Negative (Negative); Leukocyte Esterase Urine 3+ (Negative); Nitrite Urine Positive (Negative); RBC Urine Automated >30 /hpf (0-4); Specific Gravity Urine 1.012 (1.000-1.030); Urobilinogen Urine Negative (Negative); WBC Urine Automated >30 /hpf (0-5); pH Urine 7.5 (4.5-7.5)
[2021-05-13 09:48] LABS: Protein Urine 2+ (Negative)
--- NOTE | 2021-05-13 10:15 | XRay Report ---
XR chest 1V portable CLINICAL HISTORY: Fever COMPARISON STUDY: No previous studies for comparison. FINDINGS: Lung volumes are normal. Lungs are clear. There is no pneumothorax or pleural effusion. Car diomegaly is again noted. Mediastinal contours are normal. There is no evidence for pulmonary edema. IMPRESSION: No acute cardiopulmonary findings. No consolidation. ACT 112: Negative or not required by law. Electronically signed by: Herve Cali M.D. 05/13/2021 10:13 AM
[2021-05-13] MEDS: AMMONIUM LACTATE 12% LOTION 225 GM BTL EXT SCH ×2 (13:56→20:33)
[2021-05-13] MEDS: cefTRIAXone SODIUM 1,000 MG in DEXTROSE 5% 50 ML IV SCH (14:29)
[2021-05-13] MEDS: BETAMETHASONE DIP AUG 0.05% OINT 15 GM TUBE EXT PRN (20:19)
[2021-05-13] MEDS: ASPIRIN 81 MG ECTAB PO SCH (20:32)
[2021-05-13] MEDS: LITHIUM CARBONATE 450 MG TABCR PO SCH (20:32)
[2021-05-13] MEDS: ATORVASTATIN 40 MG TAB PO SCH (20:32)
[2021-05-13] MEDS: QUEtiapine FUMARATE 300 MG TABLET PO SCH (20:32)
[2021-05-13] MEDS: QUEtiapine FUMARATE 25 MG TABLET PO SCH (20:32)
--- NOTE | 2021-05-13 22:56 | Hospitalist Progress Note ---
Date of Service May 13, 2021 Assessment & Plan (1) Stroke: Plan: Acute sylvian branch of the right middle cerebral artery- s/p tPA - MRI with 6.5 x 3.4 cm acute infarct of posterior right MCA distribution involving the posterior right frontal and parietal lobes. - No hemorrhagic conversion on repeat CT head - Increased atorvastatin to 20->40mg PO daily - ASA + clopidogrel for 3 weeks then clopidogrel alone - Appreciate neurology consult. - TTE - No significant change to 2019 echo (2) Acute UTI: Plan: UA suggestive of infection. Follow up culture. Ceftriaxone 1g IV daily. (3) HTN (hypertension): Plan: Hold lasix to allow permissive hypertension, continue metoprolol to avoid rebound tachycardia, no sign of fluid overload at present - Aim MAP 95 per neurology recommendations (4) Hyperlipidemia: Plan: As above - continue statin at current dose (5) Bigeminy: Plan: Improved after potassium repleted (6) Hypothyroid: Plan: Continue Synthroid (7) Cardiovascular disease: Plan: As above- prior CVA and CVD (8) Cerebral vascular disease: Plan: As above (9) Gastroesophageal reflux disease: Plan: Protonix 40 mg switch to PO (10) Chronic systolic congestive heart failure: Plan: EF 30-35% Nov 2018 - ECHO with CVA workup (11) Bipolar disorder, unspecified: Plan: Continue lithium and Seroquel - Zyprexa as needed for agitation (12) Esophageal dysmotility: Plan: Chronic dysphagia, with esophageal slippery diet and medications given with applesauce (13) Seizure disorder: Plan: Continue with Primidone- next dose is tomorrow morning - continue seizure precautions (14) Mentally challenged: Plan: As above, has mother and caregiver - supportive care Plan: Medically stable for discharge pending placement Admission and Anticipated Discharge Date Admission Date: May 08, 2021 Subjective Fever this morning although patient appears well and alert. Eating and drinking well. No shortness of breath. Unable to get any history from patient but reportedly minimal movement on left side. Review of Systems Review of Systems: Unobtainable due to cognitive status Physical Exam Constitutional: + not well nourished and no acute distress Eyes: + anicteric sclerae; normal pupil size Respiratory: normal respiratory effort, lungs clear to auscultation normal respiratory effort Cardiovascular: Rate/Rhythm: regular rate and regular rhythm Heart Sounds: no murmur Extremities: no pedal edema Skin: no rashes, warm and dry Neurologic: + focal motor deficit (no movement seen on left side) and awake; not confused Speech / Cognition: + abnormal speech Cranial Nerves: no nystagmus Psychiatric: Orientation: alert; + not oriented x 3 Results & Data Results & Data ([facility]) Vital Signs (Past 12 Hours) Vital Signs Temp Pulse Resp BP Pulse Ox 05/13/21 19:17 36.6 C 86 20 103/66 93 05/13/21 15:16 36.7 C 100 H 18 118/81 96 05/13/21 11:28 36.5 C 104 H 18 117/77 95 PG Care Time/CCT Total # of Minutes Spent Total Time Spent with Patient: Total time spent is greater than 50% in coordination of care (as documented) at patient's floor/unit and/or counseling patient: Coding Level of Care Code 27075 Subseq Hosp Care Lvl 2 Diagnoses Stroke I63.9 HTN (hypertension) I10 Hypertension type: essential hypertension Hyperlipidemia E78.5 Bigeminy I49.8 Hypothyroid E03.9 Hypothyroidism type: unspecified Cardiovascular disease I25.10 Cerebral vascular disease I67.9 Gastroesophageal reflux disease K21.9 Chronic systolic congestive heart failure I50.22 Bipolar disorder, unspecified F31.9 Esophageal dysmotility K22.4 Seizure disorder G40.909 Mentally challenged F79 Acute UTI N39.0 (1) Hypothyroid Hypothyroidism type: unspecified Qualified Code(s): E03.9 - Hypothyroidism, unspecified (2) HTN (hypertension) Hypertension type: essential hypertension Qualified Code(s): I10 - Essential (primary) hypertension
[2021-05-14] MEDS: OLANZapine 10 MG/2.1 ML SDV IM PRN (03:28)
[2021-05-14] MEDS: LEVOTHYROXINE SODIUM 50 MCG TABLET PO SCH (05:58)
[2021-05-14 07:46] LABS: Basophils # (auto) 0.02 K/uL (0-0.2); Basophils % (auto) 0.2 %; Eosinophils # (auto) 0.33 K/uL (0-0.5); Eosinophils % (auto) 3.2 %; Hematocrit (blood only) 34.7 % (37-47); Hemoglobin 11.3 g/dL (12.0-16.0); Immature Granulocytes # (auto) 0.02 K/uL (0.00-0.02); Immature Granulocytes % (auto) 0.2 %; Lymphocytes # (auto) 1.85 K/uL (1.2-3.4); Lymphocytes % (auto) 17.7 %; Mean Corpuscular Hemoglobin 34.3 pg (25-34); Mean Corpuscular Hgb Conc 32.6 g/dL (32-36); Mean Corpuscular Volume 105.5 fL (80-100); Mean Platelet Volume 10.5 fL (7.4-10.4); Monocytes # (auto) 1.02 K/uL (0.11-0.59); Monocytes % (auto) 9.8 %; Neutrophils # (auto) 7.21 K/uL (1.4-6.5); Neutrophils % (auto) 68.9 %; Platelet Count 244 K/uL (130-400); RDW Coefficient of Variation 14.8 % (11.5-14.5); RDW Standard Deviation 56.3 fL (36.4-46.3); Red Blood Count 3.29 M/uL (4.2-5.4); White Blood Count 10.45 K/uL (4.8-10.8)
[2021-05-14 08:03] LABS: BUN Creatinine Ratio 27.3 (10-20); Calcium 8.8 mg/dl (8.5-10.1); Creatinine Clr Calc Pharmacy 87.2 ml/min; Est GFR (African American) 123.8 ml/min; Est GFR (Non-African American) 106.8 ml/min; Potassium 3.6 mmol/L (3.5-5.1)
[2021-05-14] MEDS: NAPHAZOLIN/PHENIRAMIN OPH SOLN 75 DROPS/5 ML BTL OP SCH ×2 (08:07→21:36)
[2021-05-14] MEDS: CETIRIZINE HCL 10 MG TABLET PO SCH (08:08)
[2021-05-14] MEDS: CLOPIDOGREL BISULFATE 75 MG TAB PO SCH (08:08)
[2021-05-14] MEDS: LINACLOTIDE 145 MCG CAPSULE PO SCH (08:08)
[2021-05-14] MEDS: CHOLECALCIFEROL 1,000 UNITS 25 MCG TAB PO SCH (08:08)
[2021-05-14] MEDS: PRIMIDONE 250 MG TAB PO SCH (08:08)
[2021-05-14] MEDS: POTASSIUM CHLORIDE 10 MEQ TABCR PO SCH (09:32)
[2021-05-14] MEDS: DOCUSATE SODIUM 100 MG CAP PO SCH ×2 (09:32→21:36)
[2021-05-14] MEDS: METOPROLOL SUCC 25MG EXT REL TAB PO SCH (09:32)
[2021-05-14] MEDS: AMMONIUM LACTATE 12% LOTION 225 GM BTL EXT SCH ×2 (10:35→21:54)
[2021-05-14] MEDS: SENNA 8.6 MG TAB PO PRN (14:24)
[2021-05-14] MEDS: cefTRIAXone SODIUM 1,000 MG in DEXTROSE 5% 50 ML IV SCH (14:24)
[2021-05-14] MEDS: ASPIRIN 81 MG ECTAB PO SCH (20:15)
[2021-05-14] MEDS: ATORVASTATIN 40 MG TAB PO SCH (20:16)
[2021-05-14] MEDS: LITHIUM CARBONATE 450 MG TABCR PO SCH (20:16)
[2021-05-14] MEDS: QUEtiapine FUMARATE 300 MG TABLET PO SCH (20:16)
[2021-05-14] MEDS: QUEtiapine FUMARATE 25 MG TABLET PO SCH (20:16)
--- NOTE | 2021-05-14 22:45 | Hospitalist Progress Note ---
Date of Service May 14, 2021 Assessment & Plan (1) Stroke: Plan: Acute sylvian branch of the right middle cerebral artery- s/p tPA - MRI with 6.5 x 3.4 cm acute infarct of posterior right MCA distribution involving the posterior right frontal and parietal lobes. - No hemorrhagic conversion on repeat CT head - Increased atorvastatin to 20->40mg PO daily - ASA + clopidogrel for 3 weeks then clopidogrel alone - Appreciate neurology consult. - TTE - No significant change to 2019 echo (2) Acute UTI: Plan: UA suggestive of infection. Urine culture growing GNR. Ceftriaxone 1g IV daily. (3) HTN (hypertension): Plan: Hold lasix to allow permissive hypertension, continue metoprolol to avoid rebound tachycardia, no sign of fluid overload at present - Aim MAP 95 per neurology recommendations (4) Hyperlipidemia: Plan: As above - continue statin at current dose (5) Bigeminy: Plan: Improved after potassium repleted (6) Hypothyroid: Plan: Continue Synthroid (7) Cardiovascular disease: Plan: As above- prior CVA and CVD (8) Cerebral vascular disease: Plan: As above (9) Gastroesophageal reflux disease: Plan: Protonix 40 mg switch to PO (10) Chronic systolic congestive heart failure: Plan: EF 30-35% Nov 2018 - ECHO with CVA workup (11) Bipolar disorder, unspecified: Plan: Continue lithium and Seroquel - Zyprexa as needed for agitation (12) Esophageal dysmotility: Plan: Chronic dysphagia, with esophageal slippery diet and medications given with applesauce (13) Seizure disorder: Plan: Continue with Primidone- next dose is tomorrow morning - continue seizure precautions (14) Mentally challenged: Plan: As above, has mother and caregiver - supportive care Plan: Medically stable for discharge pending placement Admission and Anticipated Discharge Date Admission Date: May 08, 2021 Subjective No acute events overnight. Mother not at bedside when seen. Patient alert, appears to be at her baseline. Review of Systems Review of Systems: Unobtainable due to cognitive status Physical Exam Constitutional: + not well nourished and no acute distress Respiratory: normal respiratory effort, lungs clear to auscultation normal respiratory effort Cardiovascular: Rate/Rhythm: regular rate and regular rhythm Heart Sounds: no murmur Extremities: + pedal edema (trace b/l edema) Skin: no rashes, warm and dry Neurologic: + focal motor deficit (no movement seen on left side) and awake; not confused Speech / Cognition: + abnormal speech Cranial Nerves: no nystagmus Psychiatric: Orientation: alert; + not oriented x 3 Results & Data Results & Data ([facility]) Vital Signs (Past 12 Hours) Vital Signs Temp Pulse Pulse Resp BP BP Pulse Ox 05/14/21 19:43 37.2 C 102 H 18 113/87 96 05/14/21 15:51 95 H 05/14/21 14:14 36.7 C 79 18 103/67 96 PG Care Time/CCT Total # of Minutes Spent Total Time Spent with Patient: Total time spent is greater than 50% in coordination of care (as documented) at patient's floor/unit and/or counseling patient: Coding Level of Care Code 86911 Subseq Hosp Care Lvl 2 Diagnoses Stroke I63.9 Acute UTI N39.0 HTN (hypertension) I10 Hypertension type: essential hypertension Hyperlipidemia E78.5 Bigeminy I49.8 Hypothyroid E03.9 Hypothyroidism type: unspecified Cardiovascular disease I25.10 Cerebral vascular disease I67.9 Gastroesophageal reflux disease K21.9 Chronic systolic congestive heart failure I50.22 Bipolar disorder, unspecified F31.9 Esophageal dysmotility K22.4 Seizure disorder G40.909 Mentally challenged F79 (1) HTN (hypertension) Hypertension type: essential hypertension Qualified Code(s): I10 - Essential (primary) hypertension (2) Hypothyroid Hypothyroidism type: unspecified Qualified Code(s): E03.9 - Hypothyroidism, unspecified
[2021-05-15] MEDS: LEVOTHYROXINE SODIUM 50 MCG TABLET PO SCH (05:52)
[2021-05-15] MEDS: AMMONIUM LACTATE 12% LOTION 225 GM BTL EXT SCH ×2 (08:23→21:10)
[2021-05-15] MEDS: CLOPIDOGREL BISULFATE 75 MG TAB PO SCH (08:24)
[2021-05-15] MEDS: CHOLECALCIFEROL 1,000 UNITS 25 MCG TAB PO SCH (08:24)
[2021-05-15] MEDS: CETIRIZINE HCL 10 MG TABLET PO SCH (08:24)
[2021-05-15] MEDS: DOCUSATE SODIUM 100 MG CAP PO SCH ×2 (08:25→21:10)
[2021-05-15] MEDS: LINACLOTIDE 145 MCG CAPSULE PO SCH (08:25)
[2021-05-15] MEDS: METOPROLOL SUCC 25MG EXT REL TAB PO SCH (08:27)
[2021-05-15] MEDS: NAPHAZOLIN/PHENIRAMIN OPH SOLN 75 DROPS/5 ML BTL OP SCH ×2 (08:29→19:17)
[2021-05-15] MEDS: POTASSIUM CHLORIDE 10 MEQ TABCR PO SCH (08:30)
[2021-05-15] MEDS: SENNA 8.6 MG TAB PO PRN (08:30)
[2021-05-15] MEDS: PRIMIDONE 250 MG TAB PO SCH (08:30)
[2021-05-15] MEDS: cefTRIAXone SODIUM 1,000 MG in DEXTROSE 5% 50 ML IV SCH (13:42)
--- NOTE | 2021-05-15 13:52 | Hospitalist Progress Note ---
Date of Service May 15, 2021 Assessment & Plan (1) Stroke: Plan: Acute sylvian branch of the right middle cerebral artery- s/p tPA. Unfortunately no significant improvement with her left-sided weakness despite TPA given. She is also [id number] due to contractures in her right hand but surprisingly appears to be adapting well. Stable for a number of days at this point and awaiting rehab. - MRI with 6.5 x 3.4 cm acute infarct of posterior right MCA distribution involving the posterior right frontal and parietal lobes. - No hemorrhagic conversion on repeat CT head - Increased atorvastatin to 20->40mg PO daily - ASA + clopidogrel for 3 weeks then clopidogrel alone - Appreciate neurology consult. - TTE - No significant change to 2019 echo (2) Acute UTI: Plan: Urine culture pansensitive E. coli. Suspect catheter associated as this was inserted on admission. Catheter was subsequently removed prior to picking up urine tract infection. Ceftriaxone 1g IV daily for 3 days. Given urinary incontinence will finish a 7- day course with Macrobid. (3) HTN (hypertension): Plan: Continue metoprolol to avoid rebound tachycardia Surprisingly she has had no peripheral edema or signs/symptoms of pulmonary edema despite holding usual Lasix in the setting of cardiomyopathy. Would continue to hold her Lasix at this time as her mother will monitor closely for worsening edema or shortness of breath and I will be concerned of dropping her blood pressure causing hypoperfusion to her stroke areas if we restarted this. (4) Hyperlipidemia: Plan: As above - continue statin at current dose (5) Bigeminy: Plan: 8 beat NSVT 05/15, K nd Mg normal, bigeminy improved after potassium replaced earlier in admission (6) Hypothyroid: Plan: Continue Synthroid (7) Cardiovascular disease: Plan: As above- prior CVA and CVD (8) Cerebral vascular disease: Plan: As above (9) Gastroesophageal reflux disease: Plan: Protonix 40 mg switch to PO (10) Chronic systolic congestive heart failure: Plan: EF 30-35% Nov 2018 - ECHO with CVA workup - Lasix on hold as above (11) Bipolar disorder, unspecified: Plan: Continue lithium and Seroquel - Zyprexa as needed for agitation (12) Esophageal dysmotility: Plan: Chronic dysphagia, with esophageal slippery diet and medications given with applesauce (13) Seizure disorder: Plan: Continue with Primidone- next dose is tomorrow morning - continue seizure precautions (14) Mentally challenged: Plan: As above, has mother and caregiver - supportive care Plan: Medically stable for discharge pending placement Admission and Anticipated Discharge Date Admission Date: May 08, 2021 Subjective No acute events overnight. Adapting to use her right hadn with contractures. Coloring when seen. Minimal movements noted proximal LUE movements but no distal movements. Review of Systems Review of Systems: All systems reviewed & are unremarkable except as noted in HPI & below Physical Exam Constitutional: + not well nourished and no acute distress Eyes: + anicteric sclerae; normal pupil size Respiratory: normal respiratory effort, lungs clear to auscultation normal respiratory effort Cardiovascular: Rate/Rhythm: regular rate and regular rhythm Heart Sounds: no murmur Extremities: + pedal edema (trace b/l edema) Skin: no rashes, warm and dry Neurologic: + focal motor deficit (no movement seen on left side) and awake; not confused Speech / Cognition: + abnormal speech Cranial Nerves: no nystagmus Psychiatric: A+Ox3, euthymic affect Orientation: alert; + not oriented x 3 Motor Behavior: no psychomotor agitation Results & Data Results & Data ([facility]) Vital Signs (Past 12 Hours) Vital Signs Temp Pulse Pulse Resp BP Pulse Ox 05/15/21 11:27 37.2 C 98 H 20 108/71 93 05/15/21 09:22 85 05/15/21 07:40 36.9 C 80 20 90/59 L 93 05/15/21 03:45 37 C 82 16 100/63 96 PG Care Time/CCT Total # of Minutes Spent Total Time Spent with Patient: Total time spent is greater than 50% in coordination of care (as documented) at patient's floor/unit and/or counseling patient: Coding Level of Care Code 56887 Subseq Hosp Care Lvl 1 Diagnoses Stroke I63.9 Acute UTI N39.0 HTN (hypertension) I10 Hypertension type: essential hypertension Hyperlipidemia E78.5 Bigeminy I49.8 Hypothyroid E03.9 Hypothyroidism type: unspecified Cardiovascular disease I25.10 Cerebral vascular disease I67.9 Gastroesophageal reflux disease K21.9 Chronic systolic congestive heart failure I50.22 Bipolar disorder, unspecified F31.9 Esophageal dysmotility K22.4 Seizure disorder G40.909 Mentally challenged F79 (1) Hypothyroid Hypothyroidism type: unspecified Qualified Code(s): E03.9 - Hypothyroidism, unspecified (2) HTN (hypertension) Hypertension type: essential hypertension Qualified Code(s): I10 - Essential (primary) hypertension
[2021-05-15 16:45] LABS: BUN Creatinine Ratio 26.6 (10-20); Calcium 8.6 mg/dl (8.5-10.1); Creatinine Clr Calc Pharmacy 86.4 ml/min; Est GFR (Non-African American) 106.1 ml/min
[2021-05-15] MEDS: ASPIRIN 81 MG ECTAB PO SCH (19:15)
[2021-05-15] MEDS: ATORVASTATIN 40 MG TAB PO SCH (19:15)
[2021-05-15] MEDS: LITHIUM CARBONATE 450 MG TABCR PO SCH (19:16)
[2021-05-15] MEDS: QUEtiapine FUMARATE 25 MG TABLET PO SCH (19:16)
[2021-05-15] MEDS: QUEtiapine FUMARATE 300 MG TABLET PO SCH (19:16)
[2021-05-15 19:32] LABS: Potassium 3.9 mmol/L (3.5-5.1)
[2021-05-15 19:34] LABS: Magnesium 2.3 mg/dl (1.8-2.4)
[2021-05-16] MEDS: LEVOTHYROXINE SODIUM 50 MCG TABLET PO SCH (07:08)
[2021-05-16] MEDS: NAPHAZOLIN/PHENIRAMIN OPH SOLN 75 DROPS/5 ML BTL OP SCH ×2 (08:38→20:10)
[2021-05-16] MEDS: AMMONIUM LACTATE 12% LOTION 225 GM BTL EXT SCH ×2 (08:38→20:09)
[2021-05-16] MEDS: ACETIC ACID 2% OTIC SOLN 15 ML BTL OT SCH (08:38)
[2021-05-16] MEDS: NITROFURANTOIN MONOHYDRATE 100 MG CAP PO SCH ×2 (08:39→20:06)
[2021-05-16] MEDS: CHOLECALCIFEROL 1,000 UNITS 25 MCG TAB PO SCH (08:39)
[2021-05-16] MEDS: CLOPIDOGREL BISULFATE 75 MG TAB PO SCH (08:39)
[2021-05-16] MEDS: PRIMIDONE 250 MG TAB PO SCH (08:39)
[2021-05-16] MEDS: DOCUSATE SODIUM 100 MG CAP PO SCH ×2 (08:39→20:12)
[2021-05-16] MEDS: POTASSIUM CHLORIDE 10 MEQ TABCR PO SCH (08:39)
[2021-05-16] MEDS: LINACLOTIDE 145 MCG CAPSULE PO SCH (08:39)
[2021-05-16] MEDS: METOPROLOL SUCC 25MG EXT REL TAB PO SCH (08:39)
[2021-05-16] MEDS: CETIRIZINE HCL 10 MG TABLET PO SCH (08:39)
--- NOTE | 2021-05-16 09:53 | Neurology Progress Note ---
Date of Service May 16, 2021 Assessment & Plan (1) Acute CVA (cerebrovascular accident): (2) Acute left hemiparesis: (3) Seizure disorder: (4) HTN (hypertension): (5) Bipolar disorder, unspecified: (6) Mentally challenged: Plan: This patient had a large acute left frontoparietal stroke May 08, resulting in left hemiparesis of a significant nature, face and arm greater than leg. She probably has nora sensory deficits and speech issues but this is very difficult to be certain in lieu of her severe chronic encephalopathy and intellectual disabilities. According to the patient's mother, she has been starting to decline physically and mentally over the last year or two. This acute stroke happened despite being on clopidogrel. Patient has moderate old small vessel ischemic disease and lacunar infarcts by MRI. She has mild ventriculomegaly which is stable. tPA was given in the emergency room and it did not make any significant neurologic improvements within the 1st day. MR angiography had shown occlusion of the right middle cerebral artery sylvian branch. There are moderate stenoses in other areas as noted as well. Clinically she is markedly improved today compared to several days ago. She is quite awake and alert, pleasant and cooperative. She moving the left side better than before including the arm. She has a history of a generalized tonic-clonic seizure disorder, well controlled on current dose of Mysoline, with no seizures since her early 20s. She has had no seizures since hospitalized. She has a history of bipolar and behavioral disorders, followed by Psychiatry, on long-standing lithium and Seroquel. Mood has been quite good during this hospitalization Risk factors for stroke include hypertension and cardiac disease. hemoglobin A1c was normal at 5.6. total cholesterol was 180 and triglycerides 96 Recommendations: 1. Continue clopidogrel 75 milligrams +81 milligrams aspirin daily together for 2 more weeks, then go back to clopidogrel alone. 2. There is no indication for anticoagulation at this time. 3. Physical, occupational, and speech therapy consults, increasing activity as able. 4. Control blood pressure as you are doing, aiming for a mean arterial pressure of approximately 95. 5. Technically, she is a high dose statin candidate (no neurologic contraindications to high-dose statins that I am aware), but keeping atorvastatin 40 milligrams daily is reasonable. 6. Avoid Ativan and any other DESKIDDING MACHINE OPERATOR sedating medication, as much as possible 7. I have no further neurologic testing or treatment recommendations to make at this time. Please contact me if I can be of further assistance. Overall, I spent a total of 35 minutes with this case including review of records, direct evaluation the patient bedside, and discussion of the case with the RN at bedside and Dr. Quintana including differential diagnosis and treatment options. Admission and Anticipated Discharge Date Admission Date: May 08, 2021 Subjective the patient has been very pleasant and cooperative over the last day or 2. This morning she does not seem to be in pain and is talking to me although I do not understand most of the words. She was asking about her mother. Nursing reports no events or seizures. Blood pressure is 94/52 with pulse in the 90s. She is afebrile. Chem profile was unremarkable yesterday. Results & Data ([facility]) Vital Signs (Past 12 Hours) Vital Signs Temp Pulse Pulse Resp BP Pulse Ox 05/16/21 07:35 36.9 C 92 H 16 94/52 L 93 05/16/21 03:00 36.5 C 82 18 102/70 92 05/16/21 00:00 88 Exam (Neuro) Physical Exam: She is awake and alert. Speech is attempted and she tries to form words but she is very difficult to figure out. She will follow a few sim ple one-step commands. She makes excellent eye contact when she looks to the right. She does not track all the way to the left and will not fixate to the left. She is spontaneously moving her left leg as before. She is starting to spontaneously move her left upper extremity as well. The arm is weaker than leg however. The right-side is quite strong. There are no abnormal involuntary movements. PG Care Time/CCT Total # of Minutes Spent Total Time Spent with Patient: Total time spent is greater than 50% in coordination of care (as documented) at patient's floor/unit and/or counseling patient: Coding Level of Care Code 20672 Subseq Hosp Care Lvl 3 Diagnoses Acute CVA (cerebrovascular accident) I63.9 Acute left hemiparesis G81.94 Seizure disorder G40.909 HTN (hypertension) I10 Hypertension type: essential hypertension Bipolar disorder, unspecified F31.9 Mentally challenged F79 Time Spent (min) 35 (1) HTN (hypertension) Hypertension type: essential hypertension Qualified Code(s): I10 - Essential (primary) hypertension
[2021-05-16] MEDS: LITHIUM CARBONATE 450 MG TABCR PO SCH (20:05)
[2021-05-16] MEDS: ATORVASTATIN 40 MG TAB PO SCH (20:05)
[2021-05-16] MEDS: QUEtiapine FUMARATE 25 MG TABLET PO SCH (20:06)
[2021-05-16] MEDS: QUEtiapine FUMARATE 300 MG TABLET PO SCH (20:06)
[2021-05-16] MEDS: ASPIRIN 81 MG ECTAB PO SCH (20:08)
--- NOTE | 2021-05-16 21:45 | Hospitalist Progress Note ---
Date of Service May 16, 2021 Assessment & Plan (1) Stroke: Plan: Acute sylvian branch of the right middle cerebral artery- s/p tPA. Unfortunately no significant improvement with her left-sided weakness despite TPA given. 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 Stable for a number of days at this point and awaiting rehab. - MRI with 6.5 x 3.4 cm acute infarct of posterior right MCA distribution involving the posterior right frontal and parietal lobes. - No hemorrhagic conversion on repeat CT head - Increased atorvastatin to 20->40mg PO daily - ASA + clopidogrel for 3 weeks then clopidogrel alone - Appreciate neurology consult. - TTE - No significant change to 2019 echo Reviwed chart and patient is pending placement. (2) Acute UTI: Plan: Urine culture pansensitive E. coli. Suspect catheter associated as this was inserted on admission. Catheter was subsequently removed prior to picking up urine tract infection. Ceftriaxone 1g IV daily for 3 days. Given urinary incontinence will finish a 7- day course with Macrobid. (3) HTN (hypertension): Plan: Continue metoprolol to avoid rebound tachycardia Surprisingly she has had no peripheral edema or signs/symptoms of pulmonary edema despite holding usual Lasix in the setting of cardiomyopathy. Would continue to hold her Lasix at this time as her mother will monitor closely for worsening edema or shortness of breath and I will be concerned of dropping her blood pressure causing hypoperfusion to her stroke areas if we restarted this. (4) Hyperlipidemia: Plan: As above - continue statin at current dose (5) Bigeminy: Plan: 8 beat NSVT 05/15, K nd Mg normal, bigeminy improved after potassium replaced earlier in admission (6) Hypothyroid: Plan: Continue Synthroid (7) Cardiovascular disease: Plan: As above- prior CVA and CVD (8) Cerebral vascular disease: Plan: As above (9) Gastroesophageal reflux disease: Plan: Protonix 40 mg switch to PO (10) Chronic systolic congestive heart failure: Plan: EF 30-35% Nov 2018 - ECHO with CVA workup - Lasix on hold as above (11) Bipolar disorder, unspecified: Plan: Continue lithium and Seroquel - Zyprexa as needed for agitation (12) Esophageal dysmotility: Plan: Chronic dysphagia, with esophageal slippery diet and medications given with applesauce (13) Seizure disorder: Plan: Continue with Primidone- next dose is tomorrow morning - continue seizure precautions (14) Mentally challenged: Plan: As above, has mother and caregiver - supportive care Plan: Medically stable for discharge pending placement Admission and Anticipated Discharge Date Admission Date: May 08, 2021 Subjective Patient is comfortable, patient is somewhat aphasic. But does not appear to be in any discomfort. Review of Systems Review of Systems: All systems reviewed & are unremarkable except as noted in HPI & below Physical Exam Physical Exam: Constitutional: + not well nourished and no acute distress Eyes: + anicteric sclerae; normal pupil size Respiratory: normal respiratory effort, lungs clear to auscultation normal respiratory effort Cardiovascular: Rate/Rhythm: regular rate and regular rhythm Heart Sounds: no murmur Extremities: + pedal edema (trace b/l edema) Skin: no rashes, warm and dry Neurologic: + focal motor deficit (no movement seen on left side) and awake; not confused Speech / Cognition: + abnormal speech Cranial Nerves: no nystagmus Psychiatric: A+Ox3, euthymic affect Orientation: alert; + not oriented x 3 Motor Behavior: no psychomotor agitation Results & Data Results & Data ([facility]) Vital Signs (Past 12 Hours) Vital Signs Temp Pulse Resp BP Pulse Ox 05/16/21 19:34 36.6 C 100 H 20 102/73 95 05/16/21 15:13 36.7 C 100 H 20 100/70 96 05/16/21 11:23 37.0 C 100 H 16 106/67 95 PG Care Time/CCT Total # of Minutes Spent Total Time Spent with Patient: Total time spent is greater than 50% in coordination of care (as documented) at patient's floor/unit and/or counseling patient: Coding Level of Care Code 74660 Subseq Hosp Care Lvl 2 Diagnoses Stroke I63.9 Acute UTI N39.0 HTN (hypertension) I10 Hypertension type: essential hypertension Hyperlipidemia E78.5 Bigeminy I49.8 Hypothyroid E03.9 Hypothyroidism type: unspecified Cardiovascular disease I25.10 Cerebral vascular disease I67.9 Gastroesophageal reflux disease K21.9 Chronic systolic congestive heart failure I50.22 Bipolar disorder, unspecified F31.9 Esophageal dysmotility K22.4 Seizure disorder G40.909 Mentally challenged F79 Time Spent (min) 25 (1) HTN (hypertension) Hypertension type: essential hypertension Qualified Code(s): I10 - Essential (primary) hypertension (2) Hypothyroid Hypothyroidism type: unspecified Qualified Code(s): E03.9 - Hypothyroidism, unspecified
[2021-05-17] MEDS: LEVOTHYROXINE SODIUM 50 MCG TABLET PO SCH (05:39)
[2021-05-17] MEDS: SENNA 8.6 MG TAB PO PRN (09:38)
[2021-05-17] MEDS: PRIMIDONE 250 MG TAB PO SCH (09:38)
[2021-05-17] MEDS: CHOLECALCIFEROL 1,000 UNITS 25 MCG TAB PO SCH (09:38)
[2021-05-17] MEDS: NAPHAZOLIN/PHENIRAMIN OPH SOLN 75 DROPS/5 ML BTL OP SCH ×2 (09:38→20:55)
[2021-05-17] MEDS: LINACLOTIDE 145 MCG CAPSULE PO SCH (09:38)
[2021-05-17] MEDS: CETIRIZINE HCL 10 MG TABLET PO SCH (09:38)
[2021-05-17] MEDS: METOPROLOL SUCC 25MG EXT REL TAB PO SCH (09:38)
[2021-05-17] MEDS: NITROFURANTOIN MONOHYDRATE 100 MG CAP PO SCH ×2 (09:38→20:54)
[2021-05-17] MEDS: CLOPIDOGREL BISULFATE 75 MG TAB PO SCH (09:38)
[2021-05-17] MEDS: BETAMETHASONE DIP AUG 0.05% OINT 15 GM TUBE EXT PRN (09:39)
[2021-05-17] MEDS: DOCUSATE SODIUM 100 MG CAP PO SCH ×2 (09:41→20:59)
[2021-05-17] MEDS: AMMONIUM LACTATE 12% LOTION 225 GM BTL EXT SCH ×2 (09:41→20:57)
[2021-05-17] MEDS: POTASSIUM CHLORIDE 10 MEQ TABCR PO SCH (09:42)
[2021-05-17] MEDS ORDERED: bisacodyL 10 MG SUPP PR STA (15:50)
[2021-05-17] MEDS: ATORVASTATIN 40 MG TAB PO SCH (20:53)
[2021-05-17] MEDS: LITHIUM CARBONATE 450 MG TABCR PO SCH (20:54)
[2021-05-17] MEDS: ASPIRIN 81 MG ECTAB PO SCH (20:54)
[2021-05-17] MEDS: QUEtiapine FUMARATE 25 MG TABLET PO SCH (20:55)
[2021-05-17] MEDS: QUEtiapine FUMARATE 300 MG TABLET PO SCH (20:55)
--- NOTE | 2021-05-17 21:25 | Hospitalist Progress Note ---
Date of Service May 17, 2021 Assessment & Plan (1) Stroke: Plan: Acute sylvian branch of the right middle cerebral artery- s/p tPA. Unfortunately no significant improvement with her left-sided weakness despite TPA given. She is also ytom-kyjq-vwkrhtap due to contractures in her right hand but surprisingly appears to be adapting well. Stable for a number of days at this point and awaiting rehab. - MRI with 6.5 x 3.4 cm acute infarct of posterior right MCA distribution involving the posterior right frontal and parietal lobes. - No hemorrhagic conversion on repeat CT head - Increased atorvastatin to 20->40mg PO daily - ASA + clopidogrel for 3 weeks then clopidogrel alone - Appreciate neurology consult. - TTE - No significant change to 2019 echo Reviwed chart and patient is pending placement. Added dulcolax for constipation. (2) Acute UTI: Plan: Urine culture pansensitive E. coli. Suspect catheter associated as this was inserted on admission. Catheter was subsequently removed prior to picking up urine tract infection. Ceftriaxone 1g IV daily for 3 days. Given urinary incontinence will finish a 7- day course with Macrobid. (3) HTN (hypertension): Plan: Continue metoprolol to avoid rebound tachycardia Surprisingly she has had no peripheral edema or signs/symptoms of pulmonary edema despite holding usual Lasix in the setting of cardiomyopathy. Would continue to hold her Lasix at this time as her mother will monitor closely for worsening edema or shortness of breath and I will be concerned of dropping her blood pressure causing hypoperfusion to her stroke areas if we restarted this. (4) Hyperlipidemia: Plan: As above - continue statin at current dose (5) Bigeminy: Plan: 8 beat NSVT 05/15, K nd Mg normal, bigeminy improved after potassium replaced earlier in admission (6) Hypothyroid: Plan: Continue Synthroid (7) Cardiovascular disease: Plan: As above- prior CVA and CVD (8) Cerebral vascular disease: Plan: As above (9) Gastroesophageal reflux disease: Plan: Protonix 40 mg switch to PO (10) Chronic systolic congestive heart failure: Plan: EF 30-35% Nov 2018 - ECHO with CVA workup - Lasix on hold as above (11) Bipolar disorder, unspecified: Plan: Continue lithium and Seroquel - Zyprexa as needed for agitation (12) Esophageal dysmotility: Plan: Chronic dysphagia, with esophageal slippery diet and medications given with applesauce (13) Seizure disorder: Plan: Continue with Primidone- next dose is tomorrow morning - continue seizure precautions (14) Mentally challenged: Plan: As above, has mother and caregiver - supportive care Plan: Medically stable for discharge pending placement Admission and Anticipated Discharge Date Admission Date: May 08, 2021 Subjective Patient reports no new symptoms. Mother expressed that patient is having constipation. Requesting suppository. Review of Systems Review of Systems: All systems reviewed & are unremarkable except as noted in HPI & below Physical Exam Physical Exam: Constitutional: + not well nourished and no acute distress Eyes: + anicteric sclerae; normal pupil size Respiratory: normal respiratory effort, lungs clear to auscultation normal respiratory effort Cardiovascular: Rate/Rhythm: regular rate and regular rhythm Heart Sounds: no murmur Extremities: + pedal edema (trace b/l edema) Skin: no rashes, warm and dry Neurologic: + focal motor deficit (no movement seen on left side) and awake; not confused Speech / Cognition: + abnormal speech Cranial Nerves: no nystagmus Psychiatric: A+Ox3, euthymic affect Orientation: alert; + not oriented x 3 Motor Behavior: no psychomotor agitation Results & Data Results & Data ([facility]) Vital Signs (Past 12 Hours) Vital Signs Temp Pulse Pulse Resp BP Pulse Ox 05/17/21 19:17 36.8 C 90 18 123/81 95 05/17/21 15:17 36.7 C 78 16 104/69 93 05/17/21 15:14 87 05/17/21 11:03 36.8 C 120 H 16 114/74 93 PG Care Time/CCT Total # of Minutes Spent Total Time Spent with Patient: Total time spent is greater than 50% in coordination of care (as documented) at patient's floor/unit and/or counseling patient: Coding Level of Care Code 30259 Subseq Hosp Care Lvl 2 Diagnoses Stroke I63.9 Acute UTI N39.0 HTN (hypertension) I10 Hypertension type: essential hypertension Hyperlipidemia E78.5 Bigeminy I49.8 Hypothyroid E03.9 Hypothyroidism type: unspecified Cardiovascular disease I25.10 Cerebral vascular disease I67.9 Gastroesophageal reflux disease K21.9 Chronic systolic congestive heart failure I50.22 Bipolar disorder, unspecified F31.9 Esophageal dysmotility K22.4 Seizure disorder G40.909 Mentally challenged F79 Time Spent (min) 25 (1) Hypothyroid Hypothyroidism type: unspecified Qualified Code(s): E03.9 - Hypothyroidism, unspecified (2) HTN (hypertension) Hypertension type: essential hypertension Qualified Code(s): I10 - Essential (primary) hypertension
[2021-05-18] MEDS: LEVOTHYROXINE SODIUM 50 MCG TABLET PO SCH (05:48)
[2021-05-18] MEDS: OLANZapine ZYDIS 5 MG ORALLY DIS. TAB PO PRN (09:15)
[2021-05-18] MEDS: CHOLECALCIFEROL 1,000 UNITS 25 MCG TAB PO SCH (09:15)
[2021-05-18] MEDS: NITROFURANTOIN MONOHYDRATE 100 MG CAP PO SCH ×2 (09:15→20:13)
[2021-05-18] MEDS: PRIMIDONE 250 MG TAB PO SCH (09:15)
[2021-05-18] MEDS: LINACLOTIDE 145 MCG CAPSULE PO SCH (09:16)
[2021-05-18] MEDS: SENNA 8.6 MG TAB PO PRN (09:17)
[2021-05-18] MEDS: CLOPIDOGREL BISULFATE 75 MG TAB PO SCH (09:17)
[2021-05-18] MEDS: POTASSIUM CHLORIDE 10 MEQ TABCR PO SCH (09:18)
[2021-05-18] MEDS: METOPROLOL SUCC 25MG EXT REL TAB PO SCH (09:19)
[2021-05-18] MEDS: DOCUSATE SODIUM 100 MG CAP PO SCH ×2 (09:19→20:12)
[2021-05-18] MEDS: NAPHAZOLIN/PHENIRAMIN OPH SOLN 75 DROPS/5 ML BTL OP SCH ×2 (09:19→20:13)
[2021-05-18] MEDS: CETIRIZINE HCL 10 MG TABLET PO SCH (09:20)
[2021-05-18] MEDS: AMMONIUM LACTATE 12% LOTION 225 GM BTL EXT SCH ×2 (14:56→20:09)
[2021-05-18] MEDS: ASPIRIN 81 MG ECTAB PO SCH (20:09)
[2021-05-18] MEDS: ATORVASTATIN 40 MG TAB PO SCH (20:11)
[2021-05-18] MEDS: LITHIUM CARBONATE 450 MG TABCR PO SCH (20:12)
[2021-05-18] MEDS: QUEtiapine FUMARATE 300 MG TABLET PO SCH (20:14)
[2021-05-18] MEDS: QUEtiapine FUMARATE 25 MG TABLET PO SCH (20:14)
[2021-05-18] MEDS ORDERED: MICONAZOLE NITRATE POWDER 43 GM EXT PRN (20:18)
--- NOTE | 2021-05-18 21:12 | Hospitalist Progress Note ---
Date of Service May 18, 2021 Assessment & Plan (1) Stroke: Plan: Acute sylvian branch of the right middle cerebral artery- s/p tPA. Unfortunately no significant improvement with her left-sided weakness despite TPA given. 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 Stable for a number of days at this point and awaiting rehab. - MRI with 6.5 x 3.4 cm acute infarct of posterior right MCA distribution involving the posterior right frontal and parietal lobes. - No hemorrhagic conversion on repeat CT head - Increased atorvastatin to 20->40mg PO daily - ASA + clopidogrel for 3 weeks then clopidogrel alone - Appreciate neurology consult. - TTE - No significant change to 2019 echo Reviewed chart and patient is pending placement. Added dulcolax for constipation. (2) Acute UTI: Plan: Urine culture pansensitive E. coli. Suspect catheter associated as this was inserted on admission. Catheter was subsequently removed prior to picking up urine tract infection. Ceftriaxone 1g IV daily for 3 days. Given urinary incontinence will finish a 7- day course with Macrobid. (3) HTN (hypertension): Plan: Continue metoprolol to avoid rebound tachycardia Surprisingly she has had no peripheral edema or signs/symptoms of pulmonary edema despite holding usual Lasix in the setting of cardiomyopathy. Would continue to hold her Lasix at this time as her mother will monitor closely for worsening edema or shortness of breath and I will be concerned of dropping her blood pressure causing hypoperfusion to her stroke areas if we restarted this. (4) Hyperlipidemia: Plan: As above - continue statin at current dose (5) Bigeminy: Plan: 8 beat NSVT 05/15, K nd Mg normal, bigeminy improved after potassium replaced earlier in admission (6) Hypothyroid: Plan: Continue Synthroid (7) Cardiovascular disease: Plan: As above- prior CVA and CVD (8) Cerebral vascular disease: Plan: As above (9) Gastroesophageal reflux disease: Plan: Protonix 40 mg switch to PO (10) Chronic systolic congestive heart failure: Plan: EF 30-35% Nov 2018 - ECHO with CVA workup - Lasix on hold as above (11) Bipolar disorder, unspecified: Plan: Continue lithium and Seroquel - Zyprexa as needed for agitation (12) Esophageal dysmotility: Plan: Chronic dysphagia, with esophageal slippery diet and medications given with applesauce (13) Seizure disorder: Plan: Continue with Primidone- next dose is tomorrow morning - continue seizure precautions (14) Mentally challenged: Plan: As above, has mother and caregiver - supportive care Plan: Medically stable for discharge pending placement Admission and Anticipated Discharge Date Admission Date: May 08, 2021 Subjective Patient expresses no new symptoms Review of Systems Review of Systems: All systems reviewed & are unremarkable except as noted in HPI & below Physical Exam Physical Exam: Constitutional: no acute distress Eyes: + anicteric sclerae; normal pupil size Respiratory: normal respiratory effort, lungs clear to auscultation normal respiratory effort Cardiovascular: Rate/Rhythm: regular rate and regular rhythm Heart Sounds: no murmur Extremities: + pedal edema (trace b/l edema) Skin: no rashes, warm and dry Neurologic: + focal motor deficit (no movement seen on left side) and awake; not confused Speech / Cognition: + abnormal speech Cranial Nerves: no nystagmus Psychiatric: Orientation: alert; + not oriented x 3 Motor Behavior: no psychomotor agitation Results & Data Results & Data ([facility]) Vital Signs (Past 12 Hours) Vital Signs Temp Pulse Resp BP Pulse Ox 05/18/21 19:06 36.6 C 97 H 18 118/77 98 05/18/21 11:04 36.4 C L 89 18 112/73 97 PG Care Time/CCT Total # of Minutes Spent Total Time Spent with Patient: Total time spent is greater than 50% in log cooker rdination of care (as documented) at patient's floor/unit and/or counseling patient: Coding Level of Care Code 82143 Subseq Hosp Care Lvl 1 Diagnoses Stroke I63.9 Acute UTI N39.0 HTN (hypertension) I10 Hypertension type: essential hypertension Hyperlipidemia E78.5 Bigeminy I49.8 Hypothyroid E03.9 Hypothyroidism type: unspecified Cardiovascular disease I25.10 Cerebral vascular disease I67.9 Gastroesophageal reflux disease K21.9 Chronic systolic congestive heart failure I50.22 Bipolar disorder, unspecified F31.9 Esophageal dysmotility K22.4 Seizure disorder G40.909 Mentally challenged F79 (1) HTN (hypertension) Hypertension type: essential hypertension Qualified Code(s): I10 - Essential (primary) hypertension (2) Hypothyroid Hypothyroidism type: unspecified Qualified Code(s): E03.9 - Hypothyroidism, unspecified
[2021-05-19] MEDS: LEVOTHYROXINE SODIUM 50 MCG TABLET PO SCH (06:24)
[2021-05-19] MEDS: AMMONIUM LACTATE 12% LOTION 225 GM BTL EXT SCH ×2 (09:37→20:47)
[2021-05-19] MEDS: ACETIC ACID 2% OTIC SOLN 15 ML BTL OT SCH (09:38)
[2021-05-19] MEDS: PRIMIDONE 250 MG TAB PO SCH (09:39)
[2021-05-19] MEDS: CHOLECALCIFEROL 1,000 UNITS 25 MCG TAB PO SCH (09:39)
[2021-05-19] MEDS: LINACLOTIDE 145 MCG CAPSULE PO SCH (09:39)
[2021-05-19] MEDS: CLOPIDOGREL BISULFATE 75 MG TAB PO SCH (09:40)
[2021-05-19] MEDS: OLANZapine ZYDIS 5 MG ORALLY DIS. TAB PO PRN (09:40)
[2021-05-19] MEDS: SENNA 8.6 MG TAB PO PRN (09:41)
[2021-05-19] MEDS: CETIRIZINE HCL 10 MG TABLET PO SCH (09:41)
[2021-05-19] MEDS: METOPROLOL SUCC 25MG EXT REL TAB PO SCH (09:41)
[2021-05-19] MEDS: NITROFURANTOIN MONOHYDRATE 100 MG CAP PO SCH ×2 (09:42→20:49)
[2021-05-19] MEDS: NAPHAZOLIN/PHENIRAMIN OPH SOLN 75 DROPS/5 ML BTL OP SCH ×2 (09:45→20:49)
[2021-05-19] MEDS: DOCUSATE SODIUM 100 MG CAP PO SCH ×2 (09:45→20:48)
[2021-05-19] MEDS: POTASSIUM CHLORIDE 10 MEQ TABCR PO SCH (09:46)
[2021-05-19] MEDS: ATORVASTATIN 40 MG TAB PO SCH (20:48)
[2021-05-19] MEDS: ASPIRIN 81 MG ECTAB PO SCH (20:48)
[2021-05-19] MEDS: LITHIUM CARBONATE 450 MG TABCR PO SCH (20:49)
[2021-05-19] MEDS: QUEtiapine FUMARATE 25 MG TABLET PO SCH (20:50)
[2021-05-19] MEDS: QUEtiapine FUMARATE 300 MG TABLET PO SCH (20:50)
--- NOTE | 2021-05-19 22:29 | Hospitalist Progress Note ---
Date of Service May 19, 2021 Assessment & Plan (1) Stroke: Plan: Acute sylvian branch of the right middle cerebral artery- s/p tPA. Unfortunately no significant improvement with her left-sided weakness despite TPA given. She is also ujad-znzu-ektcjkkz due to contractures in her right hand but surprisingly appears to be adapting well. Stable for a number of days at this point and awaiting rehab. - MRI with 6.5 x 3.4 cm acute infarct of posterior right MCA distribution involving the posterior right frontal and parietal lobes. - No hemorrhagic conversion on repeat CT head - Increased atorvastatin to 20->40mg PO daily - ASA + clopidogrel for 3 weeks then clopidogrel alone - Appreciate neurology consult. - TTE - No significant change to 2019 echo Reviewed chart and patient is pending placement. Added dulcolax for constipation. (2) Acute UTI: Plan: Urine culture pansensitive E. coli. Suspect catheter associated as this was inserted on admission. Catheter was subsequently removed prior to picking up urine tract infection. Ceftriaxone 1g IV daily for 3 days. Given urinary incontinence will finish a 7- day course with Macrobid. (3) HTN (hypertension): Plan: Continue metoprolol to avoid rebound tachycardia Surprisingly she has had no peripheral edema or signs/symptoms of pulmonary edema despite holding usual Lasix in the setting of cardiomyopathy. Would continue to hold her Lasix at this time as her mother will monitor closely for worsening edema or shortness of breath and I will be concerned of dropping her blood pressure causing hypoperfusion to her stroke areas if we restarted this. (4) Hyperlipidemia: Plan: As above - continue statin at current dose (5) Bigeminy: Plan: 8 beat NSVT 05/15, K nd Mg normal, bigeminy improved after potassium replaced earlier in admission (6) Hypothyroid: Plan: Continue Synthroid (7) Cardiovascular disease: Plan: As above- prior CVA and CVD (8) Cerebral vascular disease: Plan: As above (9) Gastroesophageal reflux disease: Plan: Protonix 40 mg switch to PO (10) Chronic systolic congestive heart failure: Plan: EF 30-35% Nov 2018 - ECHO with CVA workup - Lasix on hold as above (11) Bipolar disorder, unspecified: Plan: Continue lithium and Seroquel - Zyprexa as needed for agitation (12) Esophageal dysmotility: Plan: Chronic dysphagia, with esophageal slippery diet and medications given with applesauce (13) Seizure disorder: Plan: Continue with Primidone- next dose is tomorrow morning - continue seizure precautions (14) Mentally challenged: Plan: As above, has mother and caregiver - supportive care Plan: Medically stable for discharge pending placement Admission and Anticipated Discharge Date Admission Date: May 08, 2021 Subjective Patient reports no new symptoms. Review of Systems Review of Systems: All systems reviewed & are unremarkable except as noted in HPI & below Physical Exam Physical Exam: Constitutional: no acute distress Eyes: + anicteric sclerae; normal pupil size Respiratory: normal respiratory effort, lungs clear to auscultation normal respiratory effort Cardiovascular: Rate/Rhythm: regular rate and regular rhythm Heart Sounds: no murmur Extremities: + pedal edema (trace b/l edema) Skin: no rashes, warm and dry Neurologic: + focal motor deficit (no movement seen on left side) and awake; not confused Speech / Cognition: + abnormal speech Cranial Nerves: no nystagmus Psychiatric: Orientation: alert; + not oriented x 3 Motor Behavior: no psychomotor agitation Results & Data Results & Data ([facility]) Vital Signs (Past 12 Hours) Vital Signs Temp Pulse Resp BP Pulse Ox 05/19/21 19:07 36.6 C 97 H 18 113/69 96 05/19/21 12:00 37.7 C H 106 H 18 138/74 95 PG Care Time/CCT Total # of Minutes Spent Total Time Spent with Patient: Total time spent is greater than 50% in c oordination of care (as documented) at patient's floor/unit and/or counseling patient: Coding Level of Care Code 91477 Subseq Hosp Care Lvl 1 Diagnoses Stroke I63.9 Acute UTI N39.0 HTN (hypertension) I10 Hypertension type: essential hypertension Hyperlipidemia E78.5 Bigeminy I49.8 Hypothyroid E03.9 Hypothyroidism type: unspecified Cardiovascular disease I25.10 Cerebral vascular disease I67.9 Gastroesophageal reflux disease K21.9 Chronic systolic congestive heart failure I50.22 Bipolar disorder, unspecified F31.9 Esophageal dysmotility K22.4 Seizure disorder G40.909 Mentally challenged F79 (1) Hypothyroid Hypothyroidism type: unspecified Qualified Code(s): E03.9 - Hypothyroidism, unspecified (2) HTN (hypertension) Hypertension type: essential hypertension Qualified Code(s): I10 - Essential (primary) hypertension
[2021-05-20] MEDS: LEVOTHYROXINE SODIUM 50 MCG TABLET PO SCH (06:20)
[2021-05-20] MEDS: AMMONIUM LACTATE 12% LOTION 225 GM BTL EXT SCH ×2 (07:58→19:51)
[2021-05-20] MEDS: CETIRIZINE HCL 10 MG TABLET PO SCH (07:59)
[2021-05-20] MEDS: PRIMIDONE 250 MG TAB PO SCH (07:59)
[2021-05-20] MEDS: CLOPIDOGREL BISULFATE 75 MG TAB PO SCH (07:59)
[2021-05-20] MEDS: CHOLECALCIFEROL 1,000 UNITS 25 MCG TAB PO SCH (08:00)
[2021-05-20] MEDS: METOPROLOL SUCC 25MG EXT REL TAB PO SCH (08:00)
[2021-05-20] MEDS: LINACLOTIDE 145 MCG CAPSULE PO SCH (08:01)
[2021-05-20] MEDS: DOCUSATE SODIUM 100 MG CAP PO SCH ×2 (08:02→19:46)
[2021-05-20] MEDS: NAPHAZOLIN/PHENIRAMIN OPH SOLN 75 DROPS/5 ML BTL OP SCH ×2 (08:04→19:51)
[2021-05-20] MEDS: POTASSIUM CHLORIDE 10 MEQ TABCR PO SCH (08:04)
[2021-05-20] MEDS: QUEtiapine FUMARATE 25 MG TABLET PO SCH (19:47)
[2021-05-20] MEDS: LITHIUM CARBONATE 450 MG TABCR PO SCH (19:47)
[2021-05-20] MEDS: ASPIRIN 81 MG ECTAB PO SCH (19:48)
[2021-05-20] MEDS: ATORVASTATIN 40 MG TAB PO SCH (19:48)
[2021-05-20] MEDS: QUEtiapine FUMARATE 300 MG TABLET PO SCH (19:49)
--- NOTE | 2021-05-20 20:46 | Hospitalist Progress Note ---
Date of Service May 20, 2021 Assessment & Plan (1) Stroke: Plan: Acute sylvian branch of the right middle cerebral artery- s/p tPA. Unfortunately no significant improvement with her left-sided weakness despite TPA given. 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 Stable for a number of days at this point and awaiting rehab. - MRI with 6.5 x 3.4 cm acute infarct of posterior right MCA distribution involving the posterior right frontal and parietal lobes. - No hemorrhagic conversion on repeat CT head - Increased atorvastatin to 20->40mg PO daily - ASA + clopidogrel for 3 weeks then clopidogrel alone - Appreciate neurology consult. - TTE - No significant change to 2019 echo Reviewed chart and patient is pending placement. Added dulcolax for constipation. (2) Acute UTI: Plan: Urine culture pansensitive E. coli. Suspect catheter associated as this was inserted on admission. Catheter was subsequently removed prior to picking up urine tract infection. Ceftriaxone 1g IV daily for 3 days. Given urinary incontinence will finish a 7- day course with Macrobid. (3) HTN (hypertension): Plan: Continue metoprolol to avoid rebound tachycardia Surprisingly she has had no peripheral edema or signs/symptoms of pulmonary edema despite holding usual Lasix in the setting of cardiomyopathy. Would continue to hold her Lasix at this time as her mother will monitor closely for worsening edema or shortness of breath and I will be concerned of dropping her blood pressure causing hypoperfusion to her stroke areas if we restarted this. (4) Hyperlipidemia: Plan: As above - continue statin at current dose (5) Bigeminy: Plan: 8 beat NSVT 05/15, K nd Mg normal, bigeminy improved after potassium replaced earlier in admission (6) Hypothyroid: Plan: Continue Synthroid (7) Cardiovascular disease: Plan: As above- prior CVA and CVD (8) Cerebral vascular disease: Plan: As above (9) Gastroesophageal reflux disease: Plan: Protonix 40 mg switch to PO (10) Chronic systolic congestive heart failure: Plan: EF 30-35% Nov 2018 - ECHO with CVA workup - Lasix on hold as above (11) Bipolar disorder, unspecified: Plan: Continue lithium and Seroquel - Zyprexa as needed for agitation (12) Esophageal dysmotility: Plan: Chronic dysphagia, with esophageal slippery diet and medications given with applesauce (13) Seizure disorder: Plan: Continue with Primidone- next dose is tomorrow morning - continue seizure precautions (14) Mentally challenged: Plan: As above, has mother and caregiver - supportive care Plan: Medically stable for discharge pending placement Admission and Anticipated Discharge Date Admission Date: May 08, 2021 Subjective No new complaints. Review of Systems Review of Systems: All systems reviewed & are unremarkable except as noted in HPI & below Physical Exam Physical Exam: Constitutional: no acute distress Eyes: + anicteric sclerae; normal pupil size Respiratory: normal respiratory effort, lungs clear to auscultation normal respiratory effort Cardiovascular: Rate/Rhythm: regular rate and regular rhythm Heart Sounds: no murmur Extremities: + pedal edema (trace b/l edema) Skin: no rashes, warm and dry Neurologic: + focal motor deficit (no movement seen on left side) and awake; not confused Speech / Cognition: + abnormal speech Cranial Nerves: no nystagmus Psychiatric: Orientation: alert; + not oriented x 3 Motor Behavior: no psychomotor agitation Results & Data Results & Data ([facility]) Vital Signs (Past 12 Hours) Vital Signs Temp Pulse Resp BP BP Pulse Ox 05/20/21 19:07 37.3 C 80 18 107/61 95 05/20/21 15:15 36.7 C 89 20 106/61 98 05/20/21 11:07 36.6 C 93 H 18 134/85 99 PG Care Time/CCT Total # of Minutes Spent Total Time Spent with Patient: Total time spent is greater than 50% in coordination of care (as documented) at patient's floor/unit and/or counseling patient: Coding Level of Care Code 70638 Subseq Hosp Care Lvl 1 Diagnoses Stroke I63.9 Acute UTI N39.0 HTN (hypertension) I10 Hypertension type: essential hypertension Hyperlipidemia E78.5 Bigeminy I49.8 Hypothyroid E03.9 Hypothyroidism type: unspecified Cardiovascular disease I25.10 Cerebral vascular disease I67.9 Gastroesophageal reflux disease K21.9 Chronic systolic congestive heart failure I50.22 Bipolar disorder, unspecified F31.9 Esophageal dysmotility K22.4 Seizure disorder G40.909 Mentally challenged F79 (1) Hypothyroid Hypothyroidism type: unspecified Qualified Code(s): E03.9 - Hypothyroidism, unspecified (2) HTN (hypertension) Hypertension type: essential hypertension Qualified Code(s): I10 - Essential (primary) hypertension
[2021-05-21] MEDS: LEVOTHYROXINE SODIUM 50 MCG TABLET PO SCH (06:27)
[2021-05-21] MEDS: LINACLOTIDE 145 MCG CAPSULE PO SCH (08:27)
[2021-05-21] MEDS: CETIRIZINE HCL 10 MG TABLET PO SCH (08:27)
[2021-05-21] MEDS: CHOLECALCIFEROL 1,000 UNITS 25 MCG TAB PO SCH (08:27)
[2021-05-21] MEDS: PRIMIDONE 250 MG TAB PO SCH (08:28)
[2021-05-21] MEDS: CLOPIDOGREL BISULFATE 75 MG TAB PO SCH (08:28)
[2021-05-21] MEDS: METOPROLOL SUCC 25MG EXT REL TAB PO SCH (08:29)
[2021-05-21] MEDS: NAPHAZOLIN/PHENIRAMIN OPH SOLN 75 DROPS/5 ML BTL OP SCH ×2 (08:30→20:51)
[2021-05-21] MEDS: AMMONIUM LACTATE 12% LOTION 225 GM BTL EXT SCH ×2 (08:30→20:47)
[2021-05-21] MEDS: DOCUSATE SODIUM 100 MG CAP PO SCH ×2 (08:32→20:53)
[2021-05-21] MEDS: POTASSIUM CHLORIDE 10 MEQ TABCR PO SCH (08:32)
--- NOTE | 2021-05-21 14:40 | Hospitalist Progress Note ---
Date of Service May 21, 2021 Assessment & Plan (1) Stroke: Plan: Acute sylvian branch of the right middle cerebral artery- s/p tPA. Unfortunately no significant improvement with her left-sided weakness despite TPA given. 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 Stable for a number of days at this point and awaiting rehab. - MRI with 6.5 x 3.4 cm acute infarct of posterior right MCA distribution involving the posterior right frontal and parietal lobes. - No hemorrhagic conversion on repeat CT head - Increased atorvastatin to 20->40mg PO daily - ASA + clopidogrel for 3 weeks then clopidogrel alone - Appreciate neurology consult. - TTE - No significant change to 2019 echo Reviewed chart and patient is pending placement. Added dulcolax for constipation. (2) Acute UTI: Plan: Urine culture pansensitive E. coli. Suspect catheter associated as this was inserted on admission. Catheter was subsequently removed prior to picking up urine tract infection. Ceftriaxone 1g IV daily for 3 days. Given urinary incontinence will finish a 7- day course with Macrobid. (3) HTN (hypertension): Plan: Continue metoprolol to avoid rebound tachycardia Surprisingly she has had no peripheral edema or signs/symptoms of pulmonary edema despite holding usual Lasix in the setting of cardiomyopathy. Would continue to hold her Lasix at this time as her mother will monitor closely for worsening edema or shortness of breath and I will be concerned of dropping her blood pressure causing hypoperfusion to her stroke areas if we restarted this. (4) Hyperlipidemia: Plan: As above - continue statin at current dose (5) Bigeminy: Plan: 8 beat NSVT 05/15, K nd Mg normal, bigeminy improved after potassium replaced earlier in admission (6) Hypothyroid: Plan: Continue Synthroid (7) Cardiovascular disease: Plan: As above- prior CVA and CVD (8) Cerebral vascular disease: Plan: As above (9) Gastroesophageal reflux disease: Plan: Protonix 40 mg switch to PO (10) Chronic systolic congestive heart failure: Plan: EF 30-35% Nov 2018 - ECHO with CVA workup - Lasix on hold as above (11) Bipolar disorder, unspecified: Plan: Continue lithium and Seroquel - Zyprexa as needed for agitation (12) Esophageal dysmotility: Plan: Chronic dysphagia, with esophageal slippery diet and medications given with applesauce (13) Seizure disorder: Plan: Continue with Primidone- next dose is tomorrow morning - continue seizure precautions (14) Mentally challenged: Plan: As above, has mother and caregiver - supportive care Plan: Medically stable for discharge pending placement Admission and Anticipated Discharge Date Admission Date: May 08, 2021 Subjective No new complaints. Review of Systems Review of Systems: All systems reviewed & are unremarkable except as noted in HPI & below Physical Exam Physical Exam: Constitutional: no acute distress Eyes: + anicteric sclerae; normal pupil size Respiratory: normal respiratory effort, lungs clear to auscultation normal respiratory effort Cardiovascular: Rate/Rhythm: regular rate and regular rhythm Heart Sounds: no murmur Extremities: + pedal edema (trace b/l edema) Skin: no rashes, warm and dry Neurologic: + focal motor deficit (no movement seen on left side) and awake; not confused Speech / Cognition: + abnormal speech Cranial Nerves: no nystagmus Psychiatric: Orientation: alert; + not oriented x 3 Motor Behavior: no psychomotor agitation Results & Data Results & Data ([facility]) Vital Signs (Past 12 Hours) Vital Signs Temp Pulse Resp BP Pulse Ox 05/21/21 11:17 36.9 C 94 H 20 108/72 95 05/21/21 08:14 36.6 C 83 20 98/65 L 97 05/21/21 04:39 36.6 C 76 16 101/66 96 PG Care Time/CCT Total # of Minutes Spent Total Time Spent with Patient: Total time spent is greater than 50% in coordination of care (as documented) at patient's floor/unit and/or counseling patient: Coding Level of Care Code 91344 Subseq Hosp Care Lvl 1 Diagnoses Stroke I63.9 Acute UTI N39.0 HTN (hypertension) I10 Hypertension type: essential hypertension Hyperlipidemia E78.5 Bigeminy I49.8 Hypothyroid E03.9 Hypothyroidism type: unspecified Cardiovascular disease I25.10 Cerebral vascular disease I67.9 Gastroesophageal reflux disease K21.9 Chronic systolic congestive heart failure I50.22 Bipolar disorder, unspecified F31.9 Esophageal dysmotility K22.4 Seizure disorder G40.909 Mentally challenged F79 (1) Hypothyroid Hypothyroidism type: unspecified Qualified Code(s): E03.9 - Hypothyroidism, unspecified (2) HTN (hypertension) Hypertension type: essential hypertension Qualified Code(s): I10 - Essential (primary) hypertension
[2021-05-21] MEDS: QUEtiapine FUMARATE 25 MG TABLET PO SCH (20:49)
[2021-05-21] MEDS: QUEtiapine FUMARATE 300 MG TABLET PO SCH (20:50)
[2021-05-21] MEDS: LITHIUM CARBONATE 450 MG TABCR PO SCH (20:50)
[2021-05-21] MEDS: ATORVASTATIN 40 MG TAB PO SCH (20:50)
[2021-05-21] MEDS: ASPIRIN 81 MG ECTAB PO SCH (20:51)
[2021-05-22] MEDS: LEVOTHYROXINE SODIUM 50 MCG TABLET PO SCH (06:16)
[2021-05-22] MEDS: AMMONIUM LACTATE 12% LOTION 225 GM BTL EXT SCH ×2 (08:57→20:07)
[2021-05-22] MEDS: CETIRIZINE HCL 10 MG TABLET PO SCH (08:57)
[2021-05-22] MEDS: LINACLOTIDE 145 MCG CAPSULE PO SCH (08:58)
[2021-05-22] MEDS: CHOLECALCIFEROL 1,000 UNITS 25 MCG TAB PO SCH (08:58)
[2021-05-22] MEDS: CLOPIDOGREL BISULFATE 75 MG TAB PO SCH (08:58)
[2021-05-22] MEDS: DOCUSATE SODIUM 100 MG CAP PO SCH ×2 (08:58→20:09)
[2021-05-22] MEDS: METOPROLOL SUCC 25MG EXT REL TAB PO SCH ×2 (08:59→20:07)
[2021-05-22] MEDS: NAPHAZOLIN/PHENIRAMIN OPH SOLN 75 DROPS/5 ML BTL OP SCH ×2 (08:59→20:07)
[2021-05-22] MEDS: PRIMIDONE 250 MG TAB PO SCH (08:59)
[2021-05-22] MEDS: POTASSIUM CHLORIDE 10 MEQ TABCR PO SCH (09:01)
[2021-05-22] MEDS: ATORVASTATIN 40 MG TAB PO SCH (20:07)
[2021-05-22] MEDS: ASPIRIN 81 MG ECTAB PO SCH (20:07)
[2021-05-22] MEDS: QUEtiapine FUMARATE 25 MG TABLET PO SCH (20:08)
[2021-05-22] MEDS: LITHIUM CARBONATE 450 MG TABCR PO SCH (20:08)
[2021-05-22] MEDS: QUEtiapine FUMARATE 300 MG TABLET PO SCH (20:08)
--- NOTE | 2021-05-22 20:55 | Hospitalist Progress Note ---
Date of Service May 22, 2021 Assessment & Plan (1) Stroke: Plan: Acute sylvian branch of the right middle cerebral artery- s/p tPA. Unfortunately no significant improvement with her left-sided weakness despite TPA given. 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 Stable for a number of days at this point and awaiting rehab. - MRI with 6.5 x 3.4 cm acute infarct of posterior right MCA distribution involving the posterior right frontal and parietal lobes. - No hemorrhagic conversion on repeat CT head - Increased atorvastatin to 20->40mg PO daily - ASA + clopidogrel for 3 weeks then clopidogrel alone - Appreciate neurology consult. - TTE - No significant change to 2019 echo Reviewed chart and patient is pending placement. Added dulcolax for constipation. Awaiting placement. (2) Acute UTI: Plan: Urine culture pansensitive E. coli. Suspect catheter associated as this was inserted on admission. Catheter was subsequently removed prior to picking up urine tract infection. Ceftriaxone 1g IV daily for 3 days. Given urinary incontinence will finish a 7- day course with Macrobid. (3) HTN (hypertension): Plan: Continue metoprolol to avoid rebound tachycardia Surprisingly she has had no peripheral edema or signs/symptoms of pulmonary edema despite holding usual Lasix in the setting of cardiomyopathy. Would continue to hold her Lasix at this time as her mother will monitor closely for worsening edema or shortness of breath and I will be concerned of dropping her blood pressure causing hypoperfusion to her stroke areas if we restarted this. (4) Hyperlipidemia: Plan: As above - continue statin at current dose (5) Bigeminy: Plan: 8 beat NSVT 05/15, K nd Mg normal, bigeminy improved after potassium replaced earlier in admission (6) Hypothyroid: Plan: Continue Synthroid (7) Cardiovascular disease: Plan: As above- prior CVA and CVD (8) Cerebral vascular disease: Plan: As above (9) Gastroesophageal reflux disease: Plan: Protonix 40 mg switch to PO (10) Chronic systolic congestive heart failure: Plan: EF 30-35% Nov 2018 - ECHO with CVA workup - Lasix resumed (11) Bipolar disorder, unspecified: Plan: Continue lithium and Seroquel - Zyprexa as needed for agitation (12) Esophageal dysmotility: Plan: Chronic dysphagia, with esophageal slippery diet and medications given with applesauce (13) Seizure disorder: Plan: Continue with Primidone- next dose is tomorrow morning - continue seizure precautions (14) Mentally challenged: Plan: As above, has mother and caregiver - supportive care Plan: Medically stable for discharge pending placement Admission and Anticipated Discharge Date Admission Date: May 08, 2021 Subjective Patient is sitting comfortably coloring her book. Review of Systems Review of Systems: All systems reviewed & are unremarkable except as noted in HPI & below Physical Exam Physical Exam: Constitutional: no acute distress Eyes: + anicteric sclerae; normal pupil size Respiratory: normal respiratory effort, lungs clear to auscultation normal respiratory effort Cardiovascular: Rate/Rhythm: regular rate and regular rhythm Heart Sounds: no murmur Extremities: + pedal edema (trace b/l edema) Skin: no rashes, warm and dry Neurologic: + focal motor deficit (no movement seen on left side) and awake; not confused Speech / Cognition: + abnormal speech Cranial Nerves: no nystagmus Psychiatric: Orientation: alert; + not oriented x 3 Motor Behavior: no psychomotor agitation Results & Data Results & Data ([facility]) Vital Signs (Past 12 Hours) Vital Signs Temp Pulse Resp BP Pulse Ox 05/22/21 15:47 36.9 C 99 H 18 111/61 96 PG Care Time/CCT Total # of Minutes Spent Total Time Spent with Patient: Total time spent is greater than 50% in coordination of care (as documented) at patient's floor/unit and/or counseling patient: Coding Level of Care Code 12946 Subseq Hosp Care Lvl 1 Diagnoses Stroke I63.9 Acute UTI N39.0 HTN (hypertension) I10 Hypertension type: essential hypertension Hyperlipidemia E78.5 Bigeminy I49.8 Hypothyroid E03.9 Hypothyroidism type: unspecified Cardiovascular disease I25.10 Cerebral vascular disease I67.9 Gastroesophageal reflux disease K21.9 Chronic systolic congestive heart failure I50.22 Bipolar disorder, unspecified F31.9 Esophageal dysmotility K22.4 Seizure disorder G40.909 Mentally challenged F79 (1) Hypothyroid Hypothyroidism type: unspecified Qualified Code(s): E03.9 - Hypothyroidism, unspecified (2) HTN (hypertension) Hypertension type: essential hypertension Qualified Code(s): I10 - Essential (primary) hypertension
[2021-05-23] MEDS: LEVOTHYROXINE SODIUM 50 MCG TABLET PO SCH (05:53)
[2021-05-23] MEDS: CHOLECALCIFEROL 1,000 UNITS 25 MCG TAB PO SCH (09:37)
[2021-05-23] MEDS: SENNA 8.6 MG TAB PO PRN (09:38)
[2021-05-23] MEDS: LINACLOTIDE 145 MCG CAPSULE PO SCH (09:38)
[2021-05-23] MEDS: CLOPIDOGREL BISULFATE 75 MG TAB PO SCH (09:38)
[2021-05-23] MEDS: PRIMIDONE 250 MG TAB PO SCH (09:38)
[2021-05-23] MEDS: CETIRIZINE HCL 10 MG TABLET PO SCH (09:38)
[2021-05-23] MEDS: ACETIC ACID 2% OTIC SOLN 15 ML BTL OT SCH (09:39)
[2021-05-23] MEDS: AMMONIUM LACTATE 12% LOTION 225 GM BTL EXT SCH ×2 (09:39→20:28)
[2021-05-23] MEDS: NAPHAZOLIN/PHENIRAMIN OPH SOLN 75 DROPS/5 ML BTL OP SCH ×2 (09:40→20:27)
[2021-05-23] MEDS: POTASSIUM CHLORIDE 10 MEQ TABCR PO SCH (09:43)
[2021-05-23] MEDS: DOCUSATE SODIUM 100 MG CAP PO SCH ×2 (09:43→20:29)
[2021-05-23] MEDS: ASPIRIN 81 MG ECTAB PO SCH (20:26)
[2021-05-23] MEDS: ATORVASTATIN 40 MG TAB PO SCH (20:27)
[2021-05-23] MEDS: LITHIUM CARBONATE 450 MG TABCR PO SCH (20:27)
[2021-05-23] MEDS: QUEtiapine FUMARATE 300 MG TABLET PO SCH (20:27)
[2021-05-23] MEDS: QUEtiapine FUMARATE 25 MG TABLET PO SCH (20:27)
--- NOTE | 2021-05-23 23:49 | Hospitalist Progress Note ---
Date of Service May 23, 2021 Assessment & Plan (1) Stroke: Plan: Acute sylvian branch of the right middle cerebral artery- s/p tPA. Unfortunately no significant improvement with her left-sided weakness despite TPA given. 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 Stable for a number of days at this point and awaiting rehab. - MRI with 6.5 x 3.4 cm acute infarct of posterior right MCA distribution involving the posterior right frontal and parietal lobes. - No hemorrhagic conversion on repeat CT head - Increased atorvastatin to 20->40mg PO daily - ASA + clopidogrel for 3 weeks then clopidogrel alone - Appreciate neurology consult. - TTE - No significant change to 2018 echo Added dulcolax for constipation. Awaiting placement. (2) Acute UTI: Plan: Treated. Appears much less fatigued after treatment for this. Urine culture pansensitive E. coli. Suspect catheter associated as this was inserted on admission. Catheter was subsequently removed prior to picking up urine tract infection. Ceftriaxone 1g IV daily for 3 days. Given urinary incontinence will finish a 7- day course with Macrobid. (3) HTN (hypertension): Plan: Continue metoprolol to avoid rebound tachycardia Surprisingly she has had no peripheral edema or signs/symptoms of pulmonary edema despite holding usual Lasix in the setting of cardiomyopathy. Would continue to hold her Lasix at this time as her mother will monitor closely for worsening edema or shortness of breath and I will be concerned of dropping her blood pressure causing hypoperfusion to her stroke areas if we restarted this. (4) Hyperlipidemia: Plan: As above - continue statin at current dose (5) Bigeminy: Plan: 8 beat NSVT 05/15, K nd Mg normal, bigeminy improved after potassium replaced earlier in admission (6) Hypothyroid: Plan: Continue Synthroid (7) Cardiovascular disease: Plan: As above- prior CVA and CVD (8) Cerebral vascular disease: Plan: As above (9) Gastroesophageal reflux disease: Plan: Protonix 40 mg switch to PO (10) Chronic systolic congestive heart failure: Plan: EF 30-35% Nov 2018 - ECHO with CVA workup (11) Bipolar disorder, unspecified: Plan: Continue lithium and Seroquel - Zyprexa as needed for agitation (12) Esophageal dysmotility: Plan: Chronic dysphagia, with esophageal slippery diet and medications given with applesauce (13) Seizure disorder: Plan: Continue with Primidone- next dose is tomorrow morning - continue seizure precautions (14) Mentally challenged: Plan: As above, has mother and caregiver - supportive care Plan: Medically stable for discharge pending placement Admission and Anticipated Discharge Date Admission Date: May 08, 2021 Subjective At baseline. No acute events overnight. IV line in place. Awaiting placement. Review of Systems Review of Systems: Unobtainable due to cognitive status Physical Exam Constitutional: + not well nourished and no acute distress Eyes: + anicteric sclerae; normal pupil size Respiratory: normal respiratory effort Cardiovascular: Rate/Rhythm: regular rate and regular rhythm Heart Sounds: no murmur Skin: no rashes, warm and dry Neurologic: + focal motor deficit (no movement seen on left side) and awake; not confused Speech / Cognition: + abnormal speech Psychiatric: Orientation: alert; + not oriented x 3 Motor Behavior: no psychomotor agitation Results & Data Results & Data ([facility]) Vital Signs (Past 12 Hours) Vital Signs Temp Pulse Resp BP Pulse Ox 05/23/21 23:45 36.8 C 8 L 18 98/64 L 96 05/23/21 15:41 36.9 C 88 16 100/63 94 PG Care Time/CCT Total # of Minutes Spent Total Time Spent with Patient: Total time spent is greater than 50% in coordination of care (as documented) at patient's floor/unit and/or counseling patient: Coding Level of Care Code 95340 Subseq Hosp Care Lvl 1 Diagnoses Stroke I63.9 Acute UTI N39.0 HTN (hypertension) I10 Hypertension type: essential hypertension Hyperlipidemia E78.5 Bigeminy I49.8 Hypothyroid E03.9 Hypothyroidism type: unspecified Cardiovascular disease I25.10 Cerebral vascular disease I67.9 Gastroesophageal reflux disease K21.9 Chronic systolic congestive heart failure I50.22 Bipolar disorder, unspecified F31.9 Esophageal dysmotility K22.4 Seizure disorder G40.909 Mentally challenged F79 (1) Hypothyroid Hypothyroidism type: unspecified Qualified Code(s): E03.9 - Hypothyroidism, unspecified (2) HTN (hypertension) Hypertension type: essential hypertension Qualified Code(s): I10 - Essential (primary) hypertension
[2021-05-24] MEDS: LEVOTHYROXINE SODIUM 50 MCG TABLET PO SCH (05:53)
[2021-05-24] MEDS: POTASSIUM CHLORIDE 10 MEQ TABCR PO SCH (09:20)
[2021-05-24] MEDS: SENNA 8.6 MG TAB PO PRN (09:21)
[2021-05-24] MEDS: AMMONIUM LACTATE 12% LOTION 225 GM BTL EXT SCH (09:21)
[2021-05-24] MEDS: NAPHAZOLIN/PHENIRAMIN OPH SOLN 75 DROPS/5 ML BTL OP SCH (09:21)
[2021-05-24] MEDS: PRIMIDONE 250 MG TAB PO SCH (09:22)
[2021-05-24] MEDS: CLOPIDOGREL BISULFATE 75 MG TAB PO SCH (09:22)
[2021-05-24] MEDS: CHOLECALCIFEROL 1,000 UNITS 25 MCG TAB PO SCH (09:22)
[2021-05-24] MEDS: CETIRIZINE HCL 10 MG TABLET PO SCH (09:23)
[2021-05-24] MEDS: METOPROLOL SUCC 25MG EXT REL TAB PO SCH (09:23)
[2021-05-24] MEDS: LINACLOTIDE 145 MCG CAPSULE PO SCH (09:23)
[2021-05-24] MEDS: DOCUSATE SODIUM 100 MG CAP PO SCH (09:25)
--- NOTE | 2021-05-24 12:33 | Discharge Summary ---
Date of Service May 24, 2021 Admission HPI Per Admitting Provider 55 YOF with past medical history of: seizures, encephalopathy, ischemic CVA left frontal 2019, frequent falls, HRrEF, constipation, osteopetrosis, mental retardation, broken ankle, GERD, Hypothyroidism, bipolar. She is a resident at [facility] and is dependant on her mother and her caregiver for care and communication needs. The patient was brought to the EMD today via EMS for concerns of CVA. The patient reportedly was ok this morning, then she went unresponsive for a brief period of time, awoken and would only yell, it was noticed that she was having weakness to her left upper and left lower extremit ies. She was stroke alerted in the EMD via telestroke at [facility]. She was given Ativan to be able to perform imaging of the head and neck. Her CTA of the head revealed a occlusion of her right sylvian branch of the MCA. She is also noted to have moderate stenoses of the right MCA distal to the right MCA which is unchanged. Due to this presentation and onset last known well of 1344, the patient was deemed a candidate for tPA and received tPA. Patient will be admitted to the ICU for monitoring s/p tPA, hemodynamic monitoring, frequent neurological exams, and dysphagia screening. Patient has dysphagia at baseline and may need alternative way to give her medications while she is recovering from sedation, tPA and CVA. Principal Diagnosis Acute stroke Acute UTI Discharge Exam Constitutional + not well nourished and no acute distress Eyes + anicteric sclerae; normal pupil size Respiratory normal respiratory effort, lungs clear to auscultation Cardiovascular Rate/Rhythm: regular rate and regular rhythm Heart Sounds: no murmur Extremities: + pedal edema (trace b/l edema) Skin no rashes, warm and dry Neurologic + focal motor deficit (no movement seen on left side) and awake; not confused Speech / Cognition: + abnormal speech Cranial Nerves: no nystagmus Psychiatric Orientation: alert; + not oriented x 3 Motor Behavior: no psychomotor agitation Discharge Data Allergies Allergy/AdvReac Type Severity Reaction Status Date / Time divalproex sodium Allergy Intermediate Hives Unverified 05/08/21 15:41 [From Depakote] Penicillins Allergy Intermediate RASH/FACIAL Verified 05/08/21 15:41 SWELLING carbamazepine Allergy Mild Rash Verified 05/08/21 15:41 phenytoin Allergy Mild Rash Verified 05/08/21 15:41 polyethylene glycol 3350 Allergy Mild Rash Verified 05/08/21 15:41 [From Miralax] valproic acid Allergy Mild Rash Unverified 05/08/21 15:41 pseudoephedrine AdvReac Unknown UNKNOWN Unverified 05/08/21 15:41 Consultations 05/08/21 20:21 Consult [employer]ision [employer] Bench Routine Consult Neurology Routine Ordered Studies 05/08/21 14:40 CT angio head w con Stat IMPRESSION: 1. 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 Findings discussed with Dr. Huff at time of dictation. 2. Moderate stenoses of the distal right middle cerebral artery and distal portion of the right vertebral artery which are unchanged. CT angio neck with con Stat IMPRESSION: No stenosis or dissection within the bilateral common carotid, cervical internal carotid or vertebral arteries. CT head/brain wo con Stat IMPRESSION: No acute intracranial findings. No change in appearance of the brain, as described above. Addendum: Upon further review, note is made of possible hypodensity with loss of mcintosh-white differentiation within the posterior right frontal lobe as well as the right parietal lobe. This could reflect an acute infarct. Findings discussed with Dr. Huff at time of addendum. 05/08/21 15:20 MR brain wo con Stat IMPRESSION: 1. 6.5 x 3.4 cm acute infarct of posterior right MCA distribution involving the posterior right frontal and parietal lobes. No acute hemorrhage. No mass effect. 2. Otherwise, unchanged appearance of the brain from prior MRI of November 02, 2019. Stable ventricular dilatation with several old infarcts 05/09/21 13:55 CT head/brain wo con Routine IMPRESSION: 1. Motion compromised study 2. Suspected thrombus within a right sylvian MCA branch 3. 6.5 cm right parietal hypodensity consistent with a recent infarct 4. No evidence of acute hemorrhage status post TPA Hospital Course (1) Stroke: Chanell Nieto is a 55 year old female admitted to [facility] from May 08 - May 24, 2021 due to weakness of her left upper and lower extremities. Stroke alert was called in the ER and alteplase was given. She was initially transferred to the ICU for routine post tPA care. MRI confirmed 6.5 cm right parietal hypodensity consistent with a recent infarct. Repeat CT head showed no hemorrhagic conversation of her stroke and you were started on stroke prophylaxis with aspirin, clopidogrel and increased dose of atorvastatin. Only mild improvements were made with regards to her left sided strength. She was also treated for a catheter-associated UTI during her hospital stay af ter having persistent fevers. Urine culture positive for pansensitive E. coli treated with ceftriaxone and converted to macrobid. Full course given during her inpatient admission. She was mirian by speech and language therapy and recommend to continue on a minced and moist diet. Her Lasix (previously prescribed for CHF) was also discontinued due to low blood pressures. No fluid has re-accumulated on discontinuation of this over the course of her inpatient stay therefore will continue to hold this. (2) Acute UTI: (3) HTN (hypertension): (4) Hyperlipidemia: (5) Bigeminy: (6) Hypothyroid: (7) Cardiovascular disease: (8) Cerebral vascular disease: (9) Gastroesophageal reflux disease: (10) Chronic systolic congestive heart failure: (11) Bipolar disorder, unspecified: (12) Esophageal dysmotility: (13) Seizure disorder: (14) Mentally challenged: Total Time Total Time Spent Total Time Spent (In Minutes): 40 Discharge Plan Discharge Items Patient Disposition: Transfer Residential Fac Reason For Visit: CVA Discharge Diagnosis: Acute stroke Acute UTI Activity: Resume your previous activity Non-emergency contact: Neurologist Call non-emergency contact if: you have any medication questions and your symptoms worsen Follow-up/Referrals: Peewee Olivares MD [Physician] - (Dr Orozco office will phone you with an upcoming 4 week follow up appt.) Ken Cano, [Primary Care Provider] - [facility], [facility] - Diet: Regular Diet Texture: Mechanical soft (ground) Addtl Attending Provider Instructions: You were admitted to [facility] from May 08 - May 24, 2021 due to weakness of your left upper and lower extremities. Stroke alert was called in the ER and alteplase was given. You were cared for in the intensive care unit after this. Repeat CT head showed no hemorrhagic conversation of your stroke and you were started on stroke prophylaxis with aspirin, clopidogrel and increased dose of atorvastatin. Only mild improvements were made with regards to your left sided strength and you are now medically stable for discharge for further physical therapy. Stark catheter was placed in the emergency room. On repeat testing for a urinary tract infection after you had a fever this was consistent for pansensitive E. coli infection. This was treated with antibiotics during your inpatient stay and you require no further antibiotics on discharge. Please continue on a minced and moist diet. Your Lasix was also discontinued for congestive heart failure due to low blood pressures. No fluid has re-accumulated on discontinuation of this over the course of your stay therefore will continue to hold this. Pending Studies at Discharge: No Stand-Alone Forms: My [facility] Skilled Items Patient informed of condition?: Yes DNR: Yes Discharge Level of Care: Acute rehab Communicable Disease: No Discharge Prognosis: Stable Lines: None Urinary Catheter: No Medications and DC Order Prescriptions: New atorvastatin 40 mg Tablet 40 mg PO QPM Qty: 30 RF: 0 aspirin 81 mg Tablet,Delayed Release (Dr/Ec) 81 mg PO HS Qty: 30 RF: 0 Continued clopidogrel 75 mg tablet 75 mg PO QAM Qty: 30 RF: 5 metoprolol succinate [Toprol XL] 25 mg tablet extended release 24 hr 25 mg PO QAM Qty: 30 RF: 5 cetirizine [Zyrtec] 10 mg tablet 10 mg PO QAM Qty: 30 RF: 6 primidone [Mysoline] 250 mg tablet 250 mg PO QAM Qty: 30 RF: 5 sennosides [Senokot] 8.6 mg tablet 8.6 mg PO QAM PRN (Reason: constipation) Qty: 30 RF: 5 (DME) Bedside commode Qty: 1 RF: 0 (DME) Wheelchair Qty: 1 RF: 0 cholecalciferol (vitamin D3) 50 mcg (2,000 unit) capsule 2,000 unit PO DAILY Qty: 30 RF: 11 docusate sodium [Colace] 100 mg capsule 100 mg PO BID Qty: 60 RF: 5 betamethasone dipropionate 0.05 % ointment 1 applic TOPICAL BID PRN (Reason: rash) Qty: 45 RF: 5 ammonium lactate 12 % cream 1 applic topical BID Qty: 385 RF: 1 linaclotide 145 mcg capsule 145 mcg PO QAM Qty: 30 RF: 5 Naphcon-A 0.025-0.3 % drops 1 drp OPHTHALMIC (EYE) BID RF: 0 fluocinolone 0.025 % ointment 1 applic topical BID Qty: 60 RF: 1 lithium carbonate 450 mg tablet extended release 450 mg PO HS RF: 0 levothyroxine 50 mcg tablet 50 mcg PO QAM RF: 0 potassium chloride 10 mEq tablet,ER particles/crystals 10 meq PO QAM RF: 0 acetic acid 2 % Solution 4 drp OTIC (EAR) 2XWK RF: 0 CeraVe Lotion 1 ea TOPICAL BID RF: 0 carbamide peroxide [Debrox] 6.5 % Drops 4 drp OTIC (EAR) 2XWK RF: 0 quetiapine 300 mg tablet 300 mg PO PM RF: 0 quetiapine 50 mg tablet 50 mg PO PM RF: 0 mupirocin 2 % ointment 1 applic TOPICAL BID PRN (Reason: open wounds) RF: 0 Discontinued atorvastatin 20 mg tablet 20 mg PO QPM RF: 0 furosemide [Lasix] 40 mg tablet 40 mg PO QAM RF: 0 Discharge Orders: Discharge Order (Routine); Ordered 05/24/21 Ordered By: Todd Rao Admission Data Admit Date/Time: 05/08/21 17:09 Attending Provider: Todd Rao Admit Provider: Constanza Daley Primary Care Provider: Ken Cano Other Providers: [facility] ; [facility], ; [place] ; Merlin Ribera ; Peewee Olivares Other Interventions: Discharge Summary Assessment (RN) Last Done: 05/24/21 12:37 Coding Level of Care Code D/C DAY MANAGEMENT >30 MINS Diagnoses Stroke I63.9 Acute UTI N39.0 HTN (hypertension) I10 Hypertension type: essential hypertension Hyperlipidemia E78.5 Bigeminy I49.8 Hypothyroid E03.9 Hypothyroidism type: unspecified Cardiovascular disease I25.10 Cerebral vascular disease I67.9 Gastroesophageal reflux disease K21.9 Chronic systolic congestive heart failure I50.22 Bipolar disorder, unspecified F31.9 Esophageal dysmotility K22.4 Seizure disorder G40.909 Mentally challenged F79
== END 2021-05-24 17:00 | DRG 62 ==
LOC: ED 14:35 → 1E 17:09 → SUATTDRO 17:09 → 1E 19:32 → 2W 05-11 19:10
DX: R29.717 NIHSS score 17; F79 Unspecified intellectual disabilities; F31.81 Bipolar II disorder; D64.9 Anemia, unspecified; Z86.73 Personal history of transient ischemic attack (TIA), and cerebral infarction without residual deficits; I47.2 Ventricular tachycardia; R29.810 Facial weakness; I42.9 Cardiomyopathy, unspecified; I11.0 Hypertensive heart disease with heart failure; R13.10 Dysphagia, unspecified; E03.9 Hypothyroidism, unspecified; E78.5 Hyperlipidemia, unspecified; G81.94 Hemiplegia, unspecified affecting left nondominant side; M24.531 Contracture, right wrist; R41.4 Neurologic neglect syndrome; B96.20 Unspecified Escherichia coli [E. coli] as the cause of diseases classified elsewhere; N39.0 Urinary tract infection, site not specified; K22.4 Dyskinesia of esophagus; R29.6 Repeated falls; I50.22 Chronic systolic (congestive) heart failure; M81.0 Age-related osteoporosis without current pathological fracture; I63.511 Cerebral infarction due to unspecified occlusion or stenosis of right middle cerebral artery; G93.40 Encephalopathy, unspecified; Z88.0 Allergy status to penicillin; I27.20 Pulmonary hypertension, unspecified; G40.909 Epilepsy, unspecified, not intractable, without status epilepticus; Z88.8 Allergy status to other drugs, medicaments and biological substances